=== PATIENT | male | born 1930 | race Caucasian/White ===

== ENCOUNTER 2019-08-21 10:42 | Inpatient (IN) | payer MEDICARE ==
[~2019-08-21] VITALS: Ht 162.6 cm; Wt 79.0 kg
[2019-08-21 11:50] LABS: BASO # 0.1 10^3/uL (0.0-0.2); EOS # 0.2 10^3/uL (0.0-0.5); EOS % 2.6 % (0.0-3.0); HEMATOCRIT 40.9 % (42.0-52.0); HEMOGLOBIN 13.4 g/dl (13.5-17.5); LYMPH # 1.3 10^3/uL (1.5-5.0); LYMPH % 21.7 % (24.0-44.0); MEAN CORPUSCULAR HEMOGLOBIN 30.2 pg (27.0-33.0); MEAN CORPUSCULAR HGB CONC 32.8 g/dl (32.0-36.5); MEAN CORPUSCULAR VOLUME 92.1 fl (80.0-96.0); MONO # 0.8 10^3/uL (0.0-0.8); MONO % 12.9 % (0.0-5.0); NEUTROPHILS # 3.8 10^3/uL (1.5-8.5); PLATELET COUNT, AUTOMATED 166 10^3/uL (150-450); RED BLOOD COUNT 4.44 10^6/uL (4.30-6.10); WHITE BLOOD COUNT 6.1 10^3/uL (4.0-10.0)
[2019-08-21 11:59] LABS: INR 1.16; PARTIAL THROMBOPLASTIN TIME 27.2 SECONDS (25.0-38.4); PROTHROMBIN TIME 14.5 SECONDS (11.8-14.0)
--- NOTE | 2019-08-21 12:11 | REP ---
CHEST, SINGLE VIEW: Single view of the chest is performed. I have no prior study for comparison. I see no evidence of acute infiltrate with mild bibasilar fibroatelectatic change. There is mild cardiomegaly. There is some tortuosity of the thoracic aorta. There appears to be a prominent right pulmonary artery. Multiple sternal wires are present. Electronically Signed by Chandu Chowdary MD 08/22/2019 04:37 P
[2019-08-21 12:22] LABS: BLOOD UREA NITROGEN 18 MG/DL (7-18); CALCIUM LEVEL 9.2 MG/DL (8.8-10.2); CARBON DIOXIDE LEVEL 29 MEQ/L (21-32); CHLORIDE LEVEL 109 MEQ/L (98-107); CK-MB VALUE MASS 1.2 NG/ML (<3.6); CPK CREATINE PHOSPHOKINASE 19 U/L (39-308); CREATININE FOR GFR 1.15 MG/DL (0.70-1.30); GLOMERULAR FILTRATION RATE > 60.0 (>35); GLUCOSE, FASTING 102 MG/DL (70-100); MB/CK RELATIVE INDEX 6.32 (< OR =4); POTASSIUM SERUM 3.8 MEQ/L (3.5-5.1); SODIUM LEVEL 143 MEQ/L (136-145); TROPONIN I 0.09 NG/ML (< 0.10)
--- NOTE | 2019-08-21 12:22 | REP ---
CT study of the cervical spine without contrast: History: Syncope. No comparison study. Technique: Helical scanning is acquired and overlapping 2 mm high resolution axial images were generated and reviewed at bone and soft tissue window settings. Coronal and sagittal multiplanar re-formations images are generated. CT findings: There is straightening of the normal cervical lordosis. Fairly advanced degenerative spondylosis changes are noted. Degenerative disc disease is seen at each cervical level. There is a degenerative C7-T1 weighted 3 mm anterior listhesis of seven with respect T1. There is a 2 mm retrolisthesis at C5-6 with advanced degenerative disc changes here. There is posterior osteophytic ridging producing mild central canal stenosis at C5-6. There is central canal stenosis is C4-5 mild in degree due to disc bulging and facet hypertrophy. There is uncovertebral spurring and neural foraminal narrowing on the right at C4-5 and bilaterally at C5-6. There is developmental fusion of the C3-4 disc. There is diffuse bulging of the C2-3 disc with mild central canal stenosis at C2-3. There is osteoarthritic facet disease bilaterally in the mid cervical spine. There is no evidence of cervical spine element fracture. No skull base fracture is seen. Cervical vertebral body heights are preserved. There is no evidence of intraspinal or paraspinal hematoma. No extra vertebral abnormality is seen. Impression: Advanced degenerative spondylosis changes. Otherwise negative CT study of the cervical spine without contrast. No fracture seen. Electronically Signed by Gideon Ramon MD 08/21/2019 12:12 P
--- NOTE | 2019-08-21 12:41 | REP ---
CT BRAIN WITHOUT CONTRAST: History: Syncope. No comparison study. FINDINGS: Digital preliminary talent scout radiographs are unremarkable. The patient is edentulous. The patient is rotated to the right in the scanner. Vascular calcification is noted. Bone window settings show no bony destructive lesion or fracture. The visualized paranasal sinuses are clear. No intraorbital abnormality is seen. Extensive vascular calcification is noted in the distal internal carotid arteries. On soft tissue window settings, there is moderate generalized volume loss. Periventricular low density pattern consistent with small vessel changes is observed. There is no evidence of acute infarction or intracranial hemorrhage. No extra-axial fluid collection or mass is seen. IMPRESSION: Generalized volume loss, vascular calcification, and small vessel changes. No acute intracranial abnormality. Electronically Signed by Gideon Ramon MD 08/21/2019 12:44 P
[2019-08-21] MEDS ORDERED: ESCI20TA16 PO (14:38)
[2019-08-21] MEDS ORDERED: AMIT10TA PO (14:38)
[2019-08-21] MEDS ORDERED: ZOLP5TAB (14:38)
[2019-08-21] MEDS ORDERED: POTA1TAB14 PO (14:38)
[2019-08-21] MEDS ORDERED: LOSA100T50 PO (14:38)
[2019-08-21] MEDS ORDERED: AMLO1TAB24 PO (14:38)
[2019-08-21] MEDS ORDERED: amLODIPine 5 MG TAB As Ordered ONE (15:35)
[2019-08-21] MEDS ORDERED: LOSARTAN 50MG TABLET PO ONE (15:45)
[2019-08-21] MEDS ORDERED: amLODIPine 5 MG TAB PO ONE (15:45)
[2019-08-21] MEDS ORDERED: LUNE1TAB8 PO (16:25)
[2019-08-21] MEDS ORDERED: AMLO1TAB25 PO (16:25)
[2019-08-21] MEDS ORDERED: PATIENT COMMENT (16:30)
--- NOTE | 2019-08-21 17:25 | HPEPDOC ---
General Date of Admission 08/21/2019 Date of Service: Aug 21, 2019 Chief Complaint The patient is a 89-year-old male admitted with a reason for visit of Weakness. 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 Pt reported he got up from his recliner, and felt dizzy, and he called " the person who brings in meds for me" and was told to come in to the ER. Per ER report EMS was called as friend/caregiver became concerned after speaking with pt. Pt reported that he has been feeling not well for the past week but is unable to report anything other than generalized dizziness and mild decreased appetite. He reported that he is going through alot of family stress at this time. Denies any fever, chills, chest pain, nausea, vomiting, abdominal pain. Denies any sick contact. Pt is unsure if there's any recent medication changes but reported he has been taking amlodipine and losartan for a long time. Pt denies having any heart history or having a cardiology, and does not seem to know that his precordial chest scar was for his aortic valve replacement. Later he reported the aortic valve replacement is a consequence of "flu". Home Medications Scheduled Amlodipine Besylate (Amlodipine Besylate) 10 Mg Tablet, 10 MG PO DAILY, (Reported) Losartan Potassium (Losartan Potassium) 100 Mg Tablet, 100 MG PO DAILY, (Reported) Potassium Chloride (Potassium Chloride) 20 Meq Tablet.er, 10 MEQ PO DAILY, (Reported) Miscellaneous Medications [Patient Comment] , (Reported) UNABLE TO VERIFY MEDICATIONS WITH PATIENT - MED LIST OBTAINED FROM DR. COLLINS OFFICE AND PHARMACY. Allergies Coded Allergies: Unclassified (Unverified Allergy, Unknown, swelling, 08/21/19) Pt has allergy to med but pt is poor historian and can't remember name of medication. 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 Moves from [place] to [place] June 2018. Moved from [place] to [place] June 2019 A-FIB/CHADSVASC A-FIB History Current/History of A-Fib/PAF?: No Review of Systems Constitutional: Denies: Chills, Fever Pulmonary: Denies: Dyspnea Cardiovascular: Denies: Chest Pain, Palpitations Gastrointestinal: Denies: Nausea, Vomiting, Abdominal Pain Neurological: Denies: Weakness, Numbness Psych: Reports: Other Psych (reported stressed from family issues) Physical Examination General Exam: Positive: Alert, Cooperative, No Acute Distress Eye Exam: Positive: Conjunctiva & lids normal; Negative: Sclera icteric ENT Exam: Positive: Atraumatic, Mucous membr. moist/pink Neck Exam: Positive: Supple Chest Exam: Positive: Normal air movement, Diminished; Negative: Rales, Rhonchi, Wheezing Heart Exam: Positive: Bradycardic, Normal S1, Normal S2; Negative: Murmurs Abdomen Exam: Positive: Normal bowel sounds, Soft; Negative: Tenderness Extremity Exam: Negative: Edema, Tenderness, Swelling Skin Exam: Positive: Nl turgor and temperature Neuro Exam: Positive: Strength at 5/5 X4 ext, Normal Tone, Cranial Nerves 3-12 NL, Other (garbled speech); Negative: Normal Speech Psych Exam: Positive: Mental status NL, Anxiety (midly to mod anxious); Negative: Mood NL Vital Signs Vital Signs Date Time Temp Pulse Resp B/P (MAP) Pulse Ox O2 Delivery O2 Flow Rate FiO2 08/21/19 15:37 58 20 181/86 (117) 94 Room Air 08/21/19 11:01 97.8 Laboratory Data Labs 24H Laboratory Tests 2 08/21/19 11:35: Immature Granulocyte % (Auto) 0.8, Neutrophils (%) (Auto) 61.0, Lymphocytes (%) (Auto) 21.7L, Monocytes (%) (Auto) 12.9H, Eosinophils (%) (Auto) 2.6, Basophils (%) (Auto) 1.0, Neutrophils # (Auto) 3.8, Lymphocytes # (Auto) 1.3L, Monocytes # (Auto) 0.8, Eosinophils # (Auto) 0.2, Basophils # (Auto) 0.1, Nucleated Red Blood Cells % (auto) 0.0, Prothrombin Time 14.5H, Prothromb Time International Ratio 1.16, Activated Partial Thromboplast Time 27.2, Anion Gap 5L, Glomerular Filtration Rate > 60.0, Lactic Acid Level 0.8, Calcium Level 9.2, Magnesium Level 2.0, Total Creatine Kinase 19L, Creatine Kinase MB 1.2, Creatine Kinase MB Relative Index 6.32H, Troponin I 0.09, Thyroid Stimulating Hormone (TSH) 1.560, Free Thyroxine 1.10 08/21/19 11:58: Bedside Glucose (Misc Panel) 104 08/21/19 13:08: Urine Color YELLOW, Urine Appearance CLEAR, Urine pH 6.0, Urine Specific [place] 1.017, Urine Protein NEGATIVE, Urine Glucose (UA) NEGATIVE, Urine Ketones NEGATIVE, Urine Blood NEGATIVE, Urine Nitrite NEGATIVE, Urine Bilirubin NEGATIVE, Urine Urobilinogen 0.2, Urine Leukocyte Esterase NEGATIVE, Urine WBC (Auto) 0, Urine RBC (Auto) 2, Urine Hyaline Casts (Auto) 1, Urine Bacteria (Auto) NEGATIVE, Urine Squamous Epithelial Cells 0, Urine Mucus (Auto) SMALL, Urine Sperm (Auto) CBC/BMP Laboratory Tests 08/21/19 11:35 Assessment/Plan 1. Bradycardia, questionable symptomatic, reported chronic duration Pt reported that he felt dizziness last night but otherwise is asymptomatic besides generalized weakness. Poor historian thus is unable to obtain too much info. Pt reported the bradycardia is chronic. Buddy consult called to Dr. Walsh around 1700PM regarding this patient's HR 48 and presyncope event last night and recommended tele monitor with outpatient follow up. Will obtain echo, 48 hr tele, orthostatic hypotension. PT/OT. Fall precaution 2. History of aortic valve procedure. Reported done Jan 2019 in [place]. Pt is unable to report the etiology of his aortic valve replacement, said it's a con sequence of flu. Pt's PCP is Elliot Collins and aortic valve procedure was done in [employer] in [place], obtain outpatient and inpatient records. No records on file. Echo ordered 3. HTN. Cont home med amlodipine and losartan. Vital signs as scheduled. 4. Depression. Hold home med Amitriptyline and Escitalopram as both may cause bradycardia for now. 5. Insomnia. Hold home med Lunesta for now as it may cause dizziness and interferes with bradycardia symptom/presentation. DVT prophylaxis: Lovenox, SCD, TEDS GI prophylaxis: not indicated Patient's 2 sons Noah [phone] and Kaiser [phone] Plan / VTE VTE Prophylaxis Ordered?: Yes Plan Diet: Continue Current Activity: Bedrest Therapy: PT, OT GME ATTESTATION I have personally evaluated and examined the patient. Discussed with resident/student regarding plan of care and agree with the above assessment and plan. OCTAVIO URIOSTEGUI DO Aug 21, 2019 17:25 GISELLE LOPEZ MD Aug 22, 2019 18:22
[2019-08-21 19:42] VITALS: BP 170/90
[2019-08-21 19:54] LABS: CK-MB VALUE MASS < 1.0 NG/ML (<3.6); CPK CREATINE PHOSPHOKINASE 25 U/L (39-308); TROPONIN I 0.09 NG/ML (< 0.10)
[2019-08-21] MEDS ORDERED: DOCUSATE SODIUM 100MG CAPSULE PO SCH (21:00)
[2019-08-21] MEDS ORDERED: RAMELTEON 8 MG TAB (ROZEREM) PO SCH (21:00)
[2019-08-22] VITALS (7 sets, daily range): BP systolic 122–183; BP diastolic 60–83
[2019-08-22] MEDS ORDERED: ACETAMINOPHEN TAB 650MG DOSE (2X325MG) PO PRN (00:15)
[2019-08-22 05:34] LABS: HEMATOCRIT 41.6 % (42.0-52.0); HEMOGLOBIN 13.7 g/dl (13.5-17.5); MEAN CORPUSCULAR HEMOGLOBIN 30.3 pg (27.0-33.0); MEAN CORPUSCULAR HGB CONC 32.9 g/dl (32.0-36.5); PLATELET COUNT, AUTOMATED 186 10^3/uL (150-450); RED BLOOD COUNT 4.52 10^6/uL (4.30-6.10); WHITE BLOOD COUNT 7.6 10^3/uL (4.0-10.0)
[2019-08-22 05:49] LABS: CALCIUM LEVEL 9.4 MG/DL (8.8-10.2); CREATININE FOR GFR 1.22 MG/DL (0.70-1.30); GLOMERULAR FILTRATION RATE 59.7 (>35); POTASSIUM SERUM 3.8 MEQ/L (3.5-5.1)
[2019-08-22 07:55] LABS: TROPONIN I 0.09 NG/ML (< 0.10)
[2019-08-22] MEDS ORDERED: DOCUSATE SODIUM 100MG CAPSULE PO PRN (08:30)
[2019-08-22] MEDS ORDERED: ENOXAPARIN 40MG/0.4ML SYRINGE (J1650 PER 10MG) SC SCH (09:00)
[2019-08-22] MEDS ORDERED: LOSARTAN 50MG TABLET PO SCH (09:00)
--- NOTE | 2019-08-22 09:33 | ECGEPIP ---
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
--- NOTE | 2019-08-22 11:06 | IPNPDOC ---
Subjective Date Seen The patient was seen on 08/22/19. Objective Physical Examination General Exam: Positive: Alert, Cooperative, No Acute Distress Eye Exam: Positive: Conjunctiva & lids normal; Negative: Sclera icteric ENT Exam: Positive: Atraumatic, Mucous membr. moist/pink Neck Exam: Positive: Supple Chest Exam: Positive: Normal air movement, Diminished; Negative: Rales, Rhonchi, Wheezing Heart Exam: Positive: Bradycardic, Normal S1, Normal S2; Negative: Murmurs Abdomen Exam: Positive: Normal bowel sounds, Soft; Negative: Tenderness Extremity Exam: Negative: Edema, Tenderness, Swelling Skin Exam: Positive: Nl turgor and temperature Neuro Exam: Positive: Strength at 5/5 X4 ext, Normal Tone, Cranial Nerves 3-12 NL, Other (garbled speech); Negative: Normal Speech Psych Exam: Positive: Mental status NL, Anxiety (midly to mod anxious); Negative: Mood NL Assessment /Plan Assessment Spoke with Dr. Walsh at 1055 regarding patient's condition including 3 asystole episodes lasting 2 seconds all while asleep with [place] interval 0.24 sec with echo and repeat EKG pending. Dr. Walsh recommended no further intervention inpatient and outpatient follow up with Dr. Walsh. Patient's name was given to Dr. Walsh, and we discussed that the strips with EKG will be faxed to Dr. Walsh's office. The 3 asystole strips 0936 on 08/22/2019, and 0436 on 08/22/2019, and 1952 on 08/21/2019 with EKG from 1215 on 08/21/[address] Walsh's office at 1055 today. VS, I&O, 24H, Fishbone Vital Signs/I&O Vital Signs Date Time Temp Pulse Resp B/P (MAP) Pulse Ox O2 Delivery O2 Flow Rate FiO2 08/22/19 09:16 54 183/79 (113) 56 171/72 (105) 160/75 (103) 08/22/19 08:00 98.0 18 99 Room Air I&O- Last 24 Hours up to 6 AM 08/22/19 06:00 Output Total 225 ml Balance -225 ml Laboratory Data 24H LABS Laboratory Tests 2 08/21/19 11:35: Immature Granulocyte % (Auto) 0.8, Neutrophils (%) (Auto) 61.0, Lymphocytes (%) (Auto) 21.7L, Monocytes (%) (Auto) 12.9H, Eosinophils (%) (Auto) 2.6, Basophils (%) (Auto) 1.0, Neutrophils # (Auto) 3.8, Lymphocytes # (Auto) 1.3L, Monocytes # (Auto) 0.8, Eosinophils # (Auto) 0.2, Basophils # (Auto) 0.1, Nucleated Red Blood Cells % (auto) 0.0, Prothrombin Time 14.5H, Prothromb Time International Ratio 1.16, Activated Partial Thromboplast Time 27.2, Anion Gap 5L, Glomerular Filtration Rate > 60.0, Lactic Acid Level 0.8, Calcium Level 9.2, Magnesium Level 2.0, Total Creatine Kinase 19L, Creatine Kinase MB 1.2, Creatine Kinase MB Relative Index 6.32H, Troponin I 0.09, Thyroid Stimulating Hormone (TSH) 1.560, Free Thyroxine 1.10 08/21/19 11:58: Bedside Glucose (Misc Panel) 104 08/21/19 13:08: Urine Color YELLOW, Urine Appearance CLEAR, Urine pH 6.0, Urine Specific [place] 1.017, Urine Protein NEGATIVE, Urine Glucose (UA) NEGATIVE, Urine Ketones NEGATIVE, Urine Blood NEGATIVE, Urine Nitrite NEGATIVE, Urine Bilirubin NEGATIVE, Urine Urobilinogen 0.2, Urine Leukocyte Esterase NEGATIVE, Urine WBC (Auto) 0, Urine RBC (Auto) 2, Urine Hyaline Casts (Auto) 1, Urine Bacteria (Auto) NEGATIVE, Urine Squamous Epithelial Cells 0, Urine Mucus (Auto) SMALL, Urine Sperm (Auto) 08/21/19 19:01: Total Creatine Kinase 25L, Creatine Kinase MB < 1.0, Creatine Kinase MB Relative Index 4.00, Troponin I 0.09 08/22/19 04:47: Nucleated Red Blood Cells % (auto) 0.0, Anion Gap 8, Glomerular Filtration Rate 59.7, Calcium Level 9.4, Troponin I 0.09 CBC/BMP Laboratory Tests 08/21/19 11:35 08/22/19 04:47 OCTAVIO URIOSTEGUI DO Aug 22, 2019 11:06
--- NOTE | 2019-08-22 14:33 | DS.PDOC ---
Discharge Summary General Date of Admission Aug 21, 2019 at 18:21 Date of Discharge 08/22/19 Discharge Summary PROCEDURES PERFORMED DURING STAY: [None]. ADMITTING DIAGNOSES: 1. Dizziness 2. Bradycardia 3. Recent history of AVR 4. Insomnia 5. HTN 6. Depression DISCHARGE DIAGNOSES: 1. Dizziness 2. Bradycardia 3. Recent history of AVR 4. Insomnia 5. HTN 6. Depression COMPLICATIONS/CHIEF COMPLAINT: Bradycardia. HISTORY OF PRESENT ILLNESS:- Dr. 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 Pt reported he got up from his recliner, and felt dizzy, and he called " the person who brings in meds for me" and was told to come in to the ER. Per ER report EMS was called as friend/caregiver became concerned after speaking with pt. Pt reported that he has been feeling not well for the past week but is unable to report anything other than generalized dizziness and mild decreased appetite. He reported that he is going through alot of family stress at this time. Denies any fever, chills, chest pain, nausea, vomiting, abdominal pain. Denies any s ick contact. Pt is unsure if there's any recent medication changes but reported he has been taking amlodipine and losartan for a long time. Pt denies having any heart history or having a cardiology, and does not seem to know that his precordial chest scar was for his aortic valve replacement. Later he reported the aortic valve replacement is a consequence of "flu"." HOSPITAL COURSE: Patient was admitted for monitoring and evaluation. Bloodwork does not show any significant electrolyte abnormalities and patient denies any symptoms since he first presented. He stated that he had mentioned to a nurse on the phone that he was dizzy and was instructed to go into the ER. When he was found to be bradycardic, he states that his heart rate always run low and it is not abnormal for him. Patient is a very poor historian and not much history can be obtained. He states that he was recently started on ambien and SSRI. Unsure if the episode of dizziness prior to this admission was related to medications but he has been asymptomatic since admission while SSRI and ambien was held. No clear indication that he has symptomatic bradycardia during this visit. Discussed with cardiology and will have patient follow up as outpatient after getting an ECHO. BP noted to be elevated on arrival but had since improved. Will discharge patient to f/u PCP as well as cardiology outpatient. PT had done an eval and patient was cleared for discharge to home. DISCHARGE MEDICATIONS: Please see below. ALLERGIES: Please see below. PHYSICAL EXAMINATION ON DISCHARGE: VITAL SIGNS: Please see below. General: No acute distress, Alert Eyes: Normal sclera, EOMI, HARJEET HENT: Atraumatic Cardiovascular: bradycardia Pulmonary: Clear to auscultation b/l, no wheezing GI: Soft, nontender, nondistended Skin: Warm and dry Neuro: CN grossly intact. No focal deficits. Strengths equal b/l. Psych: oriented x 3 LABORATORY DATA: Please see below. IMAGING: CT head- Generalized volume loss, vascular calcification, and small vessel changes. No acute intracranial abnormality. CT cervical spine- Advanced degenerative spondylosis changes. Otherwise negative CT study of the cervical spine without contrast. No fracture seen. ACTIVITY: [As tolerated]. DIET: 2G sodium DISCHARGE PLAN: Discontinued ambien and SSRI at this time due to dizziness f/u PCP and cardiology outpatient DISPOSITION: Home. DISCHARGE INSTRUCTIONS: Discontinued ambien and SSRI at this time due to dizziness f/u PCP and cardiology outpatient ITEMS TO FOLLOWUP ON ON OUTPATIENT: 1. ECHO DISCHARGE CONDITION: [Stable]. TIME SPENT ON DISCHARGE: 35 minutes. Vital Signs/I&Os Vital Signs Date Time Temp Pulse Resp B/P (MAP) Pulse Ox O2 Delivery O2 Flow Rate FiO2 08/22/19 12:00 96.1 46 18 150/78 (102) 96 Room Air I&O- Last 24 Hours up to 6 AM 08/22/19 06:00 Output Total 225 ml Balance -225 ml Laboratory Data Labs 24H Laboratory Tests 2 08/21/19 19:01: Total Creatine Kinase 25L, Creatine Kinase MB < 1.0, Creatine Kinase MB Relative Index 4.00, Troponin I 0.09 08/22/19 04:47: Troponin I 0.09, Nucleated Red Blood Cells % (auto) 0.0, Anion Gap 8, Glomerular Filtration Rate 59.7, Calcium Level 9.4 CBC/BMP Laboratory Tests 08/22/19 04:47 Discharge Medications Scheduled Amlodipine Besylate (Amlodipine Besylate) 10 Mg Tablet, 10 MG PO DAILY, (Reported) Losartan Potassium (Losartan Potassium) 100 Mg Tablet, 100 MG PO DAILY, (Reported) Potassium Chloride (Potassium Chloride) 20 Meq Tablet.er, 10 MEQ PO DAILY, (Reported) Miscellaneous Medications [Patient Comment] , (Reported) UNABLE TO VERIFY MEDICATIONS WITH PATIENT - MED LIST OBTAINED FROM DR. BREWER OFFICE AND PHARMACY. Allergies Coded Allergies: Unclassified (Unverified Allergy, Unknown, swelling, 08/21/19) Pt has allergy to med but pt is poor historian and can't remember name of medication. GISELLE LOPEZ MD Aug 22, 2019 14:33
--- NOTE | 2019-08-22 16:39 | TRANSCARE ---
Transition of Care: Transition of Care Spoke with Dr. Walsh at 1055 regarding patient's condition including 3 skipped heartbeat episodes lasting 2 seconds all while asleep with [place] interval 0.24 sec with echo and repeat EKG pending. Dr. Walsh recommended no further intervention inpatient and outpatient follow up with Dr. Walsh. Patient's name was given to Dr. Walsh, and we discussed that the strips with EKG will be faxed to Dr. Walsh's office. The 3 asystole strips 0936 on 08/22/2019, and 0436 on 08/22/2019, and 1952 on 08/21/2019 with EKG from 1215 on 08/21/[address] Walsh's office at 105 today. OCTAVIO URIOSTEGUI DO Aug 22, 2019 16:38
--- NOTE | 2019-08-22 17:03 | ECHO ---
DATE OF STUDY: 08/22/2019 REFERRING PHYSICIAN: Dr. Neha Bettencourt INDICATION: Abnormal ECG. HEIGHT: 163 cm WEIGHT: 73 kg 2-D MEASUREMENTS: Ventricular septum: 1.43 cm Posterior wall: 1.30 cm Left ventricle diastole: 4.3 cm Left atrium: 4.7 cm Aortic root: 3.7 cm LVOT: 2.0 cm Inferior vena cava: 1.8 cm DOPPLER MEASUREMENTS: No aortic stenosis. Mild aortic regurgitation. Aortic valve velocity: 237 cm/sec LVOT velocity: 86.5 cm/sec Very mild mitral regurgitation. Mitral E velocity: 58.7 cm/sec Mitral A velocity: 78.5 cm/sec Mitral deceleration time: 239 ms Very mild tricuspid regurgitation. Estimated right ventricular systolic pressure 34-39 mmHg assuming a right atrial pressure of 5-10 mmHg. Very mild pulmonic regurgitation. MITRAL ANNULAR TISSUE DOPPLER E prime septal: 3.9 cm/sec E prime lateral: 6.2 cm/sec DESCRIPTION: The rhythm was sinus bradycardia and appearance of first degree atrioventricular (AV) block. Image quality was fair. No pericardial effusion. This was a 2-D, M-mode, color flow Doppler and pulsed wave Doppler examination and included mitral annular tissue Doppler. A saline bubble study was performed. CONCLUSIONS: 1. Mild concentric left ventricular hypertrophy. Normal regional LV wall motion and wall thickening. Normal LV systolic function. Left ventricular ejection fraction (LVEF) 60% by visual estimate. Grade 1 LV diastolic dysfunction (impaired relaxation filling pattern). 2. 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 Mild aortic regurgitation. No aortic stenosis. 3. Mild mitral annular calcification. 4. Very mild mitral regurgitation. 5. Moderate left atrial dilatation. 6. Suggestive of mild elevation of estimated right ventricular systolic pressure. 7. Bubble study negative for detection of right heart to left heart intracardiac shunting.
--- NOTE | 2019-08-23 18:44 | ECGEPIP ---
[facility] Test Date: 2019-08-22 Pat Name: EM DUNCAN Department: Room: [place] [address] Gender: Male Hoister: : 1930 Requested By: OCTAVIO URIOSTEGUI Order Number: [id number] Reading MD: Ok Bunch Measurements Intervals [place] Rate: 44 P: 35 MN: 255 QRS: 11 QRSD: 100 T: 40 QT: 476 QTc: 410 Interpretive Statements SINUS BRADYCARDIA WITH FIRST DEGREE AV BLOCK NONSPECIFIC ST & T-WAVE ABNORMALITY POSSIBLE PRIOR INFERIOR WALL INFARCT Last tracing on 08/21/19 AT 12:15. nO SIGNIFICANT CHANGES Electronically Signed on 08-23-2019 18:44:07 EDT by Ok Bunch
== END 2019-08-22 17:15 | disposition home or self-care (01) | DRG 149 ==
LOC: EDSEX 10:42 → M ED 10:42 → EDBD 10:42 → M ED INP 18:21 → ENRESERV 18:38 → M PCU 19:43
PROVIDERS: ADMIT Student in an Organized Health Care Education/Training Program; ATTEND Student in an Organized Health Care Education/Training Program
DX: R42 Dizziness and giddiness (principal); F32.9 Major depressive disorder, single episode, unspecified; G47.00 Insomnia, unspecified; I10 Essential (primary) hypertension; R55 Syncope and collapse; R00.1 Bradycardia, unspecified; Z95.2 Presence of prosthetic heart valve; Z79.899 Other long term (current) drug therapy

== ENCOUNTER → 2020-02-08 | Outpatient (REF) | payer MEDICARE, MEDICAID ==
[~2020-02-08] MED LIST: AMIT10TA PO; AMLO1TAB24 PO; AMLO1TAB25 PO; ESCI20TA PO; LOSA100T50 PO; LUNE1TAB8 PO; PATIENT COMMENT; POTA1TAB14 PO; ZOLP5TAB
== END ==
PROVIDERS: ATTEND Internal Medicine
DX: Z20.828 Contact with and (suspected) exposure to other viral communicable diseases (principal)

== ENCOUNTER → 2020-02-13 | Outpatient (REF) | payer MEDICARE, MEDICAID | PROVIDERS: ATTEND Internal Medicine | DX: Z20.828 Contact with and (suspected) exposure to other viral communicable diseases (principal) ==

== ENCOUNTER → 2020-02-18 | Outpatient (REF) | payer MEDICARE, MEDICAID | PROVIDERS: ATTEND Internal Medicine | DX: Z53.9 Procedure and treatment not carried out, unspecified reason (principal) ==

== ENCOUNTER → 2020-02-19 | Outpatient (REF) | payer MEDICARE, MEDICAID | PROVIDERS: ATTEND Internal Medicine | DX: Z20.828 Contact with and (suspected) exposure to other viral communicable diseases (principal) ==

== ENCOUNTER → 2020-02-25 | Outpatient (REF) | payer MEDICARE, MEDICAID | PROVIDERS: ATTEND Internal Medicine | DX: Z20.828 Contact with and (suspected) exposure to other viral communicable diseases (principal) ==

== ENCOUNTER → 2020-03-03 | Outpatient (REF) | payer MEDICARE, MEDICAID | PROVIDERS: ATTEND Internal Medicine | DX: Z11.52 Encounter for screening for COVID-19 (principal) ==

== ENCOUNTER → 2020-03-10 | Outpatient (REF) | payer MEDICARE, MEDICAID ==
[~2020-03-10] MED LIST changes: -ESCI20TA PO; +ESCI20TA16 PO
== END ==
PROVIDERS: ATTEND Internal Medicine
DX: Z20.822 Contact with and (suspected) exposure to COVID-19 (principal)

== ENCOUNTER → 2020-03-17 | Outpatient (REF) | payer MEDICARE, MEDICAID | PROVIDERS: ATTEND Internal Medicine | DX: Z20.822 Contact with and (suspected) exposure to COVID-19 (principal) ==

== ENCOUNTER → 2020-03-24 | Outpatient (REF) | payer MEDICARE, MEDICAID | PROVIDERS: ATTEND Internal Medicine | DX: Z20.822 Contact with and (suspected) exposure to COVID-19 (principal) ==

== ENCOUNTER → 2020-03-31 | Outpatient (REF) | payer MEDICARE, MEDICAID | PROVIDERS: ATTEND Internal Medicine | DX: Z20.822 Contact with and (suspected) exposure to COVID-19 (principal) ==

== ENCOUNTER → 2020-04-07 | Outpatient (REF) | payer MEDICARE, MEDICAID | PROVIDERS: ATTEND Internal Medicine | DX: Z20.822 Contact with and (suspected) exposure to COVID-19 (principal) ==

== ENCOUNTER → 2020-04-14 | Outpatient (REF) | payer MEDICARE, MEDICAID | PROVIDERS: ATTEND Internal Medicine | DX: Z20.822 Contact with and (suspected) exposure to COVID-19 (principal) ==

== ENCOUNTER → 2020-12-15 | Outpatient (CLI) | payer MEDICARE, MEDICAID ==
[~2020-12-15] MED LIST changes: +ACET650T15 PO; -AMIT10TA PO; +AMIT10TA7 PO; +CETI10CH PO; +DORZ2SOL5 OS; +ESOM20CA25 PO; +INDA125TA PO; +ISOS1TAB35 PO; +LEXA1TAB PO; +MELO7.5T35 PO; +MEMA1TAB3 PO; +POLY2.5S OS; +PREDOPD OS; +QC A650T3 PO; +TRAZ-252 PO
== END ==
LOC: M LABSMTC 11:01
PROVIDERS: ATTEND Anesthesiology
DX: Z01.812 Encounter for preprocedural laboratory examination (principal); Z20.822 Contact with and (suspected) exposure to COVID-19

== ENCOUNTER 2020-12-19 08:28 | Emergency (ER) | payer MEDICARE, MEDICAID ==
[~2020-12-19] VITALS: Ht 162.6 cm; Wt 80.0 kg
[~2020-12-19 08:28] MED LIST changes: -BSS IRR 500ML/OMIDRIA 4ML IRR BAG (OR ONLY) As Ordered ONE; -CEFUROXIME 1MG/0.1ML INTRACAMERAL INJ As Ordered ONE; -DUOVISC (0.50ML VISCOAT/0.85ML PROVISC) OPHTH KIT As Ordered ONE; -MIDAZOLAM INJ 2MG/2ML VIAL (J2250 PER 1MG) As Ordered ONE; -OFLOXACIN 0.3 % (OCUFLOX) OPTH SOL 5ML OS SCH; -PHENYLEPHRINE 1.5%/LIDOCAINE 1% INTRAOCULAR 0.8ML SYRINGE As Ordered ONE; -PHENYLEPHRINE 2.5% OPHTH SOL 2ML OS SCH; -PROPARACAINE 0.5% OPHTH SOL 15ML OS ONE; -TORS10TA3 PO; -TROPICAMIDE 1% OPHTH SOLN 2ML OS SCH; -fentaNYL 100 MCG/2 ML INJECTION (J3010) As Ordered ONE
--- OUTSIDE RECORDS SUMMARY | 2020-12-19 08:40 | CCD ---
Author Author [facility] Organization [facility] Address Unknown Phone Unavailable Care Team Providers Care Market Director Name Role Phone Amador Hernadez MD Unavailable [...] Unavailable Unavailable Amador Hernadez MD Unavailable Unavailable Aamdor Hernadez MD Unavailable Unavailable Amador Hernadez MD Unavailable Unavailable Amador Hernadez MD Unavailable Unavailable Amaodr Hernadez MD Unavailable Unavailable Amador Hernadez MD Unavailable Unavailable Amador Hernadez MD Unavailable Unavailable mAador Hernadez MD Unavailable Unavailable Amador Hernadez MD [...] Hernadez, Amador Zarate MD Unavailable Unavailable Hernadez, Amdaor Zarate MD Unavailable Unavailable Hernadez, Amador Zarate [...] HARDIK RPA-C Unavailable Unavailable SERRA, CARLOS ENRIQUE HADRIK RPA-C Unavailable Unavailable SERRA, CARLOS ENRIQUE HARDIK [...] Tatyana Cavazos PA Unavailable Unavailable Symenow, Tatyana Cavzaos PA Unavailable Unavailable Symenow, Tatyana Cavazos PA [...] is protected by Article 27-F of the [facility] Public Health law. If you continue you may have access to information: Regarding HIV / AIDS; Provided by facilities licensed or operated by the [facility] Office of Mental Health; or Provided by the [facility] Office for People With Developmental Disabilities. If such information is present, then the following [facility] mandated warning applies: This information [...] law may result in a fine or senior living sentence or both. A general authorization for the release of medical or other information is NOT sufficient authorization for further disc losure. Allergies and Adverse Reactions Type Description Substance Reaction Status Data Source(s ) Allergy to substance Allergy to substance Allergy to substance [facility]) Encounters Encounter Providers Location Date Indications Data Source(s ) Leta Fernando LCSW-R: [address], [place] [address], Ph. Attender: Leta Forrest [facility] Medical 12/11/2020 12:00:00 AM EDT [place] ([facility]) Outpatient Attender: Macy GIVENS Main Office 12/05/2020 08:45:00 AM EDT [place] ([facility]) JESIKA MorelC: [address], [place] [address], Ph. Attender: HARDIK POWERS [facility] Medical 12/03/2020 12:00:00 AM EDT [place] ([facility]) JESIKA MorelC: [address], [place] [address], Ph. Attender: HARDIK CANCHOLAC [facility] Medical 12/03/2020 12:00:00 AM EDT [place] ([facility]) LetaJOHN BrownW-R: [address], [place] [address], Ph. Attender: Leta Forrest [facility] Medical 11/20/2020 12:00:00 AM EDT [place] ([facility]) LetaJOHN BrownW-R: [address], [place] [address], Ph. Attender: Leta Forrest [facility] Medical 11/20/2020 12:00:00 AM EDT [place] ([facility]) JOHN ChristopherW-R: [address], [place] [address], Ph. Attender: Leta Forrest [facility] Medical 11/20/2020 12:00:00 AM EDT [place] ([facility]) Hardik Serra RPA-C: [address], [place] [address], Ph. Attender: HARDIK SERRA RPA-C [facility] Medical 10/23/2020 12:00:00 AM EDT [place] ([facility]) Hardik Serra RPA-C: [address], [place] [address], Ph. Attender: HARDIK SERRA RPA-C [facility] Medical 10/23/2020 12:00:00 AM EDT [place] ([facility]) Hardik Serra RPA-C: [address], [place] [address], Ph. Attender: HARDIK SERRA RPA-C [facility] Medical 10/23/2020 12:00:00 AM EDT [place] ([facility]) Hardik Serra RPA-C: [address], [place] [address], Ph. Attender: HARDIK SERRA RPA-C [facility] Medical 10/23/2020 12:00:00 AM EDT [place] ([facility]) JOHN ChristopherW-R: [address], [place] [address], Ph. Attender: Leta Forrest [facility] Medical 10/08/2020 12:00:00 AM EDT [place] ([facility]) JOHN ChristopherW-R: [address], [place] [address], Ph. Attender: Leta Forrest [facility] Medical 10/08/2020 12:00:00 AM EDT [place] ([facility]) JOHN ChristopherW-R: [address], [place] [address], Ph. Attender: Leta Forrest [facility] Medical 10/08/2020 12:00:00 AM EDT [place] ([facility]) JOHN ChristopherW-R: [address], [place] [address], Ph. Attender: Leta Forrest [facility] Medical 10/08/2020 12:00:00 AM EDT [place] ([facility]) Hardki Serra RPA-C: [address], [place] [address], Ph. Attender: HARDIK SERRA RPA-C [facility] Medical 09/30/2020 12:00:00 AM EDT [place] ([facility]) Hardik Serra RPA-C: [address], [place] [address], Ph. Attender: HARDIK SERRA RPA-C [facility] Medical 09/30/2020 12:00:00 AM EDT [place] ([facility]) Hardik Serra RPA-C: [address], [place] [address], Ph. Attender: HARDIK SERRA RPA-C [facility] Medical 09/30/2020 12:00:00 AM EDT [place] ([facility]) Hardik Serra RPA-C: [address], [place] [address], Ph. Attender: HARDIK SERRA RPA-C [facility] Medical 09/30/2020 12:00:00 AM EDT [place] ([facility]) Hardik Serra RPA-C: [address], [place] [address], Ph. Attender: HARDIK SERRA RPA-C [facility] Medical 09/30/2020 12:00:00 AM EDT [place] ([facility]) Leta Fernando LCSW-R: [address], [place] [address], Ph. Attender: Leta Forrest [facility] Medical 09/10/2020 12:00:00 AM EDT [place] ([facility]) Leta Fernando, INDUSTRIAL CLEANER-R: [address], [place] [address], Ph. Attender: Leta Forrest [facility] Medical 09/10/2020 12:00:00 AM EDT [place] ([facility]) Leta PalJOHN goodmanW-R: [address], [place] [address], Ph. Attender: Leta Forrest [facility] Medical 09/10/2020 12:00:00 AM EDT [place] ([facility]) Leta PalJOHN goodmanW-R: [address], [place] [address], Ph. Attender: Leta Forrest [facility] Medical 09/10/2020 12:00:00 AM EDT [place] ([facility]) Leta PalJOHN goodmanW-R: [address], [place] [address], Ph. Attender: Leta Forrest [facility] Medical 09/10/2020 12:00:00 AM EDT [place] ([facility]) Hardik Serra RPA-C: [address], [place] [address], Ph. Attender: HARDIK SERRA RPA-C [facility] Medical 09/02/2020 12:00:00 AM EDT [place] ([facility]) Hardik Serra RPA-C: [address], [place] [address], Ph. Attender: HARDIK SERRA RPA-C [facility] Medical 09/02/2020 12:00:00 AM EDT [place] ([facility]) Hardik Serra RPA-C: [address], [place] [address], Ph. Attender: HARDIK SERRA RPA-C [facility] Medical 09/02/2020 12:00:00 AM EDT [place] ([facility]) Hardik Serra, RPA-C: [address], [place] [address], Ph. Attender: HARDIK SERRA RPA-C [facility] Medical 09/02/2020 12:00:00 AM EDT [place] ([facility]) Hardik Serra RPA-C: [address], [place] [address], Ph. Attender: HARDIK SERRA RPA-C [facility] Medical 09/02/2020 12:00:00 AM EDT [place] ([facility]) Hardik Serra RPA-C: [address], [place] [address], Ph. Attender: HARDIK SERRA RPA-C [facility] Medical 09/02/2020 12:00:00 AM EDT [place] ([facility]) Hardik Serra, RPA-C: [address], [place] [address], Ph. Attender: HARDIK SERRA RPA-C [facility] Medical 08/19/2020 12:00:00 AM EDT [place] ([facility]) Hardik Serra RPA-C: [address], [place] [address], Ph. Attender: HARDIK SERRA RPA-C [facility] Medical 08/19/2020 12:00:00 AM EDT [place] ([facility]) Hardik Serra, RPA-C: [address], [place] [address], Ph. Attender: HARDIK SERRA RPA-C [facility] Medical 08/19/2020 12:00:00 AM EDT [place] ([facility]) Hardik Serra, RPA-C: [address], [place] [address], Ph. Attender: HARDIK SERRA RPA-C [facility] Medical 08/19/2020 12:00:00 AM EDT [place] ([facility]) Hardik Serra, RPA-C: [address], [place] [address], Ph. Attender: HARDIK SERRA RPA-C [facility] Medical 08/19/2020 12:00:00 AM EDT [place] ([facility]) Hardik Serra RPA-C: [address], [place] [address], Ph. Attender: HARDIK SERRA RPA-C [facility] Medical 08/19/2020 12:00:00 AM EDT [place] ([facility]) Hardik Serra, RPA-C: [address], [place] [address], Ph. Attender: HARDIK SERRA RPA-C [facility] Medical 08/19/2020 12:00:00 AM EDT [place] ([facility]) Hardik Serra, RPA-C: [address], [place] [address], Ph. Attender: HARDIK SERRA RPA-C [facility] Medical 07/23/2020 12:00:00 AM EDT [place] ([facility]) Hardik Serra, RPA-C: [address], [place] [address], Ph. Attender: HARDIK SERRA RPA-C [facility] Medical 07/23/2020 12:00:00 AM EDT [place] ([facility]) Hardik Serra, RPA-C: [address], [place] [address], Ph. Attender: HARDIK SERRA RPA-C [facility] Medical 07/23/2020 12:00:00 AM EDT [place] ([facility]) Hardik Serra, RPA-C: [address], [place] [address], Ph. Attender: HARDIK SERRA RPA-C [facility] Medical 07/23/2020 12:00:00 AM EDT [place] ([facility]) Hardik Serra, RPA-C: [address], [place] [address], Ph. Attender: HARDIK SERRA RPA-C [facility] Medical 07/23/2020 12:00:00 AM EDT [place] ([facility]) Hardik Serra, RPA-C: [address], [place] [address], Ph. Attender: HARDIK SERRA RPA-C [facility] Medical 07/23/2020 12:00:00 AM EDT [place] ([facility]) Hardik Serra RPA-C: [address], [place] [address], Ph. Attender: HARDIK SERRA RPA-C [facility] Medical 07/23/2020 12:00:00 AM EDT [place] ([facility]) Hardik Serra RPA-C: [address], [place] [address], Ph. Attender: HARDIK SERRA RPA-C [facility] Medical 07/23/2020 12:00:00 AM EDT [place] ([facility]) JOHN ChristopherW-R: [address], [place] [address], Ph. Attender: Leta Forrest [facility] Medical 07/17/2020 12:00:00 AM EDT [place] ([facility]) JOHN ChristopherW-R: [address], [place] [address], Ph. Attender: Leta Forrest [facility] Medical 07/17/2020 12:00:00 AM EDT [place] ([facility]) JOHN ChristopherW-R: [address], [place] [address], Ph. Attender: Leta Forrest [facility] Medical 07/17/2020 12:00:00 AM EDT [place] ([facility]) JOHN ChristopherW-R: [address], [place] [address], Ph. Attender: Leta Forrest [facility] Medical 07/17/2020 12:00:00 AM EDT [place] ([facility]) LetaJOHN BrownW-R: [address], [place] [address], Ph. Attender: Leta Forrest [facility] Medical 07/17/2020 12:00:00 AM EDT [place] ([facility]) JOHN ChristopherW-R: [address], [place] [address], Ph. Attender: Leta Forrest [facility] Medical 07/17/2020 12:00:00 AM EDT [place] ([facility]) JOHN ChristopherW-R: [address], [place] [address], Ph. Attender: Leta Forrest [facility] Medical 07/17/2020 12:00:00 AM EDT [place] ([facility]) JOHN ChristopherW-R: [address], [place] [address], Ph. Attender: Leta Forrest [facility] Medical 07/17/2020 12:00:00 AM EDT [place] ([facility]) JOHN ChristopherW-R: [address], [place] [address], Ph. Attender: Leta Forrest [facility] Medical 07/17/2020 12:00[facility]00 [facility] Leta[facility]OHN BrownW-R: [address], [place] [address], Ph. Attender: Leta Forrest [facility] Medical 05/21/2020 12:00:00 AM EDT [place] ([facility]) JOHN ChristopherW-R: [address], [place] [address], Ph. Attender: Leta Forrest [facility] Medical 05/21/2020 12:00:00 AM EDT [place] ([facility]) JOHN ChristopherW-R: [address], [place] [address], Ph. Attender: Leta Jessicajaycemercedesagustin [facility] Medical 05/21/2020 12:00:00 AM EDT [place] ([facility]) JOHN ChristopherW-R: [address], [place] [address], Ph. Attender: Leta Forrest [facility] Medical 05/21/2020 12:00:00 AM EDT [place] ([facility]) JOHN ChristopherW-R: [address], [place] [address], Ph. Attender: Leta Jessicajaycemercedesagustin [facility] Medical 05/21/2020 12:00:00 AM EDT [place] ([facility]) JOHN ChristopherW-R: [address], [place] [address], Ph. Attender: Letaradha Rodríguezmercedesagustin [facility] Medical 05/21/2020 12:00:00 AM EDT [place] ([facility]) Leta FernandoJOHNW-R: [address], [place] [address], Ph. Attender: Leta Forrest [facility] Medical 05/21/2020 12:00:00 AM EDT [place] ([facility]) Leta PalJOHN goodmanW-R: [address], [place] [address], Ph. Attender: Leta Forrest [facility] Medical 05/21/2020 12:00:00 AM EDT [place] ([facility]) Leta FernandoJOHN goodmanW-R: [address], [place] [address], Ph. Attender: Leta Reneeagustin [facility] Medical 05/21/2020 12:00:00 AM EDT [place] ([facility]) Leta PalJOHN goodmanW-R: [address], [place] [address], Ph. Attender: Leta Lopezjaycemercedesagustin [facility] Medical 05/21/2020 12:00:00 AM EDT [place] ([facility]) Leta FernandoJOHN goodmanW-R: [address], [place] [address], Ph. Attender: Leta Jessicasterling [facility] Medical 05/21/2020 12:00:00 AM EDT [place] ([facility]) Elliot Hernadez MD: [address], [place] [address], Ph. Attender: Elliot Hernadez MD [facility] Medical 05/07/2020 12:00:00 AM EST [place] ([facility]) Elliot Hernadez MD: [address], [place] [address], Ph. Attender: Elliot Hernadez MD [facility] Medical 05/07/2020 12:00:00 AM EST [place] ([facility]) Elliot Hernadez MD: [address], [place] [address], Ph. Attender: Elliot Hernadez MD [facility] Medical 05/07/2020 12:00:00 AM EST [place] ([facility]) Elliot Hernadez MD: [address], [place] [address], Ph. Attender: Elliot Hernadez MD [facility] Medical 05/07/2020 12:00:00 AM EST [place] ([facility]) Elliot Hernadez MD: [address], [place] [address], Ph. Attender: Elliot Hernadez MD [facility] Medical 05/07/2020 12:00:00 AM EST [place] ([facility]) Elliot Hernadez MD: [address], [place] [address], Ph. Attender: Elliot Hernadez MD [facility] Medical 05/07/2020 12:00:00 AM EST [place] ([facility]) Elliot Hernadez MD: [address], [place] [address], Ph. Attender: Elliot Hernadez MD [facility] Medical 05/07/2020 12:00:00 AM EST [place] ([facility]) Elliot Hernadez MD: [address], [place] [address], Ph. Attender: Elliot Hernadez MD [facility] Medical 05/07/2020 12:00:00 AM EST [place] ([facility]) Elliot Hernadez MD: [address], [place] [address], Ph. Attender: Elliot Hernadez MD [facility] Medical 05/07/2020 12:00:00 AM EST [place] ([facility]) Elliot Hernadez MD: [address], [place] [address], Ph. Attender: Elliot Hernadez MD [facility] Medical 05/07/2020 12:00:00 AM EST [place] ([facility]) Elliot Hernadez MD: [address], [place] [address], Ph. Attender: Elliot Hernadez MD [facility] Medical 05/07/2020 12:00:00 AM EST [place] ([facility]) Elliot Hernadez MD: [address], [place] [address], Ph. Attender: Elliot Hernadez MD [facility] Medical 05/07/2020 12:00:00 AM EST [place] ([facility]) Leta Fernando LCSW-R: [address], [place] [address], Ph. Attender: Leta Forrest [facility] Medical 04/29/2020 12:00:00 AM EST [place] ([facility]) Leta Fernando LCSW-R: [address], [place] [address], Ph. Attender: Leta Forrest [facility] Medical 04/29/2020 12:00:00 AM EST [place] ([facility]) LetaJOHN BrownW-R: [address], [place] [address], Ph. Attender: Leta Forrest [facility] Medical 04/29/2020 12:00:00 AM EST [place] ([facility]) JOHN ChristopherW-R: [address], [place] [address], Ph. Attender: Leta Reneeagustin [facility] Medical 04/29/2020 12:00:00 AM EST [place] ([facility]) JOHN ChristopherW-R: [address], [place] [address], Ph. Attender: Leta Marcosmercedesagustin [facility] Medical 04/29/2020 12:00:00 AM EST [place] ([facility]) JOHN ChristopherW-R: [address], [place] [address], Ph. Attender: Letaradha Forrest [facility] Medical 04/29/2020 12:00:00 AM EST [place] ([facility]) JOHN ChristopherW-R: [address], [place] [address], Ph. Attender: Leta Lon [facility] Medical 04/29/2020 12:00:00 AM EST [place] ([facility]) JOHN ChristopherW-R: [address], [place] [address], Ph. Attender: Letaradha Forrest [facility] Medical 04/29/2020 12:00:00 AM EST [place] ([facility]) Leta FernandoJOHNW-R: [address], [place] [address], Ph. Attender: Leta Forrest [facility] Medical 04/29/2020 12:00:00 AM EST [place] ([facility]) Leta FernandoJOHNW-R: [address], [place] [address], Ph. Attender: Leta Forrest [facility] Medical 04/29/2020 12:00:00 AM EST [place] ([facility]) Leta FernandoJOHNW-R: [address], [place] [address], Ph. Attender: Leta Reneeagustin [facility] Medical 04/29/2020 12:00:00 AM EST [place] ([facility]) Leta FernandoJOHNW-R: [address], [place] [address], Ph. Attender: Leta Reneeagustin [facility] Medical 04/29/2020 12:00:00 AM [place] ([facility]) Leta PalJOHN goodmanW-R: [address], [place] [address], Ph. Attender: Leta Reneeagustin [facility] Medical 04/29/2020 12:00:00 AM EST [place] ([facility]) Elliot Hernadez MD: [address], [place] [address], Ph. Attender: Elliot Hernadez MD [facility] Medical 04/09/2020 12:00:00 AM EST [place] ([facility]) Elliot Hernadez MD: [address], [place] [address], Ph. Attender: Elliot Hernadez MD [facility] Medical 04/09/2020 12:00:00 AM EST [place] ([facility]) Elliot Hernadez MD: [address], [place] [address], Ph. Attender: Elliot Hernadez MD [facility] Medical 04/09/2020 12:00:00 AM EST [place] ([facility]) Elliot Hernadez MD: [address], [place] [address], Ph. Attender: Elliot Hernadez MD [facility] Medical 04/09/2020 12:00:00 AM EST BENNIE ([facility]) Elliot Hernadez MD: [address], [place] [address], Ph. Attender: Elliot Hernadez MD [facility] Medical 04/09/2020 12:00:00 AM EST BENNIE ([facility]) Elliot Hernadez MD: [address], [place] [address], Ph. Attender: Elliot Hernadez MD [facility] Medical 04/09/2020 12:00:00 AM EST BENNIE ([facility]) Elliot Hernadez MD: [address], [place] [address], Ph. Attender: Elliot Hernadez MD [facility] Medical 04/09/2020 12:00:00 AM EST BENNIE ([facility]) Elliot Hernadez MD: [address], [place] [address], Ph. Attender: Elliot Hernadez MD [facility] Medical 04/09/2020 12:00:00 AM EST BENNIE ([facility]) Elliot Hernadez MD: [address], [place] [address], Ph. Attender: Elliot Hernadez MD [facility] Medical 04/09/2020 12:00:00 AM EST BENNIE ([facility]) Elliot Hernadez MD: [address], [place] [address], Ph. Attender: Elliot Hernadez MD [facility] Medical 04/09/2020 12:00:00 AM EST BENNIE ([facility]) Elliot Hernadez MD: [address] [address], [place] [address], Ph. Attender: Elliot Hernadez MD [facility] Medical 04/09/2020 12:00:00 AM EST [place] ([facility]) Elliot Hernadez MD: [address], [place] [address], Ph. Attender: Elliot Hernadez MD [facility] Medical 04/09/2020 12:00:00 AM EST [place] ([facility]) Elliot Hernadez MD: [address], [place] [address], Ph. Attender: Elliot Hernadez MD [facility] Medical 04/09/2020 12:00:00 AM EST [place] ([facility]) Elliot Hernadez MD: [address], [place] [address], Ph. Attender: Elliot Hernadez MD [facility] Medical 04/09/2020 12:00:00 AM EST [place] ([facility]) Leta Fernando, INDUSTRIAL CLEANER-R: [address], [place] [address], Ph. Attender: Leta Forrest [facility] Medical 03/13/2020 12:00:00 AM EST [place] ([facility]) Leta Fernando, INDUSTRIAL CLEANER-R: [address], [place] [address], Ph. Attender: Leta Forrest [facility] Medical 03/13/2020 12:00:00 AM EST [place] ([facility]) Leta Fernando [employer]AL CLE[employer]ER-R: [address], [place] [address], Ph. Attender: Leta Forrest [facility] Medical 03/13/2020 12:00:00 AM EST [place] ([facility]) Leta Fernando, INDUSTRIAL CLEANER-R: [address], [place] [address], Ph. Attender: Leta Forrest [facility] Medical 03/13/2020 12:00:00 AM EST [place] ([facility]) Leta FernandoJOHN ogodmanW-R: [address], [place] [address], Ph. Attender: Leta Forrest [facility] Medical 03/13/2020 12:00:00 AM EST [place] ([facility]) Leta PalJOHN goodmanW-R: [address], [place] [address], Ph. Attender: Leta Reneeagustin [facility] Medical 03/13/2020 12:00:00 AM EST [place] ([facility]) LetaJOHN BrownW-R: [address], [place] [address], Ph. Attender: Leta Reneeagustin [facility] Medical 03/13/2020 12:00:00 AM EST [place] ([facility]) LetaJOHN BrownW-R: [address], [place] [address], Ph. Attender: Leta Reneeagustin [facility] Medical 03/13/2020 12:00:00 AM EST [place] ([facility]) LetaJOHN BrownW-R: [address], [place] [address], Ph. Attender: Letaradha Forrest [facility] Medical 03/13/2020 12:00:00 AM EST [place] ([facility]) JOHN ChristopherW-R: [address], [place] [address], Ph. Attender: Leta Lpoezsterling [facility] Medical 03/13/2020 12:00:00 AM EST [place] ([facility]) JOHN ChristopherW-R: [address], [place] [address], Ph. Attender: Letaradha Forrest [facility] Medical 03/13/2020 12:00:00 AM EST [place] ([facility]) JOHN ChristopherW-R: [address], [place] [address], Ph. Attender: Leta Forrest [facility] Medical 03/13/2020 12:00:00 AM EST [place] ([facility]) Leta Fernando, INDUSTRIAL CLEANER-R: [address], [place] [address], Ph. Attender: Leta Forrest [facility] Medical 03/13/2020 12:00:00 AM EST [place] ([facility]) Leta FernandoJOHNW-R: [address], [place] [address], Ph. Attender: Leta Forrest [facility] Medical 03/13/2020 12:00:00 AM EST [place] ([facility]) Leta FernandoJOHNW-R: [address], [place] [address], Ph. Attender: Leta Forrest [facility] Medical 03/13/2020 12:00:00 AM EST [facility] ([facility]) Elliot Hernadez MD: [address] [place] [address], Ph. Attender: Elliot Hernadez MD [facility] Medical 01/16/2020 12:00:00 AM EST [facility] ([facility]) Elliot Hernadez MD: [address] [place] [address], Ph. Attender: Elliot Hernadez MD [facility] Medical 01/16/2020 12:00:00 AM EST [place] ([facility]) Elliot Hernadez MD: [address] [place] [address], Ph. Attender: Elliot Hernadez MD [facility] Medical 01/16/2020 12:00:00 AM EST [facility] ([facility]) Elliot Hernadez MD: [address] [place] [address], Ph. Attender: Elliot Hernadez MD [facility] Medical 01/16/2020 12:00:00 AM EST [place] ([facility]) Elliot Hernadez MD: [address] [place] [address], Ph. Attender: Elliot Hernadez MD [facility] Medical 01/16/2020 12:00:00 AM EST [facility] ([facility]) Elliot Hernadez MD: [address] [place] [address], Ph. Attender: Elliot Hernadez MD [facility] Medical 01/16/2020 12:00:00 AM EST [place] ([facility]) Elliot Hernadez MD: [address] [place] [address], Ph. Attender: Elliot Hernadez MD [facility] Medical 01/16/2020 12:00:00 AM EST [place] ([facility]) Elliot Hernadez MD: [address] [place] [address], Ph. Attender: Elliot Hernadez MD [facility] Medical 01/16/2020 12:00:00 AM EST [place] ([facility]) Elliot Hernadez MD: [address] [place] [address], Ph. Attender: Elliot Hernadez MD [facility] Medical 01/16/2020 12:00:00 AM EST [place] ([facility]) Elliot Hernadez MD: [address] [place] [address], Ph. Attender: Elliot Hernadez MD [facility] Medical 01/16/2020 12:00:00 AM EST [facility] ([facility]) Elliot Hernadez MD: [address] [place] [address], Ph. Attender: Elliot Hernadez MD [facility] Medical 01/16/2020 12:00:00 AM EST [place] ([facility]) Elliot Hernadez MD: [address] [place] [address], Ph. Attender: Elliot Hernadez MD [facility] Medical 01/16/2020 12:00:00 AM EST [facility] ([facility]) Elliot Hernadez MD: [address] [place] [address], Ph. Attender: Elliot Hernadez MD [facility] Medical 01/16/2020 12:00:00 AM EST [facility] ([facility]) Elliot Hernadez MD: [address] [place] [address], Ph. Attender: Elliot Hernadez MD [facility] Medical 01/16/2020 12:00:00 AM EST [place] ([facility]) Elliot Hernadez MD: [address] [place] [address], Ph. Attender: Elliot Hernadez MD [facility] Medical 01/16/2020 12:00:00 AM EST [place] ([facility]) JESIKA MorelC: [address], [place] [address], Ph. Attender: HARDIK CANCHOLAC [facility] Medical 01/14/2020 12:00:00 AM EST [place] ([facility]) JESIKA MorelC: [address], [place] [address], Ph. Attender: HARDIK SERRA RPA-C [facility] Medical 01/14/2020 12:00:00 AM EST [place] ([facility]) Hardik Serra RPA-C: [address], [place] [address], Ph. Attender: HARDIK SERRA RPA-C [facility] Medical 01/14/2020 12:00:00 AM EST [place] ([facility]) Hardik Serra, RPA-C: [address], [place] [address], Ph. Attender: HARDIK SERRA RPA-C [facility] Medical 01/14/2020 12:00:00 AM EST [place] ([facility]) Hardik Serra, RPA-C: [address], [place] [address], Ph. Attender: HARDIK SERRA RPA-C [facility] Medical 01/14/2020 12:00:00 AM EST [place] ([facility]) Hardik Serra, RPA-C: [address], [place] [address], Ph. Attender: HARDIK SERRA RPA-C [facility] Medical 01/14/2020 12:00:00 AM EST [place] ([facility]) Hardik Serra RPA-C: [address], [place] [address], Ph. Attender: HARDIK SERRA RPA-C [facility] Medical 01/14/2020 12:00:00 AM EST [place] ([facility]) Hardik Serra, RPA-C: [address], [place] [address], Ph. Attender: HARDIK SERRA RPA-C [facility] Medical 01/14/2020 12:00:00 AM EST [place] ([facility]) Hardik Serra RPA-C: [address], [place] [address], Ph. Attender: HARDIK SERRA RPA-C [facility] Medical 01/14/2020 12:00:00 AM EST [place] ([facility]) Hardik Serra RPA-C: [address], [place] [address], Ph. Attender: HARDIK SERRA RPA-C [facility] Medical 01/14/2020 12:00:00 AM EST [place] ([facility]) Hardik Serra RPA-C: [address], [place] [address], Ph. Attender: HARDIK SERRA RPA-C [facility] Medical 01/14/2020 12:00:00 AM EST [place] ([facility]) Hardik Serra RPA-C: [address], [place] [address], Ph. Attender: HARDIK SERRA RPA-C [facility] Medical 01/14/2020 12:00:00 AM EST [place] ([facility]) Hardik Serra RPA-C: [address], [place] [address], Ph. Attender: HARDIK SERRA RPA-C [facility] Medical 01/14/2020 12:00:00 AM EST [place] ([facility]) Hardik Serra RPA-C: [address], [place] [address], Ph. Attender: HARDIK SERRA RPA-C [facility] Medical 01/14/2020 12:00:00 AM EST [place] ([facility]) Hardik Serra RPA-C: [address], [place] [address], Ph. Attender: HARDIK SERRA RPA-C [facility] Medical 01/14/2020 12:00:00 AM EST [place] ([facility]) Hardik Serra RPA-C: [address], [place] [address], Ph. Attender: HARDIK SERRA RPA-C [facility] Medical 01/14/2020 12:00:00 AM EST [place] ([facility]) JOHN ChristopherW-R: [address], [place] [address], Ph. Attender: Leta Forrest [facility] Medical 12/26/2019 12:00:00 AM EDT [facility] ([facility]) JOHN ChristopherW-R: [address], [place] [address], Ph. Attender: Leta Forrest [facility] Medical 12/26/2019 12:00:00 AM EDT [facility] ([facility]) JOHN ChristopherW-R: [address], [place] [address], Ph. Attender: Leta Forrest [facility] Medical 12/26/2019 12:00:00 AM EDT [place] ([facility]) JOHN ChristopherW-R: [address], [place] [address], Ph. Attender: Leta Forrest [facility] Medical 12/26/2019 12:00:00 AM EDT [place] ([facility]) JOHN ChristopherW-R: [address], [place] [address], Ph. Attender: Leta Forrest [facility] Medical 12/26/2019 12:00:00 AM EDT [place] ([facility]) JOHN ChristopherW-R: [address], [place] [address], Ph. Attender: Leta Lopezjaycemercedesagustin [facility] Medical 12/26/2019 12:00:00 AM EDT [place] ([facility]) JOHN ChristopherW-R: [address], [place] [address], Ph. Attender: Leta Forrest [facility] Medical 12/26/2019 12:00:00 AM EDT [place] ([facility]) JOHN ChristopherW-R: [address], [place] [address], Ph. Attender: Leta Jessicajaycemercedesagustin [facility] Medical 12/26/2019 12:00:00 AM EDT [place] ([facility]) JOHN ChristopherW-R: [address], [place] [address], Ph. Attender: Leta Forrest [facility] Medical 12/26/2019 12:00:00 AM EDT [place] ([facility]) JOHN ChristopherW-R: [address], [place] [address], Ph. Attender: Leta Forrest [facility] Medical 12/26/2019 12:00:00 AM EDT [place] ([facility]) JOHN ChristopherW-R: [address], [place] [address], Ph. Attender: Leta Reneeagustin [facility] Medical 12/26/2019 12:00:00 AM EDT [place] ([facility]) JOHN ChristopherW-R: [address], [place] [address], Ph. Attender: Leta Rodríguezmercedesagustin [facility] Medical 12/26/2019 12:00:00 AM EDT [place] ([facility]) JOHN ChristopherW-R: [address], [place] [address], Ph. Attender: Leta Jessicajaycemercedesagustin [facility] Medical 12/26/2019 12:00:00 AM EDT [place] ([facility]) JOHN ChristopherW-R: [address], [place] [address], Ph. Attender: Leta Forrest [facility] Medical 12/26/2019 12:00:00 AM EDT [place] ([facility]) JOHN ChristopherW-R: [address], [place] [address], Ph. Attender: Leta Forrest [facility] Medical 12/26/2019 12:00:00 AM EDT [place] ([facility]) Leta Fernando, INDUSTRIAL CLEANER-R: [address], [place] [address], Ph. Attender: Leta Forrest [facility] Medical 12/26/2019 12:00:00 AM EDT [place] ([facility]) Leta FernandoJOHNW-R: [address], [place] [address], Ph. Attender: Leta Forrest [facility] Medical 12/26/2019 12:00:00 AM EDT [place] ([facility]) Outpatient Attender: HARDIK SERRA RPA-C [facility] 12/16/2019 12:46:01 PM EDT [facility] Outpatient Attender: HARDIK SERRA RPA-C [facility] 12/11/2019 11:57:02 AM EDT [facility] Outpatient Attender: HARDIK SERRA RPA-C [facility] 12/11/2019 11:02:03 AM EDT [facility] Outpatient Attender: HARDIK SERRA RPA-C [facility] 12/05/2019 10:34:01 AM EDT [facility] Outpatient Attender: HARDIK SERRA RPA-C [facility] 11/29/2019 01:40:02 PM EDT [facility] Outpatient Attender: HARDIK SERRA RPA-C [facility] 11/28/2019 02:42:03 PM EDT [facility] Outpatient Attender: HARDIK SERRA RPA-C [facility] 11/28/2019 08:54:00 AM EDT [facility] Outpatient Attender: HARDIK SERRA RPA-C [facility] 11/21/2019 02:50:01 PM EDT [facility] Outpatient Attender: HARDIK SERRA RPA-C [facility] 11/21/2019 02:46:02 PM EDT [facility] Outpatient Attender: HARDIK SERRA RPA-C [facility] 11/21/2019 02:42:01 PM EDT [facility] Outpatient Attender: HARDIK SERRA RPA-C [facility] 11/19/2019 01:51:02 PM EDT [facility] Outpatient Attender: HARDIK SERRA RPA-C [facility] 11/14/2019 09:53:59 AM EDT [facility] Outpatient Attender: HARDIK SERRA RPA-C [facility] 11/14/2019 09:49:01 AM EDT [facility] Outpatient Attender: HARDIK SERRA RPA-C [facility] 11/13/2019 07:56:00 AM EDT [facility] Outpatient Attender: HARDIK GRULLONST RPA-C [facility] 11/08/2019 02:50:56 PM EDT [facility] Outpatient Attender: HARDIK SERRA RPA-C [facility] 11/07/2019 08:57:01 AM EDT [facility] Outpatient Attender: HARDIK SERRA RPA-C [facility] 10/31/2019 11:40:02 AM EDT [facility] Outpatient Attender: HARDIK GRULLONST RPA-C [facility] 10/29/2019 04:20:03 PM EDT [facility] Outpatient Attender: HARDIK SERRA RPA-C [facility] 10/29/2019 04:19:01 PM EDT [facility] Outpatient Attender: HARDIK SERRA RPA-C [facility] 10/29/2019 02:16:04 PM EDT [facility] Outpatient Attender: HARDIK SERRA RPA-C [facility] 10/26/2019 03:49:59 PM EDT [facility] Outpatient Attender: HARDIK SERRA RPA-C [facility] 10/25/2019 10:55:01 AM EDT [facility] Outpatient Attender: HARDIK SERRA RPA-C [facility] 10/23/2019 03:57:01 PM EDT [facility] Immunizations Vaccine Date Status Description Data Source(s) COVID-19 VACCINE [facility] 04/14/2020 12:00:00 AM EST completed [facility] Vaccine Series Complete: YESThis Data wa s Submitted to [facility] Via goviral. COVID-19 VACCINE [facility] 03/24/2020 12:00:00 AM EST completed [facility] Vaccine Series Complete: NOThis Data was Submitted to [facility] Via goviral. New in 2011. IIV4 11/29/2019 12:00:00 AM EDT completed 0.5 mL [place] ([facility]) New in 2011. IIV4 11/29/2019 12:00:00 AM EDT completed 0.5 mL [place] ([facility]) New in 2011. IIV4 11/29/2019 12:00:00 AM EDT completed 0.5 mL [place] ([facility] er) New in 2011. IIV4 11/29/2019 12:00:00 AM EDT completed .5 mL [place] ([facility] er) New in 2011. IIV4 11/29/2019 12:00:00 AM EDT completed .5 mL [place] ([facility]) New in 2011. IIV4 11/29/2019 12:00:00 AM EDT completed .5 mL [place] ([facility]) New in 2011. IIV4 11/29/2019 12:00:00 AM EDT completed .5 mL [place] ([facility]) New in 2011. IIV4 11/29/2019 12:00:00 AM EDT completed .5 mL [place] ([facility]) New in 2011. IIV4 11/29/2019 12:00:00 AM EDT completed .5 mL [place] ([facility]) New in 2011. IIV4 11/29/2019 12:00:00 AM EDT completed .5 mL [place] ([facility]) New in 2011. IIV4 11/29/2019 12:00:00 AM EDT completed .5 mL [place] ([facility]) New in 2011. IIV4 11/29/2019 12:00:00 AM EDT completed .5 mL [place] ([facility]) New in 2011. IIV4 11/29/2019 12:00:00 AM EDT completed .5 mL [place] ([facility]) New in 2011. IIV4 11/29/2019 12:00:00 AM EDT completed .5 mL [place] ([facility]) Medications Medication Brand Name Start Date Product Form Dose Route Admi nistrative Instructions Pharmacy Instructions Status Indications Reaction Description Data Source(s) 8 HR Acetaminophen 650 MG Extended Release Oral Tablet Aceta minophen 8 Hour 12/04/2020 12:00:00 AM EDT ORAL active [facility] ([facility]) Esomeprazole 20 MG Delayed Release Oral Capsule Esomeprazole Magnesium 12/04/2020 12:00:00 AM EDT ORAL active [facility] ([facility]) Escitalopram 10 MG Oral Tablet Escitalopram Oxalate 12/04/2020 1 2:00:00 AM EDT ORAL active [facility] ( [facility]) Petrolatum 610 MG/ML Topical Cream Eucerin 12/04/2020 12:00:00 AM EDT active [facility] ([facility]) cetirizine hydrochloride 10 MG Oral Tablet Cetirizine HCL 12/04/2020 12:00:00 AM EDT ORAL active [facility] ([facility] Calcium Carbonate 500 MG Chewable Tablet Calcium Antacid 12/04/2020 12:00:00 AM EDT ORAL active [facility] ([facility]) Dorzolamide HCL/Timolol Maleate Dorzolamide HCL/Timolol Male ate 12/04/2020 12:00:00 AM EDT OPHTHALMIC active [facility] ([facility]) Ketorolac Tromethamine 5 MG/ML Ophthalmic Solution Ketorolac Tromethamine 12/04/2020 12:00:00 AM EDT OPHTHALMIC active [facility] ([facility]) meloxicam 7.5 MG Oral Tablet Meloxicam 12/04/2020 12:00:00 AM EDT ORAL active [facility] ([facility]) Isosorbide Dinitrate 30 MG Oral Tablet Isosorbide Dinitrate 12/04/2020 12:00:00 AM EDT ORAL active [facility] ([facility] prednisolone acetate 10 MG/ML Ophthalmic Suspension Predniso lone Acetate P-F 12/04/2020 12:00:00 AM EDT OPHTHALMIC active [facility] ([facility]) Memantine hydrochloride 5 MG Oral Tablet Memantine HCL 12/04/2020 12:00:00 AM EDT ORAL active [facility] ([facility] Trazodone Hydrochloride 100 MG Oral Tablet Trazodone HCL 12/04/2020 12:00:00 AM EDT [facility] Acetaminophen 500 MG Oral Tablet acetami nophen 500 mg tablet Take 2 tablets every 8 hours by oral route as needed. acetaminophen 500 mg tablet Take 2 tablets every 8 hours by oral route as needed. 07/23/2020 12:00:00 AM EDT 2 completed acetaminophen 500 MG Oral Tablet [place] ([facility]) Acetaminophen 500 MG Oral Tablet acetami nophen 500 mg tablet Take 2 tablets every 8 hours by oral route as needed. acetaminophen 500 mg tablet Take 2 tablets every 8 hours by oral route as needed. 07/23/2020 12:00:00 AM EDT 2 completed acetaminophen 500 MG Oral Tablet [place] ([facility]) Acetaminophen 500 MG Oral Tablet acetami nophen 500 mg tablet Take 2 tablets every 8 hours by oral route as needed. acetaminophen 500 mg tablet Take 2 tablets every 8 hours by oral route as needed. 07/23/2020 12:00:00 AM EDT 2 completed acetaminophen 500 MG Oral Tablet [place] ([facility]) Acetaminophen 500 MG Oral Tablet acetami nophen 500 mg tablet Take 2 tablets every 8 hours by oral route as needed. acetaminophen 500 mg tablet Take 2 tablets every 8 hours by oral route as needed. 07/23/2020 12:00:00 AM EDT 2 completed acetaminophen 500 MG Oral Tablet [place] ([facility]) Acetaminophen 500 MG Oral Tablet acetami nophen 500 mg tablet Take 2 tablets every 8 hours by oral route as needed. acetaminophen 500 mg tablet Take 2 tablets every 8 hours by oral route as needed. 07/23/2020 12:00:00 AM EDT 2 completed acetaminophen 500 MG Oral Tablet [place] ([facility]) Acetaminophen 500 MG Oral Tablet acetami nophen 500 mg tablet Take 2 tablets every 8 hours by oral route as needed. acetaminophen 500 mg tablet Take 2 tablets every 8 hours by oral route as needed. 07/23/2020 12:00:00 AM EDT 2 completed acetaminophen 500 MG Oral Tablet [place] ([facility]) Acetaminophen 500 MG Oral Tablet acetami nophen 500 mg tablet Take 2 tablets every 8 hours by oral route as needed. acetaminophen 500 mg tablet Take 2 tablets every 8 hours by oral route as needed. 07/23/2020 12:00:00 AM EDT 2 completed acetaminophen 500 MG Oral Tablet [place] ([facility]) Acetaminophen 500 MG Oral Tablet acetami nophen 500 mg tablet Take 2 tablets every 8 hours by oral route as needed. acetaminophen 500 mg tablet Take 2 tablets every 8 hours by oral route as needed. 07/23/2020 12:00:00 AM EDT 2 completed acetaminophen 500 MG Oral Tablet [place] ([facility]) Escitalopram 5 MG Oral Tablet escitalopram 5 mg tablet escit alopram 5 mg tablet completed escitalopram 5 MG Oral Tablet [facility] ([facility]) Diclofenac Sodium 0.01 MG/MG Topical Gel diclofenac 1 % topical gel diclofenac 1 % topical gel completed diclofenac sodium 0.01 MG/MG Topical Gel [facility] ([facility]) Diclofenac Sodium 0.01 MG/MG Topical Gel diclofenac 1 % topical gel diclofenac 1 % topical gel completed diclofenac sodium 0.01 MG/MG Topical Gel [place] ([facility]) Hydroxyzine Hydrochloride 25 MG Oral Tablet hydroxyzin e HCl 25 mg tablet hydroxyzine HCl 25 mg tablet completed hydroxyzine hydrochloride 25 MG Oral Tablet [place] ([facility]) Hydroxyzine Hydrochloride 50 MG Oral Tablet hydroxyzin e HCl 50 mg tablet hydroxyzine HCl 50 mg tablet completed hydroxyzine hydrochloride 50 MG Oral Tablet [place] ([facility]) Hydroxyzine Hydrochloride 50 MG Oral Tablet hydroxyzin e HCl 50 mg tablet hydroxyzine HCl 50 mg tablet completed hydroxyzine hydrochloride 50 MG Oral Tablet [place] ([facility]) lidocaine 5 % topical patch APPLY 1 PATC H BY TOPICAL ROUTE ONCE DAILY (MAY WEAR UP TO 12HOURS.) [id number] completed lidocaine 0.05 MG/MG Medicated Patch [place] ([facility]) Hydroxyzine Hydrochloride 25 MG Oral Tablet hydroxyzin e HCl 25 mg tablet hydroxyzine HCl 25 mg tablet completed hydroxyzine hydrochloride 25 MG Oral Tablet [place] ([facility]) Hydroxyzine Hydrochloride 25 MG Oral Tablet hydroxyzin e HCl 25 mg tablet hydroxyzine HCl 25 mg tablet completed hydroxyzine hydrochloride 25 MG Oral Tablet [place] ([facility]) lidocaine 5 % topical patch APPLY 1 PATC H BY TOPICAL ROUTE ONCE DAILY (MAY WEAR UP TO 12HOURS.) [id number] completed lidocaine 0.05 MG/MG Medicated Patch [place] ([facility]) ramelteon 8 MG Oral Tablet ramelteon 8 mg tablet ramelteon 8 mg tablet completed ramelteon 8 MG Oral Table t [place] ([facility]) Hydroxyzine Hydrochloride 25 MG Oral Tablet hydroxyzin e HCl 25 mg tablet hydroxyzine HCl 25 mg tablet completed hydroxyzine hydrochloride 25 MG Oral Tablet [place] ([facility]) ramelteon 8 MG Oral Tablet ramelteon 8 mg tablet ramelteon 8 mg tablet completed ramelteon 8 MG Oral Table t [place] ([facility]) 8 HR Acetaminophen 650 MG Extended Relea se Oral Tablet [Tylenol] Tylenol 8 Hour 650 mg tablet,extended release Take 1 tablet every day by oral route as needed. Tylenol 8 Hour 650 mg tablet,extended release Take 1 tablet every day by oral route as needed. 1 completed 8 HR acetaminophen 650 MG Extended Release Oral Tablet [Tylenol] [place] ([facility]) Diclofenac Sodium 0.01 MG/MG Topical Gel diclofenac 1 % topical gel diclofenac 1 % topical gel completed diclofenac sodium 0.01 MG/MG Topical Gel [place] ([facility]) lidocaine 5 % topical patch APPLY 1 PATC H BY TOPICAL ROUTE ONCE DAILY (MAY WEAR UP TO 12HOURS.) [id number] completed lidocaine 0.05 MG/MG Medicated Patch [place] ([facility]) lidocaine 5 % topical patch APPLY 1 PATC H BY TOPICAL ROUTE ONCE DAILY (MAY WEAR UP TO 12HOURS.) [id number] completed lidocaine 0.05 MG/MG Medicated Patch [place] ([facility]) Hydroxyzine Hydrochloride 50 MG Oral Tablet hydroxyzin e HCl 50 mg tablet hydroxyzine HCl 50 mg tablet completed hydroxyzine hydrochloride 50 MG Oral Tablet [place] ([facility]) ramelteon 8 MG Oral Tablet ramelteon 8 mg tablet ramelteon 8 mg tablet completed ramelteon 8 MG Oral Table t [place] ([facility]) 8 HR Acetaminophen 650 MG Extended Relea se Oral Tablet [Tylenol] Tylenol 8 Hour 650 mg tablet,extended release Take 1 tablet every day by oral route as needed. Tylenol 8 Hour 650 mg tablet,extended release Take 1 tablet every day by oral route as needed. 1 completed 8 HR acetaminophen 650 MG Extended Release Oral Tablet [Tylenol] [place] ([facility]) Escitalopram 5 MG Oral Tablet escitalopram 5 mg tablet escit alopram 5 mg tablet completed escitalopram 5 MG Oral Tablet [place] ([facility]) Hydroxyzine Hydrochloride 25 MG Oral Tablet hydroxyzin e HCl 25 mg tablet hydroxyzine HCl 25 mg tablet completed hydroxyzine hydrochloride 25 MG Oral Tablet [place] ([facility]) Escitalopram 5 MG Oral Tablet escitalopram 5 mg tablet escit alopram 5 mg tablet completed escitalopram 5 MG Oral Tablet [place] ([facility]) Hydroxyzine Hydrochloride 50 MG Oral Tablet hydroxyzin e HCl 50 mg tablet hydroxyzine HCl 50 mg tablet completed hydroxyzine hydrochloride 50 MG Oral Tablet [place] ([facility]) Hydroxyzine Hydrochloride 25 MG Oral Tablet hydroxyzin e HCl 25 mg tablet hydroxyzine HCl 25 mg tablet completed hydroxyzine hydrochloride 25 MG Oral Tablet [place] ([facility]) Hydroxyzine Hydrochloride 50 MG Oral Tablet hydroxyzin e HCl 50 mg tablet hydroxyzine HCl 50 mg tablet completed hydroxyzine hydrochloride 50 MG Oral Tablet [place] ([facility]) 8 HR Acetaminophen 650 MG Extended Relea se Oral Tablet [Tylenol] Tylenol 8 Hour 650 mg tablet,extended release Take 1 tablet every day by oral route as needed. Tylenol 8 Hour 650 mg tablet,extended release Take 1 tablet every day by oral route as needed. 1 completed 8 HR acetaminophen 650 MG Extended Release Oral Tablet [Tylenol] [place] ([facility]) Hydroxyzine Hydrochloride 50 MG Oral Tablet hydroxyzin e HCl 50 mg tablet hydroxyzine HCl 50 mg tablet completed hydroxyzine hydrochloride 50 MG Oral Tablet [place] ([facility]) ramelteon 8 MG Oral Tablet ramelteon 8 mg tablet ramelteon 8 mg tablet completed ramelteon 8 MG Oral Table t [place] ([facility]) Hydroxyzine Hydrochloride 50 MG Oral Tablet hydroxyzin e HCl 50 mg tablet hydroxyzine HCl 50 mg tablet completed hydroxyzine hydrochloride 50 MG Oral Tablet [place] ([facility]) Hydroxyzine Hydrochloride 25 MG Oral Tablet hydroxyzin e HCl 25 mg tablet hydroxyzine HCl 25 mg tablet completed hydroxyzine hydrochloride 25 MG Oral Tablet [place] ([facility]) lidocaine 5 % topical patch APPLY 1 PATC H BY TOPICAL ROUTE ONCE DAILY (MAY WEAR UP TO 12HOURS.) [id number] completed lidocaine 0.05 MG/MG Medicated Patch [place] ([facility]) Escitalopram 5 MG Oral Tablet escitalopram 5 mg tablet escit alopram 5 mg tablet completed escitalopram 5 MG Oral Tablet [place] ([facility]) ramelteon 8 MG Oral Tablet ramelteon 8 mg tablet ramelteon 8 mg tablet completed ramelteon 8 MG Oral Table t [facility]) 8 HR Acetaminophen 650 MG Extended Relea se Oral Tablet [Tylenol] Tylenol 8 Hour 650 mg tablet,extended release Take 1 tablet every day by oral route as needed. Tylenol 8 Hour 650 mg tablet,extended release Take 1 tablet every day by oral route as needed. 1 completed 8 HR acetaminophen 650 MG Extended Release Oral Tablet [Tylenol] [place] ([facility]) [employer] COVID-19 Vaccine (PF) 30 mcg/0.3 mL IM suspension(EUA) ADMINISTER 0.3ML IN THE MUSCLE DIRECTED [id number] completed SARS-CoV-2 (COVID-19) vaccine, [id number] 0.1 MG/ML Injectable Suspension [facility]) Hydroxyzine Hydrochloride 50 MG Oral Tablet hydroxyzin e HCl 50 mg tablet hydroxyzine HCl 50 mg tablet completed hydroxyzine hydrochloride 50 MG Oral Tablet [place] ([facility]) Escitalopram 5 MG Oral Tablet escitalopram 5 mg tablet escit alopram 5 mg tablet completed escitalopram 5 MG Oral Tablet [place] ([facility]) Hydroxyzine Hydrochloride 50 MG Oral Tablet hydroxyzin e HCl 50 mg tablet hydroxyzine HCl 50 mg tablet completed hydroxyzine hydrochloride 50 MG Oral Tablet [facility]) Escitalopram 5 MG Oral Tablet escitalopram 5 mg tablet escit alopram 5 mg tablet completed escitalopram 5 MG Oral Tablet [facility]) 8 HR Acetaminophen 650 MG Extended Relea se Oral Tablet [Tylenol] Tylenol 8 Hour 650 mg tablet,extended release Take 1 tablet every day by oral route as needed. Tylenol 8 Hour 650 mg tablet,extended release Take 1 tablet every day by oral route as needed. 1 completed 8 HR acetaminophen 650 MG Extended Release Oral Tablet [Tylenol] [place] ([facility]) Escitalopram 5 MG Oral Tablet escitalopram 5 mg tablet escit alopram 5 mg tablet completed escitalopram 5 MG Oral Tablet [place] ([facility]) lidocaine 5 % topical patch APPLY 1 PATC H BY TOPICAL ROUTE ONCE DAILY (MAY WEAR UP TO 12HOURS.) [id number] completed lidocaine 0.05 MG/MG Medicated Patch [place] ([facility]) ramelteon 8 MG Oral Tablet ramelteon 8 mg tablet ramelteon 8 mg tablet completed ramelteon 8 MG Oral Table t [place] ([facility]) ramelteon 8 MG Oral Tablet ramelteon 8 mg tablet ramelteon 8 mg tablet completed ramelteon 8 MG Oral Table t [place] ([facility]) 8 HR Acetaminophen 650 MG Extended Relea se Oral Tablet [Tylenol] Tylenol 8 Hour 650 mg tablet,extended release Take 1 tablet every day by oral route as needed. Tylenol 8 Hour 650 mg tablet,extended release Take 1 tablet every day by oral route as needed. 1 completed 8 HR acetaminophen 650 MG Extended Release Oral Tablet [Tylenol] [place] ([facility]) Hydroxyzine Hydrochloride 50 MG Oral Tablet hydroxyzin e HCl 50 mg tablet hydroxyzine HCl 50 mg tablet completed hydroxyzine hydrochloride 50 MG Oral Tablet [place] ([facility]) [employer] COVID-19 Vaccine (PF) 30 mcg/0.3 mL IM suspension(EUA) ADMINISTER 0.3ML IN THE MUSCLE DIRECTED [id number] completed SARS-CoV-2 (COVID-19) vaccine, [id number] 0.1 MG/ML Injectable Suspension [place] ([facility]) Hydroxyzine Hydrochloride 50 MG Oral Tablet hydroxyzin e HCl 50 mg tablet hydroxyzine HCl 50 mg tablet completed hydroxyzine hydrochloride 50 MG Oral Tablet [place] ([facility]) ramelteon 8 MG Oral Tablet ramelteon 8 mg tablet ramelteon 8 mg tablet completed ramelteon 8 MG Oral Table t [place] ([facility]) [employer] COVID-19 Vaccine (PF) 30 mcg/0.3 mL IM suspension(EUA) ADMINISTER 0.3ML IN THE MUSCLE DIRECTED [id number] completed SARS-CoV-2 (COVID-19) vaccine, [id number] 0.1 MG/ML Injectable Suspension [place] ([facility]) Hydroxyzine Hydrochloride 25 MG Oral Tablet hydroxyzin e HCl 25 mg tablet hydroxyzine HCl 25 mg tablet completed hydroxyzine hydrochloride 25 MG Oral Tablet [place] ([facility]) Hydroxyzine Hydrochloride 25 MG Oral Tablet hydroxyzin e HCl 25 mg tablet hydroxyzine HCl 25 mg tablet completed hydroxyzine hydrochloride 25 MG Oral Tablet [place] ([facility]) ramelteon 8 MG Oral Tablet ramelteon 8 mg tablet ramelteon 8 mg tablet completed ramelteon 8 MG Oral Table t [place] ([facility]) Hydroxyzine Hydrochloride 50 MG Oral Tablet hydroxyzin e HCl 50 mg tablet hydroxyzine HCl 50 mg tablet completed hydroxyzine hydrochloride 50 MG Oral Tablet [place] ([facility]) Escitalopram 5 MG Oral Tablet escitalopram 5 mg tablet escit alopram 5 mg tablet completed escitalopram 5 MG Oral Tablet [place] ([facility]) ramelteon 8 MG Oral Tablet ramelteon 8 mg tablet ramelteon 8 mg tablet completed ramelteon 8 MG Oral Table t [place] ([facility]) Hydroxyzine Hydrochloride 50 MG Oral Tablet hydroxyzin e HCl 50 mg tablet hydroxyzine HCl 50 mg tablet completed hydroxyzine hydrochloride 50 MG Oral Tablet [place] ([facility]) Diclofenac Sodium 0.01 MG/MG Topical Gel diclofenac 1 % topical gel diclofenac 1 % topical gel completed diclofenac sodium 0.01 MG/MG Topical Gel [place] ([facility]) Hydroxyzine Hydrochloride 25 MG Oral Tablet hydroxyzin e HCl 25 mg tablet hydroxyzine HCl 25 mg tablet completed hydroxyzine hydrochloride 25 MG Oral Tablet [place] ([facility]) 8 HR Acetaminophen 650 MG Extended Relea se Oral Tablet [Tylenol] Tylenol 8 Hour 650 mg tablet,extended release Take 1 tablet every day by oral route as needed. Tylenol 8 Hour 650 mg tablet,extended release Take 1 tablet every day by oral route as needed. 1 completed 8 HR acetaminophen 650 MG Extended Release Oral Tablet [Tylenol] [place] ([facility]) Escitalopram 5 MG Oral Tablet escitalopram 5 mg tablet escit alopram 5 mg tablet completed escitalopram 5 MG Oral Tablet [place] ([facility]) Escitalopram 5 MG Oral Tablet escitalopram 5 mg tablet escit alopram 5 mg tablet completed escitalopram 5 MG Oral Tablet [place] ([facility]) 8 HR Acetaminophen 650 MG Extended Relea se Oral Tablet [Tylenol] Tylenol 8 Hour 650 mg tablet,extended release Take 1 tablet every day by oral route as needed. Tylenol 8 Hour 650 mg tablet,extended release Take 1 tablet every day by oral route as needed. 1 completed 8 HR acetaminophen 650 MG Extended Release Oral Tablet [Tylenol] [place] ([facility]) Hydroxyzine Hydrochloride 25 MG Oral Tablet hydroxyzin e HCl 25 mg tablet hydroxyzine HCl 25 mg tablet completed hydroxyzine hydrochloride 25 MG Oral Tablet [place] ([facility]) ramelteon 8 MG Oral Tablet ramelteon 8 mg tablet ramelteon 8 mg tablet completed ramelteon 8 MG Oral Table t [place] ([facility]) Escitalopram 5 MG Oral Tablet escitalopram 5 mg tablet escit alopram 5 mg tablet completed escitalopram 5 MG Oral Tablet [place] ([facility]) Hydroxyzine Hydrochloride 25 MG Oral Tablet hydroxyzin e HCl 25 mg tablet hydroxyzine HCl 25 mg tablet completed hydroxyzine hydrochloride 25 MG Oral Tablet [place] ([facility]) Escitalopram 5 MG Oral Tablet escitalopram 5 mg tablet escit alopram 5 mg tablet completed escitalopram 5 MG Oral Tablet [place] ([facility]) Hydroxyzine Hydrochloride 25 MG Oral Tablet hydroxyzin e HCl 25 mg tablet hydroxyzine HCl 25 mg tablet completed hydroxyzine hydrochloride 25 MG Oral Tablet [place] ([facility]) Diclofenac Sodium 0.01 MG/MG Topical Gel diclofenac 1 % topical gel diclofenac 1 % topical gel completed diclofenac sodium 0.01 MG/MG Topical Gel [place] ([facility]) ramelteon 8 MG Oral Tablet ramelteon 8 mg tablet ramelteon 8 mg tablet completed ramelteon 8 MG Oral Table t [place] ([facility]) Diclofenac Sodium 0.01 MG/MG Topical Gel diclofenac 1 % topical gel diclofenac 1 % topical gel completed diclofenac sodium 0.01 MG/MG Topical Gel [place] ([facility]) Hydroxyzine Hydrochloride 25 MG Oral Tablet hydroxyzin e HCl 25 mg tablet hydroxyzine HCl 25 mg tablet completed hydroxyzine hydrochloride 25 MG Oral Tablet [place] ([facility]) Escitalopram 5 MG Oral Tablet escitalopram 5 mg tablet escit alopram 5 mg tablet completed escitalopram 5 MG Oral Tablet [place] ([facility]) Diclofenac Sodium 0.01 MG/MG Topical Gel diclofenac 1 % topical gel diclofenac 1 % topical gel completed diclofenac sodium 0.01 MG/MG Topical Gel [place] ([facility]) ramelteon 8 MG Oral Tablet ramelteon 8 mg tablet ramelteon 8 mg tablet completed ramelteon 8 MG Oral Table t [place] ([facility]) Diclofenac Sodium 0.01 MG/MG Topical Gel diclofenac 1 % topical gel diclofenac 1 % topical gel completed diclofenac sodium 0.01 MG/MG Topical Gel [place] ([facility]) ramelteon 8 MG Oral Tablet ramelteon 8 mg tablet ramelteon 8 mg tablet completed ramelteon 8 MG Oral Table t [place] ([facility]) [employer] COVID-19 Vaccine (PF) 30 mcg/0.3 mL IM suspension(EUA) ADMINISTER 0.3ML IN THE MUSCLE DIRECTED [id number] completed SARS-CoV-2 (COVID-19) vaccine, [id number] 0.1 MG/ML Injectable Suspension [place] ([facility]) 8 HR Acetaminophen 650 MG Extended Relea se Oral Tablet [Tylenol] Tylenol 8 Hour 650 mg tablet,extended release Take 1 tablet every day by oral route as needed. Tylenol 8 Hour 650 mg tablet,extended release Take 1 tablet every day by oral route as needed. 1 completed 8 HR acetaminophen 650 MG Extended Release Oral Tablet [Tylenol] [place] ([facility]) Hydroxyzine Hydrochloride 25 MG Oral Tablet hydroxyzin e HCl 25 mg tablet hydroxyzine HCl 25 mg tablet completed hydroxyzine hydrochloride 25 MG Oral Tablet [place] ([facility]) Escitalopram 5 MG Oral Tablet escitalopram 5 mg tablet escit alopram 5 mg tablet completed escitalopram 5 MG Oral Tablet [place] ([facility]) 8 HR Acetaminophen 650 MG Extended Relea se Oral Tablet [Tylenol] Tylenol 8 Hour 650 mg tablet,extended release Take 1 tablet every day by oral route as needed. Tylenol 8 Hour 650 mg tablet,extended release Take 1 tablet every day by oral route as needed. 1 completed 8 HR acetaminophen 650 MG Extended Release Oral Tablet [Tylenol] [place] ([facility]) Hydroxyzine Hydrochloride 50 MG Oral Tablet hydroxyzin e HCl 50 mg tablet hydroxyzine HCl 50 mg tablet completed hydroxyzine hydrochloride 50 MG Oral Tablet [place] ([facility]) Hydroxyzine Hydrochloride 50 MG Oral Tablet hydroxyzin e HCl 50 mg tablet hydroxyzine HCl 50 mg tablet completed hydroxyzine hydrochloride 50 MG Oral Tablet [place] ([facility]) ramelteon 8 MG Oral Tablet ramelteon 8 mg tablet ramelteon 8 mg tablet completed ramelteon 8 MG Oral Table t [place] ([facility]) 8 HR Acetaminophen 650 MG Extended Relea se Oral Tablet [Tylenol] Tylenol 8 Hour 650 mg tablet,extended release Take 1 tablet every day by oral route as needed. Tylenol 8 Hour 650 mg tablet,extended release Take 1 tablet every day by oral route as needed. 1 completed 8 HR acetaminophen 650 MG Extended Release Oral Tablet [Tylenol] [place] ([facility]) lidocaine 5 % topical patch APPLY 1 PATC H BY TOPICAL ROUTE ONCE DAILY (MAY WEAR UP TO 12HOURS.) [id number] completed lidocaine 0.05 MG/MG Medicated Patch [place] ([facility]) Escitalopram 5 MG Oral Tablet escitalopram 5 mg tablet escit alopram 5 mg tablet completed escitalopram 5 MG Oral Tablet [place] ([facility]) lidocaine 5 % topical patch APPLY 1 PATC H BY TOPICAL ROUTE ONCE DAILY (MAY WEAR UP TO 12HOURS.) [id number] completed lidocaine 0.05 MG/MG Medicated Patch [place] ([facility]) 8 HR Acetaminophen 650 MG Extended Relea se Oral Tablet [Tylenol] Tylenol 8 Hour 650 mg tablet,extended release Take 1 tablet every day by oral route as needed. Tylenol 8 Hour 650 mg tablet,extended release Take 1 tablet every day by oral route as needed. 1 completed 8 HR acetaminophen 650 MG Extended Release Oral Tablet [Tylenol] [place] ([facility]) Insurance Providers Payer name Policy type / Coverage type Policy ID Covered republican ID Covered republican's relationship to isbell Policy [place] Plan Information WELLCARE [id number] SP [id number] [place] [id number] SP [id number] E WELLCARE [id number] SP [id number] MEDICARE [id number] SP [id number] WELLCARE [id number] SP [id number] EMEDNY [id number] SP [id number] EMEDNY UN SP UN WELLCARE [id number] SP [id number] AETNA MEDICARE [id number] SP [id number] LSF MEDICARE [id number] SP [id number] WELLCARE O [id number] S [id number] MEDICARE C [id number] S [id number] Medicare P [id number] S [id number] MEDICARE [id number] SP [id number] Problems, Conditions, and Diagnoses Code Display Name Description Problem Type Effective Dates Data Source(s) 98204019 Muscle fatigue Muscle Fatigue Problem 09/02/2020 12:00: 00 AM EDT [place] ([facility]) [id number] Chronic low back pain Chronic Low Back Pain Problem 09/02/2020 12:00:00 AM EDT [place] ([facility]) [id number] Muscle fatigue Muscle Fatigue Problem 09/02/2020 12:00: 00 AM EDT [place] ([facility]) [id number] Chronic low back pain Chronic Low Back Pain Problem 09/02/2020 12:00:00 AM EDT [place] ([facility]) [id number] Muscle fatigue Muscle Fatigue Problem 09/02/2020 12:00: 00 AM EDT [place] ([facility]) [id number] Chronic low back pain Chronic Low Back Pain Problem 09/02/2020 12:00:00 AM EDT [place] ([facility]) [id number] Muscle fatigue Muscle Fatigue Problem 09/02/2020 12:00: 00 AM EDT [place] ([facility]) [id number] Chronic low back pain Chronic Low Back Pain Problem 09/02/2020 12:00:00 AM EDT [place] ([facility]) [id number] Muscle fatigue Muscle Fatigue Problem 09/02/2020 12:00: 00 AM EDT [place] ([facility]) [id number] Chronic low back pain Chronic Low Back Pain Problem 09/02/2020 12:00:00 AM EDT [place] ([facility]) [id number] Muscle fatigue Muscle Fatigue Problem 09/02/2020 12:00: 00 AM EDT [place] ([facility]) [id number] Chronic low back pain Chronic Low Back Pain Problem 09/02/2020 12:00:00 AM EDT [place] ([facility]) [id number] Sleep related hypoxemia Sleep Related Hypoxemia Pro blem 05/20/2020 12:00:00 AM EDT [place] ([facility]) [id number] Sleep related hypoxemia Sleep Related Hypoxemia Pro blem 05/20/2020 12:00:00 AM EDT [place] ([facility]) [id number] Sleep related hypoxemia Sleep Related Hypoxemia Pro blem 05/20/2020 12:00:00 AM EDT [place] ([facility]) [id number] Sleep related hypoxemia Sleep Related Hypoxemia Pro blem 05/20/2020 12:00:00 AM EDT [place] ([facility]) [id number] Sleep related hypoxemia Sleep Related Hypoxemia Pro blem 05/20/2020 12:00:00 AM EDT [place] ([facility]) [id number] Sleep related hypoxemia Sleep Related Hypoxemia Pro blem 05/20/2020 12:00:00 AM EDT [place] ([facility]) [id number] Sleep related hypoxemia Sleep Related Hypoxemia Pro blem 05/20/2020 12:00:00 AM EDT [place] ([facility]) [id number] Sleep related hypoxemia Sleep Related Hypoxemia Pro blem 05/20/2020 12:00:00 AM EDT [place] ([facility]) [id number] Sleep related hypoxemia Sleep Related Hypoxemia Pro blem 05/20/2020 12:00:00 AM EDT [place] ([facility]) [id number] Sleep related hypoxemia Sleep Related Hypoxemia Pro blem 05/20/2020 12:00:00 AM EDT [place] ([facility]) [id number] Sleep related hypoxemia Sleep Related Hypoxemia Pro blem 05/20/2020 12:00:00 AM EDT [place] ([facility]) [id number] Dementia Dementia Problem 05/07/2020 12:00:00 AM ES T [place] ([facility]) [id number] Dementia Dementia Problem 05/07/2020 12:00:00 AM ES T [place] ([facility]) [id number] Dementia Dementia Problem 05/07/2020 12:00:00 AM ES T [place] ([facility]) [id number] Dementia Dementia Problem 05/07/2020 12:00:00 AM ES T [place] ([facility]) [id number] Dementia Dementia Problem 05/07/2020 12:00:00 AM ES T [place] ([facility]) [id number] Dementia Dementia Problem 05/07/2020 12:00:00 AM ES T [place] ([facility]) [id number] Dementia Dementia Problem 05/07/2020 12:00:00 AM ES T [place] ([facility]) [id number] Dementia Dementia Problem 05/07/2020 12:00:00 AM ES T [place] ([facility]) [id number] Dementia Dementia Problem 05/07/2020 12:00:00 AM ES T [place] ([facility]) [id number] Dementia Dementia Problem 05/07/2020 12:00:00 AM ES T [place] ([facility]) [id number] Dementia Dementia Problem 05/07/2020 12:00:00 AM ES T BENNIE ([facility]) [id number] Dementia Dementia Problem 05/07/2020 12:00:00 AM ES T BENNIE ([facility]) [id number] Low back pain Low Back Pain Problem 04/25/2020 12 :00:00 AM EST - 04/25/2020 12:00:00 AM EST BENNIE ([facility]) [id number] Low back pain Low Back Pain Problem 04/25/2020 12 :00:00 AM EST - 04/25/2020 12:00:00 AM EST BENNIE ([facility]) [id number] Low back pain Low Back Pain Problem 04/25/2020 12 :00:00 AM EST - 04/25/2020 12:00:00 AM EST BENNIE ([facility]) [id number] Low back pain Low Back Pain Problem 04/25/2020 12 :00:00 AM EST - 04/25/2020 12:00:00 AM EST BENNIE ([facility]) [id number] Low back pain Low Back Pain Problem 04/25/2020 12 :00:00 AM EST - 04/25/2020 12:00:00 AM EST BENNIE ([facility]) [id number] Low back pain Low Back Pain Problem 04/25/2020 12 :00:00 AM EST - 04/25/2020 12:00:00 AM EST BENNIE ([facility]) [id number] Low back pain Low Back Pain Problem 04/25/2020 12 :00:00 AM EST - 04/25/2020 12:00:00 AM EST BENNIE ([facility]) [id number] Low back pain Low Back Pain Problem 04/25/2020 12 :00:00 AM EST - 04/25/2020 12:00:00 AM EST BENNIE ([facility]) [id number] Low back pain Low Back Pain Problem 04/25/2020 12 :00:00 AM EST - 04/25/2020 12:00:00 AM EST BENNIE ([facility]) [id number] Low back pain Low Back Pain Problem 04/25/2020 12 :00:00 AM EST - 04/25/2020 12:00:00 AM EST BENNIE ([facility]) [id number] Low back pain Low Back Pain Problem 04/25/2020 12 :00:00 AM EST - 04/25/2020 12:00:00 AM EST BENNIE ([facility]) [id number] Low back pain Low Back Pain Problem 04/25/2020 12 :00:00 AM EST - 04/25/2020 12:00:00 AM EST BENNIE ([facility]) [id number] Low back pain Low Back Pain Problem 04/25/2020 12 :00:00 AM EST - 04/25/2020 12:00:00 AM EST BENNIE ([facility]) [id number] Domiciliary or rest home patient evaluat ion and management Domiciliary or Rest Home Patient Evaluation and Management Problem 2019 12:00:00 AM EST BENNIE ([facility]) [id number] Domiciliary or rest home patient evaluat ion and management Domiciliary or Rest Home Patient Evaluation and Management Problem 2019 12:00:00 AM EST BENNIE ([facility]) [id number] Domiciliary or rest home patient evaluat ion and management Domiciliary or Rest Home Patient Evaluation and Management Problem 2019 12:00:00 AM EST BENNIE ([facility]) [id number] Domiciliary or rest home patient evaluat ion and management Domiciliary or Rest Home Patient Evaluation and Management Problem 2019 12:00:00 AM EST BENNIE ([facility]) [id number] Domiciliary or rest home patient evaluat ion and management Domiciliary or Rest Home Patient Evaluation and Management Problem 2019 12:00:00 AM EST BENNIE ([facility]) [id number] Mild memory disturbance Mild Memory Disturbance Proble m 01/02/2020 12:00:00 AM EST BENNIE ([facility]) [id number] 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 01/02/2020 12:00:00 AM EST - 01/02/2020 12:00:00 AM EST BENNIE ([facility]) [id number] Mild memory disturbance Mild Memory Disturbance Proble m 01/02/2020 12:00:00 AM EST BENNIE ([facility]) [id number] 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 01/02/2020 12:00:00 AM EST - 01/02/2020 12:00:00 AM EST BENNIE ([facility]) [id number] Mild memory disturbance Mild Memory Disturbance Proble m 01/02/2020 12:00:00 AM EST BENNIE ([facility]) [id number] 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 01/02/2020 12:00:00 AM EST - 01/02/2020 12:00:00 AM EST BENNIE ([facility]) [id number] Mild memory disturbance Mild Memory Disturbance Proble m 01/02/2020 12:00:00 AM EST BENNIE ([facility]) [id number] 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 01/02/2020 12:00:00 AM EST - 01/02/2020 12:00:00 AM EST BENNIE ([facility]) [id number] Mild memory disturbance Mild Memory Disturbance Proble m 01/02/2020 12:00:00 AM EST BENNIE ([facility]) [id number] 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 01/02/2020 12:00:00 AM EST - 01/02/2020 12:00:00 AM EST BENNIE ([facility]) [id number] Mild memory disturbance Mild Memory Disturbance Proble m 01/02/2020 12:00:00 AM EST BENNIE ([facility]) [id number] 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 01/02/2020 12:00:00 AM EST - 01/02/2020 12:00:00 AM EST BENNIE ([facility]) [id number] Mild memory disturbance Mild Memory Disturbance Proble m 01/02/2020 12:00:00 AM EST BENNIE ([facility]) [id number] 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 01/02/2020 12:00:00 AM EST - 01/02/2020 12:00:00 AM EST BENNIE ([facility]) [id number] Mild memory disturbance Mild Memory Disturbance Proble m 01/02/2020 12:00:00 AM EST BENNIE ([facility]) [id number] 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 01/02/2020 12:00:00 AM EST - 01/02/2020 12:00:00 AM EST BENNIE ([facility]) [id number] Mild memory disturbance Mild Memory Disturbance Proble m 01/02/2020 12:00:00 AM EST BENNIE ([facility]) [id number] 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 01/02/2020 12:00:00 AM EST - 01/02/2020 12:00:00 AM EST BENNIE ([facility]) [id number] Mild memory disturbance Mild Memory Disturbance Proble m 01/02/2020 12:00:00 AM EST BENNIE ([facility]) [id number] 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 01/02/2020 12:00:00 AM EST - 01/02/2020 12:00:00 AM EST BENNIE ([facility]) [id number] Mild memory disturbance Mild Memory Disturbance Proble m 01/02/2020 12:00:00 AM EST BENNIE ([facility]) [id number] 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 01/02/2020 12:00:00 AM EST - 01/02/2020 12:00:00 AM EST BENNIE ([facility]) [id number] Mild memory disturbance Mild Memory Disturbance Proble m 01/02/2020 12:00:00 AM EST BENNIE ([facility]) [id number] 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 01/02/2020 12:00:00 AM EST - 01/02/2020 12:00:00 AM EST BENNIE ([facility]) [id number] Mild memory disturbance Mild Memory Disturbance Proble m 01/02/2020 12:00:00 AM EST BENNIE ([facility]) [id number] 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 01/02/2020 12:00:00 AM EST - 01/02/2020 12:00:00 AM EST BENNIE ([facility]) [id number] Mild memory disturbance Mild Memory Disturbance Proble m 01/02/2020 12:00:00 AM EST BENNIE ([facility]) [id number] 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 01/02/2020 12:00:00 AM EST - 01/02/2020 12:00:00 AM EST BENNIE ([facility]) [id number] Mild memory disturbance Mild Memory Disturbance Proble m 01/02/2020 12:00:00 AM EST BENNIE ([facility]) [id number] 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 01/02/2020 12:00:00 AM EST - 01/02/2020 12:00:00 AM EST BENNIE ([facility]) [id number] Mild memory disturbance Mild Memory Disturbance Proble m 01/02/2020 12:00:00 AM EST BENNIE ([facility]) [id number] 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 01/02/2020 12:00:00 AM EST - 01/02/2020 12:00:00 AM EST BENNIE ([facility]) [id number] Dental caries, unspecified Dental caries, unspecified 11/29/2019 01:39:15 PM EDT [facility] Z12.11 Screening for malignant neoplasm of colo n Screening for malignant neoplasm of colon 11/29/2019 01:39:15 PM EDT [facility] V05.9 Encounter for immunization Encounter for immunization 11/29/2019 01:39:15 PM EDT [facility] [id number] 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 11/29/2019 12:00:00 AM EDT A THENShannon ([facility]) [id number] Screening for malignant neoplasm of colo n Screening for Malignant Neoplasm of Colon Problem 11/29/2019 12:00:00 AM EDT BENNIE ([facility]) [id number] Influenza vaccine needed Influenza Vaccine Needed Pro blem 11/29/2019 12:00:00 AM EDT BENNIE ([facility]) [id number] 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 11/29/2019 12:00:00 AM EDT A THENA ([facility]) [id number] Screening for malignant neoplasm of colo n Screening for Malignant Neoplasm of Colon Problem 11/29/2019 12:00:00 AM EDT BENNIE ([facility]) [id number] Influenza vaccine needed Influenza Vaccine Needed Pro blem 11/29/2019 12:00:00 AM EDT BENNIE ([facility]) [id number] 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 11/29/2019 12:00:00 AM EDT A THENA ([facility]) [id number] Screening for malignant neoplasm of colo n Screening for Malignant Neoplasm of Colon Problem 11/29/2019 12:00:00 AM EDT BENNIE ([facility]) [id number] Influenza vaccine needed Influenza Vaccine Needed Pro blem 11/29/2019 12:00:00 AM EDT BENNIE ([facility]) [id number] 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 11/29/2019 12:00:00 AM EDT A THENA ([facility]) [id number] Screening for malignant neoplasm of colo n Screening for Malignant Neoplasm of Colon Problem 11/29/2019 12:00:00 AM EDT BENNIE ([facility]) [id number] Influenza vaccine needed Influenza Vaccine Needed Pro blem 11/29/2019 12:00:00 AM EDT BENNIE ([facility]) [id number] 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 11/29/2019 12:00:00 AM EDT A THENA ([facility]) [id number] Screening for malignant neoplasm of colo n Screening for Malignant Neoplasm of Colon Problem 11/29/2019 12:00:00 AM EDT BENNIE ([facility]) [id number] Influenza vaccine needed Influenza Vaccine Needed Pro blem 11/29/2019 12:00:00 AM EDT BENNIE ([facility]) [id number] 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 11/29/2019 12:00:00 AM EDT A THENA ([facility]) [id number] Screening for malignant neoplasm of colo n Screening for Malignant Neoplasm of Colon Problem 11/29/2019 12:00:00 AM EDT BENNIE ([facility]) [id number] Influenza vaccine needed Influenza Vaccine Needed Pro blem 11/29/2019 12:00:00 AM EDT BENNIE ([facility]) [id number] 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 11/29/2019 12:00:00 AM EDT A THENA ([facility]) [id number] Screening for malignant neoplasm of colo n Screening for Malignant Neoplasm of Colon Problem 11/29/2019 12:00:00 AM EDT BENNIE ([facility]) [id number] Influenza vaccine needed Influenza Vaccine Needed Pro blem 11/29/2019 12:00:00 AM EDT BENNIE ([facility]) [id number] 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 11/29/2019 12:00:00 AM EDT Shannon WHITE ([facility]) [id number] Screening for malignant neoplasm of colo n Screening for Malignant Neoplasm of Colon Problem 11/29/2019 12:00:00 AM EDT BENNIE ([facility]) [id number] Influenza vaccine needed Influenza Vaccine Needed Pro blem 11/29/2019 12:00:00 AM EDT BENNIE ([facility]) [id number] 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 11/29/2019 12:00:00 AM EDT Shannon WHITE ([facility]) [id number] Screening for malignant neoplasm of colo n Screening for Malignant Neoplasm of Colon Problem 11/29/2019 12:00:00 AM EDT BENNIE ([facility]) [id number] Influenza vaccine needed Influenza Vaccine Needed Pro blem 11/29/2019 12:00:00 AM EDT BENNIE ([facility]) [id number] 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 11/29/2019 12:00:00 AM EDT Shannon WHITE ([facility]) [id number] Screening for malignant neoplasm of colo n Screening for Malignant Neoplasm of Colon Problem 11/29/2019 12:00:00 AM EDT BENNIE ([facility]) [id number] Influenza vaccine needed Influenza Vaccine Needed Pro blem 11/29/2019 12:00:00 AM EDT BENNIE ([facility]) [id number] 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 11/29/2019 12:00:00 AM EDT Shannon THENShannon ([facility]) [id number] Screening for malignant neoplasm of colo n Screening for Malignant Neoplasm of Colon Problem 11/29/2019 12:00:00 AM EDT BENNIE ([facility]) [id number] Influenza vaccine needed Influenza Vaccine Needed Pro blem 11/29/2019 12:00:00 AM EDT BENNIE ([facility]) [id number] 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 11/29/2019 12:00:00 AM EDT Shannon WHITE ([facility]) [id number] Screening for malignant neoplasm of colo n Screening for Malignant Neoplasm of Colon Problem 11/29/2019 12:00:00 AM EDT BENNIE ([facility]) [id number] Influenza vaccine needed Influenza Vaccine Needed Pro blem 11/29/2019 12:00:00 AM EDT BENNIE ([facility]) [id number] 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 11/29/2019 12:00:00 AM EDT Shannon WHITE ([facility]) [id number] Screening for malignant neoplasm of colo n Screening for Malignant Neoplasm of Colon Problem 11/29/2019 12:00:00 AM EDT BENNIE ([facility]) [id number] Influenza vaccine needed Influenza Vaccine Needed Pro blem 11/29/2019 12:00:00 AM EDT BENNIE ([facility]) [id number] Screening procedure Screening Procedure Problem 1 12:00:00 AM EDT BENNIE ([facility]) [id number] 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 11/29/2019 12:00:00 AM EDT Shannon WHITE ([facility]) [id number] Influenza vaccine needed Influenza Vaccine Needed Pro blem 11/29/2019 12:00:00 AM EDT BENNIE ([facility]) 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, 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, W/ MIXED ANXIETY AND DEPRESSED MOOD 10/29/2019 04: 18:43 PM EDT [facility] V70.0 Encounter for general adult medical exam ination with abnormal findings Encounter for general adult medical examination with abnormal findings 10/29/2019 02:15:39 PM EDT [facility] [id number] Procedure by method Procedure by Method Problem 0 10/29/2019 12:00:00 AM EDT - 01/02/2020 12:00:00 AM EST BENNIE ([facility]) [id number] 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 10/29/2019 12:00:00 AM EDT BENNIE ([facility]) [id number] Procedure by method Procedure by Method Problem 0 10/29/2019 12:00:00 AM EDT - 01/02/2020 12:00:00 AM EST BENNIE ([facility]) [id number] 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 10/29/2019 12:00:00 AM EDT BENNIE ([facility]) [id number] Procedure by method Procedure by Method Problem 0 10/29/2019 12:00:00 AM EDT - 01/02/2020 12:00:00 AM EST BENNIE ([facility]) [id number] 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 10/29/2019 12:00:00 AM EDT BENNIE ([facility]) [id number] Procedure by method Procedure by Method Problem 0 10/29/2019 12:00:00 AM EDT - 01/02/2020 12:00:00 AM EST BENNIE ([facility]) [id number] 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 10/29/2019 12:00:00 AM EDT BENNIE ([facility]) [id number] Procedure by method Procedure by Method Problem 0 10/29/2019 12:00:00 AM EDT - 01/02/2020 12:00:00 AM EST BENNIE ([facility]) [id number] 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 10/29/2019 12:00:00 AM EDT BENNIE ([facility]) [id number] Procedure by method Procedure by Method Problem 0 10/29/2019 12:00:00 AM EDT - 01/02/2020 12:00:00 AM EST BENNIE ([facility]) [id number] 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 10/29/2019 12:00:00 AM EDT BENNIE ([facility]) [id number] Procedure by method Procedure by Method Problem 0 10/29/2019 12:00:00 AM EDT - 01/02/2020 12:00:00 AM EST BENNIE ([facility]) [id number] 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 10/29/2019 12:00:00 AM EDT BENNIE ([facility]) [id number] Procedure by method Procedure by Method Problem 0 10/29/2019 12:00:00 AM EDT - 01/02/2020 12:00:00 AM EST BENNIE ([facility]) [id number] 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 10/29/2019 12:00:00 AM EDT BENNIE ([facility]) [id number] Procedure by method Procedure by Method Problem 0 10/29/2019 12:00:00 AM EDT - 01/02/2020 12:00:00 AM EST BENNIE ([facility]) [id number] 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 10/29/2019 12:00:00 AM EDT BENNIE ([facility]) [id number] Procedure by method Procedure by Method Problem 0 10/29/2019 12:00:00 AM EDT - 01/02/2020 12:00:00 AM EST BENNIE ([facility]) [id number] 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 10/29/2019 12:00:00 AM EDT BENNIE ([facility]) [id number] Procedure by method Procedure by Method Problem 0 10/29/2019 12:00:00 AM EDT - 01/02/2020 12:00:00 AM EST BENNIE ([facility]) [id number] 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 10/29/2019 12:00:00 AM EDT BENNIE ([facility]) [id number] Procedure by method Procedure by Method Problem 0 10/29/2019 12:00:00 AM EDT - 01/02/2020 12:00:00 AM EST BENNIE ([facility]) [id number] 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 10/29/2019 12:00:00 AM EDT BENNIE ([facility]) [id number] Procedure by method Procedure by Method Problem 0 10/29/2019 12:00:00 AM EDT - 01/02/2020 12:00:00 AM EST BENNIE ([facility]) [id number] 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 10/29/2019 12:00:00 AM EDT BENNIE ([facility]) [id number] Procedure by method Procedure by Method Problem 0 10/29/2019 12:00:00 AM EDT - 01/02/2020 12:00:00 AM EST BENNIE ([facility]) [id number] 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 10/29/2019 12:00:00 AM EDT BENNIE ([facility]) [id number] Procedure by method Procedure by Method Problem 0 10/29/2019 12:00:00 AM EDT - 01/02/2020 12:00:00 AM EST BENNIE ([facility]) [id number] 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 10/29/2019 12:00:00 AM EDT BENNIE ([facility]) [id number] Procedure by method Procedure by Method Problem 0 10/29/2019 12:00:00 AM EDT - 01/02/2020 12:00:00 AM EST BENNIE ([facility]) [id number] 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 10/29/2019 12:00:00 AM EDT BENNIE ([facility]) [id number] Procedure by method Procedure by Method Problem 0 10/29/2019 12:00:00 AM EDT BENNIE ([facility]) [id number] 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 10/29/2019 12:00:00 AM EDT BENNIE ([facility]) [id number] Cardiovascular measurement - finding Car diovascular Measurement - Finding Problem 09/04/2019 12:00:00 AM EDT - 04/18/2020 12:00:00 AM EST BENNIE ([facility]) [id number] Cardiovascular measurement - finding Car diovascular Measurement - Finding Problem 09/04/2019 12:00:00 AM EDT - 04/18/2020 12:00:00 AM EST BENNIE ([facility]) [id number] Cardiovascular measurement - finding Car diovascular Measurement - Finding Problem 09/04/2019 12:00:00 AM EDT - 04/18/2020 12:00:00 AM EST BENNIE ([facility]) [id number] Cardiovascular measurement - finding Car diovascular Measurement - Finding Problem 09/04/2019 12:00:00 AM EDT - 04/18/2020 12:00:00 AM EST BENNIE ([facility]) [id number] Cardiovascular measurement - finding Car diovascular Measurement - Finding Problem 09/04/2019 12:00:00 AM EDT - 04/18/2020 12:00:00 AM EST BENNIE ([facility]) [id number] Cardiovascular measurement - finding Car diovascular Measurement - Finding Problem 09/04/2019 12:00:00 AM EDT - 04/18/2020 12:00:00 AM EST BENNIE ([facility]) [id number] Cardiovascular measurement - finding Car diovascular Measurement - Finding Problem 09/04/2019 12:00:00 AM EDT - 04/18/2020 12:00:00 AM EST BENNIE ([facility]) [id number] Cardiovascular measurement - finding Car diovascular Measurement - Finding Problem 09/04/2019 12:00:00 AM EDT - 04/18/2020 12:00:00 AM EST BENNIE ([facility]) [id number] Cardiovascular measurement - finding Car diovascular Measurement - Finding Problem 09/04/2019 12:00:00 AM EDT - 04/18/2020 12:00:00 AM EST BENNIE ([facility]) [id number] Cardiovascular measurement - finding Car diovascular Measurement - Finding Problem 09/04/2019 12:00:00 AM EDT - 04/18/2020 12:00:00 AM EST BENNIE ([facility]) [id number] Cardiovascular measurement - finding Car diovascular Measurement - Finding Problem 09/04/2019 12:00:00 AM EDT - 04/18/2020 12:00:00 AM EST BENNIE ([facility]) [id number] Cardiovascular measurement - finding Car diovascular Measurement - Finding Problem 09/04/2019 12:00:00 AM EDT - 04/18/2020 12:00:00 AM EST BENNIE ([facility]) [id number] Cardiovascular measurement - finding Car diovascular Measurement - Finding Problem 09/04/2019 12:00:00 AM EDT - 04/18/2020 12:00:00 AM EST BENNIE ([facility]) Surgeries/Procedures Procedure Description Date Indications Data Source(s) ECG ROUTINE ECG W/LEAST 12 LDS W/I&R 12/05/2020 12:00: 00 AM EDT MEDENT ([facility]) OFFICE OUTPATIENT VISIT 25 MINUTES 12/05/2020 12:00:00 AM EDT MED[facility] ([facility]) Results ID Date Data Source [id number] 04/14/2020 02:00:00 PM EST [facility] Name Value Range Interpretation Code Description Data Ruma rce(s) Supporting Document(s) SARS coronavirus 2 RNA Not Detected [facility] This lab was ordered by [facility] and reported by [facility]. ID Date Data Source [id number] 04/07/2020 06:20:00 AM EST [facility] Name Value Range Interpretation Code Description Data Ruam rce(s) Supporting Document(s) SARS coronavirus 2 RNA Not Detected [facility] [place] This lab was ordered by [facility] and reported by [facility]. ID Date Data Source [id number] 03/31/2020 09:00:00 AM EST [facility] Name Value Range Interpretation Code Description Data Ruma rce(s) Supporting Document(s) SARS coronavirus 2 RNA Not Detected [facility] [place] This lab was ordered by [facility] and reported by [facility]. ID Date Data Source [id number] 03/24/2020 08:00:00 AM EST [facility] Name Value Range Interpretation Code Description Data Ruma rce(s) Supporting Document(s) SARS coronavirus 2 RNA Not Detected [facility] This lab was ordered by [facility] and reported by [facility]. ID Date Data Source [id number] 03/17/2020 06:25:00 AM EST [facility] Name Value Range Interpretation Code Description Data Ruma rce(s) Supporting Document(s) SARS coronavirus 2 RNA Not Detected [facility] [place] This lab was ordered by [facility] and reported by [facility]. ID Date Data Source [id number] 03/10/2020 06:00:00 AM EST [facility] Name Value Range Interpretation Code Description Data Ruma rce(s) Supporting Document(s) SARS coronavirus 2 RNA Not Detected [facility] This lab was ordered by [facility] and reported by [facility]. ID Date Data Source [id number] 03/03/2020 07:30:00 AM EST [facility] Name Value Range Interpretation Code Description Data Ruma rce(s) Supporting Document(s) SARS coronavirus 2 RNA [facility] This lab was ordered by [facility] and reported by [facility]. ID Date Data Source [id number] 02/25/2020 07:35:00 AM EST [facility] Name Value Range Interpretation Code Description Data Ruma rce(s) Supporting Document(s) SARS coronavirus 2 RNA [facility] This lab was ordered by [facility] and reported by [facility]. ID Date Data Source [id number] 02/19/2020 07:20:00 AM EST [facility] Name Value Range Interpretation Code Description Data Ruma rce(s) Supporting Document(s) SARS coronavirus 2 RNA [facility] This lab was ordered by [facility] and reported by [facility]. ID Date Data Source [id number] 02/13/2020 11:35:00 AM EST [facility] Name Value Range Interpretation Code Description Data Ruma rce(s) Supporting Document(s) SARS coronavirus 2 RNA [facility] This lab was ordered by [facility] and reported by [facility]. ID Date Data Source [id number] 02/13/2020 12:00:00 AM EST [facility] Name Value Range Interpretation Code Description Data Ruma rce(s) Supporting Document(s) SARS-CoV2 Rapid Antigen [facility] This lab was ordered by [facility] and reported by [facility]. ID Date Data Source [id number] 02/08/2020 02:42:00 PM EST [facility] Name Value Range Interpretation Code Description Data Ruma rce(s) Supporting Document(s) SARS coronavirus 2 RNA [facility] This lab was ordered by [facility] and reported by [facility]. ID Date Data Source [id number] 11/29/2019 12:48:43 PM EDT [facility] Measurements & CalculationsHeight: 60 inches [...] Syringe 0.5 MLMfr / Lot# / Exp.Date: TagArray / [id number] / 1Amt. Given / Route / Site: 0.5 mL / IM / Right DeltoidNDC / CVX: [id number] / 150Administered Date: 11/29/2019 13:51VFC Eligibility: Not [...] been [facility]: [facility]2019Have you been [...] or Preferred Language: EnglishFamily and Home Address: [address] [place] [address] What is your housing situation today? I have housing Are you worried about losing your housing? NoMoney and Resources Employed? No Are you seeking work? NoIn the past year, have you or any family members you live with been unable to get any of the following when it was really needed? Denies Insecurity: food, utilities, clothing, children's tutor, phone, legal services, otherWithin the past year [...] follow-up today. Accompanied by Maria T from [facility]Pt states "lately I feel things are getting a little bit better". He continues to be on a wait list for assisted living at [facility]. Maria T is working on getting him into [facility], but they require a valid photo ID; his passport is reportedly and they require his certificate. He is having trouble obtaining a new photo ID. He is an [place] citizen with an active social security card. [...] during this visit, including review of any oqru-vrj-lmfycqr medications, herbal therapies, and/or supplements.Allergy ReviewAllergy List [...] & Plan Problems:Added: Encounter for immunization (ICD-V05.9) (TAP01-P55) Assessment: Instructions: Flu vaccine today. Shingles vaccine sent to your pharmacy.Screening for malignant neoplasm of colon (OJA83-L59.11) Assessment: Instructions: Instructions reviewed for FIT testing as an alternative for colon cancer screening. 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 Continue with [facility] for therapy.Primary generalized (osteo)arthritis (FSM61-D96.0) Assessment: Instructions: Continue with Meloxicam 7.5mg one tablet daily.Benign hypertension (ICD-401.1) (HGM56-V11) Assessment: Instructions: Continue your current blood pressure medication as currently taking and continue with your wireless consultant.Removed:Adjustment insomnia (ICD-307.41) (SHD57-M78.02)Patient Instructions/Care Plan: Encounter for immunization: Flu vaccine [...] as currently taking and continue with your wireless consultant.Dental caries- unspecified: Please consider scheduling with our [...] Allergies (updated 11/29/2019) Orders:FluLaval Quadrivalent, preservative free [CPT-47351] Adult - Ofc Vst, EST, Level IV [CPT-13507] Follow-Up Return to clinic: in 30 days for follow upAdditional Follow-Up: med checkClinical Visit Summary CompletedMedications:SHINGRIX 50 MCG/0.5ML INTRAMUSCULAR SUSPENSION RECONSTITUTED (ZOSTER VAC RECOMB ADJUVANTED) Give once and repeat in 2 months #0.5[Milliliter] x 1 Route:INTRAMUSCULAR Entered and Authorized by: Hardik GIVENS Method used: Electronically to [id number]* (retail) [id number] [facility] [place] [address] Note to Pharmacy: Route: INTRAMUSCULAR; Indications: ENCOUNTER FOR IMMUNIZATION RxID: [id number] signed by Hardik GIVENS on 12/16/2019 at 12:45 PM Name Value Range Interpretation Code Description Data Ruma rce(s) Supporting Document(s) ID Date Data Source [id number] 11/21/2019 02:03:07 PM EDT [facility] Measurements & CalculationsHeight: 60 inches [...] been admitted to the hospital? [facility]: [facility]/2019Have you been [...] is tolerating well. 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 Please INCREASE your Lexapro to 10mg daily (new prescription sent today). 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) (PYL61-S09.04) Assessment: Instructions: As above.Patient Instructions/Care Plan: ADJUSTMENT [...] ORAL LEXAPRO 5 MG ORAL TABLET Qty: [id number] Refills: 30[Tablet] To: LEXAPRO 10 MG ORAL TABLET-Take 1 tablet po daily in the morning Qty: 30[Tablet] Refills: 1Allergies:No Known Allergies (updated 11/21/2019) Orders:Adult - Ofc Vst, EST, Level III [CPT- 87699] Follow-Up Return to clinic: in 1 week for follow upAdditional Follow-Up: med reviewClinical Visit Summary Completed Name Value Range Interpretation Code Description Data Ruma rce(s) Supporting Document(s) ID Date Data Source [id number] 11/14/2019 03:01:49 PM EDT [facility] Measurements & CalculationsHeight: 60 inches [...] been admitted to the hospital? [facility] - [facility] reported today: 08/21/2019Have you been [...] [facility].Pt chiropractic care states he has already used all [...] during this visit, including review of any uwlh-hdj-kirqgjm medications, herbal therapies, and/or supplements.Allergy ReviewAllergy List [...] is? 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 [facility]: [facility]2019Have you been to an emergency room (ER) or urgent care clinic? NoHave you seen another healthcare provider? Yes - dr. Stone you seen a dentist? NoIntake performed by: Maggie Oshea LPN, October 29, 2019 1:13 PMRate [...] or Preferred Language: EnglishFamily and Home Address: [address] [place] [address] What is your housing situation today? I have housing Are you worried about losing your housing? NoMoney and Resources In the past year, have you or any family members you live with been unable to get any of the following when it was really needed? Denies Insecurity: food, utilities, clothing, children's tutor, phone, legal services, otherWithin the past year [...] T from [facility]Pt is still awaiting getting into assisted living facility. Pt had [facility] to do an evaluation, they determined that [...] during this visit, including review of any agcw-zky-awrpsgz medications, herbal therapies, and/or supplements.Allergy ReviewAllergy List [...] medical examination with abnormal findings (ICD- V70.0) (DUD13-M28.01) Assessment: Instructions: Recommend annual medical appointments. Recommend routine dental and vision care. 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 NO other sleep aides.Adjustment insomnia (ICD-307.41) (AUB91-X53.02) Assessment: Ineffective with Hydroxyzine 25mg, insurance denied Rozerem. Instructions: As above.Anxiety state (ICD-300.00) (WVK93-D94.1): evening anxiety Assessment: Low dose Lexapro given age. Instructions: Start Lexapro once daily, also starting counseling services with [facility].Benign hypertension (ICD-401.1) (HHH05-B18) Assessment: Instructions: Continue your current blood pressure medications as currently taking.Primary generalized (osteo)arthritis (LKX30-W68.0) Assessment: Mobic to replace ibuprofen as it [...] HYDROXYZINE HCL 25 MG ORAL TABLET Qty: [id number] Refills: 30[Tablet] To: HYDROXYZINE HCL 50 MG ORAL TABLET-Take 1 tablet po daily at bedtime Qty: 30[Tablet] Refills: 1From: ORAL K-TAB 20 MEQ ORAL TABLET EXTENDED RELEASE Qty: [id number] To: K-TAB 20 MEQ ORAL TABLET EXTENDED RELEASE-take 1 tablet po daily at bedtimeFrom: ORAL INDAPAMIDE 1.25 MG ORAL TABLET Qty: [id number] To: INDAPAMIDE 1.25 MG ORAL TABLET-Take 1 tablet po daily in the morningFrom: ORAL AMLODIPINE BESYLATE 10 MG ORAL TABLET Qty: [id number] To: AMLODIPINE BESYLATE 10 MG ORAL TABLET- Take 1 tablet po daily in the morningFrom: ORAL ISOSORBIDE MONONITRATE ER 30 MG ORAL TABLET EXTENDED RELEASE 24 HOUR Qty: [id number] To: ISOSORBIDE MONONITRATE ER 30 MG ORAL TABLET EXTENDED RELEASE 24 HOUR-Take half tablet po daily in the morningAllergies:No Known Allergies (updated 10/29/2019) Orders: Preventive, Est, (65+) [CPT-13271] Follow-Up Return to clinic: in 4 weeks for follow upAdditional Follow-Up: med checkClinical Visit Summary Completed Name Value Range Interpretation Code Description Data Ruma rce(s) Supporting Document(s) Procedure Social History Code Duration Value Status Description Data Source(s ) Smoking 12/05/2020 12:00:00 AM EDT Patient is a former smoker completed Patient is a former smoker MEDFAN ([facility]) Vital Signs ID Date Data Source UNK Name Value Range Interpretation Code Description Data Source(s) Body weight 175.00 [lb_av] 175.00 [lb_av] RACHELL Porras ([facility]) Body height 65 [in_i] 65 [in_i] [facility] 5'5" Body mass index (BMI) [Ratio] 29.1 kg/m2 29.1 k g/m2 MEDFAN ([facility]) Heart rate 56 /min 56 /min [facility] Regular with intermittent skips Respiratory rate 16 /min 16 /min [facility]FAN ( [facility]) Systolic blood pressure 122 mm[Hg] 122 mm[Hg] M EDENT ([facility]) sitting, regular cuff Diastolic blood pressure 68 mm[Hg] 68 mm[Hg] MEDENT ([facility]) sitting, regular cuff Systolic blood pressure 118 mm[Hg] 118 mm[Hg] M ERIK ([facility]) sitting Diastolic blood pressure 64 mm[Hg] 64 mm[Hg] MEDENT ([facility]) sitting Diastolic blood pressure 67 mm[Hg] 67 mm[Hg] BENNIE ([facility]) Body height 60 [in_i] 60 [in_i] BENNIE ([facility]) Body mass index (BMI) [Ratio] 35.9 kg/m2 35.9 k g/m2 BENNIE ([facility]) Systolic blood pressure 116 mm[Hg] 116 mm[Hg] A THENA ([facility]) Body weight 2937.6 [oz_av] 2937.6 [oz_av] ATHEN A ([facility]) Diastolic blood pressure 67 mm[Hg] 67 mm[Hg] BENNIE ([facility]) Body height 60 [in_i] 60 [in_i] BENNIE ([facility]) Body mass index (BMI) [Ratio] 35.9 kg/m2 35.9 k g/m2 BENNIE ([facility]) Systolic blood pressure 116 mm[Hg] 116 mm[Hg] A THENA ([facility]) Body weight 2937.6 [oz_av] 2937.6 [oz_av] ATHEN A ([facility]) Diastolic blood pressure 61 mm[Hg] 61 mm[Hg] BENNIE ([facility]) Body height 60 [in_i] 60 [in_i] BENNIE ([facility]) Body mass index (BMI) [Ratio] 36.7 kg/m2 36.7 k g/m2 BENNIE ([facility]) Systolic blood pressure 113 mm[Hg] 113 mm[Hg] A THENA ([facility]) Body weight 3008 [oz_av] 3008 [oz_av] BENNIE ([facility]) Diastolic blood pressure 61 mm[Hg] 61 mm[Hg] BENNIE ([facility]) Body height 60 [in_i] 60 [in_i] BENNIE ([facility]) Body mass index (BMI) [Ratio] 36.7 kg/m2 36.7 k g/m2 BENNIE ([facility]) Systolic blood pressure 113 mm[Hg] 113 mm[Hg] A THENA ([facility]) Body weight 3008 [oz_av] 3008 [oz_av] BENNIE ([facility]) Body weight 3008 [oz_av] 3008 [oz_av] BENNIE ([facility]) Diastolic blood pressure 61 mm[Hg] 61 mm[Hg] BENNIE ([facility]) Body height 60 [in_i] 60 [in_i] BENNIE ([facility]) Body mass index (BMI) [Ratio] 36.7 kg/m2 36.7 k g/m2 BENNIE ([facility]) Systolic blood pressure 113 mm[Hg] 113 mm[Hg] [facility] Diastolic blood pressure 61 mm[Hg] 61 mm[Hg] BENNIE ([facility]) Body height 60 [in_i] 60 [in_i] BENNIE ([facility]) Body mass index (BMI) [Ratio] 36.7 kg/m2 36.7 k g/m2 BENNIE ([facility]) Systolic blood pressure 113 mm[Hg] 113 mm[Hg] A THENA ([facility]) Body weight 3008 [oz_av] 3008 [oz_av] BENNIE ([facility]) Diastolic blood pressure 80 mm[Hg] 80 mm[Hg] BENNIE ([facility]) Body height 60 [in_i] 60 [in_i] BENNIE ([facility]) Body mass index (BMI) [Ratio] 35.3 kg/m2 35.3 k g/m2 BENNIE ([facility]) Systolic blood pressure 144 mm[Hg] 144 mm[Hg] A THENA ([facility]) Body weight 2896 [oz_av] 2896 [oz_av] BENNIE ([facility]) Diastolic blood pressure 80 mm[Hg] 80 mm[Hg] BENNIE ([facility]) Body height 60 [in_i] 60 [in_i] BENNIE ([facility]) Body mass index (BMI) [Ratio] 35.3 kg/m2 35.3 k g/m2 BENNIE ([facility]) Systolic blood pressure 144 mm[Hg] 144 mm[Hg] A THENA ([facility]) Body weight 2896 [oz_av] 2896 [oz_av] BENNIE ([facility]) Diastolic blood pressure 80 mm[Hg] 80 mm[Hg] BENNIE ([facility]) Body height 60 [in_i] 60 [in_i] BENNIE ([facility]) Body mass index (BMI) [Ratio] 35.3 kg/m2 35.3 k g/m2 BENNIE ([facility]) Systolic blood pressure 144 mm[Hg] 144 mm[Hg] A THENA ([facility]) Body weight 2896 [oz_av] 2896 [oz_av] BENNIE ([facility]) Diastolic blood pressure 80 mm[Hg] 80 mm[Hg] BENNIE ([facility]) Body height 60 [in_i] 60 [in_i] BENNIE ([facility]) Body mass index (BMI) [Ratio] 35.3 kg/m2 35.3 k g/m2 BENNIE ([facility]) Systolic blood pressure 144 mm[Hg] 144 mm[Hg] A THENA ([facility]) Body weight 2896 [oz_av] 2896 [oz_av] BENNIE ([facility]) Diastolic blood pressure 80 mm[Hg] 80 mm[Hg] BENNIE ([facility]) Body height 60 [in_i] 60 [in_i] BENNIE ([facility]) Body mass index (BMI) [Ratio] 35.3 kg/m2 35.3 k g/m2 BENNIE ([facility]) Systolic blood pressure 144 mm[Hg] 144 mm[Hg] A THENA ([facility]) Body weight 2896 [oz_av] 2896 [oz_av] BENNIE ([facility]) Diastolic blood pressure 65 mm[Hg] 65 mm[Hg] BENNIE ([facility]) Body height 60 [in_i] 60 [in_i] BENNIE ([facility]) Body mass index (BMI) [Ratio] 35.2 kg/m2 35.2 k g/m2 BENNIE ([facility]) Systolic blood pressure 129 mm[Hg] 129 mm[Hg] A THENA ([facility]) Body weight 2880 [oz_av] 2880 [oz_av] BENNIE ([facility]) Diastolic blood pressure 65 mm[Hg] 65 mm[Hg] BENNIE ([facility]) Body height 60 [in_i] 60 [in_i] BENNIE ([facility]) Body mass index (BMI) [Ratio] 35.2 kg/m2 35.2 k g/m2 BENNIE ([facility]) Systolic blood pressure 129 mm[Hg] 129 mm[Hg] A THENA ([facility]) Body weight 2880 [oz_av] 2880 [oz_av] BENNIE ([facility]) Diastolic blood pressure 65 mm[Hg] 65 mm[Hg] BENNIE ([facility]) Body height 60 [in_i] 60 [in_i] BENNIE ([facility]) Body mass index (BMI) [Ratio] 35.2 kg/m2 35.2 k g/m2 BENNIE ([facility]) Systolic blood pressure 129 mm[Hg] 129 mm[Hg] A THENA ([facility]) Body weight 2880 [oz_av] 2880 [oz_av] BENNIE ([facility]) Diastolic blood pressure 65 mm[Hg] 65 mm[Hg] BENNIE ([facility]) Body height 60 [in_i] 60 [in_i] BENNIE ([facility]) Body mass index (BMI) [Ratio] 35.2 kg/m2 35.2 k g/m2 BENNIE ([facility]) Systolic blood pressure 129 mm[Hg] 129 mm[Hg] A THENA ([facility]) Body weight 2880 [oz_av] 2880 [oz_av] BENNIE ([facility]) Diastolic blood pressure 65 mm[Hg] 65 mm[Hg] BENNIE ([facility]) Body height 60 [in_i] 60 [in_i] BENNEI ([facility]) Body mass index (BMI) [Ratio] 35.2 kg/m2 35.2 k g/m2 BENNIE ([facility]) Systolic blood pressure 129 mm[Hg] 129 mm[Hg] A THENA ([facility]) Body weight 2880 [oz_av] 2880 [oz_av] BENNIE ([facility]) Diastolic blood pressure 65 mm[Hg] 65 mm[Hg] BENNIE ([facility]) Body height 60 [in_i] 60 [in_i] BENNIE ([facility]) Body mass index (BMI) [Ratio] 35.2 kg/m2 35.2 k g/m2 BENNIE ([facility]) Systolic blood pressure 129 mm[Hg] 129 mm[Hg] A THENA ([facility]) Body weight 2880 [oz_av] 2880 [oz_av] BENNIE ([facility]) Body height 60 [in_i] 60 [in_i] BENNIE ([facility]) Body height 60 [in_i] 60 [in_i] BENNIE ([facility]) Body height 60 [in_i] 60 [in_i] BENNIE ([facility]) Body height 60 [in_i] 60 [in_i] BENNIE ([facility]) Body height 60 [in_i] 60 [in_i] BENNIE ([facility]) Body height 60 [in_i] 60 [in_i] BENNIE ([facility]) Body height 60 [in_i] 60 [in_i] BENNIE ([facility]) Diastolic blood pressure 58 mm[Hg] 58 mm[Hg] BENNIE ([facility]) Body height 60 [in_i] 60 [in_i] BENNIE ([facility]) Body mass index (BMI) [Ratio] 36.2 kg/m2 36.2 k g/m2 BENNIE ([facility]) Systolic blood pressure 126 mm[Hg] 126 mm[Hg] A THENA ([facility]) Body weight 2962 [oz_av] 2962 [oz_av] BENNIE ([facility]) Diastolic blood pressure 58 mm[Hg] 58 mm[Hg] BENNIE ([facility]) Body height 60 [in_i] 60 [in_i] BENNIE ([facility]) Body mass index (BMI) [Ratio] 36.2 kg/m2 36.2 k g/m2 BENNIE ([facility]) Systolic blood pressure 126 mm[Hg] 126 mm[Hg] A THENA ([facility]) Body weight 2962 [oz_av] 2962 [oz_av] BENNIE ([facility]) Diastolic blood pressure 58 mm[Hg] 58 mm[Hg] BENNIE ([facility]) Body height 60 [in_i] 60 [in_i] BENNIE ([facility]) Body mass index (BMI) [Ratio] 36.2 kg/m2 36.2 k g/m2 BENNIE ([facility]) Systolic blood pressure 126 mm[Hg] 126 mm[Hg] [facility] Body weight 2962 [oz_av] 2962 [oz_av] BENNIE ([facility]) Diastolic blood pressure 58 mm[Hg] 58 mm[Hg] BENNIE ([facility]) Body height 60 [in_i] 60 [in_i] BENNIE ([facility]) Body mass index (BMI) [Ratio] 36.2 kg/m2 36.2 k g/m2 BENNIE ([facility]) Systolic blood pressure 126 mm[Hg] 126 mm[Hg] A JOVANIA ([facility]) Body weight 2962 [oz_av] 2962 [oz_av] BENNIE ([facility]) Diastolic blood pressure 58 mm[Hg] 58 mm[Hg] BENNIE ([facility]) Body height 60 [in_i] 60 [in_i] BENNIE ([facility]) Body mass index (BMI) [Ratio] 36.2 kg/m2 36.2 k g/m2 BENNIE ([facility]) Systolic blood pressure 126 mm[Hg] 126 mm[Hg] A THENA ([facility]) Body weight 2962 [oz_av] 2962 [oz_av] BENNIE ([facility]) Diastolic blood pressure 58 mm[Hg] 58 mm[Hg] BENNIE ([facility]) Body height 60 [in_i] 60 [in_i] BENNIE ([facility]) Body mass index (BMI) [Ratio] 36.2 kg/m2 36.2 k g/m2 BENNIE ([facility]) Systolic blood pressure 126 mm[Hg] 126 mm[Hg] A JOVANIA ([facility]) Body weight 2962 [oz_av] 2962 [oz_av] BENNIE ([facility]) Diastolic blood pressure 58 mm[Hg] 58 mm[Hg] BENNIE ([facility]) Body height 60 [in_i] 60 [in_i] BENNIE ([facility]) Body mass index (BMI) [Ratio] 36.2 kg/m2 36.2 k g/m2 BENNIE ([facility]) Systolic blood pressure 126 mm[Hg] 126 mm[Hg] A JOVANIA ([facility]) Body weight 2962 [oz_av] 2962 [oz_av] BENNIE ([facility]) Diastolic blood pressure 58 mm[Hg] 58 mm[Hg] EBNNIE ([facility]) Body height 60 [in_i] 60 [in_i] BENNIE ([facility]) Body mass index (BMI) [Ratio] 36.2 kg/m2 36.2 k g/m2 BENNIE ([facility]) Systolic blood pressure 126 mm[Hg] 126 mm[Hg] A JOVANIA ([facility]) Body weight 2962 [oz_av] 2962 [oz_av] BENNIE ([facility]) Diastolic blood pressure 79 mm[Hg] 79 mm[Hg] BENNIE ([facility]) Body height 60 [in_i] 60 [in_i] BENNIE ([facility]) Body mass index (BMI) [Ratio] 35.7 kg/m2 35.7 k g/m2 BENNIE ([facility]) Systolic blood pressure 164 mm[Hg] 164 mm[Hg] A JOVANIA ([facility]) Body weight 2921.6 [oz_av] 2921.6 [oz_av] ATHEN A ([facility]) Diastolic blood pressure 79 mm[Hg] 79 mm[Hg] BENNIE ([facility]) Body height 60 [in_i] 60 [in_i] BENNIE ([facility]) Body mass index (BMI) [Ratio] 35.7 kg/m2 35.7 k g/m2 BENNIE ([facility]) Systolic blood pressure 164 mm[Hg] 164 mm[Hg] A CHRISTOPHER ([facility]) Body weight 2921.6 [oz_av] 2921.6 [oz_av] ATHEN A ([facility]) Diastolic blood pressure 79 mm[Hg] 79 mm[Hg] BENNIE ([facility]) Body height 60 [in_i] 60 [in_i] BENNIE ([facility]) Body mass index (BMI) [Ratio] 35.7 kg/m2 35.7 k g/m2 BENNIE ([facility]) Systolic blood pressure 164 mm[Hg] 164 mm[Hg] A CHRISTOPHER ([facility]) Body weight 2921.6 [oz_av] 2921.6 [oz_av] ATHEN A ([facility]) Diastolic blood pressure 79 mm[Hg] 79 mm[Hg] BENNIE ([facility]) Body height 60 [in_i] 60 [in_i] BENNIE ([facility]) Body mass index (BMI) [Ratio] 35.7 kg/m2 35.7 k g/m2 BENNIE ([facility]) Systolic blood pressure 164 mm[Hg] 164 mm[Hg] A CHRISTOPHER ([facility]) Body weight 2921.6 [oz_av] 2921.6 [oz_av] ATHEN A ([facility]) Diastolic blood pressure 79 mm[Hg] 79 mm[Hg] BENNIE ([facility]) Body height 60 [in_i] 60 [in_i] BENNIE ([facility]) Body mass index (BMI) [Ratio] 35.7 kg/m2 35.7 k g/m2 BENNIE ([facility]) Systolic blood pressure 164 mm[Hg] 164 mm[Hg] [facility] Body weight 2921.6 [oz_av] 2921.6 [oz_av] ATHEN A ([facility]) Diastolic blood pressure 79 mm[Hg] 79 mm[Hg] BENNIE ([facility]) Body height 60 [in_i] 60 [in_i] BENNIE ([facility]) Body mass index (BMI) [Ratio] 35.7 kg/m2 35.7 k g/m2 BENNIE ([facility]) Systolic blood pressure 164 mm[Hg] 164 mm[Hg] [facility] Body weight 2921.6 [oz_av] 2921.6 [oz_av] ATHEN A ([facility]) Diastolic blood pressure 79 mm[Hg] 79 mm[Hg] BENNIE ([facility]) Body height 60 [in_i] 60 [in_i] BENNIE ([facility]) Body mass index (BMI) [Ratio] 35.7 kg/m2 35.7 k g/m2 BENNIE ([facility]) Systolic blood pressure 164 mm[Hg] 164 mm[Hg] A [facility] ([facility]) Body weight 2921.6 [oz_av] 2921.6 [oz_av] ATHEN A ([facility]) Diastolic blood pressure 79 mm[Hg] 79 mm[Hg] BENNIE ([facility]) Body height 60 [in_i] 60 [in_i] BENNIE ([facility]) Body mass index (BMI) [Ratio] 35.7 kg/m2 35.7 k g/m2 BENNIE ([facility]) Systolic blood pressure 164 mm[Hg] 164 mm[Hg] [facility]) Body weight 2921.6 [oz_av] 2921.6 [oz_av] ATHEN A ([facility]) Diastolic blood pressure 79 mm[Hg] 79 mm[Hg] BENNIE ([facility]) Body height 60 [in_i] 60 [in_i] BENNIE ([facility]) Body mass index (BMI) [Ratio] 35.7 kg/m2 35.7 k g/m2 BENNIE ([facility]) Systolic blood pressure 164 mm[Hg] 164 mm[Hg] A [facility] ([facility]) Body weight 2921.6 [oz_av] 2921.6 [oz_av] ATHEN A ([facility]) Diastolic blood pressure 79 mm[Hg] 79 mm[Hg] BENNIE ([facility]) Body height 60 [in_i] 60 [in_i] BENNIE ([facility]) Body mass index (BMI) [Ratio] 35.7 kg/m2 35.7 k g/m2 BENNIE ([facility]) Systolic blood pressure 164 mm[Hg] 164 mm[Hg] A CHRISTOPHER ([facility]) Body weight 2921.6 [oz_av] 2921.6 [oz_av] ATHEN A ([facility]) Diastolic blood pressure 79 mm[Hg] 79 mm[Hg] BENNIE ([facility]) Body height 60 [in_i] 60 [in_i] BENNIE ([facility]) Body mass index (BMI) [Ratio] 35.7 kg/m2 35.7 k g/m2 BENNIE ([facility]) Systolic blood pressure 164 mm[Hg] 164 mm[Hg] A JOVANIA ([facility]) Body weight 2921.6 [oz_av] 2921.6 [oz_av] ATHEN A ([facility]) Diastolic blood pressure 79 mm[Hg] 79 mm[Hg] BENNIE ([facility]) Body height 60 [in_i] 60 [in_i] BENNIE ([facility]) Body mass index (BMI) [Ratio] 35.7 kg/m2 35.7 k g/m2 BENNIE ([facility]) Systolic blood pressure 164 mm[Hg] 164 mm[Hg] A CHRISTOPHER ([facility]) Body weight 2921.6 [oz_av] 2921.6 [oz_av] ATHEN A ([facility]) Body height 60 [in_i] 60 [in_i] BENNIE ([facility]) Body height 60 [in_i] 60 [in_i] BENNIE ([facility]) Body height 60 [in_i] 60 [in_i] BENNIE ([facility]) Body height 60 [in_i] 60 [in_i] BENNIE ([facility]) Body height 60 [in_i] 60 [in_i] BENNIE ([facility]) Body height 60 [in_i] 60 [in_i] BENNIE ([facility]) Body height 60 [in_i] 60 [in_i] BENNIE ([facility]) Body height 60 [in_i] 60 [in_i] BENNIE ([facility]) Body height 60 [in_i] 60 [in_i] BENNIE ([facility]) Body height 60 [in_i] 60 [in_i] BENNIE ([facility]) Body height 60 [in_i] 60 [in_i] BENNIE ([facility]) Body height 60 [in_i] 60 [in_i] BENNIE ([facility]) Body height 60 [in_i] 60 [in_i] BENNIE ([facility]) Body height 60 [in_i] 60 [in_i] BENNIE ([facility]) Diastolic blood pressure 73 mm[Hg] 73 mm[Hg] BENNIE ([facility]) Body height 60 [in_i] 60 [in_i] BENNIE ([facility]) Body mass index (BMI) [Ratio] 34.73 kg/m2 34.73 kg/m2 BENNIE ([facility]) Systolic blood pressure 159 mm[Hg] 159 mm[Hg] A JOVANIA ([facility]) Body weight 2835.2 [oz_av] 2835.2 [oz_av] ATHEN A ([facility]) Diastolic blood pressure 73 mm[Hg] 73 mm[Hg] BENNIE ([facility]) Body height 60 [in_i] 60 [in_i] BENNIE ([facility]) Body mass index (BMI) [Ratio] 34.73 kg/m2 34.73 kg/m2 BENNIE ([facility]) Systolic blood pressure 159 mm[Hg] 159 mm[Hg] A THENA ([facility]) Body weight 2835.2 [oz_av] 2835.2 [oz_av] ATHEN A ([facility]) Diastolic blood pressure 73 mm[Hg] 73 mm[Hg] BENNIE ([facility]) Body height 60 [in_i] 60 [in_i] BENNIE ([facility]) Body mass index (BMI) [Ratio] 34.73 kg/m2 34.73 kg/m2 BENNIE ([facility]) Systolic blood pressure 159 mm[Hg] 159 mm[Hg] [facility] Body weight 2835.2 [oz_av] 2835.2 [oz_av] ATHEN A ([facility]) Diastolic blood pressure 73 mm[Hg] 73 mm[Hg] BENNIE ([facility]) Body height 60 [in_i] 60 [in_i] BENNIE ([facility]) Body mass index (BMI) [Ratio] 34.73 kg/m2 34.73 kg/m2 BENNIE ([facility]) Systolic blood pressure 159 mm[Hg] 159 mm[Hg] A [facility] ([facility]) Body weight 2835.2 [oz_av] 2835.2 [oz_av] ATHEN A ([facility]) Diastolic blood pressure 73 mm[Hg] 73 mm[Hg] BENNIE ([facility]) Body height 60 [in_i] 60 [in_i] BENNIE ([facility]) Body mass index (BMI) [Ratio] 34.73 kg/m2 34.73 kg/m2 BENNIE ([facility]) Systolic blood pressure 159 mm[Hg] 159 mm[Hg] A [facility]) Body weight 2835.2 [oz_av] 2835.2 [oz_av] ATHEN A ([facility]) Diastolic blood pressure 73 mm[Hg] 73 mm[Hg] BENNIE ([facility]) Body height 60 [in_i] 60 [in_i] BENNIE ([facility]) Body mass index (BMI) [Ratio] 34.73 kg/m2 34.73 kg/m2 BENNIE ([facility]) Systolic blood pressure 159 mm[Hg] 159 mm[Hg] A [facility] ([facility]) Body weight 2835.2 [oz_av] 2835.2 [oz_av] ATHEN A ([facility]) Diastolic blood pressure 73 mm[Hg] 73 mm[Hg] BENNIE ([facility]) Body height 60 [in_i] 60 [in_i] BENNIE ([facility]) Body mass index (BMI) [Ratio] 34.73 kg/m2 34.73 kg/m2 BENNIE ([facility]) Systolic blood pressure 159 mm[Hg] 159 mm[Hg] [facility]) Body weight 2835.2 [oz_av] 2835.2 [oz_av] ATHEN A ([facility]) Diastolic blood pressure 73 mm[Hg] 73 mm[Hg] BENNIE ([facility]) Body height 60 [in_i] 60 [in_i] BENNIE ([facility]) Body mass index (BMI) [Ratio] 34.73 kg/m2 34.73 kg/m2 BENNIE ([facility]) Systolic blood pressure 159 mm[Hg] 159 mm[Hg] A [facility] ([facility]) Body weight 2835.2 [oz_av] 2835.2 [oz_av] ATHEN A ([facility]) Diastolic blood pressure 73 mm[Hg] 73 mm[Hg] BENNIE ([facility]) Body height 60 [in_i] 60 [in_i] BENNIE ([facility]) Body mass index (BMI) [Ratio] 34.73 kg/m2 34.73 kg/m2 BENNIE ([facility]) Systolic blood pressure 159 mm[Hg] 159 mm[Hg] A THENA ([facility]) Body weight 2835.2 [oz_av] 2835.2 [oz_av] ATHEN A ([facility]) Diastolic blood pressure 73 mm[Hg] 73 mm[Hg] BENNIE ([facility]) Body height 60 [in_i] 60 [in_i] BENNIE ([facility]) Body mass index (BMI) [Ratio] 34.73 kg/m2 34.73 kg/m2 BENNIE ([facility]) Systolic blood pressure 159 mm[Hg] 159 mm[Hg] [facility] ([facility]) Body weight 2835.2 [oz_av] 2835.2 [oz_av] ATHEN A ([facility]) Diastolic blood pressure 73 mm[Hg] 73 mm[Hg] BENNIE ([facility]) Body height 60 [in_i] 60 [in_i] BENNIE ([facility]) Body mass index (BMI) [Ratio] 34.73 kg/m2 34.73 kg/m2 BENNIE ([facility]) Systolic blood pressure 159 mm[Hg] 159 mm[Hg] [facility]) Body weight 2835.2 [oz_av] 2835.2 [oz_av] ATHEN A ([facility]) Diastolic blood pressure 73 mm[Hg] 73 mm[Hg] BENNIE ([facility]) Body height 60 [in_i] 60 [in_i] BENNIE ([facility]) Body mass index (BMI) [Ratio] 34.73 kg/m2 34.73 kg/m2 BENNIE ([facility]) Systolic blood pressure 159 mm[Hg] 159 mm[Hg] A [facility] ([facility]) Body weight 2835.2 [oz_av] 2835.2 [oz_av] ATHEN A ([facility]) Diastolic blood pressure 73 mm[Hg] 73 mm[Hg] BENNIE ([facility]) Body height 60 [in_i] 60 [in_i] BENNIE ([facility]) Body mass index (BMI) [Ratio] 34.73 kg/m2 34.73 kg/m2 BENNIE ([facility]) Systolic blood pressure 159 mm[Hg] 159 mm[Hg] A THENA ([facility]) Body weight 2835.2 [oz_av] 2835.2 [oz_av] ATHEN A ([facility]) Diastolic blood pressure 73 mm[Hg] 73 mm[Hg] BENNIE ([facility]) Body height 60 [in_i] 60 [in_i] BENNIE ([facility]) Body mass index (BMI) [Ratio] 34.73 kg/m2 34.73 kg/m2 BENNIE ([facility]) Systolic blood pressure 159 mm[Hg] 159 mm[Hg] A [facility] ([facility]) Body weight 2835.2 [oz_av] 2835.2 [oz_av] ATHEN A ([facility]) Diastolic blood pressure 68 mm[Hg] 68 mm[Hg] BENNIE ([facility]) Body height 60 [in_i] 60 [in_i] BENNIE ([facility]) Body mass index (BMI) [Ratio] 35.79 kg/m2 35.79 kg/m2 BENNIE ([facility]) Systolic blood pressure 127 mm[Hg] 127 mm[Hg] A JOVANIA ([facility]) Body weight 2921.6 [oz_av] 2921.6 [oz_av] ATHEN A ([facility]) Diastolic blood pressure 68 mm[Hg] 68 mm[Hg] BENNIE ([facility]) Body height 60 [in_i] 60 [in_i] BENNIE ([facility]) Body mass index (BMI) [Ratio] 35.79 kg/m2 35.79 kg/m2 BENNIE ([facility]) Systolic blood pressure 127 mm[Hg] 127 mm[Hg] A JOVANIA ([facility]) Body weight 2921.6 [oz_av] 2921.6 [oz_av] ATHEN A ([facility]) Diastolic blood pressure 68 mm[Hg] 68 mm[Hg] BENNIE ([facility]) Body height 60 [in_i] 60 [in_i] BENNIE ([facility]) Body mass index (BMI) [Ratio] 35.79 kg/m2 35.79 kg/m2 BENNIE ([facility]) Systolic blood pressure 127 mm[Hg] 127 mm[Hg] A THENA ([facility]) Body weight 2921.6 [oz_av] 2921.6 [oz_av] ATHEN A ([facility]) Diastolic blood pressure 68 mm[Hg] 68 mm[Hg] BENNIE ([facility]) Body height 60 [in_i] 60 [in_i] BENNIE ([facility]) Body mass index (BMI) [Ratio] 35.79 kg/m2 35.79 kg/m2 BENNIE ([facility]) Systolic blood pressure 127 mm[Hg] 127 mm[Hg] A [facility] ([facility]) Body weight 2921.6 [oz_av] 2921.6 [oz_av] ATHEN A ([facility]) Diastolic blood pressure 68 mm[Hg] 68 mm[Hg] BENNIE ([facility]) Body height 60 [in_i] 60 [in_i] BENNIE ([facility]) Body mass index (BMI) [Ratio] 35.79 kg/m2 35.79 kg/m2 BENNIE ([facility]) Systolic blood pressure 127 mm[Hg] 127 mm[Hg] [facility] Body weight 2921.6 [oz_av] 2921.6 [oz_av] ATHEN A ([facility]) Diastolic blood pressure 68 mm[Hg] 68 mm[Hg] BENNIE ([facility]) Body height 60 [in_i] 60 [in_i] BENNIE ([facility]) Body mass index (BMI) [Ratio] 35.79 kg/m2 35.79 kg/m2 BENNIE ([facility]) Systolic blood pressure 127 mm[Hg] 127 mm[Hg] [facility] Body weight 2921.6 [oz_av] 2921.6 [oz_av] ATHEN A ([facility]) Diastolic blood pressure 68 mm[Hg] 68 mm[Hg] BENNIE ([facility]) Body height 60 [in_i] 60 [in_i] BENNIE ([facility]) Body mass index (BMI) [Ratio] 35.79 kg/m2 35.79 kg/m2 BENNIE ([facility]) Systolic blood pressure 127 mm[Hg] 127 mm[Hg] A THENA ([facility]) Body weight 2921.6 [oz_av] 2921.6 [oz_av] ATHEN A ([facility]) Diastolic blood pressure 68 mm[Hg] 68 mm[Hg] BENNIE ([facility]) Body height 60 [in_i] 60 [in_i] BENNIE ([facility]) Body mass index (BMI) [Ratio] 35.79 kg/m2 35.79 kg/m2 BENNIE ([facility]) Systolic blood pressure 127 mm[Hg] 127 mm[Hg] A [facility] ([facility]) Body weight 2921.6 [oz_av] 2921.6 [oz_av] ATHEN A ([facility]) Diastolic blood pressure 68 mm[Hg] 68 mm[Hg] BENNIE ([facility]) Body height 60 [in_i] 60 [in_i] BENNIE ([facility]) Body mass index (BMI) [Ratio] 35.79 kg/m2 35.79 kg/m2 BENNIE ([facility]) Systolic blood pressure 127 mm[Hg] 127 mm[Hg] [facility] Body weight 2921.6 [oz_av] 2921.6 [oz_av] ATHEN A ([facility]) Diastolic blood pressure 68 mm[Hg] 68 mm[Hg] BENNIE ([facility]) Body height 60 [in_i] 60 [in_i] BENNIE ([facility]) Body mass index (BMI) [Ratio] 35.79 kg/m2 35.79 kg/m2 BENNIE ([facility]) Systolic blood pressure 127 mm[Hg] 127 mm[Hg] A [facility] ([facility]) Body weight 2921.6 [oz_av] 2921.6 [oz_av] ATHEN A ([facility]) Diastolic blood pressure 68 mm[Hg] 68 mm[Hg] BENNIE ([facility]) Body height 60 [in_i] 60 [in_i] BENNIE ([facility]) Body mass index (BMI) [Ratio] 35.79 kg/m2 35.79 kg/m2 BENNIE ([facility]) Systolic blood pressure 127 mm[Hg] 127 mm[Hg] [facility] Body weight 2921.6 [oz_av] 2921.6 [oz_av] ATHEN A ([facility]) Diastolic blood pressure 68 mm[Hg] 68 mm[Hg] BENNIE ([facility]) Body height 60 [in_i] 60 [in_i] BENNIE ([facility]) Body mass index (BMI) [Ratio] 35.79 kg/m2 35.79 kg/m2 BENNIE ([facility]) Systolic blood pressure 127 mm[Hg] 127 mm[Hg] A THENA ([facility]) Body weight 2921.6 [oz_av] 2921.6 [oz_av] ATHEN A ([facility]) Diastolic blood pressure 68 mm[Hg] 68 mm[Hg] BENNIE ([facility]) Body height 60 [in_i] 60 [in_i] BENNIE ([facility]) Body mass index (BMI) [Ratio] 35.79 kg/m2 35.79 kg/m2 BENNIE ([facility]) Systolic blood pressure 127 mm[Hg] 127 mm[Hg] A JOVANIA ([facility]) Body weight 2921.6 [oz_av] 2921.6 [oz_av] ATHEN A ([facility]) Diastolic blood pressure 68 mm[Hg] 68 mm[Hg] BENNIE ([facility]) Body height 60 [in_i] 60 [in_i] BENNIE ([facility]) Body mass index (BMI) [Ratio] 35.79 kg/m2 35.79 kg/m2 BENNIE ([facility]) Systolic blood pressure 127 mm[Hg] 127 mm[Hg] A THENA ([facility]) Body weight 2921.6 [oz_av] 2921.6 [oz_av] ATHEN A ([facility]) Diastolic blood pressure 85 mm[Hg] 85 mm[Hg] BENNIE ([facility]) Body height 60 [in_i] 60 [in_i] BENNIE ([facility]) Body mass index (BMI) [Ratio] 35.12 kg/m2 35.12 kg/m2 BENNIE ([facility]) Systolic blood pressure 163 mm[Hg] 163 mm[Hg] A THENA ([facility]) Body weight 2867.2 [oz_av] 2867.2 [oz_av] ATHEN A ([facility]) Diastolic blood pressure 85 mm[Hg] 85 mm[Hg] BENNIE ([facility]) Body height 60 [in_i] 60 [in_i] BENNIE ([facility]) Body mass index (BMI) [Ratio] 35.12 kg/m2 35.12 kg/m2 BENNIE ([facility]) Systolic blood pressure 163 mm[Hg] 163 mm[Hg] A THENA ([facility]) Body weight 2867.2 [oz_av] 2867.2 [oz_av] ATHEN A ([facility]) Diastolic blood pressure 85 mm[Hg] 85 mm[Hg] BENNIE ([facility]) Body height 60 [in_i] 60 [in_i] BENNIE ([facility]) Body mass index (BMI) [Ratio] 35.12 kg/m2 35.12 kg/m2 BENNIE ([facility]) Systolic blood pressure 163 mm[Hg] 163 mm[Hg] [facility] Body weight 2867.2 [oz_av] 2867.2 [oz_av] ATHEN A ([facility]) Diastolic blood pressure 85 mm[Hg] 85 mm[Hg] BENNIE ([facility]) Body height 60 [in_i] 60 [in_i] BENNIE ([facility]) Body mass index (BMI) [Ratio] 35.12 kg/m2 35.12 kg/m2 BENNIE ([facility]) Systolic blood pressure 163 mm[Hg] 163 mm[Hg] A THENA ([facility]) Body weight 2867.2 [oz_av] 2867.2 [oz_av] ATHEN A ([facility]) Diastolic blood pressure 85 mm[Hg] 85 mm[Hg] BENNIE ([facility]) Body height 60 [in_i] 60 [in_i] BENNIE ([facility]) Body mass index (BMI) [Ratio] 35.12 kg/m2 35.12 kg/m2 BENNIE ([facility]) Systolic blood pressure 163 mm[Hg] 163 mm[Hg] A THENA ([facility]) Body weight 2867.2 [oz_av] 2867.2 [oz_av] ATHEN A ([facility]) Diastolic blood pressure 85 mm[Hg] 85 mm[Hg] BENNIE ([facility]) Body height 60 [in_i] 60 [in_i] BENNIE ([facility]) Body mass index (BMI) [Ratio] 35.12 kg/m2 35.12 kg/m2 BENNIE ([facility]) Systolic blood pressure 163 mm[Hg] 163 mm[Hg] A THENA ([facility]) Body weight 2867.2 [oz_av] 2867.2 [oz_av] ATHEN A ([facility]) Diastolic blood pressure 85 mm[Hg] 85 mm[Hg] BENNIE ([facility]) Body height 60 [in_i] 60 [in_i] BENNIE ([facility]) Body mass index (BMI) [Ratio] 35.12 kg/m2 35.12 kg/m2 BENNIE ([facility]) Systolic blood pressure 163 mm[Hg] 163 mm[Hg] A JOVANIA ([facility]) Body weight 2867.2 [oz_av] 2867.2 [oz_av] ATHEN A ([facility]) Diastolic blood pressure 85 mm[Hg] 85 mm[Hg] BENNIE ([facility]) Body height 60 [in_i] 60 [in_i] BENNIE ([facility]) Body mass index (BMI) [Ratio] 35.12 kg/m2 35.12 kg/m2 BENNIE ([facility]) Systolic blood pressure 163 mm[Hg] 163 mm[Hg] A JOVANIA ([facility]) Body weight 2867.2 [oz_av] 2867.2 [oz_av] ATHEN A ([facility]) Diastolic blood pressure 85 mm[Hg] 85 mm[Hg] BENNIE ([facility]) Body height 60 [in_i] 60 [in_i] BENNIE ([facility]) Body mass index (BMI) [Ratio] 35.12 kg/m2 35.12 kg/m2 BENNIE ([facility]) Systolic blood pressure 163 mm[Hg] 163 mm[Hg] A THENA ([facility]) Body weight 2867.2 [oz_av] 2867.2 [oz_av] ATHEN A ([facility]) Diastolic blood pressure 85 mm[Hg] 85 mm[Hg] BENNIE ([facility]) Body height 60 [in_i] 60 [in_i] BENNIE ([facility]) Body mass index (BMI) [Ratio] 35.12 kg/m2 35.12 kg/m2 BENNIE ([facility]) Systolic blood pressure 163 mm[Hg] 163 mm[Hg] A CHRISTOPHER ([facility]) Body weight 2867.2 [oz_av] 2867.2 [oz_av] ATHEN A ([facility]) Diastolic blood pressure 85 mm[Hg] 85 mm[Hg] BENNIE ([facility]) Body height 60 [in_i] 60 [in_i] BENNIE ([facility]) Body mass index (BMI) [Ratio] 35.12 kg/m2 35.12 kg/m2 BENNIE ([facility]) Systolic blood pressure 163 mm[Hg] 163 mm[Hg] A CHRISTOPHER ([facility]) Body weight 2867.2 [oz_av] 2867.2 [oz_av] ATHEN A ([facility]) Diastolic blood pressure 85 mm[Hg] 85 mm[Hg] BENNIE ([facility]) Body height 60 [in_i] 60 [in_i] BENNIE ([facility]) Body mass index (BMI) [Ratio] 35.12 kg/m2 35.12 kg/m2 BENNIE ([facility]) Systolic blood pressure 163 mm[Hg] 163 mm[Hg] A CHRISTOPHER ([facility]) Body weight 2867.2 [oz_av] 2867.2 [oz_av] ATHEN A ([facility]) Diastolic blood pressure 85 mm[Hg] 85 mm[Hg] BENNIE ([facility]) Body height 60 [in_i] 60 [in_i] BENNIE ([facility]) Body mass index (BMI) [Ratio] 35.12 kg/m2 35.12 kg/m2 BENNIE ([facility]) Systolic blood pressure 163 mm[Hg] 163 mm[Hg] A CHRISTOPHER ([facility]) Body weight 2867.2 [oz_av] 2867.2 [oz_av] ATHEN A ([facility]) Diastolic blood pressure 85 mm[Hg] 85 mm[Hg] BENNIE ([facility]) Body height 60 [in_i] 60 [in_i] BENNIE ([facility]) Body mass index (BMI) [Ratio] 35.12 kg/m2 35.12 kg/m2 BENNIE ([facility]) Systolic blood pressure 163 mm[Hg] 163 mm[Hg] [facility] Body weight 2867.2 [oz_av] 2867.2 [oz_av] ATHEN A ([facility]) Diastolic blood pressure 77 mm[Hg] 77 mm[Hg] BENNIE ([facility]) Body height 60 [in_i] 60 [in_i] BENNIE ([facility]) Body mass index (BMI) [Ratio] 34.97 kg/m2 34.97 kg/m2 BENNIE ([facility]) Systolic blood pressure 166 mm[Hg] 166 mm[Hg] A [facility] ([facility]) Body weight 2854.4 [oz_av] 2854.4 [oz_av] ATHEN A ([facility]) Diastolic blood pressure 77 mm[Hg] 77 mm[Hg] BENNIE ([facility]) Body height 60 [in_i] 60 [in_i] BENNIE ([facility]) Systolic blood pressure 166 mm[Hg] 166 mm[Hg] [facility] Body weight 2854.4 [oz_av] 2854.4 [oz_av] ATHEN A ([facility]) Diastolic blood pressure 77 mm[Hg] 77 mm[Hg] BENNIE ([facility]) Body height 60 [in_i] 60 [in_i] BENNIE ([facility]) Body mass index (BMI) [Ratio] 34.97 kg/m2 34.97 kg/m2 BENNIE ([facility]) Systolic blood pressure 166 mm[Hg] 166 mm[Hg] [facility] Body weight 2854.4 [oz_av] 2854.4 [oz_av] ATHEN A ([facility]) Diastolic blood pressure 77 mm[Hg] 77 mm[Hg] BENNIE ([facility]) Body height 60 [in_i] 60 [in_i] BENNIE ([facility]) Systolic blood pressure 166 mm[Hg] 166 mm[Hg] [facility] Body weight 2854.4 [oz_av] 2854.4 [oz_av] ATHEN A ([facility]) Diastolic blood pressure 77 mm[Hg] 77 mm[Hg] BENNIE ([facility]) Body height 60 [in_i] 60 [in_i] BENNIE ([facility]) Body mass index (BMI) [Ratio] 34.97 kg/m2 34.97 kg/m2 BENNIE ([facility]) Systolic blood pressure 166 mm[Hg] 166 mm[Hg] [facility] Body weight 2854.4 [oz_av] 2854.4 [oz_av] ATHEN A ([facility]) Diastolic blood pressure 77 mm[Hg] 77 mm[Hg] BENNIE ([facility]) Body height 60 [in_i] 60 [in_i] BENNIE ([facility]) Systolic blood pressure 166 mm[Hg] 166 mm[Hg] A [facility] ([facility]) Body weight 2854.4 [oz_av] 2854.4 [oz_av] ATHEN A ([facility]) Diastolic blood pressure 77 mm[Hg] 77 mm[Hg] BENNIE ([facility]) Body height 60 [in_i] 60 [in_i] BENNIE ([facility]) Body mass index (BMI) [Ratio] 34.97 kg/m2 34.97 kg/m2 BENNIE ([facility]) Systolic blood pressure 166 mm[Hg] 166 mm[Hg] [facility]) Body weight 2854.4 [oz_av] 2854.4 [oz_av] ATHEN A ([facility]) Diastolic blood pressure 77 mm[Hg] 77 mm[Hg] BENNIE ([facility]) Body height 60 [in_i] 60 [in_i] BENNIE ([facility]) Body mass index (BMI) [Ratio] 34.97 kg/m2 34.97 kg/m2 BENNIE ([facility]) Systolic blood pressure 166 mm[Hg] 166 mm[Hg] A [facility] ([facility]) Body weight 2854.4 [oz_av] 2854.4 [oz_av] ATHEN A ([facility]) Diastolic blood pressure 77 mm[Hg] 77 mm[Hg] BENNIE ([facility]) Body height 60 [in_i] 60 [in_i] BENNIE ([facility]) Body mass index (BMI) [Ratio] 34.97 kg/m2 34.97 kg/m2 BENNIE ([facility]) Systolic blood pressure 166 mm[Hg] 166 mm[Hg] [facility] Body weight 2854.4 [oz_av] 2854.4 [oz_av] ATHEN A ([facility]) Diastolic blood pressure 77 mm[Hg] 77 mm[Hg] BENNIE ([facility]) Body height 60 [in_i] 60 [in_i] BENNIE ([facility]) Body mass index (BMI) [Ratio] 34.97 kg/m2 34.97 kg/m2 BENNIE ([facility]) Systolic blood pressure 166 mm[Hg] 166 mm[Hg] [facility] Body weight 2854.4 [oz_av] 2854.4 [oz_av] ATHEN A ([facility]) Diastolic blood pressure 77 mm[Hg] 77 mm[Hg] BENNIE ([facility]) Body height 60 [in_i] 60 [in_i] BENNIE ([facility]) Body mass index (BMI) [Ratio] 34.97 kg/m2 34.97 kg/m2 BENNIE ([facility]) Systolic blood pressure 166 mm[Hg] 166 mm[Hg] A THENA ([facility]) Body weight 2854.4 [oz_av] 2854.4 [oz_av] ATHEN A ([facility]) Diastolic blood pressure 77 mm[Hg] 77 mm[Hg] BENNIE ([facility]) Body height 60 [in_i] 60 [in_i] BENNIE ([facility]) Body mass index (BMI) [Ratio] 34.97 kg/m2 34.97 kg/m2 BENNIE ([facility]) Systolic blood pressure 166 mm[Hg] 166 mm[Hg] [facility] Body weight 2854.4 [oz_av] 2854.4 [oz_av] ATHEN A ([facility]) Diastolic blood pressure 77 mm[Hg] 77 mm[Hg] BENNIE ([facility]) Body height 60 [in_i] 60 [in_i] BENNIE ([facility]) Body mass index (BMI) [Ratio] 34.97 kg/m2 34.97 kg/m2 BENNIE ([facility]) Systolic blood pressure 166 mm[Hg] 166 mm[Hg] [facility]) Body weight 2854.4 [oz_av] 2854.4 [oz_av] ATHEN A ([facility]) Diastolic blood pressure 77 mm[Hg] 77 mm[Hg] BENNIE ([facility]) Body height 60 [in_i] 60 [in_i] BENNIE ([facility]) Body mass index (BMI) [Ratio] 34.97 kg/m2 34.97 kg/m2 BENNIE ([facility]) Systolic blood pressure 166 mm[Hg] 166 mm[Hg] A [facility] ([facility]) Body weight 2854.4 [oz_av] 2854.4 [oz_av] ATHEN A ([facility]) Diastolic blood pressure 77 mm[Hg] 77 mm[Hg] BENNIE ([facility]) Body height 60 [in_i] 60 [in_i] BENNIE ([facility]) Body mass index (BMI) [Ratio] 34.97 kg/m2 34.97 kg/m2 BENNIE ([facility]) Systolic blood pressure 166 mm[Hg] 166 mm[Hg] [facility] ([facility]) Body weight 2854.4 [oz_av] 2854.4 [oz_av] ATHEN A ([facility]) Diastolic blood pressure 77 mm[Hg] 77 mm[Hg] BENNIE ([facility]) Body height 60 [in_i] 60 [in_i] BENNIE ([facility]) Body mass index (BMI) [Ratio] 34.97 kg/m2 34.97 kg/m2 BENNIE ([facility]) Systolic blood pressure 166 mm[Hg] 166 mm[Hg] A CHRISTOPHER ([facility]) Body weight 2854.4 [oz_av] 2854.4 [oz_av] ION Ortega ([facility]) Diastolic blood pressure 77 mm[Hg] 77 mm[Hg] BENNIE ([facility]) Body height 60 [in_i] 60 [in_i] BENNIE ([facility]) Body mass index (BMI) [Ratio] 34.97 kg/m2 34.97 kg/m2 BENNIE ([facility]) Systolic blood pressure 166 mm[Hg] 166 mm[Hg] A CHRISTOPHER ([facility]) Body weight 2854.4 [oz_av] 2854.4 [oz_av] ION Ortega ([facility]) Patient Treatment Plan of Care Planned Activity Planned Date Details Description Data Source (s) Acetaminophen 500 MG Oral Tablet 07/23/2020 12:00:00 AM EDT [place] ([facility]) Acetaminophen 500 MG Oral Tablet 07/23/2020 12:00:00 AM EDT [place] ([facility]) Acetaminophen 500 MG Oral Tablet 07/23/2020 12:00:00 AM EDT [place] ([facility]) Acetaminophen 500 MG Oral Tablet 07/23/2020 12:00:00 AM EDT [place] ([facility]) Acetaminophen 500 MG Oral Tablet 07/23/2020 12:00:00 AM EDT [place] ([facility]) Acetaminophen 500 MG Oral Tablet 07/23/2020 12:00:00 AM EDT [place] ([facility]) Acetaminophen 500 MG Oral Tablet 07/23/2020 12:00:00 AM EDT [place] ([facility]) Acetaminophen 500 MG Oral Tablet 07/23/2020 12:00:00 AM EDT [place]ENNIE ([facility]) 8 HR Acetaminophen 650 MG Extended Release Oral Tablet [Tylenol] BENNIE ([facility]) ramelteon 8 MG Oral Tablet A [facility] ([facility]) Plus[employer] COVID-19 Vaccine (PF) 30 mcg/0.3 mL IM suspension(EUA) ADMINISTER 0.3ML IN THE MUSCLE DIRECTED BENNIE ([facility]) lidocaine 5 % topical patch APPLY 1 PATC H BY TOPICAL ROUTE ONCE DAILY (MAY WEAR UP TO 12HOURS.) BENNIE ([facility]) Hydroxyzine Hydrochloride 50 MG Oral Tablet BENNIE ([facility]) Hydroxyzine Hydrochloride 25 MG Oral Tablet BENNIE ([facility]) Escitalopram 5 MG Oral Tablet BENNIE ([facility]) Diclofenac Sodium 0.01 MG/MG Topical Gel BENNIE ([facility]) 8 HR Acetaminophen 650 MG Extended Release Oral Tablet [Tylenol] BENNIE ([facility]) ramelteon 8 MG Oral Tablet A THENA ([facility]) Pfizer-BioNTech COVID-19 Vaccine (PF) 30 mcg/0.3 mL IM suspension(EUA) ADMINISTER 0.3ML IN THE MUSCLE DIRECTED BENNIE ([facility]) lidocaine 5 % topical patch APPLY 1 PATC H BY TOPICAL ROUTE ONCE DAILY (MAY WEAR UP TO 12HOURS.) BENNIE ([facility]) Hydroxyzine Hydrochloride 50 MG Oral Tablet BENNIE ([facility]) Hydroxyzine Hydrochloride 25 MG Oral Tablet BENNIE ([facility]) Escitalopram 5 MG Oral Tablet BENNIE ([facility]) Diclofenac Sodium 0.01 MG/MG Topical Gel BENNIE ([facility]) 8 HR Acetaminophen 650 MG Extended Release Oral Tablet [Tylenol] BENNIE ([facility]) ramelteon 8 MG Oral Tablet A THENA ([facility]) Pfizer-BioNTech COVID-19 Vaccine (PF) 30 mcg/0.3 mL IM suspension(EUA) ADMINISTER 0.3ML IN THE MUSCLE DIRECTED BENNIE ([facility]) lidocaine 5 % topical patch APPLY 1 PATC H BY TOPICAL ROUTE ONCE DAILY (MAY WEAR UP TO 12HOURS.) BENNIE ([facility]) Hydroxyzine Hydrochloride 50 MG Oral Tablet BENNIE ([facility]) Hydroxyzine Hydrochloride 25 MG Oral Tablet BENNIE ([facility]) Escitalopram 5 MG Oral Tablet BENNIE ([facility]) Diclofenac Sodium 0.01 MG/MG Topical Gel BENNIE ([facility]) 8 HR Acetaminophen 650 MG Extended Release Oral Tablet [Tylenol] BENNIE [facility]) ramelteon 8 MG Oral Tablet A THENA ([facility]) [employer] COVID-19 Vaccine (PF) 30 mcg/0.3 mL IM suspension(EUA) ADMINISTER 0.3ML IN THE MUSCLE DIRECTED BENNIE ([facility]) lidocaine 5 % topical patch APPLY 1 PATC H BY TOPICAL ROUTE ONCE DAILY (MAY WEAR UP TO 12HOURS.) BENNIE ([facility]) Hydroxyzine Hydrochloride 50 MG Oral Tablet BENNIE ([facility]) Hydroxyzine Hydrochloride 25 MG Oral Tablet BENNIE ([facility]) Escitalopram 5 MG Oral Tablet BENNIE ([facility]) Diclofenac Sodium 0.01 MG/MG Topical Gel BENNIE ([facility]) 8 HR Acetaminophen 650 MG Extended Release Oral Tablet [Tylenol] BENNIE ([facility]) ramelteon 8 MG Oral Tablet A THENA ([facility]) lidocaine 5 % topical patch APPLY 1 PATC H BY TOPICAL ROUTE ONCE DAILY (MAY WEAR UP TO 12HOURS.) BENNIE ([facility]) Hydroxyzine Hydrochloride 50 MG Oral Tablet BENNIE ([facility]) Hydroxyzine Hydrochloride 25 MG Oral Tablet BENNIE ([facility]) Escitalopram 5 MG Oral Tablet BENNIE ([facility]) Diclofenac Sodium 0.01 MG/MG Topical Gel BENNIE ([facility]) 8 HR Acetaminophen 650 MG Extended Release Oral Tablet [Tylenol] BENNIE ([facility]) ramelteon 8 MG Oral Tablet A THENA ([facility]) lidocaine 5 % topical patch APPLY 1 PATC H BY TOPICAL ROUTE ONCE DAILY (MAY WEAR UP TO 12HOURS.) BENNIE ([facility]) Hydroxyzine Hydrochloride 50 MG Oral Tablet BENNIE ([facility]) Hydroxyzine Hydrochloride 25 MG Oral Tablet BENNIE ([facility]) Escitalopram 5 MG Oral Tablet BENNIE ([facility]) Diclofenac Sodium 0.01 MG/MG Topical Gel BENNIE ([facility]) 8 HR Acetaminophen 650 MG Extended Release Oral Tablet [Tylenol] BENNIE ([facility]) ramelteon 8 MG Oral Tablet A THENA ([facility]) lidocaine 5 % topical patch APPLY 1 PATC H BY TOPICAL ROUTE ONCE DAILY (MAY WEAR UP TO 12HOURS.) BENNIE ([facility]) Hydroxyzine Hydrochloride 50 MG Oral Tablet BENNIE ([facility]) Hydroxyzine Hydrochloride 25 MG Oral Tablet BENNIE ([facility]) Escitalopram 5 MG Oral Tablet BENNIE ([facility]) Diclofenac Sodium 0.01 MG/MG Topical Gel BENNIE ([facility]) 8 HR Acetaminophen 650 MG Extended Release Oral Tablet [Tylenol] BENNIE ([facility]) ramelteon 8 MG Oral Tablet A THENA ([facility]) Hydroxyzine Hydrochloride 50 MG Oral Tablet BENNIE ([facility]) Hydroxyzine Hydrochloride 25 MG Oral Tablet BENNIE ([facility]) Escitalopram 5 MG Oral Tablet BENNIE ([facility]) 8 HR Acetaminophen 650 MG Extended Release Oral Tablet [Tylenol] BENNIE ([facility]) ramelteon 8 MG Oral Tablet A THENA ([facility]) Hydroxyzine Hydrochloride 50 MG Oral Tablet BENNIE ([facility]) Hydroxyzine Hydrochloride 25 MG Oral Tablet BENNIE ([facility]) Escitalopram 5 MG Oral Tablet BENNIE ([facility]) 8 HR Acetaminophen 650 MG Extended Release Oral Tablet [Tylenol] BENNIE ([facility]) ramelteon 8 MG Oral Tablet A THENA ([facility]) Hydroxyzine Hydrochloride 50 MG Oral Tablet BENNIE ([facility]) Hydroxyzine Hydrochloride 25 MG Oral Tablet BENNIE ([facility]) Escitalopram 5 MG Oral Tablet BENNIE ([facility]) 8 HR Acetaminophen 650 MG Extended Release Oral Tablet [Tylenol] BENNIE ([facility]) ramelteon 8 MG Oral Tablet A THENA ([facility]) Hydroxyzine Hydrochloride 50 MG Oral Tablet BENNIE ([facility]) Hydroxyzine Hydrochloride 25 MG Oral Tablet BENNIE ([facility]) Escitalopram 5 MG Oral Tablet BENNIE ([facility]) ramelteon 8 MG Oral Tablet A THENA ([facility]) Hydroxyzine Hydrochloride 50 MG Oral Tablet BENNIE ([facility]) Hydroxyzine Hydrochloride 25 MG Oral Tablet BENNIE ([facility]) Escitalopram 5 MG Oral Tablet BENNIE ([facility]) ramelteon 8 MG Oral Tablet A THENA ([facility]) Hydroxyzine Hydrochloride 50 MG Oral Tablet BENNIE ([facility]) Hydroxyzine Hydrochloride 25 MG Oral Tablet BENNIE ([facility]) 8 HR Acetaminophen 650 MG Extended Release Oral Tablet [Tylenol] BENNIE ([facility]) ramelteon 8 MG Oral Tablet A THENA ([facility]) lidocaine 5 % topical patch APPLY 1 PATC H BY TOPICAL ROUTE ONCE DAILY (MAY WEAR UP TO 12HOURS.) BENNIE ([facility]) Hydroxyzine Hydrochloride 50 MG Oral Tablet BENNIE ([facility]) Hydroxyzine Hydrochloride 25 MG Oral Tablet BENNIE ([facility]) Escitalopram 5 MG Oral Tablet [place] ([facility]) Diclofenac Sodium 0.01 MG/MG Topical Gel BENNIE ([facility]) Escitalopram 5 MG Oral Tablet BENNIE ([facility]) ramelteon 8 MG Oral Tablet A THENA ([facility]) Hydroxyzine Hydrochloride 50 MG Oral Tablet BENNIE ([facility]) Hydroxyzine Hydrochloride 25 MG Oral Tablet BENNIE ([facility]) Escitalopram 5 MG Oral Tablet BENNIE ([facility])
[2020-12-19 08:51] VITALS: BP 173/79
[2020-12-19] MEDS ORDERED: LOSARTAN 50MG TABLET PO ONE (09:00)
[2020-12-19] MEDS ORDERED: FUROSEMIDE 40MG/4ML VIAL (J1940) IV ONE (09:20)
--- OUTSIDE RECORDS SUMMARY | 2020-12-19 09:59 | CCD ---
Author Author [facility] Organization [facility] Address Unknown Phone Unavailable Care Team Providers Care Framing Manager Name Role Phone Amador Hernadez MD Unavailable [...] Amador Zarate MD Unavailable Unavailable Hernadez, Amador aZrate MD Unavailable Unavailable Hernadez, Amador Zarate MD [...] HARDIK RPA-C Unavailable Unavailable SERRA, CARLOS ENRIQUE AHRDIK RPA-C Unavailable Unavailable SERRA, CARLOS ENRIQUE HARDIK [...] ENRIQUE HARDIK RPA-C Unavailable Unavailable SERRA, CARLOS NERIQUE HARDIK RPA-C Unavailable Unavailable SERRA, CARLOS ENRIQUE [...] is protected by Article 27-F of the [facility] Public Health law. If you continue you may have access to information: Regarding HIV / AIDS; Provided by facilities licensed or operated by the [facility] Office of Mental Health; or Provided by the [facility] Office for People With Developmental Disabilities. If such information is present, then the following [facility] mandated warning applies: This information has [...] substance Allergy to substance Allergy to substance [facility]) Encounters Encounter Providers Location Date Indications Data Source(s ) Leta Fernando LCSW-R: [address], [place] [address], Ph. Attender: Leta Forrest [facility] Medical 12/11/2020 12:00:00 AM EDT OUTLOOK ([facility]) Outpatient Attender: Macy GIVENS Main Office 12/05/2020 08:45:00 AM EDT GABRIELE ([facility]) JESIKA MorelC: [address], [place] [address], Ph. Attender: HARDIK POWERS [facility] Medical 12/03/2020 12:00:00 AM EDT BENNIE ([facility]) JESIKA MorelC: [address], [place] [address], Ph. Attender: HARDIK CANCHOLAC [facility] Medical 12/03/2020 12:00:00 AM EDT BENNIE ([facility]) LetaJOHN BrownW-R: [address], [address], [place] [address], Ph. Attender: Leta Forrest [facility] Medical 11/20/2020 12:00:00 AM EDT OUTLOOK ([facility]) LetaJOHN BrownW-R: [address], [address], [place] [address], Ph. Attender: Leta Forrest [facility] Medical 11/20/2020 12:00:00 AM EDT OUTLOOK ([facility]) JOHN ChristopherW-R: [address], [place] [address], Ph. Attender: Leta Forrest [facility] Medical 11/20/2020 12:00:00 AM EDT OUTLOOK ([facility]) Hardik Serra RPA-C: [address], [place] [address], Ph. Attender: HARDIK SERRA RPA-C [facility] Medical 10/23/2020 12:00:00 AM EDT BENNIE ([facility]) Hardik Serra RPA-C: [address], [place] [address], Ph. Attender: HARDIK SERRA RPA-C [facility] Medical 10/23/2020 12:00:00 AM EDT OUTLOOK ([facility]) Hardik Serra RPA-C: [address], [place] [address], Ph. Attender: HARDIK SERRA RPA-C [facility] Medical 10/23/2020 12:00:00 AM EDT BENNIE ([facility]) Hardik Serra RPA-C: [address], [place] [address], Ph. Attender: HARDIK SERRA RPA-C [facility] Medical 10/23/2020 12:00:00 AM EDT BENNIE ([facility]) JOHN ChristopherW-R: [address], [place] [address], Ph. Attender: Leta Forrest [facility] Medical 10/08/2020 12:00:00 AM EDT OUTLOOK ([facility]) JOHN ChristopherW-R: [address], [place] [address], Ph. Attender: Leta Forrest [facility] Medical 10/08/2020 12:00:00 AM EDT OUTLOOK ([facility]) JOHN ChristopherW-R: [address], [address], [place] [address], Ph. Attender: Leta Forrest [facility] Medical 10/08/2020 12:00:00 AM EDT OUTLOOK ([facility]) JOHN ChristopherW-R: [address], [place] [address], Ph. Attender: Leta Forrest [facility] Medical 10/08/2020 12:00:00 AM EDT OUTLOOK ([facility]) Hardik Serra RPA-C: [address], [place] [address], Ph. Attender: HARDIK SERRA RPA-C [facility] Medical 09/30/2020 12:00:00 AM EDT BENNIE ([facility]) Hardik Serra RPA-C: [address], [place] [address], Ph. Attender: HARDIK SERRA RPA-C [facility] Medical 09/30/2020 12:00:00 AM EDT BENNIE ([facility]) Hardik Serra RPA-C: [address], [place] [address], Ph. Attender: HARDIK SERRA RPA-C [facility] Medical 09/30/2020 12:00:00 AM EDT BENNIE ([facility]) Hardik Serra RPA-C: [address], [place] [address], Ph. Attender: HARDIK SERRA RPA-C [facility] Medical 09/30/2020 12:00:00 AM EDT BENNIE ([facility]) Hardik Serra RPA-C: [address], [place] [address], Ph. Attender: HARDIK SERRA RPA-C [facility] Medical 09/30/2020 12:00:00 AM EDT OUTLOOK ([facility]) Leta Fernando LCSW-R: [address], [address], [place] [address], Ph. Attender: Leta Forrest [facility] Medical 09/10/2020 12:00:00 AM EDT OUTLOOK ([facility]) Leta Fernando, GAS PIPE LAYER-R: [address], [address], [place] [address], Ph. Attender: Leta Forrest [facility] Medical 09/10/2020 12:00:00 AM EDT OUTLOOK ([facility]) Leta PalJOHN goodmanW-R: [address], [address], [place] [address], Ph. Attender: Leta Forrest [facility] Medical 09/10/2020 12:00:00 AM EDT OUTLOOK ([facility]) Leta PalJOHN goodmanW-R: [address], [address], [place] [address], Ph. Attender: Leta Forrest [facility] Medical 09/10/2020 12:00:00 AM EDT OUTLOOK ([facility]) Leta PalJOHN goodmanW-R: [address], [address], [place] [address], Ph. Attender: Leta Forrest [facility] Medical 09/10/2020 12:00:00 AM EDT OUTLOOK ([facility]) Hardik Serra RPA-C: [address], [place] [address], Ph. Attender: HARDIK SERRA RPA-C [facility] Medical 09/02/2020 12:00:00 AM EDT BENNIE ([facility]) Hardik Serra RPA-C: [address], [place] [address], Ph. Attender: HARDIK SERRA RPA-C [facility] Medical 09/02/2020 12:00:00 AM EDT BENNIE ([facility]) Hardik Serra RPA-C: [address], [place] [address], Ph. Attender: HARDIK SERRA RPA-C [facility] Medical 09/02/2020 12:00:00 AM EDT BENNIE ([facility]) Hardik Serra, RPA-C: [address], [place] [address], Ph. Attender: HARDIK SERRA RPA-C [facility] Medical 09/02/2020 12:00:00 AM EDT BENNIE ([facility]) Hardik Serra RPA-C: [address], [place] [address], Ph. Attender: HARDIK SERRA RPA-C [facility] Medical 09/02/2020 12:00:00 AM EDT BENNIE ([facility]) Hardik Serra RPA-C: [address], [place] [address], Ph. Attender: HARDIK SERRA RPA-C [facility] Medical 09/02/2020 12:00:00 AM EDT BENNIE ([facility]) Hardik Serra, RPA-C: [address], [place] [address], Ph. Attender: HARDIK SERRA RPA-C [facility] Medical 08/19/2020 12:00:00 AM EDT BENNIE ([facility]) Hardik Serra RPA-C: [address], [place] [address], Ph. Attender: HARDIK SERRA RPA-C [facility] Medical 08/19/2020 12:00:00 AM EDT BENNIE ([facility]) Hardik Serra, RPA-C: [address], [place] [address], Ph. Attender: HARDIK SERRA RPA-C [facility] Medical 08/19/2020 12:00:00 AM EDT BENNIE ([facility]) Hardik Serra, RPA-C: [address], [place] [address], Ph. Attender: HARDIK SERRA RPA-C [facility] Medical 08/19/2020 12:00:00 AM EDT BENNIE ([facility]) Hardik Serra, RPA-C: [address], [place] [address], Ph. Attender: HARDIK SERRA RPA-C [facility] Medical 08/19/2020 12:00:00 AM EDT BENNIE ([facility]) Hardik Serra RPA-C: [address], [place] [address], Ph. Attender: HARDIK SERRA RPA-C [facility] Medical 08/19/2020 12:00:00 AM EDT BENNIE ([facility]) Hardik Serra, RPA-C: [address], [place] [address], Ph. Attender: HARDIK SERRA RPA-C [facility] Medical 08/19/2020 12:00:00 AM EDT BENNIE ([facility]) Hardik Serra, RPA-C: [address], [place] [address], Ph. Attender: HARDIK SERRA RPA-C [facility] Medical 07/23/2020 12:00:00 AM EDT BENNIE ([facility]) Hardik Serra, RPA-C: [address], [place] [address], Ph. Attender: HARDIK SERRA RPA-C [facility] Medical 07/23/2020 12:00:00 AM EDT BENNIE ([facility]) Hardik Serra, RPA-C: [address], [place] [address], Ph. Attender: HARDIK SERRA RPA-C [facility] Medical 07/23/2020 12:00:00 AM EDT BENNIE ([facility]) Hardik Serra, RPA-C: [address], [place] [address], Ph. Attender: HARDIK SERRA RPA-C [facility] Medical 07/23/2020 12:00:00 AM EDT BENNIE ([facility]) Hardik Serra, RPA-C: [address], [place] [address], Ph. Attender: HARDIK SERRA RPA-C [facility] Medical 07/23/2020 12:00:00 AM EDT BENNIE ([facility]) Hardik Serra, RPA-C: [address], [place] [address], Ph. Attender: HARDIK SERRA RPA-C [facility] Medical 07/23/2020 12:00:00 AM EDT OUTLOOK ([facility]) Hardik Serra RPA-C: [address], [place] [address], Ph. Attender: HARDIK SERRA RPA-C [facility] Medical 07/23/2020 12:00:00 AM EDT OUTLOOK ([facility]) Hardik Serra RPA-C: [address], [place] [address], Ph. Attender: HARDIK SERRA RPA-C [facility] Medical 07/23/2020 12:00:00 AM EDT OUTLOOK ([facility]) JOHN ChristopherW-R: [address], [address], [place] [address], Ph. Attender: Leta Forrest [facility] Medical 07/17/2020 12:00:00 AM EDT OUTLOOK ([facility]) JOHN ChristopherW-R: [address], [address], [place] [address], Ph. Attender: Leta Forrest [facility] Medical 07/17/2020 12:00:00 AM EDT OUTLOOK ([facility]) JOHN ChristopherW-R: [address], [address], [place] [address], Ph. Attender: Leta Forrest [facility] Medical 07/17/2020 12:00:00 AM EDT OUTLOOK ([facility]) JOHN ChristopherW-R: [address], [address], [place] [address], Ph. Attender: Leta Forrest [facility] Medical 07/17/2020 12:00:00 AM EDT BENNIE ([facility]) LetaJOHN BrownW-R: [address], [place] [address], Ph. Attender: Leta Forrest [facility] Medical 07/17/2020 12:00:00 AM EDT BENNIE ([facility]) JOHN ChristopherW-R: [address], [address], [place] [address], Ph. Attender: Leta Forrest [facility] Medical 07/17/2020 12:00:00 AM EDT BENNIE ([facility]) JOHN ChristopherW-R: [address], [place] [address], Ph. Attender: Leta Forrest [facility] Medical 07/17/2020 12:00:00 AM EDT BENNIE ([facility]) JOHN ChristopherW-R: [address], [place] [address], Ph. Attender: Leta Forrest [facility] Medical 07/17/2020 12:00:00 AM EDT BENNIE ([facility]) JOHN ChristopherW-R: [address], [place] [address], Ph. Attender: Leta Forrest [facility] Medical 07/17/2020 12:00:00 [facility] LetaJOHN BrownW-R: [address], [place] [address], Ph. Attender: Leta Forrest [facility] Medical 05/21/2020 12:00:00 AM EDT BENNIE ([facility]) JOHN ChristopherW-R: [address], [place] [address], Ph. Attender: Leta Forrest [facility] Medical 05/21/2020 12:00:00 AM EDT OUTLOOK ([facility]) JOHN ChristopherW-R: [address], [place] [address], Ph. Attender: Leta Jessicajaycemercedesagustin [facility] Medical 05/21/2020 12:00:00 AM EDT OUTLOOK ([facility]) JOHN ChristopherW-R: [address], [place] [address], Ph. Attender: Leta Forrest [facility] Medical 05/21/2020 12:00:00 AM EDT BENNIE ([facility]) JOHN ChristopherW-R: [address], [place] [address], Ph. Attender: Leta Jessicajaycemercedesagustin [facility] Medical 05/21/2020 12:00:00 AM EDT BENNIE ([facility]) JOHN ChristopherW-R: [address], [place] [address], Ph. Attender: Letaradha Rodríguezmercedesagustin [facility] Medical 05/21/2020 12:00:00 AM EDT OUTLOOK ([facility]) Leta FernandoJOHNW-R: [address], [place] [address], Ph. Attender: Leta Forrest [facility] Medical 05/21/2020 12:00:00 AM EDT OUTLOOK ([facility]) Leta PalJOHN goodmanW-R: [address], [place] [address], Ph. Attender: Leat Forrest [facility] Medical 05/21/2020 12:00:00 AM EDT OUTLOOK ([facility]) Leta FernandoJOHN goodmanW-R: [address], [place] [address], Ph. Attender: Leta Reneeagustin [facility] Medical 05/21/2020 12:00:00 AM EDT OUTLOOK ([facility]) Leta PalJOHN goodmanW-R: [address], [address], [place] [address], Ph. Attender: Leta Lopezjaycemercedesagustin [facility] Medical 05/21/2020 12:00:00 AM EDT OUTLOOK ([facility]) Leta FernandoJOHN goodmanW-R: [address], [place] [address], Ph. Attender: Elta Jessicasterling [facility] Medical 05/21/2020 12:00:00 AM EDT OUTLOOK ([facility]) Elliot Hernadez MD: [address], [place] [address], Ph. Attender: Elliot Hernadez MD [facility] Medical 05/07/2020 12:00:00 AM EST BENNIE ([facility]) Elliot Hernadez MD: [address], [place] [address], Ph. Attender: Elliot Hernadez MD [facility] Medical 05/07/2020 12:00:00 AM EST BENNIE ([facility]) Elliot Hernadez MD: [address], [place] [address], Ph. Attender: Elliot Hernadez MD [facility] Medical 05/07/2020 12:00:00 AM EST BENNIE ([facility]) Elliot Hernadez MD: [address], [place] [address], Ph. Attender: Elliot Hernadez MD [facility] Medical 05/07/2020 12:00:00 AM EST BENNIE ([facility]) Elliot Hernadez MD: [address], [place] [address], Ph. Attender: Elliot Hernadez MD [facility] Medical 05/07/2020 12:00:00 AM EST BENNIE ([facility]) Elliot Hernadez MD: [address], [place] [address], Ph. Attender: Elliot Hernadez MD [facility] Medical 05/07/2020 12:00:00 AM EST BENNIE ([facility]) Elliot Hernadez MD: [address], [place] [address], Ph. Attender: Elliot Hernadez MD [facility] Medical 05/07/2020 12:00:00 AM EST BENNIE ([facility]) Elliot Hernadez MD: [address], [place] [address], Ph. Attender: Elliot Hernadez MD [facility] Medical 05/07/2020 12:00:00 AM EST BENNIE ([facility]) Elliot Hernadez MD: [address], [place] [address], Ph. Attender: Elliot Hernadez MD [facility] Medical 05/07/2020 12:00:00 AM EST BENNIE ([facility]) Elliot Hernadez MD: [address], [place] [address], Ph. Attender: Elliot Hernadez MD [facility] Medical 05/07/2020 12:00:00 AM EST BENNIE ([facility]) Elliot Hernadez MD: [address], [place] [address], Ph. Attender: Elliot Hernadez MD [facility] Medical 05/07/2020 12:00:00 AM EST BENNIE ([facility]) Elliot Hernadez MD: [address], [address], [place] [address], Ph. Attender: Elliot Hernadez MD [facility] Medical 05/07/2020 12:00:00 AM EST BENNIE ([facility]) Leta Fernando LCSW-R: [address], [place] [address], Ph. Attender: Leta Forrest [facility] Medical 04/29/2020 12:00:00 AM EST BENNIE ([facility]) Leta Fernando LCSW-R: [address], [place] [address], Ph. Attender: Leta Forrest [facility] Medical 04/29/2020 12:00:00 AM EST BENNIE ([facility]) LetaJOHN BrownW-R: [address], [place] [address], Ph. Attender: Leta Forrest [facility] Medical 04/29/2020 12:00:00 AM EST BENNIE ([facility]) JOHN ChristopherW-R: [address], [place] [address], Ph. Attender: Leta Reneeagustin [facility] Medical 04/29/2020 12:00:00 AM EST BENNIE ([facility]) JOHN ChristopherW-R: [address], [place] [address], Ph. Attender: Leta Marcosmercedesagustin [facility] Medical 04/29/2020 12:00:00 AM EST BENNIE ([facility]) JOHN ChristopherW-R: [address], [place] [address], Ph. Attender: Letaradha Forrest [facility] Medical 04/29/2020 12:00:00 AM EST BENNIE ([facility]) JOHN ChrsitopherW-R: [address], [place] [address], Ph. Attender: Leta Lon [facility] Medical 04/29/2020 12:00:00 AM EST BENNIE ([facility]) JOHN ChristopherW-R: [address], [place] [address], Ph. Attender: Letaradha Forrest [facility] Medical 04/29/2020 12:00:00 AM EST BENNIE ([facility]) Leta FernandoJOHNW-R: [address], [place] [address], Ph. Attender: Leta Forrest [facility] Medical 04/29/2020 12:00:00 AM EST BENNIE ([facility]) Leta FernandoJOHNW-R: [address], [place] [address], Ph. Attender: Leta Forrest [facility] Medical 04/29/2020 12:00:00 AM EST BENNIE ([facility]) Leta FernandoJOHNW-R: [address], [place] [address], Ph. Attender: Leta Reneeagustin [facility] Medical 04/29/2020 12:00:00 AM EST BENNIE ([facility]) Leta FernandoJOHNW-R: [address], [place] [address], Ph. Attender: Leta Reneeagustin [facility] Medical 04/29/2020 12:00:00 AM LEAH AVERY ([facility]) Leta PalJOHN goodmanW-R: [address], [place] [address], Ph. Attender: Leta Reneeagustin [facility] Medical 04/29/2020 12:00:00 AM EST BENNIE ([facility]) Elliot Hernadez MD: [address], [place] [address], Ph. Attender: Elliot Hernadez MD [facility] Medical 04/09/2020 12:00:00 AM EST BENNIE ([facility]) Elliot Hernadez MD: [address], [address], [place] [address], Ph. Attender: Elliot Hernadez MD [facility] Medical 04/09/2020 12:00:00 AM EST BENNIE ([facility]) Elliot Hernadez MD: [address], [place] [address], Ph. Attender: Elliot Hernadez MD [facility] Medical 04/09/2020 12:00:00 AM EST BENNIE ([facility]) Elliot Hernadez MD: [address], [address], [place] [address], Ph. Attender: Elliot Hernadez MD [facility] Medical 04/09/2020 12:00:00 AM EST BENNIE ([facility]) Elliot Hernadez MD: [address], [place] [address], Ph. Attender: Elliot Hernadez MD [facility] Medical 04/09/2020 12:00:00 AM EST BENNIE ([facility]) Elliot Hernadez MD: [address], [place] [address], Ph. Attender: Elliot Hernadez MD [facility] Medical 04/09/2020 12:00:00 AM EST BENNIE ([facility]) Elliot Hernadez MD: [address], [place] [address], Ph. Attender: Elliot Hernadez MD [facility] Medical 04/09/2020 12:00:00 AM EST BENNIE ([facility]) Elliot Hernadez MD: [address], [address], [place] [address], Ph. Attender: Elliot Hernadez MD [facility] Medical 04/09/2020 12:00:00 AM EST [facility]ENNIE ([facility]) Elliot Hernadez MD: [address], [address], [place] [address], Ph. Attender: Elliot Hernadez MD [facility] Medical 04/09/2020 12:00:00 AM EST [facility]ENNIE ([facility]) Elliot Hernadez MD: [address], [address], [place] [address], Ph. Attender: Elliot Hernadez MD [facility] Medical 04/09/2020 12:00:00 AM EST [facility]ENNIE ([facility]) Elliot Hernadez MD: [address], [address], [place] [address], Ph. Attender: Elliot Hernadez MD [facility] Medical 04/09/2020 12:00:00 AM EST [facility]ENNIE ([facility]) Elliot Hernadez MD: [address], [place] [address], Ph. Attender: Elliot Hernadez MD [facility] Medical 04/09/2020 12:00:00 AM EST [facility]ENNIE ([facility]) Elliot Hernadez MD: [address], [place] [address], Ph. Attender: Elliot Hernadez MD [facility] Medical 04/09/2020 12:00:00 AM EST [facility]ENNIE ([facility]) Elliot Hernadez MD: [address], [place] [address], Ph. Attender: Elliot Hernadez MD [facility] Medical 04/09/2020 12:00:00 AM EST [facility]ENNIE ([facility]) Leta Fernando, [employer]: [address], [place] [address], Ph. Attender: Leta Forrest [facility] Medical 03/13/2020 12:00:00 AM EST BENNIE ([facility]) Leta Fernando, [employer]: [address], [place] [address], Ph. Attender: Leta Forrest [facility] Medical 03/13/2020 12:00:00 AM EST [facility]ENNIE ([facility]) Leta Fernando [employer]: [address], [place] [address], Ph. Attender: Leta Forrest [facility] Medical 03/13/2020 12:00:00 AM EST BENNIE ([facility]) Leta Fernando, [employer]: [address], [place] [address], Ph. Attender: Leta Forrest [facility] Medical 03/13/2020 12:00:00 AM EST BENNIE ([facility]) Leta FernandoOJHN goodmanW-R: [address], [place] [address], Ph. Attender: Leta Forrest [facility] Medical 03/13/2020 12:00:00 AM EST BENNIE ([facility]) Leta PalJOHN goodmanW-R: [address], [place] [address], Ph. Attender: Leta Reneeagustin [facility] Medical 03/13/2020 12:00:00 AM EST BENNIE ([facility]) LetaJOHN BrownW-R: [address], [address], [place] [address], Ph. Attender: Leta Reneeagustin [facility] Medical 03/13/2020 12:00:00 AM EST BENNIE ([facility]) LetaJOHN BrownW-R: [address], [address], [place] [address], Ph. Attender: Leta Reneeagustin [facility] Medical 03/13/2020 12:00:00 AM EST BENNIE ([facility]) LetaJOHN BrownW-R: [address], [address], [place] [address], Ph. Attender: Letaradha Forrest [facility] Medical 03/13/2020 12:00:00 AM EST BENNIE ([facility]) JOHN ChristopherW-R: [address], [address], [place] [address], Ph. Attender: Leta Lopezsterling [facility] Medical 03/13/2020 12:00:00 AM EST BENNIE ([facility]) JOHN ChristopherW-R: [address], [address], [place] [address], Ph. Attender: Letaradha Forrest [facility] Medical 03/13/2020 12:00:00 AM EST BENNIE ([facility]) JOHN ChristopherW-R: [address], [address], [place] [address], Ph. Attender: Leta Forrest [facility] Medical 03/13/2020 12:00:00 AM EST BENNIE ([facility]) Leta Fernando, [employer]-R: [address], [place] [address], Ph. Attender: Leta Forrest [facility] Medical 03/13/2020 12:00:00 AM EST BENNIE ([facility]) Leta FernandoJOHNW-R: [address], [place] [address], Ph. Attender: Leta Forrest [facility] Medical 03/13/2020 12:00:00 AM EST BENNIE ([facility]) Leta FernandoJOHNW-R: [address], [place] [address], Ph. Attender: Leta Forrest [facility] Medical 03/13/2020 12:00:00 AM EST BENNIE ([facility]) Elliot Hernadez MD: [address] [place] [address], Ph. Attender: Elliot Hernadez MD [facility] Medical 01/16/2020 12:00:00 AM EST BENNIE ([facility]) Elliot Hernadez MD: [address] [place] [address], Ph. Attender: Elliot Hernadez MD [facility] Medical 01/16/2020 12:00:00 AM EST BENNIE ([facility]) Elliot Hernadez MD: [address] [place] [address], Ph. Attender: Elliot Hernadez MD [facility] Medical 01/16/2020 12:00:00 AM EST BENNIE ([facility]) Elliot Hernadez MD: [address] [place] [address], Ph. Attender: Elliot Hernadez MD [facility] Medical 01/16/2020 12:00:00 AM EST BENNIE ([facility]) Elliot Hernadez MD: [address] [place] [address], Ph. Attender: Elliot Hernadez MD [facility] Medical 01/16/2020 12:00:00 AM EST BENNIE ([facility]) Elliot Hernadez MD: [address] [place] [address], Ph. Attender: Elliot Hernadez MD [facility] Medical 01/16/2020 12:00:00 AM EST BENNIE ([facility]) Elliot Hernadez MD: [address] [place] [address], Ph. Attender: Elliot Hernadez MD [facility] Medical 01/16/2020 12:00:00 AM EST BENNIE ([facility]) Elliot Hernadez MD: [address] [place] [address], Ph. Attender: Elliot Hernadez MD [facility] Medical 01/16/2020 12:00:00 AM EST BENNIE ([facility]) Elliot Hernadez MD: [address] [place] [address], Ph. Attender: Elliot Hernadez MD [facility] Medical 01/16/2020 12:00:00 AM EST BENNIE ([facility]) Elliot Hernadez MD: [address] [place] [address], Ph. Attender: Elliot Hernadez MD [facility] Medical 01/16/2020 12:00:00 AM EST BENNIE ([facility]) Elliot Hernadez MD: [address] [place] [address], Ph. Attender: Elliot Hernadez MD [facility] Medical 01/16/2020 12:00:00 AM EST BENNIE ([facility]) Elliot Hernadez MD: [address] [place] [address], Ph. Attender: Elliot Hernadez MD [facility] Medical 01/16/2020 12:00:00 AM EST BENNIE ([facility]) Elliot Hernadez MD: [address] [place] [address], Ph. Attender: Elliot Hernadez MD [facility] Medical 01/16/2020 12:00:00 AM EST BENNIE ([facility]) Elliot Hernadez MD: [address] [place] [address], Ph. Attender: Elliot Hernadez MD [facility] Medical 01/16/2020 12:00:00 AM EST BENNIE ([facility]) Elliot Hernadez MD: [address] [place] [address], Ph. Attender: Elliot Hernadez MD [facility] Medical 01/16/2020 12:00:00 AM EST BENNIE ([facility]) JESIKA MorelC: [address], [place] [address], Ph. Attender: HARDIK CANCHOLAC [facility] Medical 01/14/2020 12:00:00 AM EST BENNIE ([facility]) JESIKA MorelC: [address], [place] [address], Ph. Attender: HARDIK SERRA RPA-C [facility] Medical 01/14/2020 12:00:00 AM EST BENNIE ([facility]) Hardik Serra RPA-C: [address], [place] [address], Ph. Attender: HARDIK SERRA RPA-C [facility] Medical 01/14/2020 12:00:00 AM EST BENNIE ([facility]) Hardik Serra, RPA-C: [address], [place] [address], Ph. Attender: HARDIK SERRA RPA-C [facility] Medical 01/14/2020 12:00:00 AM EST BENNIE ([facility]) Hardik Serra, RPA-C: [address], [place] [address], Ph. Attender: HARDIK SERRA RPA-C [facility] Medical 01/14/2020 12:00:00 AM EST BENNIE ([facility]) Hardik Serra, RPA-C: [address], [place] [address], Ph. Attender: HARDIK SERRA RPA-C [facility] Medical 01/14/2020 12:00:00 AM EST BENNIE ([facility]) Hardik Serra RPA-C: [address], [place] [address], Ph. Attender: HARDIK SERRA RPA-C [facility] Medical 01/14/2020 12:00:00 AM EST BENNIE ([facility]) Hardik Serra, RPA-C: [address], [place] [address], Ph. Attender: HARDIK SERRA RPA-C [facility] Medical 01/14/2020 12:00:00 AM EST BENNIE ([facility]) Hardik Serra RPA-C: [address], [place] [address], Ph. Attender: HARDIK SERRA RPA-C [facility] Medical 01/14/2020 12:00:00 AM EST BENNIE ([facility]) Hardik Serra RPA-C: [address], [place] [address], Ph. Attender: HARDIK SERRA RPA-C [facility] Medical 01/14/2020 12:00:00 AM EST BENNIE ([facility]) Hardik Serra RPA-C: [address], [place] [address], Ph. Attender: HARDIK SERRA RPA-C [facility] Medical 01/14/2020 12:00:00 AM EST BENNIE ([facility]) Hardik Serra RPA-C: [address], [place] [address], Ph. Attender: HARDIK SERRA RPA-C [facility] Medical 01/14/2020 12:00:00 AM EST BENNEI ([facility]) Hardik Serra RPA-C: [address], [place] [address], Ph. Attender: HARDIK SERRA RPA-C [facility] Medical 01/14/2020 12:00:00 AM EST BENNIE ([facility]) Hardik Serra RPA-C: [address], [place] [address], Ph. Attender: HARDIK SERRA RPA-C [facility] Medical 01/14/2020 12:00:00 AM EST BENNIE ([facility]) Hardik Serra RPA-C: [address], [place] [address], Ph. Attender: HARDIK SERRA RPA-C [facility] Medical 01/14/2020 12:00:00 AM EST BENNIE ([facility]) Hardik Serra RPA-C: [address], [place] [address], Ph. Attender: HARDIK SERRA RPA-C [facility] Medical 01/14/2020 12:00:00 AM EST BENNIE ([facility]) JOHN ChristopherW-R: [address], [place] [address], Ph. Attender: Leta Forrest [facility] Medical 12/26/2019 12:00:00 AM EDT BENNIE ([facility]) JOHN ChristopherW-R: [address], [place] [address], Ph. Attender: Leta Forrest [facility] Medical 12/26/2019 12:00:00 AM EDT BENNIE ([facility]) JOHN ChristopherW-R: [address], [place] [address], Ph. Attender: Leta Forrest [facility] Medical 12/26/2019 12:00:00 AM EDT BENNIE ([facility]) JOHN ChristopherW-R: [address], [place] [address], Ph. Attender: Leta Forrest [facility] Medical 12/26/2019 12:00:00 AM EDT [facility] ([facility]) JOHN ChristopherW-R: [address], [place] [address], Ph. Attender: Leta Forrest [facility] Medical 12/26/2019 12:00:00 AM EDT [facility] ([facility]) JOHN ChristopherW-R: [address], [place] [address], Ph. Attender: Leta Lopezjaycemercedesagustin [facility] Medical 12/26/2019 12:00:00 AM EDT BENNIE ([facility]) JOHN ChristopherW-R: [address], [place] [address], Ph. Attender: Leta Forrest [facility] Medical 12/26/2019 12:00:00 AM EDT [facility] ([facility]) JOHN ChristopherW-R: [address], [place] [address], Ph. Attender: Leta Jessicajaycemercedesagustin [facility] Medical 12/26/2019 12:00:00 AM EDT [facility] ([facility]) JOHN ChristopherW-R: [address], [address], [place] [address], Ph. Attender: Leta Forrest [facility] Medical 12/26/2019 12:00:00 AM EDT BENNIE ([facility]) JOHN ChristopherW-R: [address], [place] [address], Ph. Attender: Leta Forrest [facility] Medical 12/26/2019 12:00:00 AM EDT [facility] ([facility]) JOHN ChristopherW-R: [address], [place] [address], Ph. Attender: Leta Reneeagustin [facility] Medical 12/26/2019 12:00:00 AM EDT BENNIE ([facility]) JOHN ChristopherW-R: [address], [address], [place] [address], Ph. Attender: Leta Rodríguezmercedesagustin [facility] Medical 12/26/2019 12:00:00 AM EDT BENNIE ([facility]) JOHN ChristopherW-R: [address], [place] [address], Ph. Attender: Leta Jessicajaycemecredesagustin [facility] Medical 12/26/2019 12:00:00 AM EDT BENNIE ([facility]) JOHN ChristopherW-R: [address], [place] [address], Ph. Attender: Leta Forrest [facility] Medical 12/26/2019 12:00:00 AM EDT BENNIE ([facility]) JOHN ChristopherW-R: [address], [place] [address], Ph. Attender: Leta Forrest [facility] Medical 12/26/2019 12:00:00 AM EDT BENNIE ([facility]) Leta Fernando, [employer] L[employer]ER-R: [address], [place] [address], Ph. Attender: Leta Forrest [facility] Medical 12/26/2019 12:00:00 AM EDT BENNIE ([facility]) Leta FernandoJOHNW-R: [address], [place] [address], Ph. Attender: Leta Forrest [facility] Medical 12/26/2019 12:00:00 AM EDT [facility] ([facility]) Outpatient Attender: HARDIK SERRA RPA-C [facility] 12/16/2019 12:46:01 PM EDT [facility] Outpatient Attender: HARDIK SERRA RPA-C [facility] 12/11/2019 11:57:02 AM EDT [facility] Outpatient Attender: HARDIK SERRA RPA-C [facility] 12/11/2019 11:02:03 AM EDT [facility] Outpatient Attender: HARDIK SERRA RPA-C [facility] 12/05/2019 10:34:01 AM EDT [facility] Outpatient Attender: HARDIK SERRA RPA-C [facility] 11/29/2019 01:40:02 PM EDT [facility] Outpatient Attender: HARDIK SERRA RPA-C [facility] 11/28/2019 02:42:03 PM EDT [facility] Outpatient Attender: HARDIK SERRA RPA-C [facility] 11/28/2019 08:54:00 AM EDT [facility] Outpatient Attender: HARDIK SERRA RPA-C [facility] 11/21/2019 02:50:01 PM EDT [facility] Outpatient Attender: HARDIK SERRA RPA-C [facility] 11/21/2019 02:46:02 PM EDT [facility] Outpatient Attender: HARDIK SERRA RPA-C [facility] 11/21/2019 02:42:01 PM EDT [facility] Outpatient Attender: HARDIK SERRA RPA-C [facility] 11/19/2019 01:51:02 PM EDT [facility] Outpatient Attender: HARDIK SERRA RPA-C [facility] 11/14/2019 09:53:59 AM EDT [facility] Outpatient Attender: HARDIK SERRA RPA-C [facility] 11/14/2019 09:49:01 AM EDT [facility] Outpatient Attender: HARDIK SERRA RPA-C [facility] 11/13/2019 07:56:00 AM EDT [facility] Outpatient Attender: HARDIK GRULLONST RPA-C [facility] 11/08/2019 02:50:56 PM EDT [facility] Outpatient Attender: HARDIK SERRA RPA-C [facility] 11/07/2019 08:57:01 AM EDT [facility] Outpatient Attender: HARDIK SERAR RPA-C [facility] 10/31/2019 11:40:02 AM EDT [facility] Outpatient Attender: HARDIK GRULLONST RPA-C [facility] 10/29/2019 04:20:03 PM EDT [facility] Outpatient Attender: HARDIK SERRA RPA-C [facility] 10/29/2019 04:19:01 PM EDT [facility] Outpatient Attender: HARDIK SERRA RPA-C [facility] 10/29/2019 02:16:04 PM EDT [facility] Outpatient Attender: HARDIK SERRA RPA-C [facility] 10/26/2019 03:49:59 PM EDT [facility] Outpatient Attender: HARDIK SERRA RPA-C [facility] 10/25/2019 10:55:01 AM EDT [facility] Outpatient Attender: HARDIK SERRA RPA-C [facility] 10/23/2019 03:57:01 PM EDT [facility] Immunizations Vaccine Date Status Description Data Source(s) COVID-19 VACCINE [facility] 04/14/2020 12:00:00 AM EST completed [facility] Vaccine Series Complete: YESThis Data wa s Submitted to [facility] Via [employer]. COVID-19 VACCINE [facility] 03/24/2020 12:00:00 AM EST completed [place] Vaccine Series Complete: NOThis Data was Submitted to [facility] Via [employer]. New in 2011. IIV4 11/29/2019 12:00:00 AM EDT completed 0.5 mL [facility]ENNIE ([facility]) New in 2011. IIV4 11/29/2019 12:00:00 AM EDT completed 0.5 mL [facility]ENNIE ([facility]) New in 2011. IIV4 11/29/2019 12:00:00 AM EDT completed 0.5 mL BENNIE ([facility]) New in 2011. IIV4 11/29/2019 12:00:00 AM EDT completed .5 mL BENNIE ([facility]) New in 2011. IIV4 11/29/2019 12:00:00 AM EDT completed .5 mL BENNIE ([facility]) New in 2011. IIV4 11/29/2019 12:00:00 AM EDT completed .5 mL BENNIE ([facility]) New in 2011. IIV4 11/29/2019 12:00:00 AM EDT completed .5 mL BENNIE ([facility]) New in 2011. IIV4 11/29/2019 12:00:00 AM EDT completed .5 mL [facility]ENNIE ([facility]) New in 2011. IIV4 11/29/2019 12:00:00 AM EDT completed .5 mL [facility]ENNIE ([facility]) New in 2011. IIV4 11/29/2019 12:00:00 AM EDT completed .5 mL [facility]ENNIE ([facility]) New in 2011. IIV4 11/29/2019 12:00:00 AM EDT completed .5 mL [facility]ENNIE ([facility]) New in 2011. IIV4 11/29/2019 12:00:00 AM EDT completed .5 mL [facility]ENNIE ([facility]) New in 2011. IIV4 11/29/2019 12:00:00 AM EDT completed .5 mL BENNIE ([facility]) New in 2011. IIV4 11/29/2019 12:00:00 AM EDT completed .5 mL BENNIE ([facility]) Medications Medication Brand Name Start Date Product Form Dose Route Admi nistrative Instructions Pharmacy Instructions Status Indications Reaction Description Data Source(s) 8 HR Acetaminophen 650 MG Extended Release Oral Tablet Aceta minophen 8 Hour 12/04/2020 12:00:00 AM EDT ORAL active [facility] ([facility]) Esomeprazole 20 MG Delayed Release Oral Capsule Esomeprazole Magnesium 12/04/2020 12:00:00 AM EDT ORAL active [facility] ([facility]) Escitalopram 10 MG Oral Tablet Escitalopram Oxalate 12/04/2020 1 2:00:00 AM EDT ORAL active [facility] ( [facility]) Petrolatum 610 MG/ML Topical Cream Eucerin 12/04/2020 12:00:00 AM EDT active [facility] ([facility]) cetirizine hydrochloride 10 MG Oral Tablet Cetirizine HCL 12/04/2020 12:00:00 AM EDT ORAL active [facility] ([facility] Calcium Carbonate 500 MG Chewable Tablet Calcium Antacid 12/04/2020 12:00:00 AM EDT ORAL active [facility] ([facility]) Dorzolamide HCL/Timolol Maleate Dorzolamide HCL/Timolol Male ate 12/04/2020 12:00:00 AM EDT OPHTHALMIC active [facility] ([facility]) Ketorolac Tromethamine 5 MG/ML Ophthalmic Solution Ketorolac Tromethamine 12/04/2020 12:00:00 AM EDT OPHTHALMIC active [facility] ([facility]) meloxicam 7.5 MG Oral Tablet Meloxicam 12/04/2020 12:00:00 AM EDT ORAL active [facility] ([facility]) Isosorbide Dinitrate 30 MG Oral Tablet Isosorbide Dinitrate 12/04/2020 12:00:00 AM EDT ORAL active [facility] ([facility]) prednisolone acetate 10 MG/ML Ophthalmic Suspension Predniso lone Acetate P-F 12/04/2020 12:00:00 AM EDT OPHTHALMIC active [facility] ([facility]) Memantine hydrochloride 5 MG Oral Tablet Memantine HCL 12/04/2020 12:00:00 AM EDT ORAL active [facility] ([facility] Trazodone Hydrochloride 100 MG Oral Tablet Trazodone HCL 12/04/2020 12:00:00 AM EDT [facility]AL [facility] Acetaminophen 500 MG Oral Tablet acetami nophen 500 mg tablet Take 2 tablets every 8 hours by oral route as needed. acetaminophen 500 mg tablet Take 2 tablets every 8 hours by oral route as needed. 07/23/2020 12:00:00 AM EDT 2 completed acetaminophen 500 MG Oral Tablet BENNIE ([facility]) Acetaminophen 500 MG Oral Tablet acetami nophen 500 mg tablet Take 2 tablets every 8 hours by oral route as needed. acetaminophen 500 mg tablet Take 2 tablets every 8 hours by oral route as needed. 07/23/2020 12:00:00 AM EDT 2 completed acetaminophen 500 MG Oral Tablet BENNIE ([facility]) Acetaminophen 500 MG Oral Tablet acetami nophen 500 mg tablet Take 2 tablets every 8 hours by oral route as needed. acetaminophen 500 mg tablet Take 2 tablets every 8 hours by oral route as needed. 07/23/2020 12:00:00 AM EDT 2 completed acetaminophen 500 MG Oral Tablet [facility]ENNIE ([facility]) Acetaminophen 500 MG Oral Tablet acetami nophen 500 mg tablet Take 2 tablets every 8 hours by oral route as needed. acetaminophen 500 mg tablet Take 2 tablets every 8 hours by oral route as needed. 07/23/2020 12:00:00 AM EDT 2 completed acetaminophen 500 MG Oral Tablet [facility]ENNIE ([facility]) Acetaminophen 500 MG Oral Tablet acetami nophen 500 mg tablet Take 2 tablets every 8 hours by oral route as needed. acetaminophen 500 mg tablet Take 2 tablets every 8 hours by oral route as needed. 07/23/2020 12:00:00 AM EDT 2 completed acetaminophen 500 MG Oral Tablet [facility]ENNIE ([facility]) Acetaminophen 500 MG Oral Tablet acetami nophen 500 mg tablet Take 2 tablets every 8 hours by oral route as needed. acetaminophen 500 mg tablet Take 2 tablets every 8 hours by oral route as needed. 07/23/2020 12:00:00 AM EDT 2 completed acetaminophen 500 MG Oral Tablet [facility]IE ([facility]) Acetaminophen 500 MG Oral Tablet acetami nophen 500 mg tablet Take 2 tablets every 8 hours by oral route as needed. acetaminophen 500 mg tablet Take 2 tablets every 8 hours by oral route as needed. 07/23/2020 12:00:00 AM EDT 2 completed acetaminophen 500 MG Oral Tablet [facility]IE ([facility]) Acetaminophen 500 MG Oral Tablet acetami nophen 500 mg tablet Take 2 tablets every 8 hours by oral route as needed. acetaminophen 500 mg tablet Take 2 tablets every 8 hours by oral route as needed. 07/23/2020 12:00:00 AM EDT 2 completed acetaminophen 500 MG Oral Tablet [facility]IE ([facility]) Escitalopram 5 MG Oral Tablet escitalopram 5 mg tablet escit alopram 5 mg tablet completed escitalopram 5 MG Oral Tablet [facility] ([facility]) Diclofenac Sodium 0.01 MG/MG Topical Gel diclofenac 1 % topical gel diclofenac 1 % topical gel completed diclofenac sodium 0.01 MG/MG Topical Gel [facility]ENNIE ([facility]) Diclofenac Sodium 0.01 MG/MG Topical Gel diclofenac 1 % topical gel diclofenac 1 % topical gel completed diclofenac sodium 0.01 MG/MG Topical Gel BENNIE ([facility]) Hydroxyzine Hydrochloride 25 MG Oral Tablet hydroxyzin e HCl 25 mg tablet hydroxyzine HCl 25 mg tablet completed hydroxyzine hydrochloride 25 MG Oral Tablet [facility] ([facility]) Hydroxyzine Hydrochloride 50 MG Oral Tablet hydroxyzin e HCl 50 mg tablet hydroxyzine HCl 50 mg tablet completed hydroxyzine hydrochloride 50 MG Oral Tablet [facility] ([facility]) Hydroxyzine Hydrochloride 50 MG Oral Tablet hydroxyzin e HCl 50 mg tablet hydroxyzine HCl 50 mg tablet completed hydroxyzine hydrochloride 50 MG Oral Tablet [facility] ([facility]) lidocaine 5 % topical patch APPLY 1 PATC H BY TOPICAL ROUTE ONCE DAILY (MAY WEAR UP TO 12HOURS.) [id number] completed lidocaine 0.05 MG/MG Medicated Patch [facility]ENNIE ([facility]) Hydroxyzine Hydrochloride 25 MG Oral Tablet hydroxyzin e HCl 25 mg tablet hydroxyzine HCl 25 mg tablet completed hydroxyzine hydrochloride 25 MG Oral Tablet [facility] ([facility]) Hydroxyzine Hydrochloride 25 MG Oral Tablet hydroxyzin e HCl 25 mg tablet hydroxyzine HCl 25 mg tablet completed hydroxyzine hydrochloride 25 MG Oral Tablet [facility] ([facility]) lidocaine 5 % topical patch APPLY 1 PATC H BY TOPICAL ROUTE ONCE DAILY (MAY WEAR UP TO 12HOURS.) [id number] completed lidocaine 0.05 MG/MG Medicated Patch [facility]IE ([facility]) ramelteon 8 MG Oral Tablet ramelteon 8 mg tablet ramelteon 8 mg tablet completed ramelteon 8 MG Oral Table t [facility] ([facility]) Hydroxyzine Hydrochloride 25 MG Oral Tablet hydroxyzin e HCl 25 mg tablet hydroxyzine HCl 25 mg tablet completed hydroxyzine hydrochloride 25 MG Oral Tablet [facility] ([facility]) ramelteon 8 MG Oral Tablet ramelteon 8 mg tablet ramelteon 8 mg tablet completed ramelteon 8 MG Oral Table t [facility] ([facility]) 8 HR Acetaminophen 650 MG Extended Relea se Oral Tablet [Tylenol] Tylenol 8 Hour 650 mg tablet,extended release Take 1 tablet every day by oral route as needed. Tylenol 8 Hour 650 mg tablet,extended release Take 1 tablet every day by oral route as needed. 1 completed 8 HR acetaminophen 650 MG Extended Release Oral Tablet [Tylenol] [facility] ([facility]) Diclofenac Sodium 0.01 MG/MG Topical Gel diclofenac 1 % topical gel diclofenac 1 % topical gel completed diclofenac sodium 0.01 MG/MG Topical Gel [facility] ([facility]) lidocaine 5 % topical patch APPLY 1 PATC H BY TOPICAL ROUTE ONCE DAILY (MAY WEAR UP TO 12HOURS.) [id number] completed lidocaine 0.05 MG/MG Medicated Patch [facility]ENN[facility] ([facility]) lidocaine 5 % topical patch APPLY 1 PATC H BY TOPICAL ROUTE ONCE DAILY (MAY WEAR UP TO 12HOURS.) [id number] completed lidocaine 0.05 MG/MG Medicated Patch BENNIE ([facility]) Hydroxyzine Hydrochloride 50 MG Oral Tablet hydroxyzin e HCl 50 mg tablet hydroxyzine HCl 50 mg tablet completed hydroxyzine hydrochloride 50 MG Oral Tablet [facility]ENN[facility] ([facility]) ramelteon 8 MG Oral Tablet ramelteon 8 mg tablet ramelteon 8 mg tablet completed ramelteon 8 MG Oral Table t BENNIE ([facility]) 8 HR Acetaminophen 650 MG Extended Relea se Oral Tablet [Tylenol] Tylenol 8 Hour 650 mg tablet,extended release Take 1 tablet every day by oral route as needed. Tylenol 8 Hour 650 mg tablet,extended release Take 1 tablet every day by oral route as needed. 1 completed 8 HR acetaminophen 650 MG Extended Release Oral Tablet [Tylenol] BENNIE ([facility]) Escitalopram 5 MG Oral Tablet escitalopram 5 mg tablet escit alopram 5 mg tablet completed escitalopram 5 MG Oral Tablet [facility]ENNIE ([facility]) Hydroxyzine Hydrochloride 25 MG Oral Tablet hydroxyzin e HCl 25 mg tablet hydroxyzine HCl 25 mg tablet completed hydroxyzine hydrochloride 25 MG Oral Tablet [facility] ([facility]) Escitalopram 5 MG Oral Tablet escitalopram 5 mg tablet escit alopram 5 mg tablet completed escitalopram 5 MG Oral Tablet [facility] ([facility]) Hydroxyzine Hydrochloride 50 MG Oral Tablet hydroxyzin e HCl 50 mg tablet hydroxyzine HCl 50 mg tablet completed hydroxyzine hydrochloride 50 MG Oral Tablet [facility]ENNIE ([facility]) Hydroxyzine Hydrochloride 25 MG Oral Tablet hydroxyzin e HCl 25 mg tablet hydroxyzine HCl 25 mg tablet completed hydroxyzine hydrochloride 25 MG Oral Tablet [facility] ([facility]) Hydroxyzine Hydrochloride 50 MG Oral Tablet hydroxyzin e HCl 50 mg tablet hydroxyzine HCl 50 mg tablet completed hydroxyzine hydrochloride 50 MG Oral Tablet [facility]ENN[facility] ([facility]) 8 HR Acetaminophen 650 MG Extended Relea se Oral Tablet [Tylenol] Tylenol 8 Hour 650 mg tablet,extended release Take 1 tablet every day by oral route as needed. Tylenol 8 Hour 650 mg tablet,extended release Take 1 tablet every day by oral route as needed. 1 completed 8 HR acetaminophen 650 MG Extended Release Oral Tablet [Tylenol] [facility]ENNIE ([facility]) Hydroxyzine Hydrochloride 50 MG Oral Tablet hydroxyzin e HCl 50 mg tablet hydroxyzine HCl 50 mg tablet completed hydroxyzine hydrochloride 50 MG Oral Tablet [facility] ([facility]) ramelteon 8 MG Oral Tablet ramelteon 8 mg tablet ramelteon 8 mg tablet completed ramelteon 8 MG Oral Table t [facility] ([facility]) Hydroxyzine Hydrochloride 50 MG Oral Tablet hydroxyzin e HCl 50 mg tablet hydroxyzine HCl 50 mg tablet completed hydroxyzine hydrochloride 50 MG Oral Tablet [facility] ([facility]) Hydroxyzine Hydrochloride 25 MG Oral Tablet hydroxyzin e HCl 25 mg tablet hydroxyzine HCl 25 mg tablet completed hydroxyzine hydrochloride 25 MG Oral Tablet [facility] ([facility]) lidocaine 5 % topical patch APPLY 1 PATC H BY TOPICAL ROUTE ONCE DAILY (MAY WEAR UP TO 12HOURS.) [id number] completed lidocaine 0.05 MG/MG Medicated Patch [facility] ([facility]) Escitalopram 5 MG Oral Tablet escitalopram 5 mg tablet escit alopram 5 mg tablet completed escitalopram 5 MG Oral Tablet [facility] ([facility]) ramelteon 8 MG Oral Tablet ramelteon 8 mg tablet ramelteon 8 mg tablet completed ramelteon 8 MG Oral Table t [facility]) 8 HR Acetaminophen 650 MG Extended Relea se Oral Tablet [Tylenol] Tylenol 8 Hour 650 mg tablet,extended release Take 1 tablet every day by oral route as needed. Tylenol 8 Hour 650 mg tablet,extended release Take 1 tablet every day by oral route as needed. 1 completed 8 HR acetaminophen 650 MG Extended Release Oral Tablet [Tylenol] [facility] ([facility]) [employer] COVID-19 Vaccine (PF) 30 mcg/0.3 mL IM suspension(EUA) ADMINISTER 0.3ML IN THE MUSCLE DIRECTED [id number] completed SARS-CoV-2 (COVID-19) vaccine, [id number] 0.1 MG/ML Injectable Suspension [facility]) Hydroxyzine Hydrochloride 50 MG Oral Tablet hydroxyzin e HCl 50 mg tablet hydroxyzine HCl 50 mg tablet completed hydroxyzine hydrochloride 50 MG Oral Tablet [facility] ([facility]) Escitalopram 5 MG Oral Tablet escitalopram 5 mg tablet escit alopram 5 mg tablet completed escitalopram 5 MG Oral Tablet [facility] ([facility]) Hydroxyzine Hydrochloride 50 MG Oral Tablet hydroxyzin e HCl 50 mg tablet hydroxyzine HCl 50 mg tablet completed hydroxyzine hydrochloride 50 MG Oral Tablet [facility]) Escitalopram 5 MG Oral Tablet escitalopram 5 mg tablet escit alopram 5 mg tablet completed escitalopram 5 MG Oral Tablet [facility]) 8 HR Acetaminophen 650 MG Extended Relea se Oral Tablet [Tylenol] Tylenol 8 Hour 650 mg tablet,extended release Take 1 tablet every day by oral route as needed. Tylenol 8 Hour 650 mg tablet,extended release Take 1 tablet every day by oral route as needed. 1 completed 8 HR acetaminophen 650 MG Extended Release Oral Tablet [Tylenol] [facility] ([facility]) Escitalopram 5 MG Oral Tablet escitalopram 5 mg tablet escit alopram 5 mg tablet completed escitalopram 5 MG Oral Tablet [facility] ([facility]) lidocaine 5 % topical patch APPLY 1 PATC H BY TOPICAL ROUTE ONCE DAILY (MAY WEAR UP TO 12HOURS.) [id number] completed lidocaine 0.05 MG/MG Medicated Patch [facility] ([facility]) ramelteon 8 MG Oral Tablet ramelteon 8 mg tablet ramelteon 8 mg tablet completed ramelteon 8 MG Oral Table t [facility] ([facility]) ramelteon 8 MG Oral Tablet ramelteon 8 mg tablet ramelteon 8 mg tablet completed ramelteon 8 MG Oral Table t [facility] ([facility]) 8 HR Acetaminophen 650 MG Extended Relea se Oral Tablet [Tylenol] Tylenol 8 Hour 650 mg tablet,extended release Take 1 tablet every day by oral route as needed. Tylenol 8 Hour 650 mg tablet,extended release Take 1 tablet every day by oral route as needed. 1 completed 8 HR acetaminophen 650 MG Extended Release Oral Tablet [Tylenol] [facility] ([facility]) Hydroxyzine Hydrochloride 50 MG Oral Tablet hydroxyzin e HCl 50 mg tablet hydroxyzine HCl 50 mg tablet completed hydroxyzine hydrochloride 50 MG Oral Tablet [facility] ([facility]) [employer] COVID-19 Vaccine (PF) 30 mcg/0.3 mL IM suspension(EUA) ADMINISTER 0.3ML IN THE MUSCLE DIRECTED [id number] completed SARS-CoV-2 (COVID-19) vaccine, [id number] 0.1 MG/ML Injectable Suspension [facility] ([facility]) Hydroxyzine Hydrochloride 50 MG Oral Tablet hydroxyzin e HCl 50 mg tablet hydroxyzine HCl 50 mg tablet completed hydroxyzine hydrochloride 50 MG Oral Tablet [facility] ([facility]) ramelteon 8 MG Oral Tablet ramelteon 8 mg tablet ramelteon 8 mg tablet completed ramelteon 8 MG Oral Table t [facility] ([facility]) [employer] COVID-19 Vaccine (PF) 30 mcg/0.3 mL IM suspension(EUA) ADMINISTER 0.3ML IN THE MUSCLE DIRECTED [id number] completed SARS-CoV-2 (COVID-19) vaccine, [id number] 0.1 MG/ML Injectable Suspension [facility] ([facility]) Hydroxyzine Hydrochloride 25 MG Oral Tablet hydroxyzin e HCl 25 mg tablet hydroxyzine HCl 25 mg tablet completed hydroxyzine hydrochloride 25 MG Oral Tablet [facility] ([facility]) Hydroxyzine Hydrochloride 25 MG Oral Tablet hydroxyzin e HCl 25 mg tablet hydroxyzine HCl 25 mg tablet completed hydroxyzine hydrochloride 25 MG Oral Tablet [facility] ([facility]) ramelteon 8 MG Oral Tablet ramelteon 8 mg tablet ramelteon 8 mg tablet completed ramelteon 8 MG Oral Table t [facility] ([facility]) Hydroxyzine Hydrochloride 50 MG Oral Tablet hydroxyzin e HCl 50 mg tablet hydroxyzine HCl 50 mg tablet completed hydroxyzine hydrochloride 50 MG Oral Tablet [facility] ([facility]) Escitalopram 5 MG Oral Tablet escitalopram 5 mg tablet escit alopram 5 mg tablet completed escitalopram 5 MG Oral Tablet [facility] ([facility]) ramelteon 8 MG Oral Tablet ramelteon 8 mg tablet ramelteon 8 mg tablet completed ramelteon 8 MG Oral Table t [facility] ([facility]) Hydroxyzine Hydrochloride 50 MG Oral Tablet hydroxyzin e HCl 50 mg tablet hydroxyzine HCl 50 mg tablet completed hydroxyzine hydrochloride 50 MG Oral Tablet [facility] ([facility]) Diclofenac Sodium 0.01 MG/MG Topical Gel diclofenac 1 % topical gel diclofenac 1 % topical gel completed diclofenac sodium 0.01 MG/MG Topical Gel [facility] ([facility]) Hydroxyzine Hydrochloride 25 MG Oral Tablet hydroxyzin e HCl 25 mg tablet hydroxyzine HCl 25 mg tablet completed hydroxyzine hydrochloride 25 MG Oral Tablet [facility] ([facility]) 8 HR Acetaminophen 650 MG Extended Relea se Oral Tablet [Tylenol] Tylenol 8 Hour 650 mg tablet,extended release Take 1 tablet every day by oral route as needed. Tylenol 8 Hour 650 mg tablet,extended release Take 1 tablet every day by oral route as needed. 1 completed 8 HR acetaminophen 650 MG Extended Release Oral Tablet [Tylenol] [facility] ([facility]) Escitalopram 5 MG Oral Tablet escitalopram 5 mg tablet escit alopram 5 mg tablet completed escitalopram 5 MG Oral Tablet [facility] ([facility]) Escitalopram 5 MG Oral Tablet escitalopram 5 mg tablet escit alopram 5 mg tablet completed escitalopram 5 MG Oral Tablet [facility] ([facility]) 8 HR Acetaminophen 650 MG Extended Relea se Oral Tablet [Tylenol] Tylenol 8 Hour 650 mg tablet,extended release Take 1 tablet every day by oral route as needed. Tylenol 8 Hour 650 mg tablet,extended release Take 1 tablet every day by oral route as needed. 1 completed 8 HR acetaminophen 650 MG Extended Release Oral Tablet [Tylenol] [facility] ([facility]) Hydroxyzine Hydrochloride 25 MG Oral Tablet hydroxyzin e HCl 25 mg tablet hydroxyzine HCl 25 mg tablet completed hydroxyzine hydrochloride 25 MG Oral Tablet [facility] ([facility]) ramelteon 8 MG Oral Tablet ramelteon 8 mg tablet ramelteon 8 mg tablet completed ramelteon 8 MG Oral Table t [facility] ([facility]) Escitalopram 5 MG Oral Tablet escitalopram 5 mg tablet escit alopram 5 mg tablet completed escitalopram 5 MG Oral Tablet [facility] ([facility]) Hydroxyzine Hydrochloride 25 MG Oral Tablet hydroxyzin e HCl 25 mg tablet hydroxyzine HCl 25 mg tablet completed hydroxyzine hydrochloride 25 MG Oral Tablet [facility] ([facility]) Escitalopram 5 MG Oral Tablet escitalopram 5 mg tablet escit alopram 5 mg tablet completed escitalopram 5 MG Oral Tablet [facility] ([facility]) Hydroxyzine Hydrochloride 25 MG Oral Tablet hydroxyzin e HCl 25 mg tablet hydroxyzine HCl 25 mg tablet completed hydroxyzine hydrochloride 25 MG Oral Tablet [facility] ([facility]) Diclofenac Sodium 0.01 MG/MG Topical Gel diclofenac 1 % topical gel diclofenac 1 % topical gel completed diclofenac sodium 0.01 MG/MG Topical Gel [facility]IE ([facility]) ramelteon 8 MG Oral Tablet ramelteon 8 mg tablet ramelteon 8 mg tablet completed ramelteon 8 MG Oral Table t [facility]ENNIE ([facility]) Diclofenac Sodium 0.01 MG/MG Topical Gel diclofenac 1 % topical gel diclofenac 1 % topical gel completed diclofenac sodium 0.01 MG/MG Topical Gel [facility] ([facility]) Hydroxyzine Hydrochloride 25 MG Oral Tablet hydroxyzin e HCl 25 mg tablet hydroxyzine HCl 25 mg tablet completed hydroxyzine hydrochloride 25 MG Oral Tablet [facility] ([facility]) Escitalopram 5 MG Oral Tablet escitalopram 5 mg tablet escit alopram 5 mg tablet completed escitalopram 5 MG Oral Tablet [facility] ([facility]) Diclofenac Sodium 0.01 MG/MG Topical Gel diclofenac 1 % topical gel diclofenac 1 % topical gel completed diclofenac sodium 0.01 MG/MG Topical Gel [facility] ([facility]) ramelteon 8 MG Oral Tablet ramelteon 8 mg tablet ramelteon 8 mg tablet completed ramelteon 8 MG Oral Table t [facility] ([facility]) Diclofenac Sodium 0.01 MG/MG Topical Gel diclofenac 1 % topical gel diclofenac 1 % topical gel completed diclofenac sodium 0.01 MG/MG Topical Gel [facility]ENNIE ([facility]) ramelteon 8 MG Oral Tablet ramelteon 8 mg tablet ramelteon 8 mg tablet completed ramelteon 8 MG Oral Table t [facility]ENNIE ([facility]) [employer] COVID-19 Vaccine (PF) 30 mcg/0.3 mL IM suspension(EUA) ADMINISTER 0.3ML IN THE MUSCLE DIRECTED [id number] completed SARS-CoV-2 (COVID-19) vaccine, [id number] 0.1 MG/ML Injectable Suspension [facility] ([facility]) 8 HR Acetaminophen 650 MG Extended Relea se Oral Tablet [Tylenol] Tylenol 8 Hour 650 mg tablet,extended release Take 1 tablet every day by oral route as needed. Tylenol 8 Hour 650 mg tablet,extended release Take 1 tablet every day by oral route as needed. 1 completed 8 HR acetaminophen 650 MG Extended Release Oral Tablet [Tylenol] [facility]ENNIE ([facility]) Hydroxyzine Hydrochloride 25 MG Oral Tablet hydroxyzin e HCl 25 mg tablet hydroxyzine HCl 25 mg tablet completed hydroxyzine hydrochloride 25 MG Oral Tablet [facility] ([facility]) Escitalopram 5 MG Oral Tablet escitalopram 5 mg tablet escit alopram 5 mg tablet completed escitalopram 5 MG Oral Tablet [facility]ENNIE ([facility]) 8 HR Acetaminophen 650 MG Extended Relea se Oral Tablet [Tylenol] Tylenol 8 Hour 650 mg tablet,extended release Take 1 tablet every day by oral route as needed. Tylenol 8 Hour 650 mg tablet,extended release Take 1 tablet every day by oral route as needed. 1 completed 8 HR acetaminophen 650 MG Extended Release Oral Tablet [Tylenol] [facility]ENNIE ([facility]) Hydroxyzine Hydrochloride 50 MG Oral Tablet hydroxyzin e HCl 50 mg tablet hydroxyzine HCl 50 mg tablet completed hydroxyzine hydrochloride 50 MG Oral Tablet [facility] ([facility]) Hydroxyzine Hydrochloride 50 MG Oral Tablet hydroxyzin e HCl 50 mg tablet hydroxyzine HCl 50 mg tablet completed hydroxyzine hydrochloride 50 MG Oral Tablet [facility] ([facility]) ramelteon 8 MG Oral Tablet ramelteon 8 mg tablet ramelteon 8 mg tablet completed ramelteon 8 MG Oral Table t [facility]ENNIE ([facility]) 8 HR Acetaminophen 650 MG Extended Relea se Oral Tablet [Tylenol] Tylenol 8 Hour 650 mg tablet,extended release Take 1 tablet every day by oral route as needed. Tylenol 8 Hour 650 mg tablet,extended release Take 1 tablet every day by oral route as needed. 1 completed 8 HR acetaminophen 650 MG Extended Release Oral Tablet [Tylenol] [facility] ([facility]) lidocaine 5 % topical patch APPLY 1 PATC H BY TOPICAL ROUTE ONCE DAILY (MAY WEAR UP TO 12HOURS.) [id number] completed lidocaine 0.05 MG/MG Medicated Patch [facility] ([facility]) Escitalopram 5 MG Oral Tablet escitalopram 5 mg tablet escit alopram 5 mg tablet completed escitalopram 5 MG Oral Tablet [facility] ([facility]) lidocaine 5 % topical patch APPLY 1 PATC H BY TOPICAL ROUTE ONCE DAILY (MAY WEAR UP TO 12HOURS.) [id number] completed lidocaine 0.05 MG/MG Medicated Patch BENNIE ([facility]) 8 HR Acetaminophen 650 MG Extended Relea se Oral Tablet [Tylenol] Tylenol 8 Hour 650 mg tablet,extended release Take 1 tablet every day by oral route as needed. Tylenol 8 Hour 650 mg tablet,extended release Take 1 tablet every day by oral route as needed. 1 completed 8 HR acetaminophen 650 MG Extended Release Oral Tablet [Tylenol] [facility] ([facility]) Insurance Providers Payer name Policy type / Coverage type Policy ID Covered republican ID Covered republican's relationship to isbell Policy Is[place] Plan Information WELLCARE [id number] SP [id number] [place] [id number] SP [id number] E WELLCARE [id number] SP [id number] MEDICARE [id number] SP [id number] WELLCARE [id number] SP [id number] EMEDNY [id number] SP [id number] EMEDNY UN SP UN WELLCARE [id number] SP [id number] AETNA MEDICARE [id number] SP [id number] LSF MEDICARE [id number] SP [id number] WELLCARE O [id number] S [id number] MEDICARE C [id number] S [id number] Medicare P [id number] S [id number] MEDICARE [id number] SP [id number] Problems, Conditions, and Diagnoses Code Display Name Description Problem Type Effective Dates Data Source(s) 79143554 Muscle fatigue Muscle Fatigue Problem 09/02/2020 12:00: 00 AM EDT [facility] ([facility]) [id number] Chronic low back pain Chronic Low Back Pain Problem 09/02/2020 12:00:00 AM EDT [facility] ([facility]) [id number] Muscle fatigue Muscle Fatigue Problem 09/02/2020 12:00: 00 AM EDT [facility]ENN[facility] ([facility]) [id number] Chronic low back pain Chronic Low Back Pain Problem 09/02/2020 12:00:00 AM EDT [facility] ([facility]) [id number] Muscle fatigue Muscle Fatigue Problem 09/02/2020 12:00: 00 AM EDT [facility] ([facility]) [id number] Chronic low back pain Chronic Low Back Pain Problem 09/02/2020 12:00:00 AM EDT [facility] ([facility]) [id number] Muscle fatigue Muscle Fatigue Problem 09/02/2020 12:00: 00 AM EDT [facility] ([facility]) [id number] Chronic low back pain Chronic Low Back Pain Problem 09/02/2020 12:00:00 AM EDT [facility] ([facility]) [id number] Muscle fatigue Muscle Fatigue Problem 09/02/2020 12:00: 00 AM EDT [facility]ENNIE ([facility]) [id number] Chronic low back pain Chronic Low Back Pain Problem 09/02/2020 12:00:00 AM EDT [facility] ([facility]) [id number] Muscle fatigue Muscle Fatigue Problem 09/02/2020 12:00: 00 AM EDT [facility]ENNIE ([facility]) [id number] Chronic low back pain Chronic Low Back Pain Problem 09/02/2020 12:00:00 AM EDT [facility] ([facility]) [id number] Sleep related hypoxemia Sleep Related Hypoxemia Pro blem 05/20/2020 12:00:00 AM EDT [facility] ([facility]) [id number] Sleep related hypoxemia Sleep Related Hypoxemia Pro blem 05/20/2020 12:00:00 AM EDT [facility] ([facility]) [id number] Sleep related hypoxemia Sleep Related Hypoxemia Pro blem 05/20/2020 12:00:00 AM EDT [facility] ([facility]) [id number] Sleep related hypoxemia Sleep Related Hypoxemia Pro blem 05/20/2020 12:00:00 AM EDT [facility] ([facility]) [id number] Sleep related hypoxemia Sleep Related Hypoxemia Pro blem 05/20/2020 12:00:00 AM EDT [facility] ([facility]) [id number] Sleep related hypoxemia Sleep Related Hypoxemia Pro blem 05/20/2020 12:00:00 AM EDT [facility] ([facility]) [id number] Sleep related hypoxemia Sleep Related Hypoxemia Pro blem 05/20/2020 12:00:00 AM EDT [facility] ([facility]) [id number] Sleep related hypoxemia Sleep Related Hypoxemia Pro blem 05/20/2020 12:00:00 AM EDT [facility] ([facility]) [id number] Sleep related hypoxemia Sleep Related Hypoxemia Pro blem 05/20/2020 12:00:00 AM EDT [facility] ([facility]) [id number] Sleep related hypoxemia Sleep Related Hypoxemia Pro blem 05/20/2020 12:00:00 AM EDT [facility] ([facility]) [id number] Sleep related hypoxemia Sleep Related Hypoxemia Pro blem 05/20/2020 12:00:00 AM EDT [facility] ([facility]) [id number] Dementia Dementia Problem 05/07/2020 12:00:00 AM ES T [facility] ([facility]) [id number] Dementia Dementia Problem 05/07/2020 12:00:00 AM ES T [facility] ([facility]) [id number] Dementia Dementia Problem 05/07/2020 12:00:00 AM ES T [facility] ([facility]) [id number] Dementia Dementia Problem 05/07/2020 12:00:00 AM ES T [facility] ([facility]) [id number] Dementia Dementia Problem 05/07/2020 12:00:00 AM ES T [facility] ([facility]) [id number] Dementia Dementia Problem 05/07/2020 12:00:00 AM ES T [facility] ([facility]) [id number] Dementia Dementia Problem 05/07/2020 12:00:00 AM ES T [facility] ([facility]) [id number] Dementia Dementia Problem 05/07/2020 12:00:00 AM ES T [facility] ([facility]) [id number] Dementia Dementia Problem 05/07/2020 12:00:00 AM ES T [facility] ([facility]) [id number] Dementia Dementia Problem 05/07/2020 12:00:00 AM ES T [facility] ([facility]) [id number] Dementia Dementia Problem 05/07/2020 12:00:00 AM ES T [facility] ([facility]) [id number] Dementia Dementia Problem 05/07/2020 12:00:00 AM ES T [facility] ([facility]) [id number] Low back pain Low Back Pain Problem 04/25/2020 12 :00:00 AM EST - 04/25/2020 12:00:00 AM EST [facility] ([facility]) [id number] Low back pain Low Back Pain Problem 04/25/2020 12 :00:00 AM EST - 04/25/2020 12:00:00 AM EST [facility]IE ([facility]) [id number] Low back pain Low Back Pain Problem 04/25/2020 12 :00:00 AM EST - 04/25/2020 12:00:00 AM EST [facility]ENNIE ([facility]) [id number] Low back pain Low Back Pain Problem 04/25/2020 12 :00:00 AM EST - 04/25/2020 12:00:00 AM EST [facility]ENNIE ([facility]) [id number] Low back pain Low Back Pain Problem 04/25/2020 12 :00:00 AM EST - 04/25/2020 12:00:00 AM EST [facility]IE ([facility]) [id number] Low back pain Low Back Pain Problem 04/25/2020 12 :00:00 AM EST - 04/25/2020 12:00:00 AM EST [facility]IE ([facility]) [id number] Low back pain Low Back Pain Problem 04/25/2020 12 :00:00 AM EST - 04/25/2020 12:00:00 AM EST [facility]ENNIE ([facility]) [id number] Low back pain Low Back Pain Problem 04/25/2020 12 :00:00 AM EST - 04/25/2020 12:00:00 AM EST [facility]ENNIE ([facility]) [id number] Low back pain Low Back Pain Problem 04/25/2020 12 :00:00 AM EST - 04/25/2020 12:00:00 AM EST [facility]ENNIE ([facility]) [id number] Low back pain Low Back Pain Problem 04/25/2020 12 :00:00 AM EST - 04/25/2020 12:00:00 AM EST [facility]ENNIE ([facility]) [id number] Low back pain Low Back Pain Problem 04/25/2020 12 :00:00 AM EST - 04/25/2020 12:00:00 AM EST [facility]ENNIE ([facility]) [id number] Low back pain Low Back Pain Problem 04/25/2020 12 :00:00 AM EST - 04/25/2020 12:00:00 AM EST [facility]IE ([facility]) [id number] Low back pain Low Back Pain Problem 04/25/2020 12 :00:00 AM EST - 04/25/2020 12:00:00 AM EST [facility]IE ([facility]) [id number] Domiciliary or rest home patient evaluat ion and management Domiciliary or Rest Home Patient Evaluation and Management Problem 2019 12:00:00 AM EST [facility] ([facility]) [id number] Domiciliary or rest home patient evaluat ion and management Domiciliary or Rest Home Patient Evaluation and Management Problem 2019 12:00:00 AM EST [facility] ([facility]) [id number] Domiciliary or rest home patient evaluat ion and management Domiciliary or Rest Home Patient Evaluation and Management Problem 2019 12:00:00 AM EST [facility] ([facility]) [id number] Domiciliary or rest home patient evaluat ion and management Domiciliary or Rest Home Patient Evaluation and Management Problem 2019 12:00:00 AM EST [facility] ([facility]) [id number] Domiciliary or rest home patient evaluat ion and management Domiciliary or Rest Home Patient Evaluation and Management Problem 2019 12:00:00 AM EST [facility] ([facility]) [id number] Mild memory disturbance Mild Memory Disturbance Proble m 01/02/2020 12:00:00 AM EST BENNIE ([facility]) [id number] 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 01/02/2020 12:00:00 AM EST - 01/02/2020 12:00:00 AM EST BENNIE ([facility]) [id number] Mild memory disturbance Mild Memory Disturbance Proble m 01/02/2020 12:00:00 AM EST BENNIE ([facility]) [id number] 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 01/02/2020 12:00:00 AM EST - 01/02/2020 12:00:00 AM EST BENNIE ([facility]) [id number] Mild memory disturbance Mild Memory Disturbance Proble m 01/02/2020 12:00:00 AM EST BENNIE ([facility]) [id number] 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 01/02/2020 12:00:00 AM EST - 01/02/2020 12:00:00 AM EST BENNIE ([facility]) [id number] Mild memory disturbance Mild Memory Disturbance Proble m 01/02/2020 12:00:00 AM EST BENNIE ([facility]) [id number] 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 01/02/2020 12:00:00 AM EST - 01/02/2020 12:00:00 AM EST BENNIE ([facility]) [id number] Mild memory disturbance Mild Memory Disturbance Proble m 01/02/2020 12:00:00 AM EST BENNIE ([facility]) [id number] 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 01/02/2020 12:00:00 AM EST - 01/02/2020 12:00:00 AM EST BENNIE ([facility]) [id number] Mild memory disturbance Mild Memory Disturbance Proble m 01/02/2020 12:00:00 AM EST BENNIE ([facility]) [id number] 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 01/02/2020 12:00:00 AM EST - 01/02/2020 12:00:00 AM EST BENNIE ([facility]) [id number] Mild memory disturbance Mild Memory Disturbance Proble m 01/02/2020 12:00:00 AM EST BENNIE ([facility]) [id number] 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 01/02/2020 12:00:00 AM EST - 01/02/2020 12:00:00 AM EST BENNIE ([facility]) [id number] Mild memory disturbance Mild Memory Disturbance Proble m 01/02/2020 12:00:00 AM EST BENNIE ([facility]) [id number] 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 01/02/2020 12:00:00 AM EST - 01/02/2020 12:00:00 AM EST BENNIE ([facility]) [id number] Mild memory disturbance Mild Memory Disturbance Proble m 01/02/2020 12:00:00 AM EST BENNIE ([facility]) [id number] 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 01/02/2020 12:00:00 AM EST - 01/02/2020 12:00:00 AM EST BENNIE ([facility]) [id number] Mild memory disturbance Mild Memory Disturbance Proble m 01/02/2020 12:00:00 AM EST BENNIE ([facility]) [id number] 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 01/02/2020 12:00:00 AM EST - 01/02/2020 12:00:00 AM EST BENNIE ([facility]) [id number] Mild memory disturbance Mild Memory Disturbance Proble m 01/02/2020 12:00:00 AM EST BENNIE ([facility]) [id number] 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 01/02/2020 12:00:00 AM EST - 01/02/2020 12:00:00 AM EST BENNIE ([facility]) [id number] Mild memory disturbance Mild Memory Disturbance Proble m 01/02/2020 12:00:00 AM EST BENNIE ([facility]) [id number] 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 01/02/2020 12:00:00 AM EST - 01/02/2020 12:00:00 AM EST BENNIE ([facility]) [id number] Mild memory disturbance Mild Memory Disturbance Proble m 01/02/2020 12:00:00 AM EST BENNIE ([facility]) [id number] 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 01/02/2020 12:00:00 AM EST - 01/02/2020 12:00:00 AM EST BENNIE ([facility]) [id number] Mild memory disturbance Mild Memory Disturbance Proble m 01/02/2020 12:00:00 AM EST BENNIE ([facility]) [id number] 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 01/02/2020 12:00:00 AM EST - 01/02/2020 12:00:00 AM EST BENNIE ([facility]) [id number] Mild memory disturbance Mild Memory Disturbance Proble m 01/02/2020 12:00:00 AM EST BENNIE ([facility]) [id number] 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 01/02/2020 12:00:00 AM EST - 01/02/2020 12:00:00 AM EST BENNIE ([facility]) [id number] Mild memory disturbance Mild Memory Disturbance Proble m 01/02/2020 12:00:00 AM EST BENNIE ([facility]) [id number] 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 01/02/2020 12:00:00 AM EST - 01/02/2020 12:00:00 AM EST BENNIE ([facility]) [id number] Dental caries, unspecified Dental caries, unspecified 11/29/2019 01:39:15 PM EDT [facility] Z12.11 Screening for malignant neoplasm of colo n Screening for malignant neoplasm of colon 11/29/2019 01:39:15 PM EDT [facility] V05.9 Encounter for immunization Encounter for immunization 11/29/2019 01:39:15 PM EDT [facility] [id number] 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 11/29/2019 12:00:00 AM EDT A THENShannon ([facility]) [id number] Screening for malignant neoplasm of colo n Screening for Malignant Neoplasm of Colon Problem 11/29/2019 12:00:00 AM EDT BENNIE ([facility]) [id number] Influenza vaccine needed Influenza Vaccine Needed Pro blem 11/29/2019 12:00:00 AM EDT BENNIE ([facility]) [id number] 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 11/29/2019 12:00:00 AM EDT A THENA ([facility]) [id number] Screening for malignant neoplasm of colo n Screening for Malignant Neoplasm of Colon Problem 11/29/2019 12:00:00 AM EDT BENNIE ([facility]) [id number] Influenza vaccine needed Influenza Vaccine Needed Pro blem 11/29/2019 12:00:00 AM EDT BENNIE ([facility]) [id number] 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 11/29/2019 12:00:00 AM EDT A THENA ([facility]) [id number] Screening for malignant neoplasm of colo n Screening for Malignant Neoplasm of Colon Problem 11/29/2019 12:00:00 AM EDT BENNIE ([facility]) [id number] Influenza vaccine needed Influenza Vaccine Needed Pro blem 11/29/2019 12:00:00 AM EDT BENNIE ([facility]) [id number] 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 11/29/2019 12:00:00 AM EDT A THENA ([facility]) [id number] Screening for malignant neoplasm of colo n Screening for Malignant Neoplasm of Colon Problem 11/29/2019 12:00:00 AM EDT BENNIE ([facility]) [id number] Influenza vaccine needed Influenza Vaccine Needed Pro blem 11/29/2019 12:00:00 AM EDT BENNIE ([facility]) [id number] 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 11/29/2019 12:00:00 AM EDT A THENA ([facility]) [id number] Screening for malignant neoplasm of colo n Screening for Malignant Neoplasm of Colon Problem 11/29/2019 12:00:00 AM EDT BENNIE ([facility]) [id number] Influenza vaccine needed Influenza Vaccine Needed Pro blem 11/29/2019 12:00:00 AM EDT BENNIE ([facility]) [id number] 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 11/29/2019 12:00:00 AM EDT A THENA ([facility]) [id number] Screening for malignant neoplasm of colo n Screening for Malignant Neoplasm of Colon Problem 11/29/2019 12:00:00 AM EDT BENNIE ([facility]) [id number] Influenza vaccine needed Influenza Vaccine Needed Pro blem 11/29/2019 12:00:00 AM EDT BENNIE ([facility]) [id number] 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 11/29/2019 12:00:00 AM EDT A THENA ([facility]) [id number] Screening for malignant neoplasm of colo n Screening for Malignant Neoplasm of Colon Problem 11/29/2019 12:00:00 AM EDT BENNIE ([facility]) [id number] Influenza vaccine needed Influenza Vaccine Needed Pro blem 11/29/2019 12:00:00 AM EDT BENNIE ([facility]) [id number] 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 11/29/2019 12:00:00 AM EDT Shannon WHITE ([facility]) [id number] Screening for malignant neoplasm of colo n Screening for Malignant Neoplasm of Colon Problem 11/29/2019 12:00:00 AM EDT BENNIE ([facility]) [id number] Influenza vaccine needed Influenza Vaccine Needed Pro blem 11/29/2019 12:00:00 AM EDT BENNIE ([facility]) [id number] 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 11/29/2019 12:00:00 AM EDT Shannon WHITE ([facility]) [id number] Screening for malignant neoplasm of colo n Screening for Malignant Neoplasm of Colon Problem 11/29/2019 12:00:00 AM EDT BENNIE ([facility]) [id number] Influenza vaccine needed Influenza Vaccine Needed Pro blem 11/29/2019 12:00:00 AM EDT BENNIE ([facility]) [id number] 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 11/29/2019 12:00:00 AM EDT Shannon WHITE ([facility]) [id number] Screening for malignant neoplasm of colo n Screening for Malignant Neoplasm of Colon Problem 11/29/2019 12:00:00 AM EDT BENNIE ([facility]) [id number] Influenza vaccine needed Influenza Vaccine Needed Pro blem 11/29/2019 12:00:00 AM EDT BENNIE ([facility]) [id number] 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 11/29/2019 12:00:00 AM EDT Shannon THENShannon ([facility]) [id number] Screening for malignant neoplasm of colo n Screening for Malignant Neoplasm of Colon Problem 11/29/2019 12:00:00 AM EDT BENNIE ([facility]) [id number] Influenza vaccine needed Influenza Vaccine Needed Pro blem 11/29/2019 12:00:00 AM EDT BENNIE ([facility]) [id number] 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 11/29/2019 12:00:00 AM EDT Shannon WHITE ([facility]) [id number] Screening for malignant neoplasm of colo n Screening for Malignant Neoplasm of Colon Problem 11/29/2019 12:00:00 AM EDT BENNIE ([facility]) [id number] Influenza vaccine needed Influenza Vaccine Needed Pro blem 11/29/2019 12:00:00 AM EDT BENNIE ([facility]) [id number] 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 11/29/2019 12:00:00 AM EDT Shannon WHITE ([facility]) [id number] Screening for malignant neoplasm of colo n Screening for Malignant Neoplasm of Colon Problem 11/29/2019 12:00:00 AM EDT BENNIE ([facility]) [id number] Influenza vaccine needed Influenza Vaccine Needed Pro blem 11/29/2019 12:00:00 AM EDT BENNIE ([facility]) [id number] Screening procedure Screening Procedure Problem 1 12:00:00 AM EDT BENNIE ([facility]) 816984263 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 11/29/2019 12:00:00 AM EDT Shannon WHITE ([facility]) [id number] Influenza vaccine needed Influenza Vaccine Needed Pro blem 11/29/2019 12:00:00 AM EDT BENNIE ([facility]) 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, 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, W/ MIXED ANXIETY AND DEPRESSED MOOD 10/29/2019 04: 18:43 PM EDT [facility] V70.0 Encounter for general adult medical exam ination with abnormal findings Encounter for general adult medical examination with abnormal findings 10/29/2019 02:15:39 PM EDT [facility] [id number] Procedure by method Procedure by Method Problem 0 10/29/2019 12:00:00 AM EDT - 01/02/2020 12:00:00 AM EST BENNIE ([facility]) [id number] 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 10/29/2019 12:00:00 AM EDT BENNIE ([facility]) [id number] Procedure by method Procedure by Method Problem 0 10/29/2019 12:00:00 AM EDT - 01/02/2020 12:00:00 AM EST BENNIE ([facility]) [id number] 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 10/29/2019 12:00:00 AM EDT BENNIE ([facility]) [id number] Procedure by method Procedure by Method Problem 0 10/29/2019 12:00:00 AM EDT - 01/02/2020 12:00:00 AM EST BENNIE ([facility]) [id number] 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 10/29/2019 12:00:00 AM EDT BENNIE ([facility]) [id number] Procedure by method Procedure by Method Problem 0 10/29/2019 12:00:00 AM EDT - 01/02/2020 12:00:00 AM EST BENNIE ([facility]) [id number] 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 10/29/2019 12:00:00 AM EDT BENNIE ([facility]) [id number] Procedure by method Procedure by Method Problem 0 10/29/2019 12:00:00 AM EDT - 01/02/2020 12:00:00 AM EST BENNIE ([facility]) [id number] 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 10/29/2019 12:00:00 AM EDT BENNIE ([facility]) [id number] Procedure by method Procedure by Method Problem 0 10/29/2019 12:00:00 AM EDT - 01/02/2020 12:00:00 AM EST BENNIE ([facility]) [id number] 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 10/29/2019 12:00:00 AM EDT BENNIE ([facility]) [id number] Procedure by method Procedure by Method Problem 0 10/29/2019 12:00:00 AM EDT - 01/02/2020 12:00:00 AM EST BENNIE ([facility]) [id number] 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 10/29/2019 12:00:00 AM EDT BENNIE ([facility]) [id number] Procedure by method Procedure by Method Problem 0 10/29/2019 12:00:00 AM EDT - 01/02/2020 12:00:00 AM EST BENNIE ([facility]) [id number] 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 10/29/2019 12:00:00 AM EDT BENNIE ([facility]) [id number] Procedure by method Procedure by Method Problem 0 10/29/2019 12:00:00 AM EDT - 01/02/2020 12:00:00 AM EST BENNIE ([facility]) [id number] 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 10/29/2019 12:00:00 AM EDT BENNIE ([facility]) [id number] Procedure by method Procedure by Method Problem 0 10/29/2019 12:00:00 AM EDT - 01/02/2020 12:00:00 AM EST BENNIE ([facility]) [id number] 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 10/29/2019 12:00:00 AM EDT BENNIE ([facility]) [id number] Procedure by method Procedure by Method Problem 0 10/29/2019 12:00:00 AM EDT - 01/02/2020 12:00:00 AM EST BENNIE ([facility]) [id number] 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 10/29/2019 12:00:00 AM EDT BENNIE ([facility]) [id number] Procedure by method Procedure by Method Problem 0 10/29/2019 12:00:00 AM EDT - 01/02/2020 12:00:00 AM EST BENNIE ([facility]) [id number] 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 10/29/2019 12:00:00 AM EDT BENNIE ([facility]) [id number] Procedure by method Procedure by Method Problem 0 10/29/2019 12:00:00 AM EDT - 01/02/2020 12:00:00 AM EST BENNIE ([facility]) [id number] 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 10/29/2019 12:00:00 AM EDT BENNIE ([facility]) [id number] Procedure by method Procedure by Method Problem 0 10/29/2019 12:00:00 AM EDT - 01/02/2020 12:00:00 AM EST BENNIE ([facility]) [id number] 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 10/29/2019 12:00:00 AM EDT BENNIE ([facility]) [id number] Procedure by method Procedure by Method Problem 0 10/29/2019 12:00:00 AM EDT - 01/02/2020 12:00:00 AM EST BENNIE ([facility]) [id number] 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 10/29/2019 12:00:00 AM EDT BENNIE ([facility]) [id number] Procedure by method Procedure by Method Problem 0 10/29/2019 12:00:00 AM EDT - 01/02/2020 12:00:00 AM EST BENNIE ([facility]) [id number] 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 10/29/2019 12:00:00 AM EDT BENNIE ([facility]) [id number] Procedure by method Procedure by Method Problem 0 10/29/2019 12:00:00 AM EDT BENNIE ([facility]) [id number] 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 10/29/2019 12:00:00 AM EDT BENNIE ([facility]) [id number] Cardiovascular measurement - finding Car diovascular Measurement - Finding Problem 09/04/2019 12:00:00 AM EDT - 04/18/2020 12:00:00 AM EST BENNIE ([facility]) [id number] Cardiovascular measurement - finding Car diovascular Measurement - Finding Problem 09/04/2019 12:00:00 AM EDT - 04/18/2020 12:00:00 AM EST BENNIE ([facility]) [id number] Cardiovascular measurement - finding Car diovascular Measurement - Finding Problem 09/04/2019 12:00:00 AM EDT - 04/18/2020 12:00:00 AM EST BENNIE ([facility]) [id number] Cardiovascular measurement - finding Car diovascular Measurement - Finding Problem 09/04/2019 12:00:00 AM EDT - 04/18/2020 12:00:00 AM EST BENNIE ([facility]) [id number] Cardiovascular measurement - finding Car diovascular Measurement - Finding Problem 09/04/2019 12:00:00 AM EDT - 04/18/2020 12:00:00 AM EST BENNIE ([facility]) [id number] Cardiovascular measurement - finding Car diovascular Measurement - Finding Problem 09/04/2019 12:00:00 AM EDT - 04/18/2020 12:00:00 AM EST BENNIE ([facility]) [id number] Cardiovascular measurement - finding Car diovascular Measurement - Finding Problem 09/04/2019 12:00:00 AM EDT - 04/18/2020 12:00:00 AM EST BENNIE ([facility]) [id number] Cardiovascular measurement - finding Car diovascular Measurement - Finding Problem 09/04/2019 12:00:00 AM EDT - 04/18/2020 12:00:00 AM EST BENNIE ([facility]) [id number] Cardiovascular measurement - finding Car diovascular Measurement - Finding Problem 09/04/2019 12:00:00 AM EDT - 04/18/2020 12:00:00 AM EST BENNIE ([facility]) 510388614 Cardiovascular measurement - finding Car diovascular Measurement - Finding Problem 09/04/2019 12:00:00 AM EDT - 04/18/2020 12:00:00 AM EST BENNIE ([facility]) [id number] Cardiovascular measurement - finding Car diovascular Measurement - Finding Problem 09/04/2019 12:00:00 AM EDT - 04/18/2020 12:00:00 AM EST BENNIE ([facility]) [id number] Cardiovascular measurement - finding Car diovascular Measurement - Finding Problem 09/04/2019 12:00:00 AM EDT - 04/18/2020 12:00:00 AM EST BENNIE ([facility]) [id number] Cardiovascular measurement - finding Car diovascular Measurement - Finding Problem 09/04/2019 12:00:00 AM EDT - 04/18/2020 12:00:00 AM EST BENNIE ([facility]) Surgeries/Procedures Procedure Description Date Indications Data Source(s) ECG ROUTINE ECG W/LEAST 12 LDS W/I&R 12/05/2020 12:00: 00 AM EDT [facility] ([facility]) OFFICE OUTPATIENT VISIT 25 MINUTES 12/05/2020 12:00:00 AM EDT [facility] ([facility]) Results ID Date Data Source [id number] 04/14/2020 02:00:00 PM EST [facility] Name Value Range Interpretation Code Description Data Ruma rce(s) Supporting Document(s) SARS coronavirus 2 RNA Not Detected [facility] This lab was ordered by [facility] and reported by [facility]. ID Date Data Source [id number] 04/07/2020 06:20:00 AM EST [facility] Name Value Range Interpretation Code Description Data Ruma rce(s) Supporting Document(s) SARS coronavirus 2 RNA Not Detected [facility] [place] This lab was ordered by [facility] and reported by [facility]. ID Date Data Source [id number] 03/31/2020 09:00:00 AM EST [facility] Name Value Range Interpretation Code Description Data Ruma rce(s) Supporting Document(s) SARS coronavirus 2 RNA Not Detected [facility] This lab was ordered by [facility] and reported by [facility]. ID Date Data Source [id number] 03/24/2020 08:00:00 AM EST [facility] Name Value Range Interpretation Code Description Data Ruma rce(s) Supporting Document(s) SARS coronavirus 2 RNA Not Detected [facility] This lab was ordered by [facility] and reported by [facility]. ID Date Data Source [id number] 03/17/2020 06:25:00 AM EST [facility] Name Value Range Interpretation Code Description Data Ruma rce(s) Supporting Document(s) SARS coronavirus 2 RNA Not Detected [facility] This lab was ordered by [facility] and reported by [facility]. ID Date Data Source [id number] 03/10/2020 06:00:00 AM EST [facility] Name Value Range Interpretation Code Description Data Ruma rce(s) Supporting Document(s) SARS coronavirus 2 RNA Not Detected [facility] This lab was ordered by [facility] and reported by [facility]. ID Date Data Source [id number] 03/03/2020 07:30:00 AM EST [facility] Name Value Range Interpretation Code Description Data Ruma rce(s) Supporting Document(s) SARS coronavirus 2 RNA [facility] This lab was ordered by [facility] and reported by [facility]. ID Date Data Source [id number] 02/25/2020 07:35:00 AM EST [facility] Name Value Range Interpretation Code Description Data Ruma rce(s) Supporting Document(s) SARS coronavirus 2 RNA [facility] This lab was ordered by [facility] and reported by [facility]. ID Date Data Source [id number] 02/19/2020 07:20:00 AM EST [facility] Name Value Range Interpretation Code Description Data Ruma rce(s) Supporting Document(s) SARS coronavirus 2 RNA [facility] This lab was ordered by [facility] and reported by [facility]. ID Date Data Source [id number] 02/13/2020 11:35:00 AM EST [facility] Name Value Range Interpretation Code Description Data Ruma rce(s) Supporting Document(s) SARS coronavirus 2 RNA [facility] This lab was ordered by [facility] and reported by [facility]. ID Date Data Source [id number] 02/13/2020 12:00:00 AM EST [facility] Name Value Range Interpretation Code Description Data Ruma rce(s) Supporting Document(s) SARS-CoV2 Rapid Antigen [facility] This lab was ordered by [facility] and reported by [facility]. ID Date Data Source [id number] 02/08/2020 02:42:00 PM EST [facility] Name Value Range Interpretation Code Description Data Rmua rce(s) Supporting Document(s) SARS coronavirus 2 RNA [place]OH This lab was ordered by [facility] and reported by [facility]. ID Date Data Source [id number] 11/29/2019 12:48:43 PM EDT [facility] Measurements & CalculationsHeight: 60 inches [...] Syringe 0.5 MLMfr / Lot# / Exp.Date: AllPeers / [id number] / 1Amt. Given / Route / Site: 0.5 mL / IM / Right DeltoidNDC / CVX: [id number] / 150Administered Date: 11/29/2019 13:51VFC Eligibility: Not [...] been admitted to the hospital? [facility] date reported today: 08/21/2019Have you been [...] or Preferred Language: EnglishFamily and Home Address: [address] [place] [address] What is your housing situation today? I have housing Are you worried about losing your housing? NoMoney and Resources Employed? No Are you seeking work? NoIn the past year, have you or any family members you live with been unable to get any of the following when it was really needed? Denies Insecurity: food, utilities, clothing, child psychology teacher, phone, legal services, otherWithin the past [...] today. Accompanied by Maria T from [facility].Pt states "lately I feel things are getting a little bit better". He continues to be on a wait list for assisted living at [facility]. Maria T is working on getting him into [facility], but they require a valid photo ID; his passport is reportedly and they require his certificate. He is having trouble obtaining a new photo ID. He is an [place] citizen with an active social security card. [...] during this visit, including review of any nqdo-ksc-sfjrkdd medications, herbal therapies, and/or supplements.Allergy ReviewAllergy List [...] & Plan Problems:Added: Encounter for immunization (ICD-V05.9) (NRG57-F57) Assessment: Instructions: Flu vaccine today. Shingles vaccine sent to your pharmacy.Screening for malignant neoplasm of colon (UGS55-Q81.11) Assessment: Instructions: Instructions reviewed for FIT testing as an alternative for colon cancer screening. 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 Continue with [facility] for therapy.Primary generalized (osteo)arthritis (CXN64-U47.0) Assessment: Instructions: Continue with Meloxicam 7.5mg one tablet daily.Benign hypertension (ICD-401.1) (YZO49-H77) Assessment: Instructions: Continue your current blood pressure medication as currently taking and continue with your clinical account specialist.Removed:Adjustment insomnia (ICD-307.41) (LOA09-N49.02)Patient Instructions/Care Plan: Encounter for immunization: Flu vaccine [...] as currently taking and continue with your clinical account specialist.Dental caries- unspecified: Please consider scheduling with our [...] Allergies (updated 11/29/2019) Orders:FluLaval Quadrivalent, preservative free [CPT-97975] Adult - Ofc Vst, EST, Level IV [CPT-04458] Follow-Up Return to clinic: in 30 days for follow upAdditional Follow-Up: med checkClinical Visit Summary CompletedMedications:SHINGRIX 50 MCG/0.5ML INTRAMUSCULAR SUSPENSION RECONSTITUTED (ZOSTER VAC RECOMB ADJUVANTED) Give once and repeat in 2 months #0.5[Milliliter] x 1 Route:INTRAMUSCULAR Entered and Authorized by: Hardik GIVENS Method used: Electronically to [id number]* (retail) [address] [facility] [place] [id number] Note to Pharmacy: Route: INTRAMUSCULAR; Indications: ENCOUNTER FOR IMMUNIZATION RxID: [id number] signed by Hardik GIVENS on 12/16/2019 at 12:45 PM Name Value Range Interpretation Code Description Data Ruma rce(s) Supporting Document(s) ID Date Data Source [id number] 11/21/2019 02:03:07 PM EDT [facility] Measurements & CalculationsHeight: 60 inches [...] been admitted to the hospital? No - [facility] date reported today: 08/21/2019Have you been [...] is tolerating well. 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 Please INCREASE your Lexapro to 10mg daily (new prescription sent today). 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) (EQQ64-N62.04) Assessment: Instructions: As above.Patient Instructions/Care Plan: ADJUSTMENT [...] ORAL LEXAPRO 5 MG ORAL TABLET Qty: [id number] Refills: 30[Tablet] To: LEXAPRO 10 MG ORAL TABLET-Take 1 tablet po daily in the morning Qty: 30[Tablet] Refills: 1Allergies:No Known Allergies (updated 11/21/2019) Orders:Adult - Ofc Vst, EST, Level III [CPT- 35449] Follow-Up Return to clinic: in 1 week for follow upAdditional Follow-Up: med reviewClinical Visit Summary Completed Name Value Range Interpretation Code Description Data Ruma rce(s) Supporting Document(s) ID Date Data Source [id number] 11/14/2019 03:01:49 PM EDT [facility] Measurements & CalculationsHeight: 60 inches [...] [facility].Pt day care home provider states he has already used all of [...] during this visit, including review of any xlzj-xyr-ewespij medications, herbal therapies, and/or supplements.Allergy ReviewAllergy List [...] is? 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 No - [facility] date reported today: 08/21/2019Have you been [...] or Preferred Language: EnglishFamily and Home Address: [address] [place] [address] What is your housing situation today? I have housing Are you worried about losing your housing? NoMoney and Resources In the past year, have you or any family members you live with been unable to get any of the following when it was really needed? Denies Insecurity: food, utilities, clothing, child psychology teacher, phone, legal services, otherWithin the past [...] from [facility] with [facility].Pt is still awaiting getting into assisted living facility. Pt had [facility] to do an evaluation, they determined that [...] during this visit, including review of any bedi-yvf-nmbetbq medications, herbal therapies, and/or supplements.Allergy ReviewAllergy List [...] medical examination with abnormal findings (ICD- V70.0) (VXA45-J26.01) Assessment: Instructions: Recommend annual medical appointments. Recommend routine dental and vision care. 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 NO other sleep aides.Adjustment insomnia (ICD-307.41) (AWH84-X10.02) Assessment: Ineffective with Hydroxyzine 25mg, insurance denied Rozerem. Instructions: As above.Anxiety state (ICD-300.00) (WWO80-P21.1): evening anxiety Assessment: Low dose Lexapro given age. Instructions: Start Lexapro once daily, also starting counseling services with [facility].Benign hypertension (ICD-401.1) (WHY71-T21) Assessment: Instructions: Continue your current blood pressure medications as currently taking.Primary generalized (osteo)arthritis (PKX54-B45.0) Assessment: Mobic to replace ibuprofen as it [...] HYDROXYZINE HCL 25 MG ORAL TABLET Qty: [id number] Refills: 30[Tablet] To: HYDROXYZINE HCL 50 MG ORAL TABLET-Take 1 tablet po daily at bedtime Qty: 30[Tablet] Refills: 1From: ORAL K-TAB 20 MEQ ORAL TABLET EXTENDED RELEASE Qty: [id number] To: K-TAB 20 MEQ ORAL TABLET EXTENDED RELEASE-take 1 tablet po daily at bedtimeFrom: ORAL INDAPAMIDE 1.25 MG ORAL TABLET Qty: [id number] To: INDAPAMIDE 1.25 MG ORAL TABLET-Take 1 tablet po daily in the morningFrom: ORAL AMLODIPINE BESYLATE 10 MG ORAL TABLET Qty: [id number] To: AMLODIPINE BESYLATE 10 MG ORAL TABLET- Take 1 tablet po daily in the morningFrom: ORAL ISOSORBIDE MONONITRATE ER 30 MG ORAL TABLET EXTENDED RELEASE 24 HOUR Qty: [id number] To: ISOSORBIDE MONONITRATE ER 30 MG ORAL TABLET EXTENDED RELEASE 24 HOUR-Take half tablet po daily in the morningAllergies:No Known Allergies (updated 10/29/2019) Orders: Preventive, Est, (65+) [CPT-13255] Follow-Up Return to clinic: in 4 weeks for follow upAdditional Follow-Up: med checkClinical Visit Summary Completed Name Value Range Interpretation Code Description Data Ruma rce(s) Supporting Document(s) Procedure Social History Code Duration Value Status Description Data Source(s ) Smoking 12/05/2020 12:00:00 AM EDT Patient is a former smoker completed Patient is a former smoker GABRIELE ([facility]) Vital Signs ID Date Data Source UNK Name Value Range Interpretation Code Description Data Source(s) Body weight 175.00 [lb_av] 175.00 [lb_av] RACHELL Porras ([facility]) Body height 65 [in_i] 65 [in_i] GABRIELE ([facility]) 5'5" Body mass index (BMI) [Ratio] 29.1 kg/m2 29.1 k g/m2 MEDFAN ([facility]) Systolic blood pressure 118 mm[Hg] 118 mm[Hg] M ERIK ([facility]) sitting Diastolic blood pressure 64 mm[Hg] 64 mm[Hg] GABRIELE ([facility]) sitting Heart rate 56 /min 56 /min GABRIELE ([facility]) Regular with intermittent skips Respiratory rate 16 /min 16 /min GABRIELE ( [facility]) Systolic blood pressure 122 mm[Hg] 122 mm[Hg] M ERIK ([facility]) sitting, regular cuff Diastolic blood pressure 68 mm[Hg] 68 mm[Hg] MEDFAN ([facility]) sitting, regular cuff Diastolic blood pressure 67 mm[Hg] 67 mm[Hg] BENNIE ([facility]) Body height 60 [in_i] 60 [in_i] BENNIE ([facility]) Body mass index (BMI) [Ratio] 35.9 kg/m2 35.9 k g/m2 BENNIE ([facility]) Systolic blood pressure 116 mm[Hg] 116 mm[Hg] [facility] Body weight 2937.6 [oz_av] 2937.6 [oz_av] ATHEN A ([facility]) Diastolic blood pressure 67 mm[Hg] 67 mm[Hg] BENNIE ([facility]) Body height 60 [in_i] 60 [in_i] BENNIE ([facility]) Body mass index (BMI) [Ratio] 35.9 kg/m2 35.9 k g/m2 BENNIE ([facility]) Systolic blood pressure 116 mm[Hg] 116 mm[Hg] A THENA ([facility]) Body weight 2937.6 [oz_av] 2937.6 [oz_av] ATHEN A ([facility]) Body mass index (BMI) [Ratio] 36.7 kg/m2 36.7 k g/m2 BENNIE ([facility]) Systolic blood pressure 113 mm[Hg] 113 mm[Hg] A THENA ([facility]) Body weight 3008 [oz_av] 3008 [oz_av] BENNIE ([facility]) Diastolic blood pressure 61 mm[Hg] 61 mm[Hg] BENNIE ([facility]) Body height 60 [in_i] 60 [in_i] BENNIE ([facility]) Body weight 3008 [oz_av] 3008 [oz_av] BENNIE ([facility]) Diastolic blood pressure 61 mm[Hg] 61 mm[Hg] BENNIE ([facility]) Body height 60 [in_i] 60 [in_i] BENNIE ([facility]) Body mass index (BMI) [Ratio] 36.7 kg/m2 36.7 k g/m2 BENNIE ([facility]) Systolic blood pressure 113 mm[Hg] 113 mm[Hg] [facility] Diastolic blood pressure 61 mm[Hg] 61 mm[Hg] BENNIE ([facility]) Body height 60 [in_i] 60 [in_i] BENNIE ([facility]) Body mass index (BMI) [Ratio] 36.7 kg/m2 36.7 k g/m2 BENNIE ([facility]) Systolic blood pressure 113 mm[Hg] 113 mm[Hg] A THENA ([facility]) Body weight 3008 [oz_av] 3008 [oz_av] BENNIE ([facility]) Diastolic blood pressure 61 mm[Hg] 61 mm[Hg] BENNIE ([facility]) Body height 60 [in_i] 60 [in_i] BENNIE ([facility]) Body mass index (BMI) [Ratio] 36.7 kg/m2 36.7 k g/m2 BENNIE ([facility]) Systolic blood pressure 113 mm[Hg] 113 mm[Hg] A THENA ([facility]) Body weight 3008 [oz_av] 3008 [oz_av] BENNIE ([facility]) Diastolic blood pressure 80 mm[Hg] 80 mm[Hg] BENNIE ([facility]) Body height 60 [in_i] 60 [in_i] BENNIE ([facility]) Body mass index (BMI) [Ratio] 35.3 kg/m2 35.3 k g/m2 BENNIE ([facility]) Diastolic blood pressure 80 mm[Hg] 80 mm[Hg] BENNIE ([facility]) Body height 60 [in_i] 60 [in_i] BENNIE ([facility]) Body mass index (BMI) [Ratio] 35.3 kg/m2 35.3 k g/m2 BENNIE ([facility]) Systolic blood pressure 144 mm[Hg] 144 mm[Hg] A THENA ([facility]) Body weight 2896 [oz_av] 2896 [oz_av] BENNIE ([facility]) Systolic blood pressure 144 mm[Hg] 144 mm[Hg] [facility] Body weight 2896 [oz_av] 2896 [oz_av] BENNIE ([facility]) Diastolic blood pressure 80 mm[Hg] 80 mm[Hg] BENNIE ([facility]) Body height 60 [in_i] 60 [in_i] BENNEI ([facility]) Body mass index (BMI) [Ratio] 35.3 kg/m2 35.3 k g/m2 BENNIE ([facility]) Systolic blood pressure 144 mm[Hg] 144 mm[Hg] [facility] Body weight 2896 [oz_av] 2896 [oz_av] BENNIE ([facility]) Diastolic blood pressure 80 mm[Hg] 80 mm[Hg] BENNIE ([facility]) Body height 60 [in_i] 60 [in_i] BENNIE ([facility]) Body mass index (BMI) [Ratio] 35.3 kg/m2 35.3 k g/m2 BENNIE ([facility]) Systolic blood pressure 144 mm[Hg] 144 mm[Hg] [facility] Body weight 2896 [oz_av] 2896 [oz_av] BENNIE ([facility]) Diastolic blood pressure 80 mm[Hg] 80 mm[Hg] BENNIE ([facility]) Body height 60 [in_i] 60 [in_i] BENNIE ([facility]) Body mass index (BMI) [Ratio] 35.3 kg/m2 35.3 k g/m2 BENNIE ([facility]) Systolic blood pressure 144 mm[Hg] 144 mm[Hg] A THENA ([facility]) Body weight 2896 [oz_av] 2896 [oz_av] BENNIE ([facility]) Body mass index (BMI) [Ratio] 35.2 kg/m2 35.2 k g/m2 BENNIE ([facility]) Systolic blood pressure 129 mm[Hg] 129 mm[Hg] A THENA ([facility]) Body weight 2880 [oz_av] 2880 [oz_av] BENNIE ([facility]) Diastolic blood pressure 65 mm[Hg] 65 mm[Hg] BENNIE ([facility]) Body height 60 [in_i] 60 [in_i] BENNIE ([facility]) Body mass index (BMI) [Ratio] 35.2 kg/m2 35.2 k g/m2 BENNIE ([facility]) Systolic blood pressure 129 mm[Hg] 129 mm[Hg] [facility] Body weight 2880 [oz_av] 2880 [oz_av] BENNIE ([facility]) Diastolic blood pressure 65 mm[Hg] 65 mm[Hg] BENNIE ([facility]) Body height 60 [in_i] 60 [in_i] BENNIE ([facility]) Diastolic blood pressure 65 mm[Hg] 65 mm[Hg] BENNIE ([facility]) Body height 60 [in_i] 60 [in_i] BENNIE ([facility]) Body mass index (BMI) [Ratio] 35.2 kg/m2 35.2 k g/m2 BENNIE ([facility]) Systolic blood pressure 129 mm[Hg] 129 mm[Hg] A THENA ([facility]) Body weight 2880 [oz_av] 2880 [oz_av] BENNIE ([facility]) Diastolic blood pressure 65 mm[Hg] 65 mm[Hg] BENNIE ([facility]) Body height 60 [in_i] 60 [in_i] BENNIE ([facility]) Body mass index (BMI) [Ratio] 35.2 kg/m2 35.2 k g/m2 BENNIE ([facility]) Systolic blood pressure 129 mm[Hg] 129 mm[Hg] A THENA ([facility]) Body weight 2880 [oz_av] 2880 [oz_av] BENNIE ([facility]) Diastolic blood pressure 65 mm[Hg] 65 mm[Hg] BENNIE ([facility]) Body height 60 [in_i] 60 [in_i] BENNIE ([facility]) Body mass index (BMI) [Ratio] 35.2 kg/m2 35.2 k g/m2 BENNIE ([facility]) Systolic blood pressure 129 mm[Hg] 129 mm[Hg] A THENA ([facility]) Body weight 2880 [oz_av] 2880 [oz_av] BENNIE ([facility]) Diastolic blood pressure 65 mm[Hg] 65 mm[Hg] BENNIE ([facility]) Body height 60 [in_i] 60 [in_i] BENNIE ([facility]) Body mass index (BMI) [Ratio] 35.2 kg/m2 35.2 k g/m2 BENNIE ([facility]) Systolic blood pressure 129 mm[Hg] 129 mm[Hg] A THENA ([facility]) Body weight 2880 [oz_av] 2880 [oz_av] BENNIE ([facility]) Body height 60 [in_i] 60 [in_i] BENNIE ([facility]) Body height 60 [in_i] 60 [in_i] BENNIE ([facility]) Body height 60 [in_i] 60 [in_i] BENNIE ([facility]) Body height 60 [in_i] 60 [in_i] BENNIE ([facility]) Body height 60 [in_i] 60 [in_i] BENNIE ([facility]) Body height 60 [in_i] 60 [in_i] BENNIE ([facility]) Body height 60 [in_i] 60 [in_i] BENNIE ([facility]) Diastolic blood pressure 58 mm[Hg] 58 mm[Hg] BENNIE ([facility]) Body height 60 [in_i] 60 [in_i] BENNIE ([facility]) Body mass index (BMI) [Ratio] 36.2 kg/m2 36.2 k g/m2 BENNIE ([facility]) Systolic blood pressure 126 mm[Hg] 126 mm[Hg] A THENA ([facility]) Body weight 2962 [oz_av] 2962 [oz_av] BENNIE ([facility]) Diastolic blood pressure 58 mm[Hg] 58 mm[Hg] BENNIE ([facility]) Diastolic blood pressure 58 mm[Hg] 58 mm[Hg] BENNIE ([facility]) Body height 60 [in_i] 60 [in_i] BENNIE ([facility]) Body mass index (BMI) [Ratio] 36.2 kg/m2 36.2 k g/m2 BENNIE ([facility]) Systolic blood pressure 126 mm[Hg] 126 mm[Hg] [facility] Body weight 2962 [oz_av] 2962 [oz_av] BENNIE ([facility]) Diastolic blood pressure 58 mm[Hg] 58 mm[Hg] BENNIE ([facility]) Body height 60 [in_i] 60 [in_i] BENNIE ([facility]) Body mass index (BMI) [Ratio] 36.2 kg/m2 36.2 k g/m2 BENNIE ([facility]) Systolic blood pressure 126 mm[Hg] 126 mm[Hg] [facility] Body weight 2962 [oz_av] 2962 [oz_av] BENNIE ([facility]) Body height 60 [in_i] 60 [in_i] BENNIE ([facility]) Body mass index (BMI) [Ratio] 36.2 kg/m2 36.2 k g/m2 BENNIE ([facility]) Systolic blood pressure 126 mm[Hg] 126 mm[Hg] [facility] Body weight 2962 [oz_av] 2962 [oz_av] BENNIE ([facility]) Diastolic blood pressure 58 mm[Hg] 58 mm[Hg] BENNIE ([facility]) Body height 60 [in_i] 60 [in_i] BENNIE ([facility]) Body mass index (BMI) [Ratio] 36.2 kg/m2 36.2 k g/m2 BENNIE ([facility]) Systolic blood pressure 126 mm[Hg] 126 mm[Hg] A THENA ([facility]) Body weight 2962 [oz_av] 2962 [oz_av] BENNIE ([facility]) Diastolic blood pressure 58 mm[Hg] 58 mm[Hg] BENNIE ([facility]) Body height 60 [in_i] 60 [in_i] BENNIE ([facility]) Body mass index (BMI) [Ratio] 36.2 kg/m2 36.2 k g/m2 BENNIE ([facility]) Systolic blood pressure 126 mm[Hg] 126 mm[Hg] A JOVANIA ([facility]) Body weight 2962 [oz_av] 2962 [oz_av] BENNIE ([facility]) Diastolic blood pressure 58 mm[Hg] 58 mm[Hg] BENNIE ([facility]) Body height 60 [in_i] 60 [in_i] BENNIE ([facility]) Body mass index (BMI) [Ratio] 36.2 kg/m2 36.2 k g/m2 BENNIE ([facility]) Systolic blood pressure 126 mm[Hg] 126 mm[Hg] A JOVANIA ([facility]) Body weight 2962 [oz_av] 2962 [oz_av] BENNIE ([facility]) Diastolic blood pressure 58 mm[Hg] 58 mm[Hg] BENNIE ([facility]) Body height 60 [in_i] 60 [in_i] BENNIE ([facility]) Body mass index (BMI) [Ratio] 36.2 kg/m2 36.2 k g/m2 BENNIE ([facility]) Systolic blood pressure 126 mm[Hg] 126 mm[Hg] A JOVANIA ([facility]) Body weight 2962 [oz_av] 2962 [oz_av] BENINE ([facility]) Diastolic blood pressure 79 mm[Hg] 79 mm[Hg] BENNIE ([facility]) Body height 60 [in_i] 60 [in_i] BENNIE ([facility]) Body mass index (BMI) [Ratio] 35.7 kg/m2 35.7 k g/m2 BENNIE ([facility]) Systolic blood pressure 164 mm[Hg] 164 mm[Hg] A JOVANIA ([facility]) Body weight 2921.6 [oz_av] 2921.6 [oz_av] ATHEN A ([facility]) Diastolic blood pressure 79 mm[Hg] 79 mm[Hg] BENNIE ([facility]) Body height 60 [in_i] 60 [in_i] BENNIE ([facility]) Body mass index (BMI) [Ratio] 35.7 kg/m2 35.7 k g/m2 BENNIE ([facility]) Systolic blood pressure 164 mm[Hg] 164 mm[Hg] A [facility] ([facility]) Body weight 2921.6 [oz_av] 2921.6 [oz_av] ATHEN A ([facility]) Diastolic blood pressure 79 mm[Hg] 79 mm[Hg] BENNIE ([facility]) Body height 60 [in_i] 60 [in_i] BENNIE ([facility]) Body mass index (BMI) [Ratio] 35.7 kg/m2 35.7 k g/m2 BENNIE ([facility]) Systolic blood pressure 164 mm[Hg] 164 mm[Hg] A [facility] ([facility]) Body weight 2921.6 [oz_av] 2921.6 [oz_av] ATHEN A ([facility]) Diastolic blood pressure 79 mm[Hg] 79 mm[Hg] BENNIE ([facility]) Diastolic blood pressure 79 mm[Hg] 79 mm[Hg] EBNNIE ([facility]) Body height 60 [in_i] 60 [in_i] BENNIE ([facility]) Body mass index (BMI) [Ratio] 35.7 kg/m2 35.7 k g/m2 BENNIE ([facility]) Body height 60 [in_i] 60 [in_i] BENNIE ([facility]) Systolic blood pressure 164 mm[Hg] 164 mm[Hg] [facility] Body weight 2921.6 [oz_av] 2921.6 [oz_av] ATHEN A ([facility]) Body mass index (BMI) [Ratio] 35.7 kg/m2 35.7 k g/m2 BENNIE ([facility]) Systolic blood pressure 164 mm[Hg] 164 mm[Hg] A [facility] ([facility]) Body weight 2921.6 [oz_av] 2921.6 [oz_av] ATHEN A ([facility]) Diastolic blood pressure 79 mm[Hg] 79 mm[Hg] BENNIE ([facility]) Body height 60 [in_i] 60 [in_i] BENNIE ([facility]) Body mass index (BMI) [Ratio] 35.7 kg/m2 35.7 k g/m2 BENNIE ([facility]) Systolic blood pressure 164 mm[Hg] 164 mm[Hg] [facility] Body weight 2921.6 [oz_av] 2921.6 [oz_av] ATHEN A ([facility]) Diastolic blood pressure 79 mm[Hg] 79 mm[Hg] BENNIE ([facility]) Body height 60 [in_i] 60 [in_i] BENNIE ([facility]) Body mass index (BMI) [Ratio] 35.7 kg/m2 35.7 k g/m2 BENNIE ([facility]) Systolic blood pressure 164 mm[Hg] 164 mm[Hg] A [facility] ([facility]) Body weight 2921.6 [oz_av] 2921.6 [oz_av] ATHEN A ([facility]) Diastolic blood pressure 79 mm[Hg] 79 mm[Hg] BENNIE ([facility]) Body height 60 [in_i] 60 [in_i] BENNIE ([facility]) Body mass index (BMI) [Ratio] 35.7 kg/m2 35.7 k g/m2 BENNIE ([facility]) Systolic blood pressure 164 mm[Hg] 164 mm[Hg] [facility] Body weight 2921.6 [oz_av] 2921.6 [oz_av] ATHEN A ([facility]) Diastolic blood pressure 79 mm[Hg] 79 mm[Hg] BENNIE ([facility]) Body height 60 [in_i] 60 [in_i] BENNIE ([facility]) Body mass index (BMI) [Ratio] 35.7 kg/m2 35.7 k g/m2 BENNIE ([facility]) Systolic blood pressure 164 mm[Hg] 164 mm[Hg] A [facility] ([facility]) Body weight 2921.6 [oz_av] 2921.6 [oz_av] ATHEN A ([facility]) Diastolic blood pressure 79 mm[Hg] 79 mm[Hg] BENNIE ([facility]) Body height 60 [in_i] 60 [in_i] BENNIE ([facility]) Body mass index (BMI) [Ratio] 35.7 kg/m2 35.7 k g/m2 BENNIE ([facility]) Systolic blood pressure 164 mm[Hg] 164 mm[Hg] A CHRISTOPHER ([facility]) Body weight 2921.6 [oz_av] 2921.6 [oz_av] ATHEN A ([facility]) Diastolic blood pressure 79 mm[Hg] 79 mm[Hg] BENNIE ([facility]) Body height 60 [in_i] 60 [in_i] BENNIE ([facility]) Body mass index (BMI) [Ratio] 35.7 kg/m2 35.7 k g/m2 BENNIE ([facility]) Systolic blood pressure 164 mm[Hg] 164 mm[Hg] A JOVANIA ([facility]) Body weight 2921.6 [oz_av] 2921.6 [oz_av] ATHEN A ([facility]) Diastolic blood pressure 79 mm[Hg] 79 mm[Hg] BENNIE ([facility]) Body height 60 [in_i] 60 [in_i] BENNIE ([facility]) Body mass index (BMI) [Ratio] 35.7 kg/m2 35.7 k g/m2 BENNIE ([facility]) Systolic blood pressure 164 mm[Hg] 164 mm[Hg] A CHRISTOPHER ([facility]) Body weight 2921.6 [oz_av] 2921.6 [oz_av] ATHEN A ([facility]) Body height 60 [in_i] 60 [in_i] BENNIE ([facility]) Body height 60 [in_i] 60 [in_i] BENNIE ([facility]) Body height 60 [in_i] 60 [in_i] BENNIE ([facility]) Body height 60 [in_i] 60 [in_i] BENNIE ([facility]) Body height 60 [in_i] 60 [in_i] BENNIE ([facility]) Body height 60 [in_i] 60 [in_i] BENNIE ([facility]) Body height 60 [in_i] 60 [in_i] BENNIE ([facility]) Body height 60 [in_i] 60 [in_i] BENNIE ([facility]) Body height 60 [in_i] 60 [in_i] BENNIE ([facility]) Body height 60 [in_i] 60 [in_i] BENNIE ([facility]) Body height 60 [in_i] 60 [in_i] BENNIE ([facility]) Body height 60 [in_i] 60 [in_i] BENNIE ([facility]) Body height 60 [in_i] 60 [in_i] BENNIE ([facility]) Body height 60 [in_i] 60 [in_i] BENNIE ([facility]) Diastolic blood pressure 73 mm[Hg] 73 mm[Hg] BENNIE ([facility]) Body height 60 [in_i] 60 [in_i] BENNIE ([facility]) Body mass index (BMI) [Ratio] 34.73 kg/m2 34.73 kg/m2 BENNIE ([facility]) Systolic blood pressure 159 mm[Hg] 159 mm[Hg] A JOVANIA ([facility]) Body weight 2835.2 [oz_av] 2835.2 [oz_av] ATHEN A ([facility]) Diastolic blood pressure 73 mm[Hg] 73 mm[Hg] BENNIE ([facility]) Body height 60 [in_i] 60 [in_i] BENNIE ([facility]) Body mass index (BMI) [Ratio] 34.73 kg/m2 34.73 kg/m2 BENNIE ([facility]) Systolic blood pressure 159 mm[Hg] 159 mm[Hg] A THENA ([facility]) Body weight 2835.2 [oz_av] 2835.2 [oz_av] ATHEN A ([facility]) Diastolic blood pressure 73 mm[Hg] 73 mm[Hg] BENNIE ([facility]) Body height 60 [in_i] 60 [in_i] BENNIE ([facility]) Body mass index (BMI) [Ratio] 34.73 kg/m2 34.73 kg/m2 BENNIE ([facility]) Systolic blood pressure 159 mm[Hg] 159 [facility]] [facility] Body weight 2835.2 [oz_av] 2835.2 [oz_av] ATHEN A ([facility]) Diastolic blood pressure 73 mm[Hg] 73 mm[Hg] BENNIE ([facility]) Body height 60 [in_i] 60 [in_i] BENNIE ([facility]) Body mass index (BMI) [Ratio] 34.73 kg/m2 34.73 kg/m2 BENNIE ([facility]) Systolic blood pressure 159 mm[Hg] 159 mm[Hg] A [facility] ([facility]) Body weight 2835.2 [oz_av] 2835.2 [oz_av] ATHEN A ([facility]) Diastolic blood pressure 73 mm[Hg] 73 mm[Hg] BENNIE ([facility]) Body height 60 [in_i] 60 [in_i] BENNIE ([facility]) Body mass index (BMI) [Ratio] 34.73 kg/m2 34.73 kg/m2 BENNIE ([facility]) Systolic blood pressure 159 mm[Hg] 159 mm[Hg] [facility] Body weight 2835.2 [oz_av] 2835.2 [oz_av] ATHEN A ([facility]) Diastolic blood pressure 73 mm[Hg] 73 mm[Hg] BENNIE ([facility]) Body height 60 [in_i] 60 [in_i] BENNIE ([facility]) Body mass index (BMI) [Ratio] 34.73 kg/m2 34.73 kg/m2 BENNIE ([facility]) Systolic blood pressure 159 mm[Hg] 159 mm[Hg] [facility] Body weight 2835.2 [oz_av] 2835.2 [oz_av] ATHEN A ([facility]) Diastolic blood pressure 73 mm[Hg] 73 mm[Hg] BENNIE ([facility]) Body height 60 [in_i] 60 [in_i] BENNIE ([facility]) Body mass index (BMI) [Ratio] 34.73 kg/m2 34.73 kg/m2 BENNIE ([facility]) Systolic blood pressure 159 mm[Hg] 159 mm[facility]Hg] [facility] Body weight 2835.2 [oz_av] 2835.2 [oz_av] ATHEN A ([facility]) Diastolic blood pressure 73 mm[Hg] 73 mm[Hg] BENNIE ([facility]) Body height 60 [in_i] 60 [in_i] BENNIE ([facility]) Body mass index (BMI) [Ratio] 34.73 kg/m2 34.73 kg/m2 BENNIE ([facility]) Systolic blood pressure 159 mm[Hg] 159 mm[Hg] A [facility] ([facility]) Body weight 2835.2 [oz_av] 2835.2 [oz_av] ATHEN A ([facility]) Diastolic blood pressure 73 mm[Hg] 73 mm[Hg] BENNIE ([facility]) Body height 60 [in_i] 60 [in_i] BENNIE ([facility]) Body mass index (BMI) [Ratio] 34.73 kg/m2 34.73 kg/m2 BENNIE ([facility]) Systolic blood pressure 159 mm[Hg] 159 mm[Hg] A THENA ([facility]) Body weight 2835.2 [oz_av] 2835.2 [oz_av] ATHEN A ([facility]) Diastolic blood pressure 73 mm[Hg] 73 mm[Hg] BENNIE ([facility]) Body height 60 [in_i] 60 [in_i] BENNIE ([facility]) Body mass index (BMI) [Ratio] 34.73 kg/m2 34.73 kg/m2 BENNIE ([facility]) Systolic blood pressure 159 mm[Hg] 159 mm[Hg] [facility] Body weight 2835.2 [oz_av] 2835.2 [oz_av] ATHEN A ([facility]) Diastolic blood pressure 73 mm[Hg] 73 mm[Hg] BENNIE ([facility]) Body height 60 [in_i] 60 [in_i] BENNIE ([facility]) Body mass index (BMI) [Ratio] 34.73 kg/m2 34.73 kg/m2 BENNIE ([facility]) Systolic blood pressure 159 mm[Hg] 159 mm[Hg] [facility] Body weight 2835.2 [oz_av] 2835.2 [oz_av] ATHEN A ([facility]) Diastolic blood pressure 73 mm[Hg] 73 mm[Hg] BENNIE ([facility]) Body height 60 [in_i] 60 [in_i] BENNIE ([facility]) Body mass index (BMI) [Ratio] 34.73 kg/m2 34.73 kg/m2 BENNIE ([facility]) Systolic blood pressure 159 mm[Hg] 159 mm[Hg] A [facility] ([facility]) Body weight 2835.2 [oz_av] 2835.2 [oz_av] ATHEN A ([facility]) Diastolic blood pressure 73 mm[Hg] 73 mm[Hg] BENNIE ([facility]) Body height 60 [in_i] 60 [in_i] BENNIE ([facility]) Body mass index (BMI) [Ratio] 34.73 kg/m2 34.73 kg/m2 BENNIE ([facility]) Systolic blood pressure 159 mm[Hg] 159 mm[Hg] A THENA ([facility]) Body weight 2835.2 [oz_av] 2835.2 [oz_av] ATHEN A ([facility]) Diastolic blood pressure 73 mm[Hg] 73 mm[Hg] BENNIE ([facility]) Body height 60 [in_i] 60 [in_i] BENNIE ([facility]) Body mass index (BMI) [Ratio] 34.73 kg/m2 34.73 kg/m2 BENNIE ([facility]) Systolic blood pressure 159 mm[Hg] 159 mm[Hg] [facility] ([facility]) Body weight 2835.2 [oz_av] 2835.2 [oz_av] ATHEN A ([facility]) Diastolic blood pressure 68 mm[Hg] 68 mm[Hg] BENNIE ([facility]) Body height 60 [in_i] 60 [in_i] BENNIE ([facility]) Body mass index (BMI) [Ratio] 35.79 kg/m2 35.79 kg/m2 BENNIE ([facility]) Systolic blood pressure 127 mm[Hg] 127 mm[Hg] [facility] Body weight 2921.6 [oz_av] 2921.6 [oz_av] ATHEN A ([facility]) Diastolic blood pressure 68 mm[Hg] 68 mm[Hg] BENNIE ([facility]) Body height 60 [in_i] 60 [in_i] BENNIE ([facility]) Body mass index (BMI) [Ratio] 35.79 kg/m2 35.79 kg/m2 BENNIE ([facility]) Systolic blood pressure 127 mm[Hg] 127 mm[Hg] [facility] ([facility]) Body weight 2921.6 [oz_av] 2921.6 [oz_av] ATHEN A ([facility]) Body height 60 [in_i] 60 [in_i] BENNIE ([facility]) Body mass index (BMI) [Ratio] 35.79 kg/m2 35.79 kg/m2 BENNIE ([facility]) Systolic blood pressure 127 mm[Hg] 127 mm[Hg] [facility] Body weight 2921.6 [oz_av] 2921.6 [oz_av] ATHEN A ([facility]) Diastolic blood pressure 68 mm[Hg] 68 mm[Hg] BENNIE ([facility]) Diastolic blood pressure 68 mm[Hg] 68 mm[Hg] BENNIE ([facility]) Body height 60 [in_i] 60 [in_i] BENNIE ([facility]) Body mass index (BMI) [Ratio] 35.79 kg/m2 35.79 kg/m2 BENNIE ([facility]) Systolic blood pressure 127 mm[Hg] 127 mm[Hg] [facility] Body weight 2921.6 [oz_av] 2921.6 [oz_av] ATHEN A ([facility]) Diastolic blood pressure 68 mm[Hg] 68 mm[Hg] BENNIE ([facility]) Body height 60 [in_i] 60 [in_i] BENNIE ([facility]) Body mass index (BMI) [Ratio] 35.79 kg/m2 35.79 kg/m2 BENNIE ([facility]) Systolic blood pressure 127 mm[Hg] 127 mm[Hg] [facility] Body weight 2921.6 [oz_av] 2921.6 [oz_av] ATHEN A ([facility]) Diastolic blood pressure 68 mm[Hg] 68 mm[Hg] BENNIE ([facility]) Body height 60 [in_i] 60 [in_i] BENNIE ([facility]) Body mass index (BMI) [Ratio] 35.79 kg/m2 35.79 kg/m2 BENNIE ([facility]) Systolic blood pressure 127 mm[Hg] 127 mm[Hg] [facility] Body weight 2921.6 [oz_av] 2921.6 [oz_av] ATHEN A ([facility]) Diastolic blood pressure 68 mm[Hg] 68 mm[Hg] BENNIE ([facility]) Body height 60 [in_i] 60 [in_i] BENNIE ([facility]) Body mass index (BMI) [Ratio] 35.79 kg/m2 35.79 kg/m2 BENNIE ([facility]) Systolic blood pressure 127 mm[Hg] 127 mm[Hg] A THENA ([facility]) Body weight 2921.6 [oz_av] 2921.6 [oz_av] ATHEN A ([facility]) Diastolic blood pressure 68 mm[Hg] 68 mm[Hg] BENNIE ([facility]) Body height 60 [in_i] 60 [in_i] BENNIE ([facility]) Body mass index (BMI) [Ratio] 35.79 kg/m2 35.79 kg/m2 BENNIE ([facility]) Systolic blood pressure 127 mm[Hg] 127 mm[Hg] [facility] ([facility]) Body weight 2921.6 [oz_av] 2921.6 [oz_av] ATHEN A ([facility]) Diastolic blood pressure 68 mm[Hg] 68 mm[Hg] BENNIE ([facility]) Body height 60 [in_i] 60 [in_i] BENNIE ([facility]) Body mass index (BMI) [Ratio] 35.79 kg/m2 35.79 kg/m2 BENNIE ([facility]) Systolic blood pressure 127 mm[Hg] 127 mm[Hg] [facility] Body weight 2921.6 [oz_av] 2921.6 [oz_av] ATHEN A ([facility]) Diastolic blood pressure 68 mm[Hg] 68 mm[Hg] BENNIE ([facility]) Body height 60 [in_i] 60 [in_i] BENNIE ([facility]) Body mass index (BMI) [Ratio] 35.79 kg/m2 35.79 kg/m2 BENNIE ([facility]) Systolic blood pressure 127 mm[Hg] 127 mm[Hg] [facility] ([facility]) Body weight 2921.6 [oz_av] 2921.6 [oz_av] ATHEN A ([facility]) Diastolic blood pressure 68 mm[Hg] 68 mm[Hg] BENNIE ([facility]) Body height 60 [in_i] 60 [in_i] BENNIE ([facility]) Body mass index (BMI) [Ratio] 35.79 kg/m2 35.79 kg/m2 BENNIE ([facility]) Systolic blood pressure 127 mm[Hg] 127 mm[Hg] [facility] Body weight 2921.6 [oz_av] 2921.6 [oz_av] ATHEN A ([facility]) Diastolic blood pressure 68 mm[Hg] 68 mm[Hg] BENNIE ([facility]) Body height 60 [in_i] 60 [in_i] BENNIE ([facility]) Body mass index (BMI) [Ratio] 35.79 kg/m2 35.79 kg/m2 BENNIE ([facility]) Systolic blood pressure 127 mm[Hg] 127 mm[Hg] A THENA ([facility]) Body weight 2921.6 [oz_av] 2921.6 [oz_av] ATHEN A ([facility]) Diastolic blood pressure 68 mm[Hg] 68 mm[Hg] BENNIE ([facility]) Body height 60 [in_i] 60 [in_i] BENNIE ([facility]) Body mass index (BMI) [Ratio] 35.79 kg/m2 35.79 kg/m2 BENNIE ([facility]) Systolic blood pressure 127 mm[Hg] 127 mm[Hg] A JOVANIA ([facility]) Body weight 2921.6 [oz_av] 2921.6 [oz_av] ATHEN A ([facility]) Diastolic blood pressure 68 mm[Hg] 68 mm[Hg] BENNIE ([facility]) Body height 60 [in_i] 60 [in_i] BENNIE ([facility]) Body mass index (BMI) [Ratio] 35.79 kg/m2 35.79 kg/m2 BENNIE ([facility]) Systolic blood pressure 127 mm[Hg] 127 mm[Hg] A THENA ([facility]) Body weight 2921.6 [oz_av] 2921.6 [oz_av] ATHEN A ([facility]) Diastolic blood pressure 85 mm[Hg] 85 mm[Hg] BENNIE ([facility]) Body height 60 [in_i] 60 [in_i] BENNIE ([facility]) Body mass index (BMI) [Ratio] 35.12 kg/m2 35.12 kg/m2 BENNIE ([facility]) Systolic blood pressure 163 mm[Hg] 163 mm[Hg] A THENA ([facility]) Body weight 2867.2 [oz_av] 2867.2 [oz_av] ATHEN A ([facility]) Diastolic blood pressure 85 mm[Hg] 85 mm[Hg] BENNIE ([facility]) Body height 60 [in_i] 60 [in_i] BENNIE ([facility]) Body mass index (BMI) [Ratio] 35.12 kg/m2 35.12 kg/m2 BENNIE ([facility]) Systolic blood pressure 163 mm[Hg] 163 mm[Hg] A THENA ([facility]) Body weight 2867.2 [oz_av] 2867.2 [oz_av] ATHEN A ([facility]) Diastolic blood pressure 85 mm[Hg] 85 mm[Hg] BENNIE ([facility]) Body height 60 [in_i] 60 [in_i] BENNIE ([facility]) Body mass index (BMI) [Ratio] 35.12 kg/m2 35.12 kg/m2 BENNIE ([facility]) Systolic blood pressure 163 mm[Hg] 163 mm[Hg] A THENA ([facility]) Body weight 2867.2 [oz_av] 2867.2 [oz_av] ATHEN A ([facility]) Diastolic blood pressure 85 mm[Hg] 85 mm[Hg] BENNIE ([facility]) Body height 60 [in_i] 60 [in_i] BENNIE ([facility]) Body mass index (BMI) [Ratio] 35.12 kg/m2 35.12 kg/m2 BENNIE ([facility]) Systolic blood pressure 163 mm[Hg] 163 mm[Hg] A THENA ([facility]) Body weight 2867.2 [oz_av] 2867.2 [oz_av] ATHEN A ([facility]) Body weight 2867.2 [oz_av] 2867.2 [oz_av] ATHEN A ([facility]) Diastolic blood pressure 85 mm[Hg] 85 mm[Hg] BENNIE ([facility]) Body height 60 [in_i] 60 [in_i] BENNIE ([facility]) Body mass index (BMI) [Ratio] 35.12 kg/m2 35.12 kg/m2 BENNIE ([facility]) Systolic blood pressure 163 mm[Hg] 163 mm[Hg] A THENA ([facility]) Diastolic blood pressure 85 mm[Hg] 85 mm[Hg] BENNIE ([facility]) Body height 60 [in_i] 60 [in_i] BENNIE ([facility]) Body mass index (BMI) [Ratio] 35.12 kg/m2 35.12 kg/m2 BENNIE ([facility]) Systolic blood pressure 163 mm[Hg] 163 mm[Hg] A THENA ([facility]) Body weight 2867.2 [oz_av] 2867.2 [oz_av] ATHEN A ([facility]) Diastolic blood pressure 85 mm[Hg] 85 mm[Hg] BENNIE ([facility]) Body height 60 [in_i] 60 [in_i] BENNIE ([facility]) Body mass index (BMI) [Ratio] 35.12 kg/m2 35.12 kg/m2 BENNIE ([facility]) Systolic blood pressure 163 mm[Hg] 163 mm[Hg] A JOVANIA ([facility]) Body weight 2867.2 [oz_av] 2867.2 [oz_av] ATHEN A ([facility]) Diastolic blood pressure 85 mm[Hg] 85 mm[Hg] BENNIE ([facility]) Body height 60 [in_i] 60 [in_i] BENNIE ([facility]) Body mass index (BMI) [Ratio] 35.12 kg/m2 35.12 kg/m2 BENNIE ([facility]) Systolic blood pressure 163 mm[Hg] 163 mm[Hg] A JOVANIA ([facility]) Body weight 2867.2 [oz_av] 2867.2 [oz_av] ATHEN A ([facility]) Diastolic blood pressure 85 mm[Hg] 85 mm[Hg] BENNIE ([facility]) Body height 60 [in_i] 60 [in_i] BENNIE ([facility]) Body mass index (BMI) [Ratio] 35.12 kg/m2 35.12 kg/m2 BENNIE ([facility]) Systolic blood pressure 163 mm[Hg] 163 mm[Hg] A THENA ([facility]) Body weight 2867.2 [oz_av] 2867.2 [oz_av] ATHEN A ([facility]) Diastolic blood pressure 85 mm[Hg] 85 mm[Hg] BENNIE ([facility]) Body height 60 [in_i] 60 [in_i] BENNIE ([facility]) Body mass index (BMI) [Ratio] 35.12 kg/m2 35.12 kg/m2 BENNIE ([facility]) Systolic blood pressure 163 mm[Hg] 163 mm[Hg] [facility] Body weight 2867.2 [oz_av] 2867.2 [oz_av] ATHEN A ([facility]) Body height 60 [in_i] 60 [in_i] BENNIE ([facility]) Diastolic blood pressure 85 mm[Hg] 85 mm[Hg] BENNIE ([facility]) Body height 60 [in_i] 60 [in_i] BENNIE ([facility]) Body mass index (BMI) [Ratio] 35.12 kg/m2 35.12 kg/m2 BENNIE ([facility]) Systolic blood pressure 163 mm[Hg] 163 mm[Hg] A [facility] ([facility]) Body weight 2867.2 [oz_av] 2867.2 [oz_av] ATHEN A ([facility]) Diastolic blood pressure 85 mm[Hg] 85 mm[Hg] BENNIE ([facility]) Body height 60 [in_i] 60 [in_i] BENNIE ([facility]) Body mass index (BMI) [Ratio] 35.12 kg/m2 35.12 kg/m2 BENNIE ([facility]) Systolic blood pressure 163 mm[Hg] 163 mm[Hg] [facility] ([facility]) Body weight 2867.2 [oz_av] 2867.2 [oz_av] ATHEN A ([facility]) Diastolic blood pressure 85 mm[Hg] 85 mm[Hg] BENNIE ([facility]) Body height 60 [in_i] 60 [in_i] BENNIE ([facility]) Body mass index (BMI) [Ratio] 35.12 kg/m2 35.12 kg/m2 BENNIE ([facility]) Systolic blood pressure 163 mm[Hg] 163 mm[Hg] [facility] ([facility]) Body weight 2867.2 [oz_av] 2867.2 [oz_av] ATHEN A ([facility]) Body mass index (BMI) [Ratio] 35.12 kg/m2 35.12 kg/m2 BENNIE ([facility]) Systolic blood pressure 163 mm[Hg] 163 mm[Hg] A THENA ([facility]) Body weight 2867.2 [oz_av] 2867.2 [oz_av] ATHEN A ([facility]) Diastolic blood pressure 85 mm[Hg] 85 mm[Hg] BENNIE ([facility]) Diastolic blood pressure 77 mm[Hg] 77 mm[Hg] BENNIE ([facility]) Body height 60 [in_i] 60 [in_i] BENNIE ([facility]) Body mass index (BMI) [Ratio] 34.97 kg/m2 34.97 kg/m2 BENNIE ([facility]) Systolic blood pressure 166 mm[Hg] 166 mm[Hg] A THENA ([facility]) Body weight 2854.4 [oz_av] 2854.4 [oz_av] ATHEN A ([facility]) Diastolic blood pressure 77 mm[Hg] 77 mm[Hg] BENNIE ([facility]) Body height 60 [in_i] 60 [in_i] BENNIE ([facility]) Systolic blood pressure 166 mm[Hg] 166 mm[Hg] A THENA ([facility]) Body weight 2854.4 [oz_av] 2854.4 [oz_av] ATHEN A ([facility]) Body weight 2854.4 [oz_av] 2854.4 [oz_av] ATHEN A ([facility]) Diastolic blood pressure 77 mm[Hg] 77 mm[Hg] BENNIE ([facility]) Body height 60 [in_i] 60 [in_i] BENNIE ([facility]) Body mass index (BMI) [Ratio] 34.97 kg/m2 34.97 kg/m2 BENNIE ([facility]) Systolic blood pressure 166 mm[Hg] 166 mm[Hg] A THENA ([facility]) Diastolic blood pressure 77 mm[Hg] 77 mm[Hg] BENNIE ([facility]) Body height 60 [in_i] 60 [in_i] BENNIE ([facility]) Body mass index (BMI) [Ratio] 34.97 kg/m2 34.97 kg/m2 BENNIE ([facility]) Systolic blood pressure 166 mm[Hg] 166 mm[Hg] [facility] Body weight 2854.4 [oz_av] 2854.4 [oz_av] ATHEN A ([facility]) Diastolic blood pressure 77 mm[Hg] 77 mm[Hg] BENNIE ([facility]) Body height 60 [in_i] 60 [in_i] BENNIE ([facility]) Systolic blood pressure 166 mm[Hg] 166 mm[Hg] [facility] Body weight 2854.4 [oz_av] 2854.4 [oz_av] ATHEN A ([facility]) Diastolic blood pressure 77 mm[Hg] 77 mm[Hg] BENNIE ([facility]) Body height 60 [in_i] 60 [in_i] BENNIE ([facility]) Systolic blood pressure 166 mm[Hg] 166 mm[Hg] [facility] Body weight 2854.4 [oz_av] 2854.4 [oz_av] ATHEN A ([facility]) Diastolic blood pressure 77 mm[Hg] 77 mm[Hg] BENINE ([facility]) Body height 60 [in_i] 60 [in_i] BENNIE ([facility]) Body mass index (BMI) [Ratio] 34.97 kg/m2 34.97 kg/m2 BENNIE ([facility]) Systolic blood pressure 166 mm[Hg] 166 mm[Hg] [facility] Body weight 2854.4 [oz_av] 2854.4 [oz_av] ATHEN A ([facility]) Body height 60 [in_i] 60 [in_i] BENNIE ([facility]) Body mass index (BMI) [Ratio] 34.97 kg/m2 34.97 kg/m2 BENNIE ([facility]) Systolic blood pressure 166 mm[Hg] 166 mm[Hg] [facility] Body weight 2854.4 [oz_av] 2854.4 [oz_av] ATHEN A ([facility]) Diastolic blood pressure 77 mm[Hg] 77 mm[Hg] BENNIE ([facility]) Systolic blood pressure 166 mm[Hg] 166 mm[Hg] [facility] Body weight 2854.4 [oz_av] 2854.4 [oz_av] ATHEN A ([facility]) Diastolic blood pressure 77 mm[Hg] 77 mm[Hg] BENNIE ([facility]) Body height 60 [in_i] 60 [in_i] BENNIE ([facility]) Body mass index (BMI) [Ratio] 34.97 kg/m2 34.97 kg/m2 BENNIE ([facility]) Systolic blood pressure 166 mm[Hg] 166 mm[Hg] [facility] Body weight 2854.4 [oz_av] 2854.4 [oz_av] ATHEN A ([facility]) Diastolic blood pressure 77 mm[Hg] 77 mm[Hg] BENNIE ([facility]) Body height 60 [in_i] 60 [in_i] BENNIE ([facility]) Body mass index (BMI) [Ratio] 34.97 kg/m2 34.97 kg/m2 BENNIE ([facility]) Diastolic blood pressure 77 mm[Hg] 77 mm[Hg] BENNIE ([facility]) Body height 60 [in_i] 60 [in_i] BENNIE ([facility]) Body mass index (BMI) [Ratio] 34.97 kg/m2 34.97 kg/m2 BENNIE ([facility]) Systolic blood pressure 166 mm[Hg] 166 mm[Hg] [facility] Body weight 2854.4 [oz_av] 2854.4 [oz_av] ATHEN A ([facility]) Diastolic blood pressure 77 mm[Hg] 77 mm[Hg] BENNIE ([facility]) Body height 60 [in_i] 60 [in_i] BENNIE ([facility]) Body mass index (BMI) [Ratio] 34.97 kg/m2 34.97 kg/m2 BENNIE ([facility]) Systolic blood pressure 166 mm[Hg] 166 mm[Hg] [facility] ([facility]) Body weight 2854.4 [oz_av] 2854.4 [oz_av] ATHEN A ([facility]) Diastolic blood pressure 77 mm[Hg] 77 mm[Hg] BENNIE ([facility]) Body height 60 [in_i] 60 [in_i] BENNIE ([facility]) Body mass index (BMI) [Ratio] 34.97 kg/m2 34.97 kg/m2 BENNIE ([facility]) Systolic blood pressure 166 mm[Hg] 166 mm[Hg] [facility] Body weight 2854.4 [oz_av] 2854.4 [oz_av] ATHEN A ([facility]) Diastolic blood pressure 77 mm[Hg] 77 mm[Hg] BENNIE ([facility]) Body height 60 [in_i] 60 [in_i] BENNIE ([facility]) Body mass index (BMI) [Ratio] 34.97 kg/m2 34.97 kg/m2 BENNIE ([facility]) Systolic blood pressure 166 mm[Hg] 166 mm[Hg] [facility] ([facility]) Body weight 2854.4 [oz_av] 2854.4 [oz_av] ATHEN A ([facility]) Diastolic blood pressure 77 mm[Hg] 77 mm[Hg] BENNIE ([facility]) Body height 60 [in_i] 60 [in_i] BENNIE ([facility]) Body mass index (BMI) [Ratio] 34.97 kg/m2 34.97 kg/m2 BENNIE ([facility]) Systolic blood pressure 166 mm[Hg] 166 mm[Hg] [facility] Body weight 2854.4 [oz_av] 2854.4 [oz_av] ATHEN A ([facility]) Diastolic blood pressure 77 mm[Hg] 77 mm[Hg] BENNIE ([facility]) Body height 60 [in_i] 60 [in_i] BENNIE ([facility]) Body mass index (BMI) [Ratio] 34.97 kg/m2 34.97 kg/m2 BENNIE ([facility]) Systolic blood pressure 166 mm[Hg] 166 mm[Hg] A CHRISTOPHER ([facility]) Body weight 2854.4 [oz_av] 2854.4 [oz_av] ION Ortega ([facility]) Diastolic blood pressure 77 mm[Hg] 77 mm[Hg] BENNIE ([facility]) Body height 60 [in_i] 60 [in_i] BENNIE ([facility]) Body mass index (BMI) [Ratio] 34.97 kg/m2 34.97 kg/m2 BENNIE ([facility]) Systolic blood pressure 166 mm[Hg] 166 mm[Hg] A CHRISTOPHER ([facility]) Body weight 2854.4 [oz_av] 2854.4 [oz_av] ION Ortega ([facility]) Patient Treatment Plan of Care Planned Activity Planned Date Details Description Data Source (s) Acetaminophen 500 MG Oral Tablet 07/23/2020 12:00:00 AM EDT OUTLOOK ([facility]) Acetaminophen 500 MG Oral Tablet 07/23/2020 12:00:00 AM EDT OUTLOOK ([facility]) Acetaminophen 500 MG Oral Tablet 07/23/2020 12:00:00 AM EDT OUTLOOK ([facility]) Acetaminophen 500 MG Oral Tablet 07/23/2020 12:00:00 AM EDT OUTLOOK ([facility]) Acetaminophen 500 MG Oral Tablet 07/23/2020 12:00:00 AM EDT OUTLOOK ([facility]) Acetaminophen 500 MG Oral Tablet 07/23/2020 12:00:00 AM EDT OUTLOOK ([facility]) Acetaminophen 500 MG Oral Tablet 07/23/2020 12:00:00 AM EDT BENNIE ([facility]) Acetaminophen 500 MG Oral Tablet 07/23/2020 12:00:00 AM EDT BENNIE ([facility]) 8 HR Acetaminophen 650 MG Extended Release Oral Tablet [Tylenol] BENNIE ([facility]) ramelteon 8 MG Oral Tablet A [facility] ([facility]) [employer] COVID-19 Vaccine (PF) 30 mcg/0.3 mL IM suspension(EUA) ADMINISTER 0.3ML IN THE MUSCLE DIRECTED BENNIE ([facility]) lidocaine 5 % topical patch APPLY 1 PATC H BY TOPICAL ROUTE ONCE DAILY (MAY WEAR UP TO 12HOURS.) BENNIE ([facility]) Hydroxyzine Hydrochloride 50 MG Oral Tablet BENNIE ([facility]) Hydroxyzine Hydrochloride 25 MG Oral Tablet BENNIE ([facility]) Escitalopram 5 MG Oral Tablet BENNIE ([facility]) Diclofenac Sodium 0.01 MG/MG Topical Gel BENNIE ([facility]) 8 HR Acetaminophen 650 MG Extended Release Oral Tablet [Tylenol] BENNIE ([facility]) ramelteon 8 MG Oral Tablet A THENA ([facility]) Pfizer-BioNTech COVID-19 Vaccine (PF) 30 mcg/0.3 mL IM suspension(EUA) ADMINISTER 0.3ML IN THE MUSCLE DIRECTED BENNIE ([facility]) lidocaine 5 % topical patch APPLY 1 PATC H BY TOPICAL ROUTE ONCE DAILY (MAY WEAR UP TO 12HOURS.) BENNIE ([facility]) Hydroxyzine Hydrochloride 50 MG Oral Tablet BENNIE ([facility]) Hydroxyzine Hydrochloride 25 MG Oral Tablet BENNIE ([facility]) Escitalopram 5 MG Oral Tablet BENNIE ([facility]) Diclofenac Sodium 0.01 MG/MG Topical Gel BENNIE ([facility]) 8 HR Acetaminophen 650 MG Extended Release Oral Tablet [Tylenol] BENNIE ([facility]) ramelteon 8 MG Oral Tablet A THENA ([facility]) Pfizer-BioNTech COVID-19 Vaccine (PF) 30 mcg/0.3 mL IM suspension(EUA) ADMINISTER 0.3ML IN THE MUSCLE DIRECTED BENNIE ([facility]) lidocaine 5 % topical patch APPLY 1 PATC H BY TOPICAL ROUTE ONCE DAILY (MAY WEAR UP TO 12HOURS.) BENNIE ([facility]) Hydroxyzine Hydrochloride 50 MG Oral Tablet BENNIE ([facility]) Hydroxyzine Hydrochloride 25 MG Oral Tablet BENNIE ([facility]) Escitalopram 5 MG Oral Tablet BENNIE ([facility]) Diclofenac Sodium 0.01 MG/MG Topical Gel BENNIE ([facility]) 8 HR Acetaminophen 650 MG Extended Release Oral Tablet [Tylenol] BENNIE [facility]) ramelteon 8 MG Oral Tablet A THENA ([facility]) [employer] COVID-19 Vaccine (PF) 30 mcg/0.3 mL IM suspension(EUA) ADMINISTER 0.3ML IN THE MUSCLE DIRECTED BENNIE ([facility]) lidocaine 5 % topical patch APPLY 1 PATC H BY TOPICAL ROUTE ONCE DAILY (MAY WEAR UP TO 12HOURS.) BENNIE ([facility]) Hydroxyzine Hydrochloride 50 MG Oral Tablet BENNIE ([facility]) Hydroxyzine Hydrochloride 25 MG Oral Tablet BENNIE ([facility]) Escitalopram 5 MG Oral Tablet BENNIE ([facility]) Diclofenac Sodium 0.01 MG/MG Topical Gel BENNIE ([facility]) 8 HR Acetaminophen 650 MG Extended Release Oral Tablet [Tylenol] BENNIE ([facility]) ramelteon 8 MG Oral Tablet A THENA ([facility]) lidocaine 5 % topical patch APPLY 1 PATC H BY TOPICAL ROUTE ONCE DAILY (MAY WEAR UP TO 12HOURS.) BENNIE ([facility]) Hydroxyzine Hydrochloride 50 MG Oral Tablet BENNIE ([facility]) Hydroxyzine Hydrochloride 25 MG Oral Tablet BENNIE ([facility]) Escitalopram 5 MG Oral Tablet BENNIE ([facility]) Diclofenac Sodium 0.01 MG/MG Topical Gel BENNIE ([facility]) 8 HR Acetaminophen 650 MG Extended Release Oral Tablet [Tylenol] BENNIE ([facility]) ramelteon 8 MG Oral Tablet A THENA ([facility]) lidocaine 5 % topical patch APPLY 1 PATC H BY TOPICAL ROUTE ONCE DAILY (MAY WEAR UP TO 12HOURS.) BENNIE ([facility]) Hydroxyzine Hydrochloride 50 MG Oral Tablet BENNIE ([facility]) Hydroxyzine Hydrochloride 25 MG Oral Tablet BENNIE ([facility]) Escitalopram 5 MG Oral Tablet BENNIE ([facility]) Diclofenac Sodium 0.01 MG/MG Topical Gel BENNIE ([facility]) 8 HR Acetaminophen 650 MG Extended Release Oral Tablet [Tylenol] BENNIE ([facility]) ramelteon 8 MG Oral Tablet A THENA ([facility]) lidocaine 5 % topical patch APPLY 1 PATC H BY TOPICAL ROUTE ONCE DAILY (MAY WEAR UP TO 12HOURS.) BENNIE ([facility]) Hydroxyzine Hydrochloride 50 MG Oral Tablet BENNIE ([facility]) Hydroxyzine Hydrochloride 25 MG Oral Tablet BENNIE ([facility]) Escitalopram 5 MG Oral Tablet BENNIE ([facility]) Diclofenac Sodium 0.01 MG/MG Topical Gel BENNIE ([facility]) 8 HR Acetaminophen 650 MG Extended Release Oral Tablet [Tylenol] BENNIE ([facility]) ramelteon 8 MG Oral Tablet A THENA ([facility]) Hydroxyzine Hydrochloride 50 MG Oral Tablet BENNIE ([facility]) Hydroxyzine Hydrochloride 25 MG Oral Tablet BENNIE ([facility]) Escitalopram 5 MG Oral Tablet BENNIE ([facility]) 8 HR Acetaminophen 650 MG Extended Release Oral Tablet [Tylenol] BENNIE ([facility]) ramelteon 8 MG Oral Tablet A THENA ([facility]) Hydroxyzine Hydrochloride 50 MG Oral Tablet BENNIE ([facility]) Hydroxyzine Hydrochloride 25 MG Oral Tablet BENNIE ([facility]) Escitalopram 5 MG Oral Tablet BENNIE ([facility]) 8 HR Acetaminophen 650 MG Extended Release Oral Tablet [Tylenol] BENNIE ([facility]) ramelteon 8 MG Oral Tablet A THENA ([facility]) Hydroxyzine Hydrochloride 50 MG Oral Tablet BENNIE ([facility]) Hydroxyzine Hydrochloride 25 MG Oral Tablet BENNIE ([facility]) Escitalopram 5 MG Oral Tablet BENNIE ([facility]) 8 HR Acetaminophen 650 MG Extended Release Oral Tablet [Tylenol] BENNIE ([facility]) ramelteon 8 MG Oral Tablet A THENA ([facility]) Hydroxyzine Hydrochloride 50 MG Oral Tablet BENNIE ([facility]) Hydroxyzine Hydrochloride 25 MG Oral Tablet BENNIE ([facility]) Escitalopram 5 MG Oral Tablet BENNIE ([facility]) ramelteon 8 MG Oral Tablet A THENA ([facility]) Hydroxyzine Hydrochloride 50 MG Oral Tablet BENNIE ([facility]) Hydroxyzine Hydrochloride 25 MG Oral Tablet BENNIE ([facility]) Escitalopram 5 MG Oral Tablet BENNIE ([facility]) ramelteon 8 MG Oral Tablet A THENA ([facility]) Hydroxyzine Hydrochloride 50 MG Oral Tablet BENNIE ([facility]) Hydroxyzine Hydrochloride 25 MG Oral Tablet BENNIE ([facility]) 8 HR Acetaminophen 650 MG Extended Release Oral Tablet [Tylenol] BENNIE ([facility]) ramelteon 8 MG Oral Tablet A THENA ([facility]) lidocaine 5 % topical patch APPLY 1 PATC H BY TOPICAL ROUTE ONCE DAILY (MAY WEAR UP TO 12HOURS.) BENNIE ([facility]) Hydroxyzine Hydrochloride 50 MG Oral Tablet BENNIE ([facility]) Hydroxyzine Hydrochloride 25 MG Oral Tablet BENNIE ([facility]) Escitalopram 5 MG Oral Tablet OUTLOOK ([facility]) Diclofenac Sodium 0.01 MG/MG Topical Gel BENNIE ([facility]) Escitalopram 5 MG Oral Tablet BENNIE ([facility]) ramelteon 8 MG Oral Tablet A THENA ([facility]) Hydroxyzine Hydrochloride 50 MG Oral Tablet BENNIE ([facility]) Hydroxyzine Hydrochloride 25 MG Oral Tablet BENNIE ([facility]) Escitalopram 5 MG Oral Tablet BENNIE ([facility])
[2020-12-19 10:00] LABS: BASO # 0.1 10^3/uL (0.0-0.2); BASO % 0.9 % (0.0-1.0); EOS # 0.2 10^3/uL (0.0-0.5); EOS % 3.6 % (0.0-3.0); HEMATOCRIT 46.7 % (42.0-52.0); LYMPH # 1.5 10^3/uL (1.5-5.0); LYMPH % 23.5 % (24.0-44.0); MEAN CORPUSCULAR HEMOGLOBIN 29.8 pg (27.0-33.0); MEAN CORPUSCULAR HGB CONC 32.1 g/dl (32.0-36.5); MEAN CORPUSCULAR VOLUME 92.8 fl (80.0-96.0); MONO # 0.8 10^3/uL (0.0-0.8); MONO % 12.4 % (2.0-8.0); NEUTROPHILS # 3.8 10^3/uL (1.5-8.5); NEUTROPHILS % 58.8 % (36.0-66.0); PLATELET COUNT, AUTOMATED 117 10^3/uL (150-450); RED BLOOD COUNT 5.03 10^6/uL (4.30-6.10); WHITE BLOOD COUNT 6.5 10^3/uL (4.0-10.0)
[2020-12-19] MEDS ORDERED: INDAPAMIDE 1.25MG TABLET PO ONE (10:00)
--- NOTE | 2020-12-19 10:16 | REP ---
INDICATION: DYSPNEA/COUGH COMPARISON: 08/21/2019 TECHNIQUE: Portable AP view of the chest FINDINGS: Patient is again noted to be status post sternotomy. Cardiomegaly noted. The lung childress are clear without acute consolidation, effusion, or pneumothorax. Skeletal structures are intact. IMPRESSION: No acute cardiopulmonary process appreciated. Cardiomegaly. <Electronically signed by Singh Rivas > 12/19/20 1013
[2020-12-19 10:31] LABS: ALBUMIN 3.2 GM/DL (3.2-5.2); BILIRUBIN,DIRECT 0.2 MG/DL (0.0-0.2); BILIRUBIN,TOTAL 0.6 MG/DL (0.2-1.0); CALCIUM LEVEL 9.3 MG/DL (8.8-10.2); CREATININE FOR GFR 1.53 MG/DL (0.70-1.30); GLOMERULAR FILTRATION RATE 45.9 (>35); THYROID STIMULATING HORMONE 1.87 uIU/ML (0.358-3.740); TOTAL PROTEIN 6.2 GM/DL (6.4-8.2)
[2020-12-19] MEDS ORDERED: TORS10TA3 PO (12:19)
--- NOTE | 2020-12-20 06:34 | ECGEPIP ---
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
== END 2020-12-19 14:34 | disposition home or self-care (01) ==
LOC: M ED 08:28
DX: I50.9 Heart failure, unspecified (principal); I11.0 Hypertensive heart disease with heart failure; I44.0 Atrioventricular block, first degree; R94.31 Abnormal electrocardiogram [ECG] [EKG]; Z79.899 Other long term (current) drug therapy; Z98.890 Other specified postprocedural states
CPT/HCPCS: 36415; 71045; 80048; 80076; 83880; 84443; 85025; 87798; 93005; 93041; 94760; 96374; 99284; J1940

== ENCOUNTER → 2020-12-19 | Day surgery (SDC) | payer MEDICARE, MEDICAID ==
[~2020-12-19] VITALS: Ht 162.6 cm; Wt 80.2 kg
[~2020-12-19] MED LIST changes: +BSS IRR 500ML/OMIDRIA 4ML IRR BAG (OR ONLY) As Ordered ONE; +CEFUROXIME 1MG/0.1ML INTRACAMERAL INJ As Ordered ONE; +DUOVISC (0.50ML VISCOAT/0.85ML PROVISC) OPHTH KIT As Ordered ONE; +MIDAZOLAM INJ 2MG/2ML VIAL (J2250 PER 1MG) As Ordered ONE; +OFLOXACIN 0.3 % (OCUFLOX) OPTH SOL 5ML OS SCH; +PHENYLEPHRINE 1.5%/LIDOCAINE 1% INTRAOCULAR 0.8ML SYRINGE As Ordered ONE; +PHENYLEPHRINE 2.5% OPHTH SOL 2ML OS SCH; +PROPARACAINE 0.5% OPHTH SOL 15ML OS ONE; +TORS10TA3 PO; +TROPICAMIDE 1% OPHTH SOLN 2ML OS SCH; +fentaNYL 100 MCG/2 ML INJECTION (J3010) As Ordered ONE
--- OUTSIDE RECORDS SUMMARY | 2020-12-19 06:35 | CCD | Continuity of Care Document ---
Author Author Krishan COFFEYC Organization Unknown Address [id number] [place] [address], [place] [address] Phone [phone] Care Team Providers Care Otr Truck Driver Name Role Phone Hardik Serra AUTM [phone] Stewart Garcia DO AUTM [phone] Elliot Hernadez MD AUTM [phone] Problems Active Problems Provider Date Dizziness and giddiness Piyush Walsh MD Onset: 08/28/19 20 Essential hypertension Piyush Walsh MD Onset: 0 Persistent sinus bradycardia Piyush Walsh MD Onset: First degree atrioventricular block Piyush Walsh MD Ons et: 08/28/2019 Transplantation of heart valve Piyush Walsh MD Onset: 0 08/28/2019 Social History Type Date Description Comments Sex Unknown ETOH Use Does not consume alcohol Tobacco Use Start: Unknown End: Unknown Patient is a former smoker Over 40 years ago Smoking Status Reviewed: 12/05/20 Patient is a former smoker Ov er 40 years ago Exercise Type/Frequency Walks sporadically Exercise Type/Frequency Does housework sporadica lly Exercise Limitations None Allergies and adverse reactions Description No Known Drug Allergies Medications Active Medications SIG Qnty Indications Ordering Provide r Date Calcium Antacid 500mg Chewtabs chew and swallow 2 by mouth every 4 hours as needed Elliot Hernadez MD 12/04/2020 Trazodone HCL 100mg Tablets 1 by mouth every night at bedtime Elliot Hernadez MD 2020 Prednisolone Acetate P-F 1% Suspen holly instill 1 drop in left eye 4 times daily for 3 days prior to cataract surgery Elliot Hernadez MD 12/04/2020 Memantine HCL 5mg Tablets 1 by mouth once a day for amnesia Elliot Hernadez MD 12/04/2020 Meloxicam 7.5mg Tablets 1 by mouth every day Elliot Hernadez MD 12/04/2020 Isosorbide Dinitrate 30mg Tablets 1/2 by mouth once daily I10 Elliot Hernadez MD 12/04/2020 Ketorolac Tromethamine 0.5% Soluti on instill 1 drop in left eye four times daily until 12/19/20 Elliot Hernadez MD 12/04/2020 Eucerin Lotion apply to affected area as directed Elliot Hernadez MD 12/04/2020 Esomeprazole Magnesium 20mg Capsul es DR 1 by mouth once every day Elliot Hernadez MD 12/04 Escitalopram Oxalate 10mg Tablets 1 by mouth every day Elliot Hernadez MD 12/04/2020 Dorzolamide HCL/Timolol Maleate 22.3-6.8mg/ml Solution instill 2 drops in left eye twice daily S Elliot sanchez MD 12/04/2020 Cetirizine HCL 10mg Tablets 1 by mouth every day Elliot Hernadez MD 12/04/2020 Acetaminophen 8 Hour 650mg Tablets ER 1 by mouth daily as needed Elliot Hernadez MD 021 Indapamide 1.25mg Tablets 1 by mouth day 90tabs I10 Piyush Walsh MD 08/28/2019 Amitriptyline HCL 10mg Tablets 2 by mouth every day at bedtime Unknown 08/27/2019 Amlodipine Besylate 10mg Tablets 1 by mouth every day Unknown 08/27/2019 Losartan Potassium 100mg Tablets 1 by mouth every night at bedtime Unknown Advil 200mg Capsules 1 by mouth every day Unknown 08/27/2019 Potassium Chloride ER 20Meq Tablet s ER 1 by mouth every day Unknown 08/27/2019 Acetaminophen 500mg Tablets 1-2 by mouth every 6 hours as needed Unknown 08/27/19 20 Immunizations Description No Information Available Vital Signs Date Vital Result Comment 12/05/2020 8:32am Weight 175.00 lb Home Weight 171lb Height 65 inches 5'5" BMI (Body Mass Index) 29.1 kg/m2 Heart Rate 56 /min Regular with intermi ttent skips Respiratory Rate 16 /min BP Systolic Right Arm 122 mmHg sitting, regular c uff BP Diastolic Right Arm 68 mmHg sitting, regular cuff BP Systolic Left Arm 118 mmHg sitting BP Diastolic Left Arm 64 mmHg sitting 09/28/2019 10:27am Weight 175.00 lb Height 65 inches 5'5" BMI (Body Mass Index) 29.1 kg/m2 Heart Rate 52 /min BP Systolic Sitting 150 mmHg CBP, adult cuff/Ra BP Diastolic Sitting 70 mmHg CBP, adult cuff/Ra Results Description No Information Available Procedures Date Code Description Status 12/05/2020 32820 Office/Outpatient Established Mo d MDM 30-39 Min Completed 12/05/2020 51201 ECG 12-Lead Completed Medical Devices Description No Information Available Encounters Type Date Location Provider Dx Diagnosis Office Visit 12/05/2020 8:45a Main Office Macy Coffey PA-C I10 Essential (primary) hypertension Z95.3 Presence of xenogenic heart valve I49.5 Sick sinus syndrome Assessments Date Code Description Provider 12/05/2020 I10 Essential (primary) hypertension Macy Coffey PA-C 12/05/2020 Z95.3 Presence of xenogenic heart valv e Macy Coffey PA-C 12/05/2020 I49.5 Sick sinus syndrome Macy bacon PA-C Plan of Treatment Future Appointment(s):* 12/08/2021 1:00 pm - Macy Coffey PA-C at Main Office 12/05/2020 - Macy Coffey PA-C* I10 Essential (primary) hypertension * Z95.3 Presence of xenogenic heart valve* Recommendations:* You require antibiotics prior to any dental work and some surgical procedures. * I49.5 Sick sinus syndrome * All * Follow up:* 12 month follow up. Obtain last MP from [facility]. Functional Status Functional Condition Comment Date Status Independent with all ADL's Activ e Mental Status Description No Information Available Referrals Description No Information Available
--- OUTSIDE RECORDS SUMMARY | 2020-12-19 06:35 | CCD ---
Author Organization Unknown Address [address] [place] [address] Phone [phone] Care Team Providers Care Youth Services Librarian Name Role Phone Hardik Serra Unavailable Unavailable Allergies Code Code System Name Reaction Severity Status Onset NKDA Medications Name Status Start Date Stop Date acetaminophen 500 mg tablet Take 2 tablets every 8 hours by oral route as needed. Active 07/23 Not available amlodipine 10 mg tablet Active Not avai lable Artificial Tears (carboxymethylcellulose ) 1 % eye drops Apply 1 drop twice a day by ophthalmic route. Active Not available cetirizine 10 mg tablet Take 1 tablet every day by oral route. Active Not available Debrox 6.5 % ear drops INSTILL 5 DROPS INTO BOTH EARS BY OTIC ROUTE 2 TIMES PER DAY x 7 days Active Not available diclofenac 1 % topical gel Completed 07/23 dorzolamide 22.3 mg-timolol 6.8 mg/mL eye drops Active Not available escitalopram 10 mg tablet TAKE 1 TABLET BY MOUTH IN THE MORNING Active N ot available escitalopram 5 mg tablet Completed 020 esomeprazole magnesium 20 mg capsule,del ayed release Take 1 capsule every day by oral route as needed. Active Not available Eucerin Original lotion Apply 1 application 3 times a day by topical route as needed. Active Not available hydroxyzine HCl 25 mg tablet Completed hydroxyzine HCl 50 mg tablet Completed indapamide 1.25 mg tablet Active Not av ailable isosorbide mononitrate ER 30 mg tablet,extended release 24 hr Ac tive Not available ketorolac 0.5 % eye drops Active Not av ailable lidocaine 5 % topical patch APPLY 1 PATCH BY TOPICAL ROUTE ONCE DAILY (MAY WEAR UP TO 12HOURS.) Completed 07/23/2020 losartan 100 mg tablet Active Not avail able meloxicam 7.5 mg tablet Active Not avai lable memantine 5 mg tablet Active Not availa ble Sorbisense COVID-19 Vaccine (PF) 30 mcg/0.3 mL IM suspension(EUA) ADMINISTER 0.3ML IN THE MUSCLE DIRECTED Completed 10/07/2020 polymyxin B sulfate 10,000 unit-trimethoprim 1 mg/mL eye drops A ctive Not available potassium chloride ER 20 mEq tablet,exte nded release Take 1 tablet every day by oral route at bedtime. Active Not available potassium chloride ER 20 mEq tablet,extended release(part/cryst) Active Not available prednisolone acetate 1 % eye drops,suspension Active Not available ramelteon 8 mg tablet Completed 01/16/2020 Shingrix (PF) 50 mcg/0.5 mL intramuscular suspension, kit Active Not available trazodone 100 mg tablet Active Not avai lable trazodone 50 mg tablet Take 1.5 tablets every day by oral route at bedtime. Unknown Not available Tums 200 mg calcium (500 mg) chewable ta blet 1-3 po q4h prn heartburn. MDD 6. Active Not av ailable Tylenol 8 Hour 650 mg tablet,extended re lease Take 1 tablet every day by oral route as needed. Completed 05/05/2020 Problems Name Status Onset Date Source Adjustment Insomnia Active 09/04/2019 History Hypertensive Disorder Active 09/04/2019 History First Degree Atrioventricular Block Active 09/04/2019 History Sinus Bradycardia Active 09/04/2019 History Idiopathic Osteoarthritis Active 09/04/2019 Histor y Dizziness and Giddiness Active 09/04/2019 History Biologic Cardiac Valve Prosthesis in Situ Active 2019 History Cardiovascular Measurement - Finding Unknown 09/04/2019 History Type of Memories - Finding Active 09/04/2019 Histo ry Simple Obesity Active 09/13/2019 History Body Mass Index 30+ - Obesity Active 09/13/2019 Hi story Generalized Anxiety Disorder Active 10/15/2019 His tory Psychophysiologic Insomnia Active 10/15/2019 Histo ry 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 10/29/2019 History Procedure by Method Unknown 10/29/2019 History Influenza Vaccine Needed Active 11/29/2019 History Screening for Malignant Neoplasm of Colon Active 2019 History Dental Arch Length Loss Secondary to Dental Caries Active 11/29/2019 History Major Depressive Disorder Unknown 01/02/2020 Mild Memory Disturbance Active 01/02/2020 Domiciliary or Rest Home Patient Evaluation and Management Activ e 02/25/2020 Low Back Pain Unknown 04/25/2020 Dementia Active 05/07/2020 Sleep Related Hypoxemia Active 05/20/2020 Chronic Low Back Pain Active 09/02/2020 Muscle Fatigue Active 09/02/2020 Procedures Date Name Performed by 02/28/1999 Prostatectomy Notes: BPH Information not available Notes: Aortic Valve replacement-end of 2 018, Tonsil surgery at age 37, hernia repair around age 41 Results Lab Results Date Name Specimen Result Interpretation Description Value Range Status Address PPD (Purified Protein Derivative), Skin Test No observation recorded. [facility] [address] [facility] [address] [place] Past Encounters 12/11/2020 Adjustment Disorder with Mixed Disturbance of Emotions and Conduct; Dementia Leta PalJOHN goodmanW-R: [address] [facility] [address], [place] [address], Ph. 12/03/2020 Pre-surgery Evaluation; Impacted Cerumen of Bilateral Ears Hardki Serra RPA-C: [address] [facility] [address], [place] [address], Ph. 11/20/2020 Adjustment Disorder with Mixed Disturbance of Emotions and Conduct; Dementia Leta PalJOHN goodmanW-R: [address], [facility] [address], [place] [address], Ph. 10/23/2020 Adjustment Insomnia; Biologic Cardiac Valve Prosthesis in Situ; First Degree Atrioventricular Block; Hypertensive Disorder; Generalized Anxiety Disorder; Idiopathic Osteoarthritis Hardik Serra RPA-C: [address] [facility] [address], [place] [address], Ph. 10/08/2020 Adjustment Disorder with Mixed Disturbance of Emotions and Conduct; Dementia Leta PalJOHN goodmanW-R: [address] [facility], [facility] [address], [place] [address], Ph. 09/30/2020 Psychophysiologic Insomnia; Anterior Rhinorrhea; Muscle Fatigue Hardik Serra, RPA-C: [address] [facility], [facility] [address], [place] [address], Ph. 09/10/2020 Adjustment Disorder with Mixed Disturbance of Emotions and Conduct; Dementia Leta PlaJOHN goodmanW-R: [address] , [facility] [address], [place] [address], Ph. 09/02/2020 Idiopathic Osteoarthritis; Chronic Low Back Pain; Muscle Fatigue; Generalized Anxiety Disorder; Hypertensive Disorder Hardik English Serra, RPA-C: [address] , [facility] [address], [place] [address], Ph. 08/19/2020 Idiopathic Osteoarthritis Hardik English Serra, RPA-C: [address], [place] [address], Ph. 07/23/2020 Unsteady When Walking; Idiopathic Osteoarthritis; Adjustment Disorder with Mixed Disturbance of Emotions and Conduct; Dementia; Mild Memory Disturbance; Biologic Cardiac Valve Prosthesis in Situ; Hypertensive Disorder; Sleep Related Hypoxemia Hardik D Ponce, RPA-C: [address] , [facility] [address], [place] [address], Ph. 07/17/2020 Adjustment Disorder with Mixed Disturbance of Emotions and Conduct; Dementia eLta PalJOHN goodmanW-R: [address] , [facility] [address], [place] [address], Ph. 05/21/2020 Adjustment Disorder with Mixed Disturbance of Emotions and Conduct; Dementia JOHN ChristopherW-R: [address] , [facility] [address], [place] [address], Ph. 05/07/2020 Hypertensive Disorder; Biologic Cardiac Valve Prosthesis in Situ; Dementia Elliot Hernadez MD: [address], [place] [address], Ph. 04/29/2020 Adjustment Disorder with Mixed Disturbance of Emotions and Conduct JOHN ChristopherW-R: [address] , [place] [address], Ph. 04/09/2020 Psychophysiologic Insomnia Elliot Hernadez MD: [address], [place] [address], Ph. 03/13/2020 Adjustment Disorder with Mixed Disturbance of Emotions and Conduct Leta Fernando, AFLOAT CRYPTOLOGIC MANAGER-R: [address] [facility], [facility] [address], [place] [address], Ph. 01/16/2020 Elliot Hernadez MD: [address] [place] [address], Ph. 01/14/2020 Tuberculosis Screening Hardik Serra RPA-C: [address] [facility], [facility] [address], [place] [address], Ph. 12/26/2019 Adjustment Disorder with Mixed Disturbance of Emotions and Conduct Leta Fernando, AFLOAT CRYPTOLOGIC MANAGER-R: [address] [facility] [address], [place] [address], Ph. Social History Tobacco Smoking Status Never Smoker Vaccine List Vaccine Type influenza, injectable, quadrivalent, pre servative free .5 mL Plan of Care Reminders Provider Appointments None recorded. Lab None recorded. Referral None recorded. Procedures None recorded. Surgeries None recorded. Imaging None recorded. Vitals 12/03/2020 01:40PM MEDICAL CLEARANCE Height Weight BMI Blood Pressure 60 in 183 lbs 9.6 oz 35.9 kg/m2 116/67 mm[Hg ] 10/23/2020 01:20PM ESTABLISHED [id number] Height Weight BMI Blood Pressure 60 in 188 lbs 36.7 kg/m2 113/61 mm[Hg] 09/30/2020 02:20PM ESTABLISHED [id number] Height Weight BMI Blood Pressure 60 in 181 lbs 35.3 kg/m2 144/80 mm[Hg] 09/02/2020 11:00AM SAME DAY 20 Height Weight BMI Blood Pressure 60 in 180 lbs 35.2 kg/m2 129/65 mm[Hg] 08/19/2020 11:40AM TELEHEALTH 20 Height 60 in 07/23/2020 01:10PM ESTABLISHED [id number] Height Weight BMI Blood Pressure 60 in 185 lbs 2 oz 36.2 kg/m2 126/58 mm[Hg] 05/07/2020 02:00PM ESTABLISHED [id number] Height Weight BMI Blood Pressure 60 in 182 lbs 9.6 oz 35.7 kg/m2 164/79 mm[Hg ] 04/09/2020 02:00PM TELEHEALTH 20 Height 60 in 11/29/2019 Height Weight BMI Blood Pressure 60 in 177 lbs 3.2 oz 34.73 kg/m2 159/73 mm[Hg ] 11/21/2019 Height Weight BMI Blood Pressure 60 in 182 lbs 9.6 oz 35.79 kg/m2 127/68 mm[Hg ] 11/14/2019 Height Weight BMI Blood Pressure 60 in 179 lbs 3.2 oz 35.12 kg/m2 163/85 mm[Hg ] 10/29/2019 Height Weight BMI Blood Pressure 60 in 178 lbs 6.4 oz 34.97 kg/m2 166/77 mm[Hg ] 10/04/2019 Height Weight BMI Blood Pressure 60 in 181 lbs 4 oz 35.53 kg/m2 138/73 mm[Hg] 09/21/2019 Height Weight BMI Blood Pressure 60 in 178 lbs 3.2 oz 34.93 kg/m2 156/74 mm[Hg ] 09/13/2019 Height Weight BMI Blood Pressure 60 in 176 lbs 2.08 oz 34.52 kg/m2 153/76 mm[H g] 09/04/2019 Height Weight BMI Blood Pressure 60 in 175 lbs 34.30 kg/m2 144/80 mm[Hg]
--- OUTSIDE RECORDS SUMMARY | 2020-12-19 06:36 | CCD ---
Author Organization Unknown Address [address] [place] [address] Phone [phone] Care Team Providers Care Water Filterer Helper Name Role Phone Hardik Serra Unavailable Unavailable [...] day by oral route. Active Not available diclofenac 1 % topical [...] Not avai lable memantine 5 mg tablet Take 1 tablet every day by oral route. Active Not available [employer] COVID-19 Vaccine (PF) 30 mcg/0.3 mL IM [...] Protein Derivative), Skin Test No observation recorded. [facility] Medical: [address] [facility] [address], [place] Past Encounters 11/20/2020 Adjustment Disorder with Mixed Disturbance of Emotions and Conduct; Dementia Leta Fernando, ALTERATIONS SEWER-R: [address] [facility], [facility] [address], [place] [address], Ph. 10/23/2020 Adjustment Insomnia; Biologic Cardiac Valve Prosthesis in Situ; First Degree Atrioventricular Block; Hypertensive Disorder; Generalized Anxiety Disorder; Idiopathic Osteoarthritis Hardik Serra, RPA-C: [address], [facility] [address], [place] [address], Ph. 10/08/2020 Adjustment Disorder with Mixed Disturbance of Emotions and Conduct; Dementia Leta Fernando, ALTERATIONS SEWER-R: [address], [facility] [address], [place] [address], Ph. 09/30/2020 Psychophysiologic Insomnia; Anterior Rhinorrhea; Muscle Fatigue Hardik Serra, RPA-C: [address] , [facility] [address], [place] [address], Ph. 09/10/2020 Adjustment Disorder with Mixed Disturbance of Emotions and Conduct; Dementia Leta Fernando, ALTERATIONS SEWER-R: [address] , [facility] [address], [place] [address], Ph. 09/02/2020 Idiopathic Osteoarthritis; Chronic Low Back Pain; Muscle Fatigue; Generalized Anxiety Disorder; Hypertensive Disorder Hardik Serra, RPA-C: [address], [address], [place] [address], Ph. 08/19/2020 Idiopathic Osteoarthritis Hardik Serra, RPA-C: [address], [facility] [address], [place] [address], Ph. 07/23/2020 Unsteady When Walking; Idiopathic Osteoarthritis; Adjustment Disorder with Mixed Disturbance of Emotions and Conduct; Dementia; Mild Memory Disturbance; Biologic Cardiac Valve Prosthesis in Situ; Hypertensive Disorder; Sleep Related Hypoxemia Hardik Serra, RPA-C: [address] [facility], [facility] [address], [place] [address], Ph. 07/17/2020 Adjustment Disorder with Mixed Disturbance of Emotions and Conduct; Dementia Leta Palmaxine ALTERATIONS SEWER-R: [address] [facility], [facility] [address], [place] [address], Ph. 05/21/2020 Adjustment Disorder with Mixed Disturbance of Emotions and Conduct; Dementia Leta PalJOHN goodmanW-R: [address] [facility], [facility] [address], [place] [address], Ph. 05/07/2020 Hypertensive Disorder; Biologic Cardiac Valve Prosthesis in Situ; Dementia Elliot Hernadez MD: [address] [facility], [facility] [address], [place] [address], Ph. 04/29/2020 Adjustment Disorder with Mixed Disturbance of Emotions and Conduct Leta JOHN FernandoW-R: [address] [place] [address], Ph. 04/09/2020 Psychophysiologic Insomnia Elliot Hernadez MD: [address] [facility], [facility] [address], [place] [address], Ph. 03/13/2020 Adjustment Disorder with Mixed Disturbance of Emotions and Conduct JOHN ChristopherW-R: [address] [facility] [address], [place] [address], Ph. 01/16/2020 Elliot Hernadez MD: [address] [place] [address], Ph. 01/14/2020 Tuberculosis Screening Hardik Serra, RPA-C: [address], [facility] [address], [place] [address], Ph. 12/26/2019 Adjustment Disorder with Mixed Disturbance of Emotions and Conduct Leta Fernando LCSW-R: [address] , [facility] [address], [place] [address], Ph. Social History Tobacco Smoking Status Never Smoker Vaccine List Vaccine Type influenza, injectable, quadrivalent, pre servative free .5 mL Plan of Care Reminders Provider Appointments None recorded. Lab None recorded. Referral None recorded. Procedures None recorded. Surgeries None recorded. Imaging None recorded. Vitals 10/23/2020 01:20PM ESTABLISHED [id number] Height Weight BMI Blood Pressure 60 in 188 lbs 36.7 kg/m2 113/61 mm[Hg] 09/30/2020 02:20PM ESTABLISHED [id number] Height Weight BMI Blood Pressure 60 in 181 lbs 35.3 kg/m2 144/80 mm[Hg] 09/02/2020 11:00AM SAME DAY 20 Height Weight BMI Blood Pressure 60 in 180 lbs 35.2 kg/m2 129/65 mm[Hg] 08/19/2020 11:40AM TELEHEALTH 20 Height 60 in 07/23/2020 01:10PM ESTABLISHED [id number] Height Weight BMI Blood Pressure 60 in 185 lbs 2 oz 36.2 kg/m2 126/58 mm[Hg] 05/07/2020 02:00PM ESTABLISHED [id number] Height Weight BMI Blood Pressure 60 in [...]
--- OUTSIDE RECORDS SUMMARY | 2020-12-19 06:36 | CCD ---
Author Organization Unknown Address [address] [place] [address] Phone [phone] Care Team Providers Care Signal Integrity Engineer Name Role Phone Hardik Serra Unavailable Unavailable [...] day by oral route. Active Not available [employer] COVID-19 Vaccine (PF) 30 mcg/0.3 mL IM [...] Protein Derivative), Skin Test No observation recorded. [facility]: [address] [facility] [address], [place] Past Encounters 12/03/2020 Pre-surgery Evaluation; Impacted Cerumen of Bilateral Ears Hardik Serra RPA-C: [address] [facility], [facility] [address], [place] [address], Ph. 11/20/2020 Adjustment Disorder with Mixed Disturbance of Emotions and Conduct; Dementia Leta JOHN FernandoW-R: [address] [facility], [facility] [address], [place] [address], Ph. 10/23/2020 Adjustment Insomnia; Biologic Cardiac Valve Prosthesis in Situ; First Degree Atrioventricular Block; Hypertensive Disorder; Generalized Anxiety Disorder; Idiopathic Osteoarthritis Hardik Serra RPA-C: [address] [facility], [facility] [address], [place] [address], Ph. 10/08/2020 Adjustment Disorder with Mixed Disturbance of Emotions and Conduct; Dementia Leta JOHN FernandoW-R: [address] [facility], [facility] [address], [place] [address], Ph. 09/30/2020 Psychophysiologic Insomnia; Anterior Rhinorrhea; Muscle Fatigue Hardik Serra RPA-C: [address] [facility], [facility] [address], [place] [address], Ph. 09/10/2020 Adjustment Disorder with Mixed Disturbance of Emotions and Conduct; Dementia JOHN ChristopherW-R: [address] [facility], [facility] [address], [place] [address], Ph. 09/02/2020 Idiopathic Osteoarthritis; Chronic Low Back Pain; Muscle Fatigue; Generalized Anxiety Disorder; Hypertensive Disorder Hardik English Ponce RPA-C: [address], [facility] [address], [place] [address], Ph. 08/19/2020 Idiopathic Osteoarthritis Hardik Serra RPA-C: [address] [facility], [facility] [address], [place] [address], Ph. 07/23/2020 Unsteady When Walking; Idiopathic Osteoarthritis; Adjustment Disorder with Mixed Disturbance of Emotions and Conduct; Dementia; Mild Memory Disturbance; Biologic Cardiac Valve Prosthesis in Situ; Hypertensive Disorder; Sleep Related Hypoxemia Hardik D Ponce RPA-C: [address], [facility] [address], [place] [address], Ph. 07/17/2020 Adjustment Disorder with Mixed Disturbance of Emotions and Conduct; Dementia JOHN ChristopherW-R: [address], [facility] [address], [place] [address], Ph. 05/21/2020 Adjustment Disorder with Mixed Disturbance of Emotions and Conduct; Dementia JOHN ChristopherW-R: [address], [facility] [address], [place] [address], Ph. 05/07/2020 Hypertensive Disorder; Biologic Cardiac Valve Prosthesis in Situ; Dementia Elliot Hernadez MD: [address] [facility], [facility] [address], [place] [address], Ph. 04/29/2020 Adjustment Disorder with Mixed Disturbance of Emotions and Conduct JOHN ChristopherW-R: [address] [place] [address], Ph. 04/09/2020 Psychophysiologic Insomnia Elliot Hernadez MD: [address] [facility] [address], [place] [address], Ph. 03/13/2020 Adjustment Disorder with Mixed Disturbance of Emotions and Conduct Leta Fernando LCSW-R: [address], [facility] [address], [place] [address], Ph. 01/16/2020 Elliot Hernadez MD: [address] [place] [address], Ph. 01/14/2020 Tuberculosis Screening Hardik Serra, [facility]-C: [address] [facility], [facility] [address], [place] [address], Ph. 12/26/2019 Adjustment Disorder with Mixed Disturbance of Emotions and Conduct Leta Fernando, CERTIFIED FLEX ENDOSCOPE REPROCESSOR-R: [address] [facility], [facility] [address], [place] [address], Ph. Social History Tobacco Smoking Status Never [...] kg/m2 116/67 mm[Hg ] 10/23/2020 01:20PM ESTABLISHED [id number] Height Weight BMI Blood Pressure 60 in 188 lbs 36.7 kg/m2 113/61 mm[Hg] 09/30/2020 02:20PM ESTABLISHED [id number] Height Weight BMI Blood Pressure 60 in 181 lbs 35.3 kg/m2 144/80 mm[Hg] 09/02/2020 11:00AM SAME DAY 20 Height Weight BMI Blood Pressure 60 in 180 lbs 35.2 kg/m2 129/65 mm[Hg] 08/19/2020 11:40AM TELEHEALTH 20 Height 60 in 07/23/2020 01:10PM ESTABLISHED [id number] Height Weight BMI Blood Pressure 60 in 185 lbs 2 oz 36.2 kg/m2 126/58 mm[Hg] 05/07/2020 02:00PM ESTABLISHED [id number] Height Weight BMI Blood Pressure 60 in [...]
--- OUTSIDE RECORDS SUMMARY | 2020-12-19 06:36 | CCD ---
Author Organization Unknown Address [address] [place] [address] Phone [phone] Care Team Providers Care Lcac Operator Name Role Phone Hardik Serra Unavailable Unavailable [...] day by ophthalmic route. Active Not available diclofenac 1 % topical gel Completed 07/23 dorzolamide 22.3 mg-timolol 6.8 mg/mL eye drops Active Not available escitalopram 10 mg tablet Active Not av ailable escitalopram 5 mg tablet Completed 020 esomeprazole magnesium 20 mg capsule,delayed release Active Not available Eucerin Original lotion Apply 1 application 3 times a day by topical route as needed. Active Not available hydroxyzine HCl 25 mg tablet Completed hydroxyzine HCl 50 mg tablet Completed indapamide 1.25 mg tablet Active Not av ailable isosorbide mononitrate ER 30 mg tablet,extended release 24 hr Ac tive Not available lidocaine 5 % topical patch APPLY 1 PATCH BY TOPICAL ROUTE ONCE DAILY (MAY WEAR UP TO 12HOURS.) Completed 07/23/2020 losartan 100 mg tablet Take 1 tablet every day by oral route at bedtime for 90 days. Active Not available meloxicam 7.5 mg tablet Active Not avai lable memantine 5 mg tablet Active Not availa ble [employer] COVID-19 Vaccine (PF) 30 mcg/0.3 mL IM suspension(EUA) ADMINISTER 0.3ML IN THE MUSCLE DIRECTED Active Not available potassium chloride ER 20 mEq tablet,exte nded release Take 1 tablet every day by oral route at bedtime. Active Not available potassium chloride ER 20 mEq tablet,exte nded release(part/cryst) Take 1 tablet every day by oral route. Active Not available ramelteon 8 mg tablet Completed 01/16/2020 Shingrix (PF) 50 mcg/0.5 mL intramuscular suspension, kit Active Not available trazodone 50 mg tablet Take 1.5 tablets every day by oral route at bedtime. Active Not available Tums 200 mg calcium (500 [...] Derivative), Skin Test No observation recorded. [facility] Medical: [address] [facility] [address], [place] Past Encounters 09/30/2020 Psychophysiologic Insomnia; Anterior Rhinorrhea; Muscle Fatigue Hardik Serra, RPA-C: [address] [facility], [facility] [address], [place] [address], Ph. 09/10/2020 Adjustment Disorder with Mixed Disturbance of Emotions and Conduct; Dementia Leta JOHN FernandoW-R: [address] [facility], [facility] [address], [place] [address], Ph. 09/02/2020 Idiopathic Osteoarthritis; Chronic Low Back Pain; Muscle Fatigue; Generalized Anxiety Disorder; Hypertensive Disorder Hardik Serra, RPA-C: [address] [facility], [facility] [address], [place] [address], Ph. 08/19/2020 Idiopathic Osteoarthritis Hardik Serra RPA-C: [address] [facility] [address], [place] [address], Ph. 07/23/2020 Unsteady When Walking; Idiopathic Osteoarthritis; Adjustment Disorder with Mixed Disturbance of Emotions and Conduct; Dementia; Mild Memory Disturbance; Biologic Cardiac Valve Prosthesis in Situ; Hypertensive Disorder; Sleep Related Hypoxemia Hardik Serra, RPA-C: [address] [facility], [facility] [address], [place] [address], Ph. 07/17/2020 Adjustment Disorder with Mixed Disturbance of Emotions and Conduct; Dementia Leta JOHN FernandoW-R: [address] [facility], [facility] [address], [place] [address], Ph. 05/21/2020 Adjustment Disorder with Mixed Disturbance of Emotions and Conduct; Dementia Leta MARILUZ Fernando-R: [address] [facility], [facility] [address], [place] [address], Ph. 05/07/2020 Hypertensive Disorder; Biologic Cardiac Valve Prosthesis in Situ; Dementia Elliot Hernadez MD: [address] [facility], [facility] [address], [place] [address], Ph. 04/29/2020 Adjustment Disorder with Mixed Disturbance of Emotions and Conduct Leta Palman, WAX POURER-R: [address] [place] [address], Ph. 04/09/2020 Psychophysiologic Insomnia Elliot Hernadez MD: [address] [facility], [facility] [address], [place] [address], Ph. 03/13/2020 Adjustment Disorder with Mixed Disturbance of Emotions and Conduct Leta Fernando, WAX POURER-R: [address] [facility], [facility] [address], [place] [address], Ph. 01/16/2020 Elliot Hernadez MD: [address] [place] [address], Ph. 01/14/2020 Tuberculosis Screening Hardik Serra, NOHELIA-C: [address] [facility], [facility] [address], [place] [address], Ph. 12/26/2019 Adjustment Disorder with Mixed Disturbance of Emotions and Conduct Leta PalJOHN goodmanW-R: [address] [facility] [address], [place] [address], Ph. Social History Tobacco Smoking Status Never Smoker Vaccine List Vaccine Type influenza, injectable, quadrivalent, pre servative free .5 mL Plan of Care Reminders Provider Appointments None recorded. Lab None recorded. Referral None recorded. Procedures None recorded. Surgeries None recorded. Imaging None recorded. Vitals 09/30/2020 02:20PM ESTABLISHED [id number] Height Weight BMI Blood Pressure 60 in 181 lbs 35.3 kg/m2 144/80 mm[Hg] 09/02/2020 11:00AM SAME DAY 20 Height Weight BMI Blood Pressure 60 in 180 lbs 35.2 kg/m2 129/65 mm[Hg] 08/19/2020 11:40AM TELEHEALTH 20 Height 60 in 07/23/2020 01:10PM ESTABLISHED [id number] Height Weight BMI Blood Pressure 60 in 185 lbs 2 oz 36.2 kg/m2 126/58 mm[Hg] 05/07/2020 02:00PM ESTABLISHED [id number] Height Weight BMI Blood Pressure 60 in [...]
--- OUTSIDE RECORDS SUMMARY | 2020-12-19 06:36 | CCD ---
Author Organization Unknown Address [address] [place] [address] Phone [phone] Care Team Providers Care Filter Tender Name Role Phone Hardik Serra Unavailable Unavailable [...] 5 mg tablet Active Not availa ble [employer] COVID-19 Vaccine (PF) 30 mcg/0.3 mL IM suspension(EUA) ADMINISTER 0.3ML IN THE MUSCLE DIRECTED Completed 10/07/2020 potassium chloride ER 20 mEq tablet,exte nded [...] Skin Test No observation recorded. [facility] Medical: [address] [facility] [address], [place] Past Encounters 10/23/2020 Adjustment Insomnia; Biologic Cardiac Valve Prosthesis in Situ; First Degree Atrioventricular Block; Hypertensive Disorder; Generalized Anxiety Disorder; Idiopathic Osteoarthritis Hardik Amador Serra, RPA-C: [address] [facility], [facility] [address], [place] [address], Ph. 10/08/2020 Adjustment Disorder with Mixed Disturbance of Emotions and Conduct; Dementia Leta JOHN FernandoW-R: [address] [facility], [facility] [address], [place] [address], Ph. 09/30/2020 Psychophysiologic Insomnia; Anterior Rhinorrhea; Muscle Fatigue Hardik Serra, RPA-C: [address] [facility], [facility] [address], [place] [address], Ph. 09/10/2020 Adjustment Disorder with Mixed Disturbance of Emotions and Conduct; Dementia JOHN ChristopherW-R: [address] [facility], [facility] [address], [place] [address], Ph. 09/02/2020 Idiopathic Osteoarthritis; Chronic Low Back Pain; Muscle Fatigue; Generalized Anxiety Disorder; Hypertensive Disorder Hardik Serra, RPA-C: [address] [facility], [facility] [address], [place] [address], Ph. 08/19/2020 Idiopathic Osteoarthritis Hardik Serra RPA-C: [address] [facility] [address], [place] [address], Ph. 07/23/2020 Unsteady When Walking; Idiopathic Osteoarthritis; Adjustment Disorder with Mixed Disturbance of Emotions and Conduct; Dementia; Mild Memory Disturbance; Biologic Cardiac Valve Prosthesis in Situ; Hypertensive Disorder; Sleep Related Hypoxemia Hardik Serra RPA-C: [address] [facility], [facility] [address], [place] [address], Ph. 07/17/2020 Adjustment Disorder with Mixed Disturbance of Emotions and Conduct; Dementia JOHN ChristopherW-R: [address] [facility], [facility] [address], [place] [address], Ph. 05/21/2020 Adjustment Disorder with Mixed Disturbance of Emotions and Conduct; Dementia Leta JOHN FernandoW-R: [address] [facility], [facility] [address], [place] [address], Ph. 05/07/2020 Hypertensive Disorder; Biologic Cardiac Valve Prosthesis in Situ; Dementia Elliot Hernadez MD: [address] [facility], [facility] [address], [place] [address], Ph. 04/29/2020 Adjustment Disorder with Mixed Disturbance of Emotions and Conduct JOHN ChristopherW-R: [address] [place] [address], Ph. 04/09/2020 Psychophysiologic Insomnia Elliot Hernadez MD: [address] [facility], [facility] [address], [place] [address], Ph. 03/13/2020 Adjustment Disorder with Mixed Disturbance of Emotions and Conduct Leta Fernando LCSW-R: [address] [facility], [facility] [address], [place] [address], Ph. 01/16/2020 Elliot Hernadez MD: [address] [place] [address], Ph. 01/14/2020 Tuberculosis Screening JESIKA MorelC: [address] [facility], [facility] [address], [place] [address], Ph. 12/26/2019 Adjustment Disorder with Mixed Disturbance of Emotions and Conduct JOHN ChristopherW-R: [address] [facility] [address], [place] [address], Ph. Social History Tobacco Smoking Status Never Smoker Vaccine List Vaccine Type influenza, injectable, quadrivalent, pre servative free .5 mL Plan of Care Reminders Provider Appointments None recorded. Lab None recorded. Referral None recorded. Procedures None recorded. Surgeries None recorded. Imaging None recorded. Vitals 10/23/2020 01:20PM ESTABLISHED [id number] Height Weight BMI Blood Pressure 60 in 188 lbs 36.7 kg/m2 113/61 mm[Hg] 09/30/2020 02:20PM ESTABLISHED [id number] Height Weight BMI Blood Pressure 60 in 181 lbs 35.3 kg/m2 144/80 mm[Hg] 09/02/2020 11:00AM SAME DAY 20 Height Weight BMI Blood Pressure 60 in 180 lbs 35.2 kg/m2 129/65 mm[Hg] 08/19/2020 11:40AM TELEHEALTH 20 Height 60 in 07/23/2020 01:10PM ESTABLISHED [id number] Height Weight BMI Blood Pressure 60 in 185 lbs 2 oz 36.2 kg/m2 126/58 mm[Hg] 05/07/2020 02:00PM ESTABLISHED [id number] Height Weight BMI Blood Pressure 60 in [...]
--- OUTSIDE RECORDS SUMMARY | 2020-12-19 06:36 | CCD ---
Author Organization Unknown Address [address] [place] [address] Phone [phone] Care Team Providers Care Direct Sales Consultant Name Role Phone Hardik Serra Unavailable Unavailable [...] 5 mg tablet Active Not availa ble [employer] COVID-19 Vaccine (PF) 30 mcg/0.3 mL IM [...] Protein Derivative), Skin Test No observation recorded. [facility] Medical: [address] [facility] [address], [place] Past Encounters 10/23/2020 Hardik Serra RPA-C: [address] [facility] [address], [place] [address], Ph. 10/08/2020 Adjustment Disorder with Mixed Disturbance of Emotions and Conduct; Dementia JOHN ChristopherW-R: [address] [facility] [address], [place] [address], Ph. 09/30/2020 Psychophysiologic Insomnia; Anterior Rhinorrhea; Muscle Fatigue Hardik Serra RPA-C: [address] [facility] [address], [place] [address], Ph. 09/10/2020 Adjustment Disorder with Mixed Disturbance of Emotions and Conduct; Dementia Leta MARILUZ Fernando-R: [address] [facility] [address], [place] [address], Ph. 09/02/2020 Idiopathic Osteoarthritis; Chronic Low Back Pain; Muscle Fatigue; Generalized Anxiety Disorder; Hypertensive Disorder Hardik Serra RPA-C: [address] [facility] [address], [place] [address], Ph. 08/19/2020 Idiopathic Osteoarthritis Hardik Serra RPA-C: [address] [facility] [address] [place] [address], Ph. 07/23/2020 Unsteady When Walking; Idiopathic Osteoarthritis; Adjustment Disorder with Mixed Disturbance of Emotions and Conduct; Dementia; Mild Memory Disturbance; Biologic Cardiac Valve Prosthesis in Situ; Hypertensive Disorder; Sleep Related Hypoxemia Hardik Serra RPA-C: [address] [facility] [address], [place] [address], Ph. 07/17/2020 Adjustment Disorder with Mixed Disturbance of Emotions and Conduct; Dementia Leta MARILUZ Fernando-R: [address] [facility] [address], [place] [address], Ph. 05/21/2020 Adjustment Disorder with Mixed Disturbance of Emotions and Conduct; Dementia JOHN ChristopherW-R: [address] [facility], [facility] [address], [place] [address], Ph. 05/07/2020 Hypertensive Disorder; Biologic Cardiac Valve Prosthesis in Situ; Dementia Elliot Hernadez MD: [address] [facility], [facility] [address], [place] [address], Ph. 04/29/2020 Adjustment Disorder with Mixed Disturbance of Emotions and Conduct JOHN ChristopherW-R: [address] [place] [address], Ph. 04/09/2020 Psychophysiologic Insomnia Elliot Hernadez MD: [address] [facility], [facility] [address], [place] [address], Ph. 03/13/2020 Adjustment Disorder with Mixed Disturbance of Emotions and Conduct JOHN ChristopherW-R: [address] [facility], [facility] [address], [place] [address], Ph. 01/16/2020 Elliot Hernadez MD: [address] [place] [address], Ph. 01/14/2020 Tuberculosis Screening Hardik Serra RPA-C: [address] [facility], [facility] [address], [place] [address], Ph. 12/26/2019 Adjustment Disorder with Mixed Disturbance of Emotions and Conduct JOHN ChristopherW-R: [address] [facility], [facility] [address], [place] [address], Ph. Social History Tobacco Smoking Status Never Smoker Vaccine List Vaccine Type influenza, injectable, quadrivalent, pre servative free .5 mL Plan of Care Reminders Provider Appointments None recorded. Lab None recorded. Referral None recorded. Procedures None recorded. Surgeries None recorded. Imaging None recorded. Vitals 10/23/2020 01:20PM ESTABLISHED [id number] Height Weight BMI Blood Pressure 60 in 188 lbs 36.7 kg/m2 113/61 mm[Hg] 09/30/2020 02:20PM ESTABLISHED [id number] Height Weight BMI Blood Pressure 60 in 181 lbs 35.3 kg/m2 144/80 mm[Hg] 09/02/2020 11:00AM SAME DAY 20 Height Weight BMI Blood Pressure 60 in 180 lbs 35.2 kg/m2 129/65 mm[Hg] 08/19/2020 11:40AM TELEHEALTH 20 Height 60 in 07/23/2020 01:10PM ESTABLISHED [id number] Height Weight BMI Blood Pressure 60 in 185 lbs 2 oz 36.2 kg/m2 126/58 mm[Hg] 05/07/2020 02:00PM ESTABLISHED [id number] Height Weight BMI Blood Pressure 60 in [...]
--- OUTSIDE RECORDS SUMMARY | 2020-12-19 06:36 | CCD | Continuity of Care Document ---
Author Author Krishan COFFEYC Organization Unknown Address [address] [place] [address], [place] [address] Phone [phone] Care Team Providers Care Manager Social Work Name Role Phone Hardik Serra AUTM [phone] Stewart Garcia DO AUTM [phone] Elliot Hernadez MD AUTM [phone] Problems Active Problems Provider Date Dizziness and [...] Available Procedures Date Code Description Status 12/05/2020 60177 Office/Outpatient Established Mo d MDM 30-39 Min Completed 12/05/2020 67557 ECG 12-Lead Completed Medical Devices Description No [...] syndrome Macy bacon PA-C Plan of Treatment 12/05/2020 - Macy Coffey PA-C* I10 Essential (primary) hypertension * Z95.3 Presence of xenogenic heart valve* Recommendations:* You require antibiotics prior to any dental work and some surgical procedures. * I49.5 Sick sinus syndrome Functional Status Functional Condition Comment Date Status Independent with all ADL's Activ e Mental Status Description No Information Available Referrals Description No Information Available
--- OUTSIDE RECORDS SUMMARY | 2020-12-19 06:37 | CCD ---
Author Author [facility] Organization [facility] Address Unknown Phone Unavailable Care Team Providers Care Head Of Store Operations Name Role Phone Amador Hernadez MD Unavailable Unavailable Amador Hernadez MD Unavailable Unavailable Amador Hernadez MD Unavailable Unavailable Amador Hernadez MD Unavailable Unavailable Amador Hernadez MD Unavailable Unavailable Amador Hernadez MD Unavailable Unavailable Amador Hernadez MD Unavailable Unavailable Amador Hernadez MD Unavailable Unavailable Amador Hernadez MD Unavailable Unavailable Amador Hernadez MD Unavailable Unavailable Amador Hernadez MD Unavailable Unavailable Amador Hernadez MD Unavailable Unavailable Amador Hernadez MD Unavailable Unavailable Amador Hernadez MD Unavailable Unavailable Amador Hernadez MD Unavailable Unavailable Amador Hernadez MD Unavailable Unavailable Amador Hernadez MD Unavailable Unavailable Amador Hernadez MD Unavailable Unavailable Amador Hernadez MD Unavailable Unavailable Amador Hernadez MD Unavailable Unavailable Amador Hernadez MD Unavailable Unavailable Amador Hernadez MD Unavailable Unavailable Amador Hernadez MD Unavailable Unavailable Amador Hernadez MD Unavailable Unavailable Amador Hernadez MD Unavailable Unavailable Amador Hernadez MD Unavailable Unavailable Amador Hernadez MD Unavailable Unavailable Amador Hernadez MD Unavailable Unavailable Amador Hernadez MD Unavailable Unavailable Amador Hernadez MD Unavailable Unavailable Amador Hernadez MD Unavailable Unavailable Amador Hernadez MD Unavailable Unavailable Amador Hernadez MD Unavailable Unavailable Amador Hernadez MD Unavailable Unavailable Amador Hernadez MD Unavailable Unavailable Amador Hernadez MD Unavailable Unavailable Amador Hernadez MD Unavailable Unavailable Amador Hernadez MD Unavailable Unavailable Amador Hernadez MD Unavailable Unavailable Amador Hernadez MD Unavailable Unavailable Amador Hernadez MD Unavailable Unavailable Amador Hernadez MD Unavailable Unavailable Amador Hernadez MD Unavailable Unavailable Amador Hernadez MD Unavailable Unavailable Hernadez, Amador Zarate MD Unavailable Unavailable Hernadez, Amador Zarate MD Unavailable Unavailable Hernadez, Amador Zarate MD Unavailable Unavailable Herandez, Amador Zarate MD Unavailable Unavailable Hernadez, Amador Zarate MD Unavailable Unavailable Hernadez, Amador Zarate MD Unavailable Unavailable Hernadez, Amador Zarate MD Unavailable Unavailable Hernadez, Amador Zarate MD Unavailable Unavailable Hernadez, Amador Zarate MD Unavailable Unavailable Hernadez, Amador Zarate MD Unavailable Unavailable Hernadez, Amador Zarate MD Unavailable Unavailable Hernadez, Amador Zarate MD Unavailable Unavailable Hernadez, Amador Zarate MD Unavailable Unavailable Hernadez, Amador Zarate MD Unavailable Unavailable Hernadez, Amador Zarate MD Unavailable Unavailable Hernadez, Amador Zarate MD Unavailable Unavailable Hernadez, Amador Zarate MD Unavailable Unavailable Hernadez, Amador Zarate MD Unavailable Unavailable Hernadez, Amador Zarate MD Unavailable Unavailable Hernadez, Amador Zarate MD Unavailable Unavailable Hernadez, Amador Zarate MD Unavailable Unavailable Hernadez, Amador Zarate MD Unavailable Unavailable Hernadez, Amador Zarate MD Unavailable Unavailable Hernadez, Amador Zarate MD Unavailable Unavailable Hernadez, Amador Zarate MD Unavailable Unavailable Hernadez, Amador Zarate MD Unavailable Unavailable Hernadez, Amador Zarate MD Unavailable Unavailable Hernadez, Amador Zarate MD Unavailable Unavailable Hernadez, Amador Zarate MD Unavailable Unavailable Hernadez, Amador Zarate MD Unavailable Unavailable Hernadez, Amador Zarate MD Unavailable Unavailable Hernadez, Amador Zarate MD Unavailable Unavailable Hernadez, Amador Zarate MD Unavailable Unavailable Hernadez, Amador Zarate MD Unavailable Unavailable Hernadez, Amador Zarate MD Unavailable Unavailable Hernadez, Amador Zarate MD Unavailable Unavailable Hernadez, Amador Zarate MD Unavailable Unavailable Hernadez, Amador Zarate MD Unavailable Unavailable Hernadez, Amador Zarate MD Unavailable Unavailable Hernadez, Amador Zarate MD Unavailable Unavailable Hernadez, Amador Zarate MD Unavailable Unavailable Hernadez, Amador Zarate MD Unavailable Unavailable Hernadez, Amador Zarate MD Unavailable Unavailable Hernadez, Amador Zarate MD Unavailable Unavailable HernadezAmador MD Unavailable Unavailable Hernadez, Amador Zarate MD Unavailable Unavailable Hernadez, Amador Zarate MD Unavailable Unavailable Hernadez, Amador Zarate MD Unavailable Unavailable Hernadez, Amador Zarate MD Unavailable Unavailable SERRA, CARLOS ENRIQUE HARDIK RPA-C Unavailable Unavailable SERRA, CARLOS ENRIQUE HARDIK RPA-C Unavailable Unavailable SERRA, CARLOS ENRIQUE HARDIK RPA-C Unavailable Unavailable SERRA, CARLOS ENRIQUE HARDIK RPA-C Unavailable Unavailable SERRA, CARLOS ENRIQUE HARDIK RPA-C Unavailable Unavailable SERRA, CARLOS ENRIQUE HARDIK RPA-C Unavailable Unavailable SERRA, CARLOS ENRIQUE HARDIK RPA-C Unavailable Unavailable SERRA, CARLOS ENRIQUE HARDIK RPA-C Unavailable Unavailable SERRA, CARLOS ENRIQUE HARDIK RPA-C Unavailable Unavailable SERRA, CARLOS ENRIQUE HARDIK RPA-C Unavailable Unavailable SERRA, CARLOS ENRIQUE HARDIK RPA-C Unavailable Unavailable SERRA, CARLOS ENRIQUE HARDIK RPA-C Unavailable Unavailable SERRA, CARLOS ENRIQUE HARDIK RPA-C Unavailable Unavailable SERRA, CARLOS ENRIQUE HARDIK RPA-C Unavailable Unavailable SERRA, CARLOS ENRIQUE HARDIK RPA-C Unavailable Unavailable SERRA, CARLOS ENRIQUE HARDIK RPA-C Unavailable Unavailable SERRA, CARLOS ENRIQUE HARDIK RPA-C Unavailable Unavailable SERRA, CARLOS ENRIQUE HARDIK RPA-C Unavailable Unavailable SERRA, CARLOS ENRIQUE HARDIK RPA-C Unavailable Unavailable SERRA, CARLOS ENRIQUE HARDIK RPA-C Unavailable Unavailable SERRA, CARLOS ENRIQUE HARDIK RPA-C Unavailable Unavailable SERRA, CARLOS ENRIQUE HARDIK RPA-C Unavailable Unavailable SERRA, CARLOS ENRIQUE HARDIK RPA-C Unavailable Unavailable SERRA, CARLOS ENRIQUE HARDIK RPA-C Unavailable Unavailable SERRA, CARLOS ENRIQUE HARDIK RPA-C Unavailable Unavailable SERRA, CARLOS ENRIQUE HARDIK RPA-C Unavailable Unavailable SERRA, CARLOS ENRIQUE HARDIK RPA-C Unavailable Unavailable SERRA, CARLOS ENRIQUE HARDIK RPA-C Unavailable Unavailable SERRA, CARLOS ENRIQUE HARDIK RPA-C Unavailable Unavailable SERRA, CARLOS ENRIQUE HARDIK RPA-C Unavailable Unavailable SERRA, CARLOS ENRIQUE HARDIK RPA-C Unavailable Unavailable SERRA, CARLOS ENRIQUE HARDIK RPA-C Unavailable Unavailable SERRA, CARLOS ENRIQUE HARDIK RPA-C Unavailable Unavailable SERRA, CARLOS ENRIQUE HARDIK RPA-C Unavailable Unavailable SERRA, CARLOS ENRIQUE HARDIK RPA-C Unavailable Unavailable SERRA, CARLOS ENRIQUE HARDIK RPA-C Unavailable Unavailable SERRA, CARLOS ENRIQUE HARDIK RPA-C Unavailable Unavailable SERRA, CARLOS ENRIQUE HARDIK RPA-C Unavailable Unavailable SERRA, CARLOS ENRIQUE HARDIK RPA-C Unavailable Unavailable SERRA, CARLOS ENRIQUE HARDIK RPA-C Unavailable Unavailable SERRA, CARLOS ENRIQUE HARDIK RPA-C Unavailable Unavailable SERRA, CARLOS ENRIQUE HARDIK RPA-C Unavailable Unavailable SERRA, CARLOS ENRIQUE HARDIK RPA-C Unavailable Unavailable SERRA, CARLOS ENRIQUE HARDIK RPA-C Unavailable Unavailable SERRA, CARLOS ENRIQUE HARIDK RPA-C Unavailable Unavailable SERRA, CARLOS ENRIQUE HARDIK RPA-C Unavailable Unavailable SERRA, CARLOS ENRIQUE HARDIK RPA-C Unavailable Unavailable SERRA, CARLOS ENRIQUE HARDIK RPA-C Unavailable Unavailable SERRA, CARLOS ENRIQUE HARDIK RPA-C Unavailable Unavailable SERRA, CARLOS ENRIQUE HARDIK RPA-C Unavailable Unavailable SERRA, CARLOS ENRIQUE HARDIK RPA-C Unavailable Unavailable SERRA, CARLOS ENRIQUE HARDIK RPA-C Unavailable Unavailable SERRA, CARLOS ENRIQUE HARDIK RPA-C Unavailable Unavailable SERRA, CARLOS ENRIQUE HARDIK RPA-C Unavailable Unavailable SERRA, CARLOS ENRIQUE HARDIK RPA-C Unavailable Unavailable SERRA, CARLOS ENRIQUE HARDIK RPA-C Unavailable Unavailable SERRA, CARLOS ENRIQUE HARDIK RPA-C Unavailable Unavailable SERRA, CARLOS ENRIQUE HARDIK RPA-C Unavailable Unavailable SERRA, CARLOS ENRIQUE HARDIK RPA-C Unavailable Unavailable SERRA, CARLOS ENRIQUE HARDIK RPA-C Unavailable Unavailable SERRA, CARLOS ENRIQUE HARDIK RPA-C Unavailable Unavailable SERRA, CARLOS ENRIQUE HARDIK RPA-C Unavailable Unavailable SERRA, CARLOS ENRIQUE HARDIK RPA-C Unavailable Unavailable SERRA, CARLOS ENRIQUE HARDIK RPA-C Unavailable Unavailable SERRA, CARLOS ENRIQUE HARDIK RPA-C Unavailable Unavailable SERRA, CARLOS ENRIQUE HARDIK RPA-C Unavailable Unavailable SERRA, CARLOS ENRIQUE HARDIK RPA-C Unavailable Unavailable SERRA, CARLOS ENRIQUE HARDIK RPA-C Unavailable Unavailable SERRA, CARLOS ENRIQUE HARDIK RPA-C Unavailable Unavailable SERRA, CARLOS ENRIQUE HARDIK RPA-C Unavailable Unavailable SERRA, CARLOS ENRIQUE HARDIK RPA-C Unavailable Unavailable SERRA, CARLOS ENRIQUE HARDIK RPA-C Unavailable Unavailable SERRA, CARLOS ENRIQUE HARDIK RPA-C Unavailable Unavailable SERRA, CARLOS ENRIQUE HARDIK RPA-C Unavailable Unavailable SERRA, CARLOS ENRIQUE HARDIK RPA-C Unavailable Unavailable SERRA, CARLOS ENRIQUE HARDIK RPA-C Unavailable Unavailable SERRA, CARLOS ENRIQUE HARDIK RPA-C Unavailable Unavailable SERRA, CARLOS ENRIQUE HARDIK RPA-C Unavailable Unavailable SERRA, CARLOS ENRIQUE HARDIK RPA-C Unavailable Unavailable SERRA, CARLOS ENRIQUE HARDIK RPA-C Unavailable Unavailable SERRA, CARLOS ENRIQUE HARDIK RPA-C Unavailable Unavailable SERRA, CARLOS ENRIQUE HARDIK RPA-C Unavailable Unavailable SERRA, CARLOS ENRIQUE HARDIK RPA-C Unavailable Unavailable SERRA, CARLOS ENRIQUE HARDIK RPA-C Unavailable Unavailable SERRA, CARLOS ENRIQUE HARDIK RPA-C Unavailable Unavailable SERRA, CARLOS ENRIQUE HARDIK RPA-C Unavailable Unavailable Symenow, Tatyana Cavazos PA Unavailable Unavailable Symenow, Tatyana Cavazos PA Unavailable Unavailable Symenow, Tatyana Cavazos PA Unavailable Unavailable Symenow, Tatyana Cavazos PA Unavailable Unavailable Symenow, Tatyana Cavazos PA Unavailable Unavailable Symenow, Tatyana Cavazos PA Unavailable Unavailable Symenow, Tatyana Cavazos PA Unavailable Unavailable Symenow, Tatyana Cavazos PA Unavailable Unavailable Symenow, Tatyana Cavazos PA Unavailable Unavailable Symenow, Tatyana Macy PA Unavailable Unavailable Symenow, Tatyana Macy PA Unavailable Unavailable Symenow, Tatyana Macy PA Unavailable Unavailable Symenow, Tatyana Macy PA Unavailable Unavailable Symenow, Tatyana Macy PA Unavailable Unavailable Symenow, Tatyana Macy PA Unavailable Unavailable Symenow, Tatyana Macy PA Unavailable Unavailable Symenow, Tatyana Macy PA Unavailable Unavailable Symenow, Tatyana Macy PA Unavailable Unavailable Symenow, Tatyana Macy PA Unavailable Unavailable Symenow, Tatyana Macy PA Unavailable Unavailable Symenow, Tatyana Macy PA Unavailable Unavailable Symenow, Tatyana Macy PA Unavailable Unavailable Symenow, Tatyana Macy PA Unavailable Unavailable Symenow, Tatyana Macy PA Unavailable Unavailable Symenow, Tatyana Macy PA Unavailable Unavailable Symenow, Tatyana Macy PA Unavailable Unavailable Symenow, Tatyana Macy PA Unavailable Unavailable Symenow, Tatyana Macy PA Unavailable Unavailable Symenow, Tatyana Macy PA Unavailable Unavailable Symenow, Tatyana Macy PA Unavailable Unavailable Symenow, Tatyana Macy PA Unavailable Unavailable Symenow, Tatyana Macy PA Unavailable Unavailable Symenow, Tatyana Macy PA Unavailable Unavailable Symenow, Tatyana Macy PA Unavailable Unavailable Fostveit, Leta Unavailable Unavailable Fostveit, Leta Unavailable Unavailable Re-disclosure Warning The records that you are about to access may contain information from federally-assisted alcohol or drug abuse programs. If such information is present, then the following federally mandated warning applies: This information has been disclosed to you from records protected by federal confidentiality rules (42 CFR part 2). The federal rules prohibit you from making any further disclosure of this information unless further disclosure is expressly permitted by the written consent of the person to whom it pertains or as otherwise permitted by 42 CFR part 2. A general authorization for the release of medical or other information is NOT sufficient for this purpose. The Federal rules restrict any use of the information to criminally investigate or prosecute any alcohol or drug abuse patient.The records that you are about to access may contain highly sensitive health information, the redisclosure of which is protected by Article 27-F of the [facility] Public Health law. If you continue you may have access to information: Regarding HIV / AIDS; Provided by facilities licensed or operated by the [facility] Office of Mental Health; or Provided by the [facility] Office for People With Developmental Disabilities. If such information is present, then the following [facility] mandated warning applies: This information has been disclosed to you from confidential records which are protected by state law. State law prohibits you from making any further disclosure of this information without the specific written consent of the person to whom it pertains, or as otherwise permitted by law. Any unauthorized further disclosure in violation of state law may result in a fine or correction sentence or both. A general authorization for the release of medical or other information is NOT sufficient authorization for further disc losure. Allergies and Adverse Reactions Type Description Substance Reaction Status Data Source(s ) Allergy to substance Allergy to substance Allergy to substance [facility]) Encounters Encounter Providers Location Date Indications Data Source(s ) Leta Fernando LCSW-R: [address], [place] [address], Ph. Attender: Leta Forrest [facility] 12/11/2020 12:00:00 AM EDT [place] ([facility]) Outpatient Attender: Macy GIVENS Main Office 12/05/2020 08:45:00 AM EDT [place] ([facility]) JESIKA MorelC: [address], [place] [address], Ph. Attender: HARDIK POWERS [facility] 12/03/2020 12:00:00 AM EDT [place] ([facility]) JESIKA MorelC: [address], [place] [address], Ph. Attender: HARDIK CANCHOLAC [facility] 12/03/2020 12:00:00 AM EDT [place] ([facility]) LetaJOHN BrownW-R: [address], [place] [address], Ph. Attender: Leta Forrest [facility] 11/20/2020 12:00:00 AM EDT [place] ([facility]) LetaJOHN BrownW-R: [address], [place] [address], Ph. Attender: Leta Forrest [facility] 11/20/2020 12:00:00 AM EDT [place] ([facility]) JOHN ChristopherW-R: [address], [place] [address], Ph. Attender: Leta Forrest [facility] 11/20/2020 12:00:00 AM EDT [place] ([facility]) Hardik Serra RPA-C: [address], [place] [address], Ph. Attender: HARDIK SERRA RPA-C [facility] 10/23/2020 12:00:00 AM EDT [place] ([facility]) Hardik Serra RPA-C: [address], [place] [address], Ph. Attender: HARDIK SERRA RPA-C [facility] 10/23/2020 12:00:00 AM EDT [place] ([facility]) Hardik Serra RPA-C: [address], [place] [address], Ph. Attender: HARDIK SERRA RPA-C [facility] 10/23/2020 12:00:00 AM EDT [place] ([facility]) Hardik Serra RPA-C: [address], [place] [address], Ph. Attender: HARDIK SERRA RPA-C [facility] 10/23/2020 12:00:00 AM EDT [place] ([facility]) JOHN ChristopherW-R: [address], [place] [address], Ph. Attender: Leta Forrest [facility] 10/08/2020 12:00:00 AM EDT [place] ([facility]) JOHN ChristopherW-R: [address], [place] [address], Ph. Attender: Leta Forrest [facility] 10/08/2020 12:00:00 AM EDT [place] ([facility]) JOHN ChristopherW-R: [address], [place] [address], Ph. Attender: Leta Forrest [facility] 10/08/2020 12:00:00 AM EDT [place] ([facility]) JOHN ChristopherW-R: [address], [place] [address], Ph. Attender: Leta Forrest [facility] 10/08/2020 12:00:00 AM EDT [place] ([facility]) Hardik Serra RPA-C: [address], [place] [address], Ph. Attender: HARDIK SERRA RPA-C [facility] 09/30/2020 12:00:00 AM EDT [place] ([facility]) Hardik Serra RPA-C: [address], [place] [address], Ph. Attender: HARDIK SERRA RPA-C [facility] 09/30/2020 12:00:00 AM EDT [place] ([facility]) Hardik Serra RPA-C: [address], [place] [address], Ph. Attender: HARDIK SERRA RPA-C [facility] 09/30/2020 12:00:00 AM EDT [place] ([facility]) Hardik Serra RPA-C: [address], [place] [address], Ph. Attender: HARDIK SERRA RPA-C [facility] 09/30/2020 12:00:00 AM EDT [place] ([facility]) Hardik Serra RPA-C: [address], [place] [address], Ph. Attender: HARDIK SERRA RPA-C [facility] 09/30/2020 12:00:00 AM EDT [place] ([facility]) Leta Fernando LCSW-R: [address], [place] [address], Ph. Attender: Leta Forrest [facility] 09/10/2020 12:00:00 AM EDT [place] ([facility]) Leta Fernando, POT PULLER-R: [address], [place] [address], Ph. Attender: Leta Forrest [facility] 09/10/2020 12:00:00 AM EDT [place] ([facility]) Leta PalJOHN goodmanW-R: [address], [place] [address], Ph. Attender: Leta Forrest [facility] 09/10/2020 12:00:00 AM EDT [place] ([facility]) Leta PalJOHN goodmanW-R: [address], [place] [address], Ph. Attender: Leta Forrest [facility] 09/10/2020 12:00:00 AM EDT [place] ([facility]) Leta PalJOHN goodmanW-R: [address], [place] [address], Ph. Attender: Leta Forrest [facility] 09/10/2020 12:00:00 AM EDT [place] ([facility]) Hardik Serra RPA-C: [address], [place] [address], Ph. Attender: HARDIK SERRA RPA-C [facility] 09/02/2020 12:00:00 AM EDT [place] ([facility]) Hardik Serra RPA-C: [address], [place] [address], Ph. Attender: HARDIK SERRA RPA-C [facility] 09/02/2020 12:00:00 AM EDT [place] ([facility]) Hardik Serra RPA-C: [address], [place] [address], Ph. Attender: HARDIK SERRA RPA-C [facility] 09/02/2020 12:00:00 AM EDT [place] ([facility]) Hardik Serra, RPA-C: [address], [place] [address], Ph. Attender: HARDIK SERRA RPA-C [facility] 09/02/2020 12:00:00 AM EDT [place] ([facility]) Hardik Serra RPA-C: [address], [place] [address], Ph. Attender: HARDIK SERRA RPA-C [facility] 09/02/2020 12:00:00 AM EDT [place] ([facility]) Hardik Serra RPA-C: [address], [place] [address], Ph. Attender: HARDIK SERRA RPA-C [facility] 09/02/2020 12:00:00 AM EDT [place] ([facility]) Hardik Serra, RPA-C: [address], [place] [address], Ph. Attender: HARDIK SERRA RPA-C [facility] 08/19/2020 12:00:00 AM EDT [place] ([facility]) Hardik Serra RPA-C: [address], [place] [address], Ph. Attender: HARDIK SERRA RPA-C [facility] 08/19/2020 12:00:00 AM EDT [place] ([facility]) Hardik Serra, RPA-C: [address], [place] [address], Ph. Attender: HARDIK SERRA RPA-C [facility] 08/19/2020 12:00:00 AM EDT [place] ([facility]) Hardik Serra, RPA-C: [address], [place] [address], Ph. Attender: HARDIK SERRA RPA-C [facility] 08/19/2020 12:00:00 AM EDT [place] ([facility]) Hardik Serra, RPA-C: [address], [place] [address], Ph. Attender: HARDIK SERRA RPA-C [facility] 08/19/2020 12:00:00 AM EDT [place] ([facility]) Hardik Serra RPA-C: [address], [place] [address], Ph. Attender: HARDIK SERRA RPA-C [facility] 08/19/2020 12:00:00 AM EDT [place] ([facility]) Hardik Serra, RPA-C: [address], [place] [address], Ph. Attender: HARDIK SERRA RPA-C [facility] 08/19/2020 12:00:00 AM EDT [place] ([facility]) Hardik Serra, RPA-C: [address], [place] [address], Ph. Attender: HARDIK SERRA RPA-C [facility] Medical 07/23/2020 12:00:00 AM EDT [place] ([facility]) Hardik Serra, RPA-C: [address], [place] [address], Ph. Attender: HARDIK SERRA RPA-C [facility] Medical 07/23/2020 12:00:00 AM EDT [place] ([facility]) Hardik Serra, RPA-C: [address], [place] [address], Ph. Attender: HARDIK SERRA RPA-C [facility] Medical 07/23/2020 12:00:00 AM EDT [place] ([facility]) Hardik Serra, RPA-C: [address], [place] [address], Ph. Attender: HARDIK SERRA RPA-C [facility] Medical 07/23/2020 12:00:00 AM EDT [place] ([facility]) Hardik Serra, RPA-C: [address], [place] [address], Ph. Attender: HARDIK SERRA RPA-C [facility] 07/23/2020 12:00:00 AM EDT [place] ([facility]) Hardik Serra, RPA-C: [address], [place] [address], Ph. Attender: HARDIK SERRA RPA-C [facility] 07/23/2020 12:00:00 AM EDT [place] ([facility]) Hardik Serra RPA-C: [address], [place] [address], Ph. Attender: HARDIK SERRA RPA-C [facility] 07/23/2020 12:00:00 AM EDT [place] ([facility]) Hardik Serra RPA-C: [address], [place] [address], Ph. Attender: HARDIK SERRA RPA-C [facility] 07/23/2020 12:00:00 AM EDT [place] ([facility]) JOHN ChristopherW-R: [address], [place] [address], Ph. Attender: Leta Forrest [facility] 07/17/2020 12:00:00 AM EDT [place] ([facility]) JOHN ChristopherW-R: [address], [place] [address], Ph. Attender: Leta Forrest [facility] 07/17/2020 12:00:00 AM EDT [place] ([facility]) JOHN ChristopherW-R: [address], [place] [address], Ph. Attender: Leta Forrest [facility] 07/17/2020 12:00:00 AM EDT [place] ([facility]) JOHN ChristopherW-R: [address] [address], [place] [address], Ph. Attender: Leta Forrest [facility] Medical 07/17/2020 12:00:00 AM EDT BENNIE ([facility]) LetaJOHN BrownW-R: [address], [address], [place] [address], Ph. Attender: Leta Forrest [facility] 07/17/2020 12:00:00 AM EDT BENNIE ([facility]) JOHN ChristopherW-R: [address], [address], [place] [address], Ph. Attender: Leta Forrest [facility] 07/17/2020 12:00:00 AM EDT BENNIE ([facility]) JOHN ChristopherW-R: [address], [address], [place] [address], Ph. Attender: Leta Forrest [facility] Medical 07/17/2020 12:00:00 AM EDT BENNIE ([facility]) JOHN ChristopherW-R: [address], [address], [place] [address], Ph. Attender: Leta Forrest [facility] 07/17/2020 12:00:00 AM EDT BENNIE ([facility]) JOHN ChristopherW-R: [address], [address], [place] [address], Ph. Attender: Leta Forrest [facility] 07/17/2020 12:00:00 AM [facility] LetaJOHN BrownW-R: [address], [address], [place] [address], Ph. Attender: Leta Forrest [facility] Medical 05/21/2020 12:00:00 AM EDT BENNIE ([facility]) JOHN ChristopherW-R: [address], [address], [place] [address], Ph. Attender: Leta Forrest [facility] 05/21/2020 12:00:00 AM EDT SUMER[place] ([facility]) JOHN ChristopherW-R: [address], [address], [place] [address], Ph. Attender: Leta Jessicajaycemercedesagustin [facility] Medical 05/21/2020 12:00:00 AM EDT SUMERCO ([facility]) JOHN ChristopherW-R: [address], [address], [place] [address], Ph. Attender: Leta Forrest [facility] Medical 05/21/2020 12:00:00 AM EDT BENNIE ([facility]) JOHN ChristopherW-R: [address], [address], [place] [address], Ph. Attender: Leta Jessicajaycemercedesagustin [facility] Medical 05/21/2020 12:00:00 AM EDT BENNIE ([facility]) JOHN ChristopherW-R: [address], [address], [place] [address], Ph. Attender: Letaradha Rodrígeuzmercedesagustin [facility] Medical 05/21/2020 12:00:00 AM EDT [place] ([facility]) Leta FernandoJOHNW-R: [address], [address], [place] [address], Ph. Attender: Leta Forrest [facility] Medical 05/21/2020 12:00:00 AM EDT [place] ([facility]) Leta PalJOHN goodmanW-R: [address], [address], [place] [address], Ph. Attender: Leta Forrest [facility] Medical 05/21/2020 12:00:00 AM EDT [place] ([facility]) Leta FernandoJOHN goodmanW-R: [address], [address], [place] [address], Ph. Attender: Leta Reneeagustin [facility] Medical 05/21/2020 12:00:00 AM EDT [place] ([facility]) Leta PalJOHN goodmanW-R: [address], [address], [place] [address], Ph. Attender: Leta Lopezjaycemercedesagustin [facility] Medical 05/21/2020 12:00:00 AM EDT [place] ([facility]) Leta FernandoJOHN goodmanW-R: [address], [address], [place] [address], Ph. Attender: Leta Jessicasterling [facility] Medical 05/21/2020 12:00:00 AM EDT [place] ([facility]) Elliot Hernadez MD: [address], [address], [place] [address], Ph. Attender: Elliot Hernadez MD [facility] Medical 05/07/2020 12:00:00 AM EST BENNIE ([facility]) Elliot Hernadez MD: [address], [address], [place] [address], Ph. Attender: Elliot Hernadez MD [facility] Medical 05/07/2020 12:00:00 AM EST BENNIE ([facility]) Elliot Hernadez MD: [address], [address], [place] [address], Ph. Attender: Elliot Hernadez MD [facility] Medical 05/07/2020 12:00:00 AM EST BENNIE ([facility]) Elliot Hernadez MD: [address], [address], [place] [address], Ph. Attender: Elliot Hernadez MD [facility] Medical 05/07/2020 12:00:00 AM EST BENNIE ([facility]) Elliot Hernadez MD: [address], [address], [place] [address], Ph. Attender: Elliot Hernadez MD [facility] Medical 05/07/2020 12:00:00 AM EST BENNIE ([facility]) Elliot Hernadez MD: [address], [address], [place] [address], Ph. Attender: Elliot Hernadez MD [facility] Medical 05/07/2020 12:00:00 AM EST BENNIE ([facility]) Elliot Hernadez MD: [address], [address], [place] [address], Ph. Attender: Elliot Hernadez MD [facility] Medical 05/07/2020 12:00:00 AM EST BENNIE ([facility]) Elliot Hernadez MD: [address], [address], [place] [address], Ph. Attender: Elliot Hernadez MD [facility] Medical 05/07/2020 12:00:00 AM EST BENNIE ([facility]) Elliot Hernadez MD: [address], [address], [place] [address], Ph. Attender: Elliot Hernadez MD [facility] Medical 05/07/2020 12:00:00 AM EST BENNIE ([facility]) Elliot Hernadez MD: [address], [address], [place] [address], Ph. Attender: Elliot Hernadez MD [facility] Medical 05/07/2020 12:00:00 AM EST BENNIE ([facility]) Elliot Hernadez MD: [address], [address], [place] [address], Ph. Attender: Elliot Hernadez MD [facility] Medical 05/07/2020 12:00:00 AM EST BENNIE ([facility]) Elliot Hernadez MD: [address], [address], [place] [address], Ph. Attender: Elliot Hernadez MD [facility] Medical 05/07/2020 12:00:00 AM EST BENNIE ([facility]) Leta Fernando LCSW-R: [address], [place] [address], Ph. Attender: Leta Forrest [facility] Medical 04/29/2020 12:00:00 AM EST BENNIE ([facility]) Leta Fernando LCSW-R: [address], [place] [address], Ph. Attender: Leta Forrest [facility] Medical 04/29/2020 12:00:00 AM EST BENNIE ([facility]) LetaJOHN BrownW-R: [address], [place] [address], Ph. Attender: Leta Forrest [facility] Medical 04/29/2020 12:00:00 AM EST BENNIE ([facility]) JOHN ChristopherW-R: [address], [place] [address], Ph. Attender: Leta Reneeagustin [facility] Medical 04/29/2020 12:00:00 AM EST BENNIE ([facility]) JOHN ChristopherW-R: [address], [place] [address], Ph. Attender: Leta Marcosmercedesagustin [facility] Medical 04/29/2020 12:00:00 AM EST BENNIE ([facility]) JOHN ChristopherW-R: [address], [place] [address], Ph. Attender: Letaradha Forrest [facility] Medical 04/29/2020 12:00:00 AM EST BENNIE ([facility]) JOHN ChristopherW-R: [address], [place] [address], Ph. Attender: Leta Lon [facility] Medical 04/29/2020 12:00:00 AM EST BENNIE ([facility]) JOHN ChristopherW-R: [address], [place] [address], Ph. Attender: Letaradha Forrest [facility] Medical 04/29/2020 12:00:00 AM EST BENNIE ([facility]) Leta FernandoJOHNW-R: [address], [facility] [place] [address], Ph. Attender: Leta Forrest [facility] Medical 04/29/2020 12:00:00 AM EST BENNIE ([facility]) Leta FernandoJOHNW-R: [address], [facility] [place] [address], Ph. Attender: Leta Forrest [facility] Medical 04/29/2020 12:00:00 AM EST BENNIE ([facility]) Leta FernandoJOHNW-R: [address], [facility] [place] [address], Ph. Attender: Leta Reneeagustin [facility] Medical 04/29/2020 12:00:00 AM EST BENNIE ([facility]) Leta FernandoJOHNW-R: [address], [place] [address], Ph. Attender: Leta Reneeagustin [facility] Medical 04/29/2020 12:00:00 AM LEAH AVERY ([facility]) Leta PalJOHN goodmanW-R: [address], [place] [address], Ph. Attender: Leta Reneeagustin [facility] Medical 04/29/2020 12:00:00 AM EST BENNIE ([facility]) Elliot Hernadez MD: [address], [address], [place] [address], Ph. Attender: Elliot Hernadez MD [facility] Medical 04/09/2020 12:00:00 AM EST BENNIE ([facility]) Elliot Hernadez MD: [address], [address], [place] [address], Ph. Attender: Elliot Hernadez MD [facility] Medical 04/09/2020 12:00:00 AM EST BENNIE ([facility]) Elliot Hernadez MD: [address], [address], [place] [address], Ph. Attender: Elliot Hernadez MD [facility] Medical 04/09/2020 12:00:00 AM EST BENNIE ([facility]) Elliot Hernadez MD: [address], [address], [place] [address], Ph. Attender: Elliot Hernadez MD [facility] Medical 04/09/2020 12:00:00 AM EST BENNIE ([facility]) Elliot Hernadez MD: [address], [address], [place] [address], Ph. Attender: Elliot Hernadez MD [facility] Medical 04/09/2020 12:00:00 AM EST BENNIE ([facility]) Elliot Hernadez MD: [address], [address], [place] [address], Ph. Attender: Elliot Hernadez MD [facility] Medical 04/09/2020 12:00:00 AM EST BENNIE ([facility]) Elliot Hernadez MD: [address], [address], [place] [address], Ph. Attender: Elliot Hernadez MD [facility] Medical 04/09/2020 12:00:00 AM EST BENNIE ([facility]) Elliot Hernadez MD: [address], [address], [place] [address], Ph. Attender: Elliot Hernadez MD [facility] Medical 04/09/2020 12:00:00 AM EST BENNIE ([facility]) Elliot Hernadez MD: [address], [address], [place] [address], Ph. Attender: Elliot Hernadez MD [facility] Medical 04/09/2020 12:00:00 AM EST BENNIE ([facility]) Elliot Hernadez MD: [address], [address], [place] [address], Ph. Attender: Elliot Hernadez MD [facility] Medical 04/09/2020 12:00:00 AM EST BENNIE ([facility]) Elliot Hernadez MD: [address], [address], [place] [address], Ph. Attender: Elliot Hernadez MD [facility] Medical 04/09/2020 12:00:00 AM EST BENNIE ([facility]) Elliot Hernadez MD: [address], [address], [place] [address], Ph. Attender: Elliot Hernadez MD [facility] Medical 04/09/2020 12:00:00 AM EST BENNIE ([facility]) Elliot Hernadez MD: [address], [address], [place] [address], Ph. Attender: Elliot Hernadez MD [facility] Medical 04/09/2020 12:00:00 AM EST BENNIE ([facility]) Elliot Hernadez MD: [address], [address], [place] [address], Ph. Attender: Elliot Hernadez MD [facility] Medical 04/09/2020 12:00:00 AM EST BENNIE ([facility]) Leta Fernando, POT PULLER-R: [address], [address], [place] [address], Ph. Attender: Leta Forrest [facility] Medical 03/13/2020 12:00:00 AM EST BENNIE ([facility]) Leta Fernando, POT PULLER-R: [address], [address], [place] [address], Ph. Attender: Leta Forrest [facility] Medical 03/13/2020 12:00:00 AM EST BENNIE ([facility]) Leta Fernando POT PULLER-R: [address], [address], [place] [address], Ph. Attender: Leta Forrest [facility] Medical 03/13/2020 12:00:00 AM EST BENNIE ([facility]) Leta Fernando, POT PULLER-R: [address], [address], [place] [address], Ph. Attender: Leta Forrest [facility] Medical 03/13/2020 12:00:00 AM EST BENNIE ([facility]) Leta FernandoJOHN goodmanW-R: [address], [address], [place] [address], Ph. Attender: Leta Forrest [facility] Medical 03/13/2020 12:00:00 AM EST BENNIE ([facility]) Leta PalJOHN goodmanW-R: [address], [address], [place] [address], Ph. Attender: Leta Reneeagustin [facility] Medical 03/13/2020 12:00:00 AM EST BENNIE ([facility]) LetaJOHN BrwonW-R: [address], [address], [place] [address], Ph. Attender: Leta Reneeagustin [facility] Medical 03/13/2020 12:00:00 AM EST BENNIE ([facility]) LetaJOHN BrownW-R: [address], [address], [place] [address], Ph. Attender: Leta Reneeagustin [facility] Medical 03/13/2020 12:00:00 AM EST BENNIE ([facility]) LetaJOHN BorwnW-R: [address], [address], [place] [address], Ph. Attender: Letaradha Forrest [facility] Medical 03/13/2020 12:00:00 AM EST BENNIE ([facility]) JOHN ChristopherW-R: [address], [address], [place] [address], Ph. Attender: Leta Lopezsterling [facility] Medical 03/13/2020 12:00:00 AM EST BENNIE ([facility]) JOHN ChristopherW-R: [address], [address], [place] [address], Ph. Attender: Letaradha Forrest [facility] Medical 03/13/2020 12:00:00 AM EST BENNIE ([facility]) JOHN ChristopherW-R: [address], [address], [place] [address], Ph. Attender: Leta Forrest [facility] Medical 03/13/2020 12:00:00 AM EST BENNIE ([facility]) Leta Fernando, POT PULLER-R: [address], [address], [place] [address], Ph. Attender: Leta Forrest [facility] Medical 03/13/2020 12:00:00 AM EST BENNIE ([facility]) Leta FernandoJOHNW-R: [address], [address], [place] [address], Ph. Attender: Leta Forrest [facility] Medical 03/13/2020 12:00:00 AM EST BENNIE ([facility]) Leta FernandoJOHNW-R: [address], [address], [place] [address], Ph. Attender: Leta Forrest [facility] Medical 03/13/2020 12:00:00 AM EST BENNIE ([facility]) Elliot Hernadez MD: [address] [place] [address], Ph. Attender: Elliot Hernadez MD [facility] Medical 01/16/2020 12:00:00 AM EST BENNIE ([facility]) Elliot Hernadez MD: [address] [place] [address], Ph. Attender: Elliot Hernadez MD [facility] Medical 01/16/2020 12:00:00 AM EST BENNIE ([facility]) Elliot Hernadez MD: [address] [place] [address], Ph. Attender: Elliot Hernadez MD [facility] Medical 01/16/2020 12:00:00 AM EST BENNIE ([facility]) Elliot Hernadez MD: [address] [place] [address], Ph. Attender: Elliot Hernadez MD [facility] Medical 01/16/2020 12:00:00 AM EST BENNIE ([facility]) Elliot Hernadez MD: [address] [place] [address], Ph. Attender: Elliot Hernadez MD [facility] Medical 01/16/2020 12:00:00 AM EST BENNIE ([facility]) Elliot Hernadez MD: [address] [place] [address], Ph. Attender: Elliot Hernadez MD [facility] Medical 01/16/2020 12:00:00 AM EST BENNIE ([facility]) Elliot Hernadez MD: [address] [place] [address], Ph. Attender: Elliot Hernadez MD [facility] Medical 01/16/2020 12:00:00 AM EST BENNIE ([facility]) Elliot Hernadez MD: [address] [place] [address], Ph. Attender: Elliot Hernadez MD [facility] Medical 01/16/2020 12:00:00 AM EST BENNIE ([facility]) Elliot Hernadez MD: [address] [place] [address], Ph. Attender: Elliot Hernadez MD [facility] Medical 01/16/2020 12:00:00 AM EST BENNIE ([facility]) Elliot Hernadez MD: [address] [place] [address], Ph. Attender: Elliot Hernadez MD [facility] Medical 01/16/2020 12:00:00 AM EST BENNIE ([facility]) Elliot Hernadez MD: [address] [place] [address], Ph. Attender: Elliot Hernadez MD [facility] Medical 01/16/2020 12:00:00 AM EST BENNIE ([facility]) Elliot Hernadez MD: [address] [place] [address], Ph. Attender: Elliot Hernadez MD [facility] Medical 01/16/2020 12:00:00 AM EST BENNIE ([facility]) Elliot Hernadez MD: [address] [place] [address], Ph. Attender: Elliot Hernadez MD [facility] Medical 01/16/2020 12:00:00 AM EST BENNIE ([facility]) Elliot Hernadez MD: [address] [place] [address], Ph. Attender: Elliot Hernadez MD [facility] Medical 01/16/2020 12:00:00 AM EST BENNIE ([facility]) Elliot Hernadez MD: [address] [place] [address], Ph. Attender: Elliot Hernadez MD [facility] Medical 01/16/2020 12:00:00 AM EST BENNIE ([facility]) JESIKA MorelC: [address], [place] [address], Ph. Attender: HARDIK CANCHOLAC [facility] Medical 01/14/2020 12:00:00 AM EST BENNIE ([facility]) JESIKA MorelC: [address], [place] [address], Ph. Attender: HARDIK SERRA RPA-C [facility] Medical 01/14/2020 12:00:00 AM EST BENNIE ([facility]) Hardik Serra RPA-C: [address], [place] [address], Ph. Attender: HARDIK SERRA RPA-C [facility] Medical 01/14/2020 12:00:00 AM EST BENNIE ([facility]) Hardik Serra, RPA-C: [address], [address], [place] [address], Ph. Attender: HARDIK SERRA RPA-C [facility] Medical 01/14/2020 12:00:00 AM EST BENNIE ([facility]) Hardik Serra, RPA-C: [address], [address], [place] [address], Ph. Attender: HARDIK SERRA RPA-C [facility] Medical 01/14/2020 12:00:00 AM EST BENNIE ([facility]) Hardik Serra, RPA-C: [address], [address], [place] [address], Ph. Attender: HARDIK SERRA RPA-C [facility] Medical 01/14/2020 12:00:00 AM EST BENNIE ([facility]) Hardik Serra RPA-C: [address], [address], [place] [address], Ph. Attender: HARDIK SERRA RPA-C [facility] Medical 01/14/2020 12:00:00 AM EST BENNIE ([facility]) Hardik Serra, RPA-C: [address], [address], [place] [address], Ph. Attender: HARDIK SERRA RPA-C [facility] Medical 01/14/2020 12:00:00 AM EST BENNIE ([facility]) Hardik Serra RPA-C: [address], [address], [place] [address], Ph. Attender: HARDIK SERRA RPA-C [facility] Medical 01/14/2020 12:00:00 AM EST BENNIE ([facility]) Hardik Serra RPA-C: [address], [address], [place] [address], Ph. Attender: HARDIK SERRA RPA-C [facility] Medical 01/14/2020 12:00:00 AM EST BENNIE ([facility]) Hardik Serra RPA-C: [address], [address], [place] [address], Ph. Attender: HARDIK SERRA RPA-C [facility] Medical 01/14/2020 12:00:00 AM EST BENNIE ([facility]) Hardik Serra RPA-C: [address], [address], [place] [address], Ph. Attender: HARDIK SERRA RPA-C [facility] Medical 01/14/2020 12:00:00 AM EST BENNIE ([facility]) Hardik Serra RPA-C: [address], [address], [place] [address], Ph. Attender: HARDIK SERRA RPA-C [facility] Medical 01/14/2020 12:00:00 AM EST BENNIE ([facility]) Hardik Serra RPA-C: [address], [address], [place] [address], Ph. Attender: HARDIK SERRA RPA-C [facility] Medical 01/14/2020 12:00:00 AM EST BENNIE ([facility]) Hardik Serra RPA-C: [address], [address], [place] [address], Ph. Attender: HARDIK SERRA RPA-C [facility] Medical 01/14/2020 12:00:00 AM EST BENNIE ([facility]) Hardik Serra RPA-C: [address], [place] [address], Ph. Attender: HARDIK SERRA RPA-C [facility] Medical 01/14/2020 12:00:00 AM EST BENNIE ([facility]) JOHN ChristopherW-R: [address], [address], [place] [address], Ph. Attender: Leta Forrest [facility] Medical 12/26/2019 12:00:00 AM EDT BENNIE ([facility]) JOHN ChristopherW-R: [address], [address], [place] [address], Ph. Attender: Leta Forrest [facility] Medical 12/26/2019 12:00:00 AM EDT BENNIE ([facility]) JOHN ChristopherW-R: [address], [address], [place] [address], Ph. Attender: Leta Forrest [facility] Medical 12/26/2019 12:00:00 AM EDT BENNIE ([facility]) JOHN ChristopherW-R: [address], [address], [place] [address], Ph. Attender: Leta Forrest [facility] Medical 12/26/2019 12:00:00 AM EDT [place] ([facility]) JOHN ChristopherW-R: [address], [address], [place] [address], Ph. Attender: Leta Forrest [facility] 12/26/2019 12:00:00 AM EDT [place] ([facility]) JOHN ChristopherW-R: [address], [place] [address], Ph. Attender: Leta Lopezjaycemercedesagustin [facility] 12/26/2019 12:00:00 AM EDT [place]ENNIE ([facility]) JOHN ChristopherW-R: [address], [place] [address], Ph. Attender: Leta Forrest [facility] 12/26/2019 12:00:00 AM EDT [place] ([facility]) JOHN ChristopherW-R: [address], [place] [address], Ph. Attender: Leta Jessicajaycemercedesagustin [facility] 12/26/2019 12:00:00 AM EDT [facility] ([facility]) JOHN ChristopherW-R: [address], [place] [address], Ph. Attender: Leta Forrest [facility] 12/26/2019 12:00:00 AM EDT [facility] ([facility]) JOHN ChristopherW-R: [address], [address], [place] [address], Ph. Attender: Leta Forrest [facility] 12/26/2019 12:00:00 AM EDT [facility] ([facility]) JOHN ChristopherW-R: [address], [address], [place] [address], Ph. Attender: Leta Reneeagustin [facility] 12/26/2019 12:00:00 AM EDT [facility] ([facility]) JOHN ChristopherW-R: [address], [place] [address], Ph. Attender: Leta Rodríguezmercedesagustin [facility] 12/26/2019 12:00:00 AM EDT [facility] ([facility]) JOHN ChristopherW-R: [address], [place] [address], Ph. Attender: Leta Jessicajaycemercedesagustin [facility] 12/26/2019 12:00:00 AM EDT [facility] ([facility]) JOHN ChristopherW-R: [address], [address], [place] [address], Ph. Attender: Leta Forrest [facility] 12/26/2019 12:00:00 AM EDT [facility] ([facility]) JOHN ChristopherW-R: [address], [place] [address], Ph. Attender: Leta Forrest [facility] 12/26/2019 12:00:00 AM EDT [facility] ([facility]) Leta Fernando, POT PULLER-R: [address], [place] [address], Ph. Attender: Leta Forrest [facility] 12/26/2019 12:00:00 AM EDT [facility] ([facility]) Leta FernandoJOHNW-R: [address], [place] [address], Ph. Attender: Leta Forrest [facility] 12/26/2019 12:00:00 AM EDT [facility] ([facility]) Outpatient Attender: HARDIK SERRA RPA-C [facility] 12/16/2019 12:46:01 PM EDT [facility] Outpatient Attender: HARDIK SERRA RPA-C [facility] 12/11/2019 11:57:02 AM EDT [facility] Outpatient Attender: HARDIK SERRA RPA-C [facility] 12/11/2019 11:02:03 AM EDT [facility] Outpatient Attender: HARDIK SERRA RPA-C [facility] 12/05/2019 10:34:01 AM EDT [facility] Outpatient Attender: HARDIK SERRA RPA-C [facility] 11/29/2019 01:40:02 PM EDT [facility] Outpatient Attender: HARDIK SERRA RPA-C [facility] 11/28/2019 02:42:03 PM EDT [facility] Outpatient Attender: HARDIK SERRA RPA-C [facility] 11/28/2019 08:54:00 AM EDT [facility] Outpatient Attender: HARDIK SERRA RPA-C [facility] 11/21/2019 02:50:01 PM EDT [facility] Outpatient Attender: HARDIK SERRA RPA-C [facility] 11/21/2019 02:46:02 PM EDT [facility] Outpatient Attender: HARDIK SERRA RPA-C [facility] 11/21/2019 02:42:01 PM EDT [facility] Outpatient Attender: HARDIK SERRA RPA-C [facility] 11/19/2019 01:51:02 PM EDT [facility] Outpatient Attender: HARDIK SERRA RPA-C [facility] 11/14/2019 09:53:59 AM EDT [facility] Outpatient Attender: HARDIK SERRA RPA-C [facility] 11/14/2019 09:49:01 AM EDT [facility] Outpatient Attender: HARDIK SERRA RPA-C [facility] 11/13/2019 07:56:00 AM EDT [facility] Outpatient Attender: HARDIK GRULLONST RPA-C [facility] 11/08/2019 02:50:56 PM EDT [facility] Outpatient Attender: HARDIK SERRA RPA-C [facility] 11/07/2019 08:57:01 AM EDT [facility] Outpatient Attender: HARDIK SERRA RPA-C [facility] 10/31/2019 11:40:02 AM EDT [facility] Outpatient Attender: HARDIK GRULLONST RPA-C [facility] 10/29/2019 04:20:03 PM EDT [facility] Outpatient Attender: HARDIK SERRA RPA-C [facility] 10/29/2019 04:19:01 PM EDT [facility] Outpatient Attender: HARDIK SERRA RPA[facility] 10/29/2019 02:16:04 PM EDT [facility] Outpatient Attender: HARDIK SERRA RPA-[facility] 10/26/2019 03:49:59 PM EDT [facility] Outpatient Attender: HARDIK SERRA RPA-[facility] 10/25/2019 10:55:01 AM EDT [facility] Outpatient Attender: HARDIK SERRA RPA-C [facility] 10/23/2019 03:57:01 PM EDT [facility] Immunizations Vaccine Date Status Description Data Source(s) COVID-19 VACCINE [facility] 04/14/2020 12:00:00 AM EST completed [facility] Vaccine Series Complete: YESThis Data wa s Submitted to [facility] Via [employer]. COVID-19 VACCINE [facility] 03/24/2020 12:00:00 AM EST completed [place] Vaccine Series Complete: NOThis Data was Submitted to [facility] Via [employer]. New in 2011. IIV4 11/29/2019 12:00:00 AM EDT completed 0.5 mL [facility] ([facility] Cent er) New in 2011. IIV4 11/29/2019 12:00:00 AM EDT completed 0.5 mL [facility] ([facility] er) New in 2011. IIV4 11/29/2019 12:00:00 AM EDT completed 0.5 mL [facility]ENNIE ([facility] er) New in 2011. IIV4 11/29/2019 12:00:00 AM EDT completed .5 mL [facility]ENNIE ([facility] er) New in 2011. IIV4 11/29/2019 12:00:00 AM EDT completed .5 mL [facility] ([facility] er) New in 2011. IIV4 11/29/2019 12:00:00 AM EDT completed .5 mL [facility] ([facility] er) New in 2011. IIV4 11/29/2019 12:00:00 AM EDT completed .5 mL [facility] ([facility] er) New in 2011. IIV4 11/29/2019 12:00:00 AM EDT completed .5 mL [facility] ([facility] er) New in 2011. IIV4 11/29/2019 12:00:00 AM EDT completed .5 mL [facility] ([facility] er) New in 2011. IIV4 11/29/2019 12:00:00 AM EDT completed .5 mL [facility] ([facility] er) New in 2011. IIV4 11/29/2019 12:00:00 AM EDT completed .5 mL [facility] ([facility] er) New in 2011. IIV4 11/29/2019 12:00:00 AM EDT completed .5 mL [facility] ([facility] er) New in 2011. IIV4 11/29/2019 12:00:00 AM EDT completed .5 mL [facility]IE ([facility] er) New in 2011. IIV4 11/29/2019 12:00:00 AM EDT completed .5 mL [facility] ([facility]) Medications Medication Brand Name Start Date Product Form Dose Route Admi nistrative Instructions Pharmacy Instructions Status Indications Reaction Description Data Source(s) 8 HR Acetaminophen 650 MG Extended Release Oral Tablet Aceta minophen 8 Hour 12/04/2020 12:00:00 AM EDT ORAL active [facility] ([facility]) Esomeprazole 20 MG Delayed Release Oral Capsule Esomeprazole Magnesium 12/04/2020 12:00:00 AM EDT ORAL active [facility] ([facility]) Escitalopram 10 MG Oral Tablet Escitalopram Oxalate 12/04/2020 1 2:00:00 AM EDT ORAL active [facility] ( [facility]) Petrolatum 610 MG/ML Topical Cream Eucerin 12/04/2020 12:00:00 AM EDT active [facility] ([facility]) cetirizine hydrochloride 10 MG Oral Tablet Cetirizine HCL 12/04/2020 12:00:00 AM EDT ORAL active [facility] ([facility] Calcium Carbonate 500 MG Chewable Tablet Calcium Antacid 12/04/2020 12:00:00 AM EDT ORAL active [facility] ([facility] Dorzolamide HCL/Timolol Maleate Dorzolamide HCL/Timolol Male ate 12/04/2020 12:00:00 AM EDT OPHTHALMIC active [facility] ([facility]) Ketorolac Tromethamine 5 MG/ML Ophthalmic Solution Ketorolac Tromethamine 12/04/2020 12:00:00 AM EDT OPHTHALMIC active [facility] ([facility]) meloxicam 7.5 MG Oral Tablet Meloxicam 12/04/2020 12:00:00 AM EDT ORAL active [facility] ([facility]) Isosorbide Dinitrate 30 MG Oral Tablet Isosorbide Dinitrate 12/04/2020 12:00:00 AM EDT ORAL active [facility] ([facility] prednisolone acetate 10 MG/ML Ophthalmic Suspension Predniso lone Acetate P-F 12/04/2020 12:00:00 AM EDT OPHTHALMIC active [facility] ([facility]) Memantine hydrochloride 5 MG Oral Tablet Memantine HCL 12/04/2020 12:00:00 AM EDT ORAL active [facility] ([facility] Trazodone Hydrochloride 100 MG Oral Tablet Trazodone HCL 12/04/2020 12:00:00 AM EDT [facility]AL [facility] Acetaminophen 500 MG Oral Tablet acetami nophen 500 mg tablet Take 2 tablets every 8 hours by oral route as needed. acetaminophen 500 mg tablet Take 2 tablets every 8 hours by oral route as needed. 07/23/2020 12:00:00 AM EDT 2 completed acetaminophen 500 MG Oral Tablet [facility] ([facility]) Acetaminophen 500 MG Oral Tablet acetami nophen 500 mg tablet Take 2 tablets every 8 hours by oral route as needed. acetaminophen 500 mg tablet Take 2 tablets every 8 hours by oral route as needed. 07/23/2020 12:00:00 AM EDT 2 completed acetaminophen 500 MG Oral Tablet [facility] ([facility]) Acetaminophen 500 MG Oral Tablet acetami nophen 500 mg tablet Take 2 tablets every 8 hours by oral route as needed. acetaminophen 500 mg tablet Take 2 tablets every 8 hours by oral route as needed. 07/23/2020 12:00:00 AM EDT 2 completed acetaminophen 500 MG Oral Tablet [facility] ([facility]) Acetaminophen 500 MG Oral Tablet acetami nophen 500 mg tablet Take 2 tablets every 8 hours by oral route as needed. acetaminophen 500 mg tablet Take 2 tablets every 8 hours by oral route as needed. 07/23/2020 12:00:00 AM EDT 2 completed acetaminophen 500 MG Oral Tablet [facility] ([facility]) Acetaminophen 500 MG Oral Tablet acetami nophen 500 mg tablet Take 2 tablets every 8 hours by oral route as needed. acetaminophen 500 mg tablet Take 2 tablets every 8 hours by oral route as needed. 07/23/2020 12:00:00 AM EDT 2 completed acetaminophen 500 MG Oral Tablet [facility] ([facility]) Acetaminophen 500 MG Oral Tablet acetami nophen 500 mg tablet Take 2 tablets every 8 hours by oral route as needed. acetaminophen 500 mg tablet Take 2 tablets every 8 hours by oral route as needed. 07/23/2020 12:00:00 AM EDT 2 completed acetaminophen 500 MG Oral Tablet [facility] ([facility]) Acetaminophen 500 MG Oral Tablet acetami nophen 500 mg tablet Take 2 tablets every 8 hours by oral route as needed. acetaminophen 500 mg tablet Take 2 tablets every 8 hours by oral route as needed. 07/23/2020 12:00:00 AM EDT 2 completed acetaminophen 500 MG Oral Tablet [facility] ([facility]) Acetaminophen 500 MG Oral Tablet acetami nophen 500 mg tablet Take 2 tablets every 8 hours by oral route as needed. acetaminophen 500 mg tablet Take 2 tablets every 8 hours by oral route as needed. 07/23/2020 12:00:00 AM EDT 2 completed acetaminophen 500 MG Oral Tablet [facility] ([facility]) Escitalopram 5 MG Oral Tablet escitalopram 5 mg tablet escit alopram 5 mg tablet completed escitalopram 5 MG Oral Tablet [facility] ([facility]) Diclofenac Sodium 0.01 MG/MG Topical Gel diclofenac 1 % topical gel diclofenac 1 % topical gel completed diclofenac sodium 0.01 MG/MG Topical Gel [facility] ([facility]) Diclofenac Sodium 0.01 MG/MG Topical Gel diclofenac 1 % topical gel diclofenac 1 % topical gel completed diclofenac sodium 0.01 MG/MG Topical Gel [facility] ([facility]) Hydroxyzine Hydrochloride 25 MG Oral Tablet hydroxyzin e HCl 25 mg tablet hydroxyzine HCl 25 mg tablet completed hydroxyzine hydrochloride 25 MG Oral Tablet [facility] ([facility]) Hydroxyzine Hydrochloride 50 MG Oral Tablet hydroxyzin e HCl 50 mg tablet hydroxyzine HCl 50 mg tablet completed hydroxyzine hydrochloride 50 MG Oral Tablet [facility] ([facility]) Hydroxyzine Hydrochloride 50 MG Oral Tablet hydroxyzin e HCl 50 mg tablet hydroxyzine HCl 50 mg tablet completed hydroxyzine hydrochloride 50 MG Oral Tablet [facility] ([facility]) lidocaine 5 % topical patch APPLY 1 PATC H BY TOPICAL ROUTE ONCE DAILY (MAY WEAR UP TO 12HOURS.) [id number] completed lidocaine 0.05 MG/MG Medicated Patch [facility] ([facility]) Hydroxyzine Hydrochloride 25 MG Oral Tablet hydroxyzin e HCl 25 mg tablet hydroxyzine HCl 25 mg tablet completed hydroxyzine hydrochloride 25 MG Oral Tablet [facility] ([facility]) Hydroxyzine Hydrochloride 25 MG Oral Tablet hydroxyzin e HCl 25 mg tablet hydroxyzine HCl 25 mg tablet completed hydroxyzine hydrochloride 25 MG Oral Tablet [facility] ([facility]) lidocaine 5 % topical patch APPLY 1 PATC H BY TOPICAL ROUTE ONCE DAILY (MAY WEAR UP TO 12HOURS.) [id number] completed lidocaine 0.05 MG/MG Medicated Patch [facility] ([facility]) ramelteon 8 MG Oral Tablet ramelteon 8 mg tablet ramelteon 8 mg tablet completed ramelteon 8 MG Oral Table t [facility] ([facility]) Hydroxyzine Hydrochloride 25 MG Oral Tablet hydroxyzin e HCl 25 mg tablet hydroxyzine HCl 25 mg tablet completed hydroxyzine hydrochloride 25 MG Oral Tablet [facility] ([facility]) ramelteon 8 MG Oral Tablet ramelteon 8 mg tablet ramelteon 8 mg tablet completed ramelteon 8 MG Oral Table t [facility] ([facility]) 8 HR Acetaminophen 650 MG Extended Relea se Oral Tablet [Tylenol] Tylenol 8 Hour 650 mg tablet,extended release Take 1 tablet every day by oral route as needed. Tylenol 8 Hour 650 mg tablet,extended release Take 1 tablet every day by oral route as needed. 1 completed 8 HR acetaminophen 650 MG Extended Release Oral Tablet [Tylenol] [facility] ([facility]) Diclofenac Sodium 0.01 MG/MG Topical Gel diclofenac 1 % topical gel diclofenac 1 % topical gel completed diclofenac sodium 0.01 MG/MG Topical Gel [facility] ([facility]) lidocaine 5 % topical patch APPLY 1 PATC H BY TOPICAL ROUTE ONCE DAILY (MAY WEAR UP TO 12HOURS.) [id number] completed lidocaine 0.05 MG/MG Medicated Patch [facility] ([facility]) lidocaine 5 % topical patch APPLY 1 PATC H BY TOPICAL ROUTE ONCE DAILY (MAY WEAR UP TO 12HOURS.) [id number] completed lidocaine 0.05 MG/MG Medicated Patch [facility] ([facility]) Hydroxyzine Hydrochloride 50 MG Oral Tablet hydroxyzin e HCl 50 mg tablet hydroxyzine HCl 50 mg tablet completed hydroxyzine hydrochloride 50 MG Oral Tablet [facility] ([facility]) ramelteon 8 MG Oral Tablet ramelteon 8 mg tablet ramelteon 8 mg tablet completed ramelteon 8 MG Oral Table t [facility] ([facility]) 8 HR Acetaminophen 650 MG Extended Relea se Oral Tablet [Tylenol] Tylenol 8 Hour 650 mg tablet,extended release Take 1 tablet every day by oral route as needed. Tylenol 8 Hour 650 mg tablet,extended release Take 1 tablet every day by oral route as needed. 1 completed 8 HR acetaminophen 650 MG Extended Release Oral Tablet [Tylenol] [facility] ([facility]) Escitalopram 5 MG Oral Tablet escitalopram 5 mg tablet escit alopram 5 mg tablet completed escitalopram 5 MG Oral Tablet [facility] ([facility]) Hydroxyzine Hydrochloride 25 MG Oral Tablet hydroxyzin e HCl 25 mg tablet hydroxyzine HCl 25 mg tablet completed hydroxyzine hydrochloride 25 MG Oral Tablet [facility] ([facility]) Escitalopram 5 MG Oral Tablet escitalopram 5 mg tablet escit alopram 5 mg tablet completed escitalopram 5 MG Oral Tablet [facility] ([facility]) Hydroxyzine Hydrochloride 50 MG Oral Tablet hydroxyzin e HCl 50 mg tablet hydroxyzine HCl 50 mg tablet completed hydroxyzine hydrochloride 50 MG Oral Tablet [facility] ([facility]) Hydroxyzine Hydrochloride 25 MG Oral Tablet hydroxyzin e HCl 25 mg tablet hydroxyzine HCl 25 mg tablet completed hydroxyzine hydrochloride 25 MG Oral Tablet [facility] ([facility]) Hydroxyzine Hydrochloride 50 MG Oral Tablet hydroxyzin e HCl 50 mg tablet hydroxyzine HCl 50 mg tablet completed hydroxyzine hydrochloride 50 MG Oral Tablet [facility] ([facility]) 8 HR Acetaminophen 650 MG Extended Relea se Oral Tablet [Tylenol] Tylenol 8 Hour 650 mg tablet,extended release Take 1 tablet every day by oral route as needed. Tylenol 8 Hour 650 mg tablet,extended release Take 1 tablet every day by oral route as needed. 1 completed 8 HR acetaminophen 650 MG Extended Release Oral Tablet [Tylenol] [facility] ([facility]) Hydroxyzine Hydrochloride 50 MG Oral Tablet hydroxyzin e HCl 50 mg tablet hydroxyzine HCl 50 mg tablet completed hydroxyzine hydrochloride 50 MG Oral Tablet [facility] ([facility]) ramelteon 8 MG Oral Tablet ramelteon 8 mg tablet ramelteon 8 mg tablet completed ramelteon 8 MG Oral Table t [facility] ([facility]) Hydroxyzine Hydrochloride 50 MG Oral Tablet hydroxyzin e HCl 50 mg tablet hydroxyzine HCl 50 mg tablet completed hydroxyzine hydrochloride 50 MG Oral Tablet [facility] ([facility]) Hydroxyzine Hydrochloride 25 MG Oral Tablet hydroxyzin e HCl 25 mg tablet hydroxyzine HCl 25 mg tablet completed hydroxyzine hydrochloride 25 MG Oral Tablet [facility] ([facility]) lidocaine 5 % topical patch APPLY 1 PATC H BY TOPICAL ROUTE ONCE DAILY (MAY WEAR UP TO 12HOURS.) [id number] completed lidocaine 0.05 MG/MG Medicated Patch [facility] ([facility]) Escitalopram 5 MG Oral Tablet escitalopram 5 mg tablet escit alopram 5 mg tablet completed escitalopram 5 MG Oral Tablet [facility] ([facility]) ramelteon 8 MG Oral Tablet ramelteon 8 mg tablet ramelteon 8 mg tablet completed ramelteon 8 MG Oral Table t [facility]) 8 HR Acetaminophen 650 MG Extended Relea se Oral Tablet [Tylenol] Tylenol 8 Hour 650 mg tablet,extended release Take 1 tablet every day by oral route as needed. Tylenol 8 Hour 650 mg tablet,extended release Take 1 tablet every day by oral route as needed. 1 completed 8 HR acetaminophen 650 MG Extended Release Oral Tablet [Tylenol] [facility] ([facility]) Perpetu COVID-19 Vaccine (PF) 30 mcg/0.3 mL IM suspension(EUA) ADMINISTER 0.3ML IN THE MUSCLE DIRECTED [id number] completed SARS-CoV-2 (COVID-19) vaccine, [id number] 0.1 MG/ML Injectable Suspension [facility]) Hydroxyzine Hydrochloride 50 MG Oral Tablet hydroxyzin e HCl 50 mg tablet hydroxyzine HCl 50 mg tablet completed hydroxyzine hydrochloride 50 MG Oral Tablet [facility] ([facility]) Escitalopram 5 MG Oral Tablet escitalopram 5 mg tablet escit alopram 5 mg tablet completed escitalopram 5 MG Oral Tablet [facility] ([facility]) Hydroxyzine Hydrochloride 50 MG Oral Tablet hydroxyzin e HCl 50 mg tablet hydroxyzine HCl 50 mg tablet completed hydroxyzine hydrochloride 50 MG Oral Tablet [facility]) Escitalopram 5 MG Oral Tablet escitalopram 5 mg tablet escit alopram 5 mg tablet completed escitalopram 5 MG Oral Tablet [facility]) 8 HR Acetaminophen 650 MG Extended Relea se Oral Tablet [Tylenol] Tylenol 8 Hour 650 mg tablet,extended release Take 1 tablet every day by oral route as needed. Tylenol 8 Hour 650 mg tablet,extended release Take 1 tablet every day by oral route as needed. 1 completed 8 HR acetaminophen 650 MG Extended Release Oral Tablet [Tylenol] [facility] ([facility]) Escitalopram 5 MG Oral Tablet escitalopram 5 mg tablet escit alopram 5 mg tablet completed escitalopram 5 MG Oral Tablet [facility] ([facility]) lidocaine 5 % topical patch APPLY 1 PATC H BY TOPICAL ROUTE ONCE DAILY (MAY WEAR UP TO 12HOURS.) [id number] completed lidocaine 0.05 MG/MG Medicated Patch [facility] ([facility]) ramelteon 8 MG Oral Tablet ramelteon 8 mg tablet ramelteon 8 mg tablet completed ramelteon 8 MG Oral Table t [facility] ([facility]) ramelteon 8 MG Oral Tablet ramelteon 8 mg tablet ramelteon 8 mg tablet completed ramelteon 8 MG Oral Table t [facility] ([facility]) 8 HR Acetaminophen 650 MG Extended Relea se Oral Tablet [Tylenol] Tylenol 8 Hour 650 mg tablet,extended release Take 1 tablet every day by oral route as needed. Tylenol 8 Hour 650 mg tablet,extended release Take 1 tablet every day by oral route as needed. 1 completed 8 HR acetaminophen 650 MG Extended Release Oral Tablet [Tylenol] [facility] ([facility]) Hydroxyzine Hydrochloride 50 MG Oral Tablet hydroxyzin e HCl 50 mg tablet hydroxyzine HCl 50 mg tablet completed hydroxyzine hydrochloride 50 MG Oral Tablet [facility] ([facility]) Perpetu COVID-19 Vaccine (PF) 30 mcg/0.3 mL IM suspension(EUA) ADMINISTER 0.3ML IN THE MUSCLE DIRECTED [id number] completed SARS-CoV-2 (COVID-19) vaccine, [id number] 0.1 MG/ML Injectable Suspension [facility] ([facility]) Hydroxyzine Hydrochloride 50 MG Oral Tablet hydroxyzin e HCl 50 mg tablet hydroxyzine HCl 50 mg tablet completed hydroxyzine hydrochloride 50 MG Oral Tablet [facility] ([facility]) ramelteon 8 MG Oral Tablet ramelteon 8 mg tablet ramelteon 8 mg tablet completed ramelteon 8 MG Oral Table t [facility] ([facility]) Perpetu COVID-19 Vaccine (PF) 30 mcg/0.3 mL IM suspension(EUA) ADMINISTER 0.3ML IN THE MUSCLE DIRECTED [id number] completed SARS-CoV-2 (COVID-19) vaccine, [id number] 0.1 MG/ML Injectable Suspension [facility] ([facility]) Hydroxyzine Hydrochloride 25 MG Oral Tablet hydroxyzin e HCl 25 mg tablet hydroxyzine HCl 25 mg tablet completed hydroxyzine hydrochloride 25 MG Oral Tablet [facility] ([facility]) Hydroxyzine Hydrochloride 25 MG Oral Tablet hydroxyzin e HCl 25 mg tablet hydroxyzine HCl 25 mg tablet completed hydroxyzine hydrochloride 25 MG Oral Tablet [facility] ([facility]) ramelteon 8 MG Oral Tablet ramelteon 8 mg tablet ramelteon 8 mg tablet completed ramelteon 8 MG Oral Table t [facility] ([facility]) Hydroxyzine Hydrochloride 50 MG Oral Tablet hydroxyzin e HCl 50 mg tablet hydroxyzine HCl 50 mg tablet completed hydroxyzine hydrochloride 50 MG Oral Tablet [facility] ([facility]) Escitalopram 5 MG Oral Tablet escitalopram 5 mg tablet escit alopram 5 mg tablet completed escitalopram 5 MG Oral Tablet [facility] ([facility]) ramelteon 8 MG Oral Tablet ramelteon 8 mg tablet ramelteon 8 mg tablet completed ramelteon 8 MG Oral Table t [facility] ([facility]) Hydroxyzine Hydrochloride 50 MG Oral Tablet hydroxyzin e HCl 50 mg tablet hydroxyzine HCl 50 mg tablet completed hydroxyzine hydrochloride 50 MG Oral Tablet [facility] ([facility]) Diclofenac Sodium 0.01 MG/MG Topical Gel diclofenac 1 % topical gel diclofenac 1 % topical gel completed diclofenac sodium 0.01 MG/MG Topical Gel [facility] ([facility]) Hydroxyzine Hydrochloride 25 MG Oral Tablet hydroxyzin e HCl 25 mg tablet hydroxyzine HCl 25 mg tablet completed hydroxyzine hydrochloride 25 MG Oral Tablet [facility] ([facility]) 8 HR Acetaminophen 650 MG Extended Relea se Oral Tablet [Tylenol] Tylenol 8 Hour 650 mg tablet,extended release Take 1 tablet every day by oral route as needed. Tylenol 8 Hour 650 mg tablet,extended release Take 1 tablet every day by oral route as needed. 1 completed 8 HR acetaminophen 650 MG Extended Release Oral Tablet [Tylenol] [facility] ([facility]) Escitalopram 5 MG Oral Tablet escitalopram 5 mg tablet escit alopram 5 mg tablet completed escitalopram 5 MG Oral Tablet [facility] ([facility]) Escitalopram 5 MG Oral Tablet escitalopram 5 mg tablet escit alopram 5 mg tablet completed escitalopram 5 MG Oral Tablet [facility] ([facility]) 8 HR Acetaminophen 650 MG Extended Relea se Oral Tablet [Tylenol] Tylenol 8 Hour 650 mg tablet,extended release Take 1 tablet every day by oral route as needed. Tylenol 8 Hour 650 mg tablet,extended release Take 1 tablet every day by oral route as needed. 1 completed 8 HR acetaminophen 650 MG Extended Release Oral Tablet [Tylenol] [facility] ([facility]) Hydroxyzine Hydrochloride 25 MG Oral Tablet hydroxyzin e HCl 25 mg tablet hydroxyzine HCl 25 mg tablet completed hydroxyzine hydrochloride 25 MG Oral Tablet [facility] ([facility]) ramelteon 8 MG Oral Tablet ramelteon 8 mg tablet ramelteon 8 mg tablet completed ramelteon 8 MG Oral Table t [facility] ([facility]) Escitalopram 5 MG Oral Tablet escitalopram 5 mg tablet escit alopram 5 mg tablet completed escitalopram 5 MG Oral Tablet [facility] ([facility]) Hydroxyzine Hydrochloride 25 MG Oral Tablet hydroxyzin e HCl 25 mg tablet hydroxyzine HCl 25 mg tablet completed hydroxyzine hydrochloride 25 MG Oral Tablet [facility] ([facility]) Escitalopram 5 MG Oral Tablet escitalopram 5 mg tablet escit alopram 5 mg tablet completed escitalopram 5 MG Oral Tablet [facility] ([facility]) Hydroxyzine Hydrochloride 25 MG Oral Tablet hydroxyzin e HCl 25 mg tablet hydroxyzine HCl 25 mg tablet completed hydroxyzine hydrochloride 25 MG Oral Tablet [facility] ([facility]) Diclofenac Sodium 0.01 MG/MG Topical Gel diclofenac 1 % topical gel diclofenac 1 % topical gel completed diclofenac sodium 0.01 MG/MG Topical Gel [facility] ([facility]) ramelteon 8 MG Oral Tablet ramelteon 8 mg tablet ramelteon 8 mg tablet completed ramelteon 8 MG Oral Table t [facility] ([facility]) Diclofenac Sodium 0.01 MG/MG Topical Gel diclofenac 1 % topical gel diclofenac 1 % topical gel completed diclofenac sodium 0.01 MG/MG Topical Gel [facility] ([facility]) Hydroxyzine Hydrochloride 25 MG Oral Tablet hydroxyzin e HCl 25 mg tablet hydroxyzine HCl 25 mg tablet completed hydroxyzine hydrochloride 25 MG Oral Tablet [facility] ([facility]) Escitalopram 5 MG Oral Tablet escitalopram 5 mg tablet escit alopram 5 mg tablet completed escitalopram 5 MG Oral Tablet [facility] ([facility]) Diclofenac Sodium 0.01 MG/MG Topical Gel diclofenac 1 % topical gel diclofenac 1 % topical gel completed diclofenac sodium 0.01 MG/MG Topical Gel [facility] ([facility]) ramelteon 8 MG Oral Tablet ramelteon 8 mg tablet ramelteon 8 mg tablet completed ramelteon 8 MG Oral Table t [facility] ([facility]) Diclofenac Sodium 0.01 MG/MG Topical Gel diclofenac 1 % topical gel diclofenac 1 % topical gel completed diclofenac sodium 0.01 MG/MG Topical Gel [facility] ([facility]) ramelteon 8 MG Oral Tablet ramelteon 8 mg tablet ramelteon 8 mg tablet completed ramelteon 8 MG Oral Table t [facility] ([facility]) [employer] COVID-19 Vaccine (PF) 30 mcg/0.3 mL IM suspension(EUA) ADMINISTER 0.3ML IN THE MUSCLE DIRECTED [id number] completed SARS-CoV-2 (COVID-19) vaccine, [id number] 0.1 MG/ML Injectable Suspension [facility] ([facility]) 8 HR Acetaminophen 650 MG Extended Relea se Oral Tablet [Tylenol] Tylenol 8 Hour 650 mg tablet,extended release Take 1 tablet every day by oral route as needed. Tylenol 8 Hour 650 mg tablet,extended release Take 1 tablet every day by oral route as needed. 1 completed 8 HR acetaminophen 650 MG Extended Release Oral Tablet [Tylenol] [facility] ([facility]) Hydroxyzine Hydrochloride 25 MG Oral Tablet hydroxyzin e HCl 25 mg tablet hydroxyzine HCl 25 mg tablet completed hydroxyzine hydrochloride 25 MG Oral Tablet [facility] ([facility]) Escitalopram 5 MG Oral Tablet escitalopram 5 mg tablet escit alopram 5 mg tablet completed escitalopram 5 MG Oral Tablet [facility] ([facility]) 8 HR Acetaminophen 650 MG Extended Relea se Oral Tablet [Tylenol] Tylenol 8 Hour 650 mg tablet,extended release Take 1 tablet every day by oral route as needed. Tylenol 8 Hour 650 mg tablet,extended release Take 1 tablet every day by oral route as needed. 1 completed 8 HR acetaminophen 650 MG Extended Release Oral Tablet [Tylenol] [facility] ([facility]) Hydroxyzine Hydrochloride 50 MG Oral Tablet hydroxyzin e HCl 50 mg tablet hydroxyzine HCl 50 mg tablet completed hydroxyzine hydrochloride 50 MG Oral Tablet [facility] ([facility]) Hydroxyzine Hydrochloride 50 MG Oral Tablet hydroxyzin e HCl 50 mg tablet hydroxyzine HCl 50 mg tablet completed hydroxyzine hydrochloride 50 MG Oral Tablet [facility] ([facility]) ramelteon 8 MG Oral Tablet ramelteon 8 mg tablet ramelteon 8 mg tablet completed ramelteon 8 MG Oral Table t [facility] ([facility]) 8 HR Acetaminophen 650 MG Extended Relea se Oral Tablet [Tylenol] Tylenol 8 Hour 650 mg tablet,extended release Take 1 tablet every day by oral route as needed. Tylenol 8 Hour 650 mg tablet,extended release Take 1 tablet every day by oral route as needed. 1 completed 8 HR acetaminophen 650 MG Extended Release Oral Tablet [Tylenol] [facility] ([facility]) lidocaine 5 % topical patch APPLY 1 PATC H BY TOPICAL ROUTE ONCE DAILY (MAY WEAR UP TO 12HOURS.) [id number] completed lidocaine 0.05 MG/MG Medicated Patch [facility] ([facility]) Escitalopram 5 MG Oral Tablet escitalopram 5 mg tablet escit alopram 5 mg tablet completed escitalopram 5 MG Oral Tablet [facility] ([facility]) lidocaine 5 % topical patch APPLY 1 PATC H BY TOPICAL ROUTE ONCE DAILY (MAY WEAR UP TO 12HOURS.) [id number] completed lidocaine 0.05 MG/MG Medicated Patch [facility] ([facility]) 8 HR Acetaminophen 650 MG Extended Relea se Oral Tablet [Tylenol] Tylenol 8 Hour 650 mg tablet,extended release Take 1 tablet every day by oral route as needed. Tylenol 8 Hour 650 mg tablet,extended release Take 1 tablet every day by oral route as needed. 1 completed 8 HR acetaminophen 650 MG Extended Release Oral Tablet [Tylenol] [facility] ([facility]) Insurance Providers Payer name Policy type / Coverage type Policy ID Covered alliance party ID Covered alliance party's relationship to isbell Policy [place]bell [place] [id number] SP [id number] E MEDICARE [id number] SP [id number] WELLCARE [id number] SP [id number] EMEDNY [id number] SP [id number] EMEDNY UN SP UN WELLCARE [id number] SP [id number] AETNA MEDICARE [id number] SP [id number] LSF MEDICARE [id number] SP [id number] WELLCARE O [id number] S [id number] MEDICARE C [id number] S [id number] Medicare P [id number] S [id number] MEDICARE [id number] SP [id number] Problems, Conditions, and Diagnoses Code Display Name Description Problem Type Effective Dates Data Source(s) 40917700 Muscle fatigue Muscle Fatigue Problem 09/02/2020 12:00: 00 AM EDT [facility] ([facility]) [id number] Chronic low back pain Chronic Low Back Pain Problem 09/02/2020 12:00:00 AM EDT [facility] ([facility]) [id number] Muscle fatigue Muscle Fatigue Problem 09/02/2020 12:00: 00 AM EDT [facility] ([facility]) [id number] Chronic low back pain Chronic Low Back Pain Problem 09/02/2020 12:00:00 AM EDT [facility] ([facility]) [id number] Muscle fatigue Muscle Fatigue Problem 09/02/2020 12:00: 00 AM EDT [facility] ([facility]) [id number] Chronic low back pain Chronic Low Back Pain Problem 09/02/2020 12:00:00 AM EDT [facility] ([facility]) [id number] Muscle fatigue Muscle Fatigue Problem 09/02/2020 12:00: 00 AM EDT [facility] ([facility]) [id number] Chronic low back pain Chronic Low Back Pain Problem 09/02/2020 12:00:00 AM EDT [facility] ([facility]) [id number] Muscle fatigue Muscle Fatigue Problem 09/02/2020 12:00: 00 AM EDT [facility] ([facility]) [id number] Chronic low back pain Chronic Low Back Pain Problem 09/02/2020 12:00:00 AM EDT [facility] ([facility]) [id number] Muscle fatigue Muscle Fatigue Problem 09/02/2020 12:00: 00 AM EDT [facility] ([facility]) [id number] Chronic low back pain Chronic Low Back Pain Problem 09/02/2020 12:00:00 AM EDT [facility] ([facility]) [id number] Sleep related hypoxemia Sleep Related Hypoxemia Pro blem 05/20/2020 12:00:00 AM EDT [facility] ([facility]) [id number] Sleep related hypoxemia Sleep Related Hypoxemia Pro blem 05/20/2020 12:00:00 AM EDT [facility] ([facility]) [id number] Sleep related hypoxemia Sleep Related Hypoxemia Pro blem 05/20/2020 12:00:00 AM EDT [facility] ([facility]) [id number] Sleep related hypoxemia Sleep Related Hypoxemia Pro blem 05/20/2020 12:00:00 AM EDT [facility] ([facility]) [id number] Sleep related hypoxemia Sleep Related Hypoxemia Pro blem 05/20/2020 12:00:00 AM EDT [facility] ([facility]) [id number] Sleep related hypoxemia Sleep Related Hypoxemia Pro blem 05/20/2020 12:00:00 AM EDT [facility] ([facility]) [id number] Sleep related hypoxemia Sleep Related Hypoxemia Pro blem 05/20/2020 12:00:00 AM EDT [facility] ([facility]) [id number] Sleep related hypoxemia Sleep Related Hypoxemia Pro blem 05/20/2020 12:00:00 AM EDT [facility] ([facility]) [id number] Sleep related hypoxemia Sleep Related Hypoxemia Pro blem 05/20/2020 12:00:00 AM EDT [facility] ([facility]) [id number] Sleep related hypoxemia Sleep Related Hypoxemia Pro blem 05/20/2020 12:00:00 AM EDT [facility] ([facility]) [id number] Sleep related hypoxemia Sleep Related Hypoxemia Pro blem 05/20/2020 12:00:00 AM EDT [facility] ([facility]) [id number] Dementia Dementia Problem 05/07/2020 12:00:00 AM ES T [facility] ([facility]) [id number] Dementia Dementia Problem 05/07/2020 12:00:00 AM ES T [facility] ([facility]) [id number] Dementia Dementia Problem 05/07/2020 12:00:00 AM ES T [facility] ([facility]) [id number] Dementia Dementia Problem 05/07/2020 12:00:00 AM ES T [facility] ([facility]) [id number] Dementia Dementia Problem 05/07/2020 12:00:00 AM ES T [facility] ([facility]) [id number] Dementia Dementia Problem 05/07/2020 12:00:00 AM ES T [facility] ([facility]) [id number] Dementia Dementia Problem 05/07/2020 12:00:00 AM ES T [facility] ([facility]) [id number] Dementia Dementia Problem 05/07/2020 12:00:00 AM ES T [facility] ([facility]) [id number] Dementia Dementia Problem 05/07/2020 12:00:00 AM ES T [facility] ([facility]) [id number] Dementia Dementia Problem 05/07/2020 12:00:00 AM ES T [facility] ([facility]) [id number] Dementia Dementia Problem 05/07/2020 12:00:00 AM ES T [facility] ([facility]) [id number] Dementia Dementia Problem 05/07/2020 12:00:00 AM ES T [facility] ([facility]) [id number] Low back pain Low Back Pain Problem 04/25/2020 12 :00:00 AM EST - 04/25/2020 12:00:00 AM EST [facility] ([facility]) [id number] Low back pain Low Back Pain Problem 04/25/2020 12 :00:00 AM EST - 04/25/2020 12:00:00 AM EST [facility] ([facility]) [id number] Low back pain Low Back Pain Problem 04/25/2020 12 :00:00 AM EST - 04/25/2020 12:00:00 AM EST [facility] ([facility]) [id number] Low back pain Low Back Pain Problem 04/25/2020 12 :00:00 AM EST - 04/25/2020 12:00:00 AM EST [facility] ([facility]) [id number] Low back pain Low Back Pain Problem 04/25/2020 12 :00:00 AM EST - 04/25/2020 12:00:00 AM EST [facility] ([facility]) [id number] Low back pain Low Back Pain Problem 04/25/2020 12 :00:00 AM EST - 04/25/2020 12:00:00 AM EST [facility] ([facility]) [id number] Low back pain Low Back Pain Problem 04/25/2020 12 :00:00 AM EST - 04/25/2020 12:00:00 AM EST [facility] ([facility]) [id number] Low back pain Low Back Pain Problem 04/25/2020 12 :00:00 AM EST - 04/25/2020 12:00:00 AM EST [facility] ([facility]) [id number] Low back pain Low Back Pain Problem 04/25/2020 12 :00:00 AM EST - 04/25/2020 12:00:00 AM EST [facility] ([facility]) [id number] Low back pain Low Back Pain Problem 04/25/2020 12 :00:00 AM EST - 04/25/2020 12:00:00 AM EST [facility] ([facility]) [id number] Low back pain Low Back Pain Problem 04/25/2020 12 :00:00 AM EST - 04/25/2020 12:00:00 AM EST [facility] ([facility]) [id number] Low back pain Low Back Pain Problem 04/25/2020 12 :00:00 AM EST - 04/25/2020 12:00:00 AM EST [facility] ([facility]) [id number] Low back pain Low Back Pain Problem 04/25/2020 12 :00:00 AM EST - 04/25/2020 12:00:00 AM EST [facility] ([facility]) [id number] Domiciliary or rest home patient evaluat ion and management Domiciliary or Rest Home Patient Evaluation and Management Problem 2019 12:00:00 AM EST [facility] ([facility]) [id number] Domiciliary or rest home patient evaluat ion and management Domiciliary or Rest Home Patient Evaluation and Management Problem 2019 12:00:00 AM EST [facility] ([facility]) [id number] Domiciliary or rest home patient evaluat ion and management Domiciliary or Rest Home Patient Evaluation and Management Problem 2019 12:00:00 AM EST [facility] ([facility]) [id number] Domiciliary or rest home patient evaluat ion and management Domiciliary or Rest Home Patient Evaluation and Management Problem 2019 12:00:00 AM EST [facility] ([facility]) [id number] Domiciliary or rest home patient evaluat ion and management Domiciliary or Rest Home Patient Evaluation and Management Problem 2019 12:00:00 AM EST [facility] ([facility]) [id number] Mild memory disturbance Mild Memory Disturbance Proble m 01/02/2020 12:00:00 AM EST [facility] ([facility]) [id number] 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 01/02/2020 12:00:00 AM EST - 01/02/2020 12:00:00 AM EST [facility] ([facility]) [id number] Mild memory disturbance Mild Memory Disturbance Proble m 01/02/2020 12:00:00 AM EST [facility] ([facility]) [id number] 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 01/02/2020 12:00:00 AM EST - 01/02/2020 12:00:00 AM EST [facility] ([facility]) [id number] Mild memory disturbance Mild Memory Disturbance Proble m 01/02/2020 12:00:00 AM EST [facility] ([facility]) [id number] 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 01/02/2020 12:00:00 AM EST - 01/02/2020 12:00:00 AM EST [facility] ([facility]) [id number] Mild memory disturbance Mild Memory Disturbance Proble m 01/02/2020 12:00:00 AM EST [facility] ([facility]) [id number] 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 01/02/2020 12:00:00 AM EST - 01/02/2020 12:00:00 AM EST [facility] ([facility]) [id number] Mild memory disturbance Mild Memory Disturbance Proble m 01/02/2020 12:00:00 AM EST [facility] ([facility]) [id number] 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 01/02/2020 12:00:00 AM EST - 01/02/2020 12:00:00 AM EST [facility] ([facility]) [id number] Mild memory disturbance Mild Memory Disturbance Proble m 01/02/2020 12:00:00 AM EST [facility] ([facility]) [id number] 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 01/02/2020 12:00:00 AM EST - 01/02/2020 12:00:00 AM EST [facility] ([facility]) [id number] Mild memory disturbance Mild Memory Disturbance Proble m 01/02/2020 12:00:00 AM EST [facility] ([facility]) [id number] 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 01/02/2020 12:00:00 AM EST - 01/02/2020 12:00:00 AM EST [facility] ([facility]) [id number] Mild memory disturbance Mild Memory Disturbance Proble m 01/02/2020 12:00:00 AM EST [facility] ([facility]) [id number] 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 01/02/2020 12:00:00 AM EST - 01/02/2020 12:00:00 AM EST [facility] ([facility]) [id number] Mild memory disturbance Mild Memory Disturbance Proble m 01/02/2020 12:00:00 AM EST [facility] ([facility]) [id number] 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 01/02/2020 12:00:00 AM EST - 01/02/2020 12:00:00 AM EST [facility] ([facility]) [id number] Mild memory disturbance Mild Memory Disturbance Proble m 01/02/2020 12:00:00 AM EST [facility] ([facility]) [id number] 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 01/02/2020 12:00:00 AM EST - 01/02/2020 12:00:00 AM EST [facility] ([facility]) [id number] Mild memory disturbance Mild Memory Disturbance Proble m 01/02/2020 12:00:00 AM EST [facility] ([facility]) [id number] 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 01/02/2020 12:00:00 AM EST - 01/02/2020 12:00:00 AM EST [facility] ([facility]) [id number] Mild memory disturbance Mild Memory Disturbance Proble m 01/02/2020 12:00:00 AM EST [facility] ([facility]) [id number] 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 01/02/2020 12:00:00 AM EST - 01/02/2020 12:00:00 AM EST [facility] ([facility]) [id number] Mild memory disturbance Mild Memory Disturbance Proble m 01/02/2020 12:00:00 AM EST [facility] ([facility]) [id number] 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 01/02/2020 12:00:00 AM EST - 01/02/2020 12:00:00 AM EST [facility] ([facility]) [id number] Mild memory disturbance Mild Memory Disturbance Proble 01/02/2020 12:00:00 AM EST [facility] ([facility]) [id number] 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 01/02/2020 12:00:00 AM EST - 01/02/2020 12:00:00 AM EST [facility] ([facility]) [id number] Mild memory disturbance Mild Memory Disturbance Proble m 01/02/2020 12:00:00 AM EST [facility] ([facility]) [id number] 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 01/02/2020 12:00:00 AM EST - 01/02/2020 12:00:00 AM EST [facility] ([facility]) [id number] Mild memory disturbance Mild Memory Disturbance Proble m 01/02/2020 12:00:00 AM EST [facility] ([facility]) [id number] 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 01/02/2020 12:00:00 AM EST - 01/02/2020 12:00:00 AM EST [facility] ([facility]) [id number] Dental caries, unspecified Dental caries, unspecified 11/29/2019 01:39:15 PM EDT [facility] Z12.11 Screening for malignant neoplasm of colo n Screening for malignant neoplasm of colon 11/29/2019 01:39:15 PM EDT [facility] V05.9 Encounter for immunization Encounter for immunization 11/29/2019 01:39:15 PM EDT [facility] [id number] 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 11/29/2019 12:00:00 AM EDT Shannon WHITE ([facility]) [id number] Screening for malignant neoplasm of colo n Screening for Malignant Neoplasm of Colon Problem 11/29/2019 12:00:00 AM EDT [facility] ([facility]) [id number] Influenza vaccine needed Influenza Vaccine Needed Pro blem 11/29/2019 12:00:00 AM EDT [facility] ([facility]) [id number] 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 11/29/2019 12:00:00 AM EDT Shannon WHITE ([facility]) [id number] Screening for malignant neoplasm of colo n Screening for Malignant Neoplasm of Colon Problem 11/29/2019 12:00:00 AM EDT [facility] ([facility]) [id number] Influenza vaccine needed Influenza Vaccine Needed Pro blem 11/29/2019 12:00:00 AM EDT [facility] ([facility]) [id number] 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 11/29/2019 12:00:00 AM EDT Shannon WHITE ([facility]) [id number] Screening for malignant neoplasm of colo n Screening for Malignant Neoplasm of Colon Problem 11/29/2019 12:00:00 AM EDT [facility] ([facility]) [id number] Influenza vaccine needed Influenza Vaccine Needed Pro blem 11/29/2019 12:00:00 AM EDT [facility] ([facility]) [id number] 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 11/29/2019 12:00:00 AM EDT Shannon WHITE ([facility]) [id number] Screening for malignant neoplasm of colo n Screening for Malignant Neoplasm of Colon Problem 11/29/2019 12:00:00 AM EDT [facility] ([facility]) [id number] Influenza vaccine needed Influenza Vaccine Needed Pro blem 11/29/2019 12:00:00 AM EDT [facility] ([facility]) [id number] 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 11/29/2019 12:00:00 AM EDT Shannon WHITE ([facility]) [id number] Screening for malignant neoplasm of colo n Screening for Malignant Neoplasm of Colon Problem 11/29/2019 12:00:00 AM EDT [facility] ([facility]) [id number] Influenza vaccine needed Influenza Vaccine Needed Pro blem 11/29/2019 12:00:00 AM EDT [facility] ([facility]) [id number] 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 11/29/2019 12:00:00 AM EDT Shannon WHITE ([facility]) [id number] Screening for malignant neoplasm of colo n Screening for Malignant Neoplasm of Colon Problem 11/29/2019 12:00:00 AM EDT [facility] ([facility]) [id number] Influenza vaccine needed Influenza Vaccine Needed Pro blem 11/29/2019 12:00:00 AM EDT [facility] ([facility]) [id number] 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 11/29/2019 12:00:00 AM EDT Shannon THENShannon ([facility]) [id number] Screening for malignant neoplasm of colo n Screening for Malignant Neoplasm of Colon Problem 11/29/2019 12:00:00 AM EDT [facility] ([facility]) [id number] Influenza vaccine needed Influenza Vaccine Needed Pro blem 11/29/2019 12:00:00 AM EDT [facility] ([facility]) [id number] 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 11/29/2019 12:00:00 AM EDT Shannon THENShannon ([facility]) [id number] Screening for malignant neoplasm of colo n Screening for Malignant Neoplasm of Colon Problem 11/29/2019 12:00:00 AM EDT BENNIE ([facility]) [id number] Influenza vaccine needed Influenza Vaccine Needed Pro blem 11/29/2019 12:00:00 AM EDT BENNIE ([facility]) [id number] 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 11/29/2019 12:00:00 AM EDT Shannon THENShannon ([facility]) [id number] Screening for malignant neoplasm of colo n Screening for Malignant Neoplasm of Colon Problem 11/29/2019 12:00:00 AM EDT BENNIE ([facility]) [id number] Influenza vaccine needed Influenza Vaccine Needed Pro blem 11/29/2019 12:00:00 AM EDT BENNIE ([facility]) [id number] 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 11/29/2019 12:00:00 AM EDT Shannon THENA ([facility]) [id number] Screening for malignant neoplasm of colo n Screening for Malignant Neoplasm of Colon Problem 11/29/2019 12:00:00 AM EDT BENNIE ([facility]) [id number] Influenza vaccine needed Influenza Vaccine Needed Pro blem 11/29/2019 12:00:00 AM EDT BENNIE ([facility]) [id number] 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 11/29/2019 12:00:00 AM EDT Shannon THENA ([facility]) [id number] Screening for malignant neoplasm of colo n Screening for Malignant Neoplasm of Colon Problem 11/29/2019 12:00:00 AM EDT BENNIE ([facility]) [id number] Influenza vaccine needed Influenza Vaccine Needed Pro blem 11/29/2019 12:00:00 AM EDT BENNIE ([facility]) [id number] 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 11/29/2019 12:00:00 AM EDT Shannon WHITE ([facility]) [id number] Screening for malignant neoplasm of colo n Screening for Malignant Neoplasm of Colon Problem 11/29/2019 12:00:00 AM EDT BENNIE ([facility]) [id number] Influenza vaccine needed Influenza Vaccine Needed Pro blem 11/29/2019 12:00:00 AM EDT BENNIE ([facility]) [id number] 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 11/29/2019 12:00:00 AM EDT Shannon WHITE ([facility]) [id number] Screening for malignant neoplasm of colo n Screening for Malignant Neoplasm of Colon Problem 11/29/2019 12:00:00 AM EDT BENNIE ([facility]) [id number] Influenza vaccine needed Influenza Vaccine Needed Pro blem 11/29/2019 12:00:00 AM EDT BENNIE ([facility]) [id number] Screening procedure Screening Procedure Problem 1 12:00:00 AM EDT BENNIE ([facility]) [id number] 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 11/29/2019 12:00:00 AM EDT Shannon WHITE ([facility]) [id number] Influenza vaccine needed Influenza Vaccine Needed Pro blem 11/29/2019 12:00:00 AM EDT BENNIE ([facility]) 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, 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, W/ MIXED ANXIETY AND DEPRESSED MOOD 10/29/2019 04: 18:43 PM EDT [facility] V70.0 Encounter for general adult medical exam ination with abnormal findings Encounter for general adult medical examination with abnormal findings 10/29/2019 02:15:39 PM EDT [facility] [id number] Procedure by method Procedure by Method Problem 0 10/29/2019 12:00:00 AM EDT - 01/02/2020 12:00:00 AM EST BENNIE ([facility]) [id number] 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 10/29/2019 12:00:00 AM EDT BENNIE ([facility]) [id number] Procedure by method Procedure by Method Problem 0 10/29/2019 12:00:00 AM EDT - 01/02/2020 12:00:00 AM EST BENNIE ([facility]) [id number] 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 10/29/2019 12:00:00 AM EDT BENNIE ([facility]) [id number] Procedure by method Procedure by Method Problem 0 10/29/2019 12:00:00 AM EDT - 01/02/2020 12:00:00 AM EST BENNIE ([facility]) [id number] 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 10/29/2019 12:00:00 AM EDT BENNIE ([facility]) [id number] Procedure by method Procedure by Method Problem 0 10/29/2019 12:00:00 AM EDT - 01/02/2020 12:00:00 AM EST BENNIE ([facility]) [id number] 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 10/29/2019 12:00:00 AM EDT BENNIE ([facility]) [id number] Procedure by method Procedure by Method Problem 0 10/29/2019 12:00:00 AM EDT - 01/02/2020 12:00:00 AM EST BENNIE ([facility]) [id number] 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 10/29/2019 12:00:00 AM EDT BENNIE ([facility]) [id number] Procedure by method Procedure by Method Problem 0 10/29/2019 12:00:00 AM EDT - 01/02/2020 12:00:00 AM EST BENNIE ([facility]) [id number] 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 10/29/2019 12:00:00 AM EDT BENNIE ([facility]) [id number] Procedure by method Procedure by Method Problem 0 10/29/2019 12:00:00 AM EDT - 01/02/2020 12:00:00 AM EST BENNIE ([facility]) [id number] 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 10/29/2019 12:00:00 AM EDT BENNIE ([facility]) [id number] Procedure by method Procedure by Method Problem 0 10/29/2019 12:00:00 AM EDT - 01/02/2020 12:00:00 AM EST BENNIE ([facility]) [id number] 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 10/29/2019 12:00:00 AM EDT BENNIE ([facility]) [id number] Procedure by method Procedure by Method Problem 0 10/29/2019 12:00:00 AM EDT - 01/02/2020 12:00:00 AM EST BENNIE ([facility]) [id number] 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 10/29/2019 12:00:00 AM EDT BENNIE ([facility]) [id number] Procedure by method Procedure by Method Problem 0 10/29/2019 12:00:00 AM EDT - 01/02/2020 12:00:00 AM EST BENNIE ([facility]) [id number] 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 10/29/2019 12:00:00 AM EDT BENNIE ([facility]) [id number] Procedure by method Procedure by Method Problem 0 10/29/2019 12:00:00 AM EDT - 01/02/2020 12:00:00 AM EST BENNIE ([facility]) [id number] 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 10/29/2019 12:00:00 AM EDT BENNIE ([facility]) [id number] Procedure by method Procedure by Method Problem 0 10/29/2019 12:00:00 AM EDT - 01/02/2020 12:00:00 AM EST BENNIE ([facility]) [id number] 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 10/29/2019 12:00:00 AM EDT BENNIE ([facility]) [id number] Procedure by method Procedure by Method Problem 0 10/29/2019 12:00:00 AM EDT - 01/02/2020 12:00:00 AM EST BENNIE ([facility]) [id number] 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 10/29/2019 12:00:00 AM EDT BENNIE ([facility]) [id number] Procedure by method Procedure by Method Problem 0 10/29/2019 12:00:00 AM EDT - 01/02/2020 12:00:00 AM EST BENNIE ([facility]) [id number] 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 10/29/2019 12:00:00 AM EDT BENNIE ([facility]) [id number] Procedure by method Procedure by Method Problem 0 10/29/2019 12:00:00 AM EDT - 01/02/2020 12:00:00 AM EST BENNIE ([facility]) [id number] 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 10/29/2019 12:00:00 AM EDT BENNIE ([facility]) [id number] Procedure by method Procedure by Method Problem 0 10/29/2019 12:00:00 AM EDT - 01/02/2020 12:00:00 AM EST BENNIE ([facility]) [id number] 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 10/29/2019 12:00:00 AM EDT BENNIE ([facility]) [id number] Procedure by method Procedure by Method Problem 0 10/29/2019 12:00:00 AM EDT BENNIE ([facility]) [id number] 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 10/29/2019 12:00:00 AM EDT BENNIE ([facility]) [id number] Cardiovascular measurement - finding Car diovascular Measurement - Finding Problem 09/04/2019 12:00:00 AM EDT - 04/18/2020 12:00:00 AM EST BENNIE ([facility]) [id number] Cardiovascular measurement - finding Car diovascular Measurement - Finding Problem 09/04/2019 12:00:00 AM EDT - 04/18/2020 12:00:00 AM EST BENNIE ([facility]) [id number] Cardiovascular measurement - finding Car diovascular Measurement - Finding Problem 09/04/2019 12:00:00 AM EDT - 04/18/2020 12:00:00 AM EST BENNIE ([facility]) [id number] Cardiovascular measurement - finding Car diovascular Measurement - Finding Problem 09/04/2019 12:00:00 AM EDT - 04/18/2020 12:00:00 AM EST BENNIE ([facility]) [id number] Cardiovascular measurement - finding Car diovascular Measurement - Finding Problem 09/04/2019 12:00:00 AM EDT - 04/18/2020 12:00:00 AM EST BENNIE ([facility]) [id number] Cardiovascular measurement - finding Car diovascular Measurement - Finding Problem 09/04/2019 12:00:00 AM EDT - 04/18/2020 12:00:00 AM EST BENNIE ([facility]) [id number] Cardiovascular measurement - finding Car diovascular Measurement - Finding Problem 09/04/2019 12:00:00 AM EDT - 04/18/2020 12:00:00 AM EST BENNIE ([facility]) [id number] Cardiovascular measurement - finding Car diovascular Measurement - Finding Problem 09/04/2019 12:00:00 AM EDT - 04/18/2020 12:00:00 AM EST BENNIE ([facility]) [id number] Cardiovascular measurement - finding Car diovascular Measurement - Finding Problem 09/04/2019 12:00:00 AM EDT - 04/18/2020 12:00:00 AM EST BENNIE ([facility]) [id number] Cardiovascular measurement - finding Car diovascular Measurement - Finding Problem 09/04/2019 12:00:00 AM EDT - 04/18/2020 12:00:00 AM EST BENNIE ([facility]) [id number] Cardiovascular measurement - finding Car diovascular Measurement - Finding Problem 09/04/2019 12:00:00 AM EDT - 04/18/2020 12:00:00 AM EST BENNIE ([facility]) [id number] Cardiovascular measurement - finding Car diovascular Measurement - Finding Problem 09/04/2019 12:00:00 AM EDT - 04/18/2020 12:00:00 AM EST BENNIE ([facility]) [id number] Cardiovascular measurement - finding Car diovascular Measurement - Finding Problem 09/04/2019 12:00:00 AM EDT - 04/18/2020 12:00:00 AM EST BENNIE ([facility]) Surgeries/Procedures Procedure Description Date Indications Data Source(s) ECG ROUTINE ECG W/LEAST 12 LDS W/I&R 12/05/2020 12:00: 00 AM EDT MEDENT ([facility]) OFFICE OUTPATIENT VISIT 25 MINUTES 12/05/2020 12:00:00 AM EDT MEDENT ([facility]) Results ID Date Data Source [id number] 04/14/2020 02:00:00 PM EST [facility] Name Value Range Interpretation Code Description Data Ruma rce(s) Supporting Document(s) SARS coronavirus 2 RNA Not Detected [facility] [place] This lab was ordered by [facility] and reported by [facility]. ID Date Data Source [id number] 04/07/2020 06:20:00 AM EST [facility] Name Value Range Interpretation Code Description Data Ruma rce(s) Supporting Document(s) SARS coronavirus 2 RNA Not Detected [facility] [place] This lab was ordered by [facility] and reported by [facility]. ID Date Data Source [id number] 03/31/2020 09:00:00 AM EST [facility] Name Value Range Interpretation Code Description Data Ruma rce(s) Supporting Document(s) SARS coronavirus 2 RNA Not Detected [facility] [place] This lab was ordered by [facility] and reported by [facility]. ID Date Data Source [id number] 03/24/2020 08:00:00 AM EST [facility] Name Value Range Interpretation Code Description Data Ruma rce(s) Supporting Document(s) SARS coronavirus 2 RNA Not Detected [facility] [place] This lab was ordered by [facility] and reported by [facility]. ID Date Data Source [id number] 03/17/2020 06:25:00 AM EST [facility] Name Value Range Interpretation Code Description Data Ruma rce(s) Supporting Document(s) SARS coronavirus 2 RNA Not Detected [facility] [place] This lab was ordered by [facility] and reported by [facility]. ID Date Data Source [id number] 03/10/2020 06:00:00 AM EST [facility] Name Value Range Interpretation Code Description Data Ruma rce(s) Supporting Document(s) SARS coronavirus 2 RNA Not Detected [facility] [place] This lab was ordered by [facility] and reported by [facility]. ID Date Data Source [id number] 03/03/2020 07:30:00 AM EST [facility] Name Value Range Interpretation Code Description Data Ruma rce(s) Supporting Document(s) SARS coronavirus 2 RNA [facility] This lab was ordered by [facility] and reported by [facility]. ID Date Data Source [id number] 02/25/2020 07:35:00 AM EST [facility] Name Value Range Interpretation Code Description Data Ruma rce(s) Supporting Document(s) SARS coronavirus 2 RNA [facility] This lab was ordered by [facility] and reported by [facility]. ID Date Data Source [id number] 02/19/2020 07:20:00 AM EST [facility] Name Value Range Interpretation Code Description Data Ruma rce(s) Supporting Document(s) SARS coronavirus 2 RNA [facility] This lab was ordered by [facility] and reported by [facility]. ID Date Data Source [id number] 02/13/2020 11:35:00 AM EST [facility] Name Value Range Interpretation Code Description Data Ruma rce(s) Supporting Document(s) SARS coronavirus 2 RNA [facility] This lab was ordered by [facility] and reported by [facility]. ID Date Data Source [id number] 02/13/2020 12:00:00 AM EST [facility] Name Value Range Interpretation Code Description Data Ruma rce(s) Supporting Document(s) SARS-CoV2 Rapid Antigen [facility] This lab was ordered by [facility] and reported by [facility]. ID Date Data Source [id number] 02/08/2020 02:42:00 PM EST [facility] Name Value Range Interpretation Code Description Data Ruma rce(s) Supporting Document(s) SARS coronavirus 2 RNA [facility] This lab was ordered by [facility] and reported by [facility]. ID Date Data Source [id number] 11/29/2019 12:48:43 PM EDT [facility] Measurements & CalculationsHeight: 60 inches (5 ft. 0 in.) 152.40 cm Weight: 177.2 pounds 80.55 kg Body Mass Index (BMI): 34.73BMI Interpretation: ObeseBody Surface Area (BSA): 1.77Weight Management Education Done (Nutrition/Physical Activity)Vital SignsTemperature: 97.0F 36.11C tympanic Pulse Rate: 57 beats/minuteRespiratory Rate: 19 respirations/minuteBlood Pressure: 159/73 right arm sitting automaticO2 Saturation: 95% Vital Signs performed by: Maggie Oshea LPN, November 29, 2019 12:49 PMAdult Questionnaire1) Does the patient have a long-term health problem with heart disease, lung disease, asthma, kidney disease, metabolic disease (e.g., diabetes), anemia, or other blood disorder? No2) Does the patient have allergies to medications, food, a vaccine component, or latex? No3) Does the patient have cancer, leukemia, AIDS, or any other immune system problem? No4) Does the patient live with or expect to have close contact with a person whose immune system is severely compromised and who must be in protective isolation (e.g., an isolation room of a bone marrow transplant unit)? No5) Does the patient take cortisone, prednisone, other steroids, or anticancer drugs, or has the patient had radiation treatments? No6) During the past year, has the patient received a transfusion of blood or blood products, or been given immune (gamma) globulin or an antiviral drug? No7) For women: Is the patient or is there a chance she could become during the next month? No8) Has the patient ever had a serious reaction to a vaccine in the past? No9) Has the patient had a seizure or a brain or other nervous system problem? No10) Has the patient received any vaccinations in the past 4 weeks? No11) Is the patient older than age 49 years? No12) Is the patient sick today? No13) Vaccine information given and explained to patient? YesVaccines Administered/Ente red:Vaccination Group: InfluenzaSeries: 1Vaccination: Flulaval Quadrivalent Intramuscular Suspension Prefilled Syringe 0.5 MLMfr / Lot# / Exp.Date: Etopus / [id number] / 1Amt. Given / Route / Site: 0.5 mL / IM / Right DeltoidNDC / CVX: [id number] / 150Administered Date: 11/29/2019 13:51VFC Eligibility: Not VFC EligibleVIS Date: 10/12/2018VIS Given / VIS Given On: Yes / 11/29/2019Comments: Administered by: Maggie Oshea LPN Initial Intake Information From: patientRoom #: 2Infectious Disease / Travel ScreeningRecent travel for you or any close contacts? NoHave you had any close contact with anyone diagnosed with or under investigation for COVID-19 (coronavirus)? NoFever? NoRespiratory symptoms: cough, cold, congestion, shortness of breath, difficulty breathing? NoLoss of smell? NoLoss of taste? NoSmoking, Tobacco, Vaping or Smoke Exposure StatusSmoke Status: former smokerTobacco Use: NoDo you vape? NoPassive Smoke Exposure: NoHealthcare HistorySince your last office visit...Have you [facility]: [facility]Have you been to an emergency room (ER) or urgent care clinic? NoHave you seen another healthcare provider? Yes - dr. Stone you seen a dentist? NoIntake performed by: Maggie Oshea LPN, November 29, 2019 12:51 PMRate Your HealthIn general, would you say your health is? FairPain AssessmentAre you currently having any pain which... You would like your provider to address? Yes Affects your activity level? YesDepression Screening - PHQ-2Over the last two weeks, have you... Had little interest or pleasure in doing things? More than half the days Been feeling down, depressed, or hopeless? More than half the days PHQ-2 Score: 4Anxiety Screening - PADMA-2Over the last two weeks, have you been... Feeling nervous, anxious, or on edge? Not at all Unable to stop or control worrying? Not at all PADMA-2 Score: 0Food InsecurityWithin the past year...Did you worry whether your food would run out before you got money to buy more? Never trueWas there a time when the food you bought didn't last and you didn't have money to get more? Never truePHQ-9 1. Over the last 2 weeks, patient reports the following frequency of symptoms: a. Little interest or pleasure in doing things - More than half the days b. Feeling down, depressed, or hopeless -More than half the days c. Trouble falling asleep, staying asleep, or sleeping too much -More than half the days d. Feeling tired or having little energy -More than half the days e. Poor appetite or overeating -More than half the days f. Feeling bad about yourself, feeling that you are a failure, or feeling that you have let yourself or your family down -More than half the days g. Trouble concentrating on things such as reading the newspaper or watching television -More than half the days h. Moving or speaking so slowly that other people could have noticed. Or being so fidgety or restless that you have been moving around a lot more than usual - More than half the days i. Thinking that you would be better off or that you want to hurt yourself in some way -Not at all2. If you checked off any problems, how difficult have these problems made it for you to do your work, take care of things at home, or get along with other people? -Very DifficultToday's PHQ-9 Results Score: 16 Severity: Moderately Severe Diagnosis Recommendation: Major Depression Functional Impairment: Very DifficultToday's Follow-Up Action Depression follow-up done. Follow-Up Action: Continue To Take Medications as PrescribedPain AssessmentLocation: lower backDuration: chronicFrequency: DailyCharacter/Quality: throbbingPRAPARE Sociodemographic Characteristics Race: White Ethnicity: Not or Preferred Language: EnglishFamily and Home Address: [address] [place] [address] What is your housing situation today? I have housing Are you worried about losing your housing? NoMoney and Resources Employed? No Are you seeking work? NoIn the past year, have you or any family members you live with been unable to get any of the following when it was really needed? Denies Insecurity: food, utilities, clothing, childhood teacher, phone, legal services, otherWithin the past year did you worry whether your food would run out before you got money to buy more? Never trueWithin the past year was there a time when the food you bought didn't last and you didn't have money to get more? Never trueIn the past year, have you had trouble affording costs associated with health insurance (such as deductibles, co-payments, etc.)? NoScreening, Brief Intervention, & Referral to Treatment (SBIRT)Pre-Screening Questions How many times have you have 5 or more drinks in a day? 0How many times have you used an illegal drug or used a prescription medication for a non- medical reason? 0Performed by: Maggie Oshea LPN, November 29, 2019 12:54 PMPatient History Medical History:HTNbradycardiaSurgical History:Aortic Valve replacement-end of 2018Tonsil surgery at age 37hernia repair around age 41Family History:Two SonsSocial/Personal History: Chief Complaintfollow-up visitHistory of Present Illness (HPI)Pt is an 89 y/o male, presents for routine follow-up today. Accompanied by Maria T from [facility].Pt states "lately I feel things are getting a little bit better". He continues to be on a wait list for assisted living at [facility]. Maria T is working on getting him into [facility], but they require a valid photo ID; his passport is reportedly and they require his certificate. He is having trouble obtaining a new photo ID. He is an [place] citizen with an active social security card. Maria T has been working very hard on getting him a valid ID. His nephew is reportedly mailing Krishan's certificate to him in the next few days. Pt states last colonoscopy was years ago. States he is interested in colon cancer screening because if they found anything then he states he would want treatment. Transitions of Care InboundProblem ReviewProblem List was reviewed and/or updated during this visit.Medication Reconciliation & ReviewMedication List was reviewed and/or updated during this visit, including review of any lmmv-ohv-jwimmyy medications, herbal therapies, and/or supplements.Allergy ReviewAllergy List was reviewed and/or updated during this visit. Patient has no known allergies.Adult Preventive CareLabs/Meds/Other Counseling-Nutrition and Physical Activity:BMI Interpretation: Obese (11/29/2019) Counseling: Done (11/29/2019) Physical Activity: Done (11/29/2019)Review of Systems General: Denies loss of appetite, chills, dizziness, fatigue, fever. Cardiovascular: Denies chest pain, palpitations, feeling faint, peripheral edema. Respiratory: Denies cough, difficulty breathing, shortness of breath, wheezing. Gastrointestinal: Denies nausea, vomiting, diarrhea, constipation, pain or discomfort, change in bowel habits, blood in stool, black or tarry stools. Neur ologic: Denies weakness, feeling faint. Psychiatric: Complains of see HPI, depression. Physical ExamGeneral Appearance: well nourished, well hydrated, no acute distress, hard of hearingEyes, External: conjunctivae and lids normal, EOMILips/Teeth/Gums: nearly edentulous, carious dentitionRespiratory, Auscultation: clear to auscultation bilaterally; no rales, rhonchi, or wheezesCardiovascular, Auscultation: S1, S2 audible; no murmur, rub, or gallop; RRRPeripheral Circulation: no clubbing, cyanosis, edema, or varicositiesAbdomen: soft, non-tender, no masses, bowel sounds normalGait & Station: ayesha lOrientation: oriented to time, place, and personMood & Affect: affect full range, cheerful, good eye contact, speech clearJudgment & Insight: intact, but requires multiple repetitions of the same instruction before apparent clear comprehensionCare Management Plan Transitions of CareInboundRate Your HealthIn general, would you say your health is? FairAssessment & Plan Problems:Added: Encounter for immunization (ICD-V05.9) (LVH61-R64) Assessment: Instructions: Flu vaccine today. Shingles vaccine sent to your pharmacy.Screening for malignant neoplasm of colon (XJM87-I89.11) Assessment: Instructions: Instructions reviewed for FIT testing as an alternative for colon cancer screening. 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 Continue with [facility] for therapy.Primary generalized (osteo)arthritis (HXT30-D61.0) Assessment: Instructions: Continue with Meloxicam 7.5mg one tablet daily.Benign hypertension (ICD-401.1) (ESD85-Y67) Assessment: Instructions: Continue your current blood pressure medication as currently taking and continue with your supervisor fusing room.Removed:Adjustment insomnia (ICD-307.41) (UXM67-Z48.02)Patient Instructions/Care Plan: Encounter for immunization: Flu vaccine today. Shingles vaccine sent to your pharmacy.Psychophysiologic insomnia: Continue Trazodone 50mg one tablet at bedtime.ADJUSTMENT DISORDER- W/ MIXED ANXIETY AND DEPRESSED MOOD: Continue with Lexapro 10mg one tablet daily. Continue with [facility] for therapy.Screening for malignant neoplasm of colon: Instructions reviewed for FIT testing as an alternative for colon cancer screening. Patient is aware if FIT is positive then a colonoscopy will be recommended.Primary generalized (osteo)arthritis: Continue with Meloxicam 7.5mg one tablet daily.Benign hypertension: Continue your current blood pressure medication as currently taking and continue with your supervisor fusing room.Dental caries- unspecified: Please consider scheduling with our 238 location for dental care. Plan developed in collaboration with patient and/or familyMedications:SHINGRIX 50 MCG/0.5ML INTRAMUSCULAR SUSPENSION RECONSTITUTEDTRAZODONE HCL 50 MG ORAL TABLETTYLENOL 8 HOUR ARTHRITIS PAIN 650 MG ORAL TABLET EXTENDED RELEASEMELOXICAM 7.5 MG ORAL TABLETLEXAPRO 10 MG ORAL TABLETISOSORBIDE MONONITRATE ER 30 MG ORAL TABLET EXTENDED RELEASE 24 HOURCVS ESOMEPRAZOLE MAGNESIUM 20 MG ORAL CAPSULE DELAYED RELEASEAMLODIPINE BESYLATE 10 MG ORAL TABLETINDAPAMIDE 1.25 MG ORAL TABLETK-TAB 20 MEQ ORAL TABLET EXTENDED RELEASECOZAAR 100 MG ORAL TABLETMedication Changes:New Prescription:SHINGRIX 50 MCG/0.5ML INTRAMUSCULAR SUSPENSION RECONSTITUTED-Give once and repeat in 2 months Qty: 0.5[Milliliter] Refills: 1 Method: ElectronicAllergies:No Known Allergies (updated 11/29/2019) Orders:FluLaval Quadrivalent, preservative free [CPT-93177] Adult - Ofc Vst, EST, Level IV [CPT-60307] Follow-Up Return to clinic: in 30 days for follow upAdditional Follow-Up: med checkClinical Visit Summary CompletedMedications:SHINGRIX 50 MCG/0.5ML INTRAMUSCULAR SUSPENSION RECONSTITUTED (ZOSTER VAC RECOMB ADJUVANTED) Give once and repeat in 2 months #0.5[Milliliter] x 1 Route:INTRAMUSCULAR Entered and Authorized by: Hardik GIVENS Method used: Electronically to [id number]* (retail) [id number] [place] [address] Note to Pharmacy: Route: INTRAMUSCULAR; Indications: ENCOUNTER FOR IMMUNIZATION RxID: [id number] signed by Hardik GIVENS on 12/16/2019 at 12:45 PM Name Value Range Interpretation Code Description Data Ruma rce(s) Supporting Document(s) ID Date Data Source [id number] 11/21/2019 02:03:07 PM EDT [facility] Measurements & CalculationsHeight: 60 inches (5 ft. 0 in.) 152.40 cm Weight: 182.6 pounds 83 kg Body Mass Index (BMI): 35.79BMI Interpretation: ObeseBody Surface Area (BSA): 1.80Weight Management Education Done (Nutrition/Physical Activity)Vital SignsTemperature: 97.6F 36.44C tympanic Pulse Rate: 49 beats/minuteRespiratory Rate: 20 respirations/minuteBlood Pressure: 127/68 right arm sitting automaticO2 Saturation: 93% Vital Signs performed by: Maggie Oshea LPN, November 21, 2019 2:03 PMInitial Intake Information From: patientRoom #: 2Infectious Disease / Travel ScreeningRecent travel for you or any close contacts? NoHave you had any close contact with anyone diagnosed with or under investigation for COVID-19 (coronavirus)? NoFever? NoRespiratory symptoms: cough, cold, congestion, shortness of breath, difficulty breathing? NoLoss of smell? NoLoss of taste? NoSmoking, Tobacco, Vaping or Smoke Exposure StatusSmoke Status: former smokerTobacco Use: NoDo you vape? NoPassive Smoke Exposure: NoHealthcare HistorySince your last office visit...Have you been [facility] the [facility]: [facility]Have you been to an emergency room (ER) or urgent care clinic? NoHave you seen another healthcare provider? Yes - dr. Stone you seen a dentist? NoIntake performed by: Maggie Oshea LPN, November 21, 2019 2:04 PMRate Your HealthIn general, would you say your health is? FairPain AssessmentAre you currently having any pa in which... You would like your provider to address? Yes Affects your activity level? NoDepression Screening - PHQ-2Over the last two weeks, have you... Had little interest or pleasure in doing things? Not at all Been feeling down, depressed, or hopeless? Not at all PHQ-2 Score: 0Anxiety Screening - PADMA-2Over the last two weeks, have you been... Feeling nervous, anxious, or on edge? Not at all Unable to stop or control worrying? Not at all PADMA-2 Score: 0Food InsecurityWithin the past year...Did you worry whether your food would run out before you got money to buy more? Never trueWas there a time when the food you bought didn't last and you didn't have money to get more? Never trueScreening, Brief Intervention, & Referral to Treatment (SBIRT)Pre-Screening Questions How many times have you have 5 or more drinks in a day? 0How many times have you used an illegal drug or used a prescription medication for a non- medical reason? 0Performed by: Maggie Oshea LPN, November 21, 2019 2:04 PMPatient History Medical History:HTNbradycardiaSurgical History:Aortic Valve replacement-end of 2018Tonsil surgery at age 37hernia repair around age 41Family History:Two SonsSocial/Personal History: Chief Complaintfollow-up visitHistory of Present Illness (HPI)Pt is an 89 y/o male, presents for med discussion, seen independently today.Pt states he doesn't feel the trazodone is affecting his blood pressure after all. Pt does note an improvement in his sleep with trazodone, is tolerating well. Plans to call his supervisor fusing room to discuss his BP, today BP is at goal, but he doesn't want to wait 6 months to be seen by cardio again. Pt requests medication for memory, asking if he can take an OTC supplement. Has never been previously prescribed anything for memory, but used to take a [employer] supplement years ago. Overall states he feels happier and less depressed, feels "better emotionally and physically". Transitions of Care InboundProblem ReviewProblem List was reviewed and/or updated during this visit.Medication Reconciliation & ReviewMedication List was reviewed and/or updated during this visit, including review of any vnuc-ukl-cfhdmmh medications, herbal therapies, and/or supplements.Allergy ReviewAllergy List was reviewed and/or updated during this visit. Patient has no known allergies.Adult Preventive CareLabs/Meds/Other Counseling-Nutrition and Physical Activity:BMI Interpretation: Obese (11/21/2019) Counseling: Done (11/21/2019) Physical Activity: Done (11/21/2019)Review of Systems General: Denies see HPI, chills, dizziness, fatigue, fever, headache, feeling ill. Cardiovascular: Denies chest pain, palpitations, feeling faint. Respiratory: Denies cough, difficulty breathing, shortness of breath. Gastrointestinal: Denies nausea, vomiting, diarrhea. Neurologic: Denies weakness, feeling faint. Psychiatric: Denies see HPI, depression, anxiety, feeling stressed. Physical ExamGeneral Appearance: well nourished, well hydrated, no acute distress, hard of hearingEyes, External: conjunctivae and lids normal, EOMIRespiratory, Auscultation: clear to auscultation bilaterally; no rales, rhonchi, or wheezesCardiovascular, Auscultation: S1, S2 audible; no murmur, rub, or gallop; RRRPeripheral Circulation: no clubbing, cyanosis, edema, or varicositiesAbdomen: soft, non- tender, no masses, bowel sounds normalGait & Station: normalOrientation: oriented to time, place, and personMood & Affect: affect full range, cheerful, good eye contact, speech clearJudgment & Insight: intact, but requires multiple repetitions of the same instruction before apparent clear comprehensionCare Management Plan Transitions of CareInboundRate Your HealthIn general, would you say your health is? 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 Please INCREASE your Lexapro to 10mg daily (new prescription sent today). 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 Please INCREASE your Lexapro to 10mg daily (new prescription sent today). Continue trazodone at bedtime.Psychophysiologic insomnia: As above. Plan developed in collaboration with patient and/or familyMedications:TRAZODONE HCL 50 MG ORAL TABLETTYLENOL 8 HOUR ARTHRITIS PAIN 650 MG ORAL TABLET EXTENDED RELEASEMELOXICAM 7.5 MG ORAL TABLETLEXAPRO 10 MG ORAL TABLETISOSORBIDE MONONITRATE ER 30 MG ORAL TABLET EXTENDED RELEASE 24 HOURCVS ESOMEPRAZOLE MAGNESIUM 20 MG ORAL CAPSULE DELAYED RELEASEAMLODIPINE BESYLATE 10 MG ORAL TABLETINDAPAMIDE 1.25 MG ORAL TABLETK-TAB 20 MEQ ORAL TABLET EXTENDED RELEASECOZAAR 100 MG ORAL TABLETMedication Changes:Refilled:LEXAPRO 10 MG ORAL TABLET-Take 1 tablet po daily in the morning Qty: 30[Tablet] Refills: 1 Meth od: ElectronicRemoved:HYDROXYZINE HCL 50 MG ORAL TABLET-Take 1 tablet po daily at bedtime Qty: 30[Tablet] Refills: 1Changed:From: ORAL LEXAPRO 5 MG ORAL TABLET Qty: [id number] Refills: 30[Tablet] To: LEXAPRO 10 MG ORAL TABLET-Take 1 tablet po daily in the morning Qty: 30[Tablet] Refills: 1Allergies:No Known Allergies (updated 11/21/2019) Orders:Adult - Ofc Vst, EST, Level III [CPT- 56867] Follow-Up Return to clinic: in 1 week for follow upAdditional Follow-Up: med reviewClinical Visit Summary Completed Name Value Range Interpretation Code Description Data Ruma rce(s) Supporting Document(s) ID Date Data Source [id number] 11/14/2019 03:01:49 PM EDT [facility] Measurements & CalculationsHeight: 60 inches (5 ft. 0 in.) 152.40 cm Weight: 179.2 pounds 81.45 kg Body Mass Index (BMI): 35.12BMI Interpretation: ObeseBody Surface Area (BSA): 1.78Weight Management Education Done (Nutrition/Physical Activity)Vital SignsTemperature: 97.4F 36.33C tympanic Pulse Rate: 51 beats/minut eRespiratory Rate: 18 respirations/minuteBlood Pressure: 163/85 right arm sitting automaticO2 Saturation: 95% Vital Signs performed by: Maggie Oshea LPN, November 14, 2019 3:02 PMVital Signs performed by: Hardik GIVENS, November 14, 2019 3:10 PMInitial Intake Information From: patientRoom #: 2Infectious Disease / Travel ScreeningRecent travel for you or any close contacts? NoHave you had any close contact with anyone diagnosed with or under investigation for COVID-19 (coronavirus)? NoFever? NoRespiratory symptoms: cough, cold, congestion, shortness of breath, difficulty breathing? NoLoss of smell? NoLoss of taste? NoSmoking, Tobacco, Vaping or Smoke Exposure StatusSmoke Status: former smokerTobacco Use: NoDo you vape? NoHealthcare HistorySince your last office visit...Have you been admitted to the [facility]? [facility]: [facility]Have you been to an emergency room (ER) or urgent care clinic? NoHave you seen another healthcare provider? Yes - dr. Stone you seen a dentist? NoIntake performed by: Maggie Oshea LPN, November 14, 2019 3:03 PMRate Your HealthIn general, would you say your health is? FairPain AssessmentAre you currently having any pain which... You would like your provider to address? Yes Affects your activity level? YesDepression Screening - PHQ-2Over the last two weeks, have you... Had little interest or pleasure in doing things? Nearly every day Been feeling down, depressed, or hopeless? Nearly every day PHQ-2 Score: 6Anxiety Screening - PADMA-2Over the last two weeks, have you been... Feeling nervous, anxious, or on edge? More than half the days Unable to stop or control worrying? More than half the days PADMA-2 Score: 4Pain AssessmentLocation: lower backScreening, Brief Intervention, & Referral to Treatment (SBIRT)Pre-Screening Questions How many times have you have 5 or more drinks in a day? 0How many times have you used an illegal drug or used a prescription medication for a non-medical reason? 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 Pt states it is not effective at all and he feels he has "lost the ability to sleep". Transitions of Care InboundProblem ReviewProblem List was reviewed and/or updated during this visit.Medication Reconciliation & ReviewMedication List was reviewed and/or updated during this visit, including review of any hlum-rfi-utwnevn medications, herbal therapies, and/or supplements.Allergy ReviewAllergy List was reviewed and/or updated during this visit. Patient has no known allergies.Adult Preventive CareLabs/Meds/Other Counseling-Nutrition and Physical Activity:BMI Interpretation: Obese (11/14/2019) Counseling: Done (11/14/2019) Physical Activity: Done (11/14/2019)Review of Systems General: Complains of sleep disturbances. Denies chills, dizziness, fatigue, fever. Cardiovascular: Denies chest pain, palpitations, feeling faint. Respiratory: Denies cough, difficulty breathing, shortness of breath. Gastrointestinal: Denies nausea, vomiting, diarrhea. Neurologic: Denies weakness, feeling faint. Physical ExamGeneral Appearance: well nourished, well hydrated, no acute distressEyes, External: conjunctivae and lids normal, EOMIRespiratory, Auscultation: clear to auscultation bilaterally; no rales, rhonchi, or wh eezesCardiovascular, Auscultation: S1, S2 audible; no murmur, rub, or gallop; RRRPeripheral Circulation: no clubbing, cyanosis, edema, or varicositiesAbdomen: soft, non-tender, no masses, bowel sounds normalGait & Station: normalOrientation: oriented to time, place, and personMood & Affect: somewhat irritable today, good eye contact, speech clearJudgment & Insight: intactCare Management Plan Transitions of CareInboundRate Your HealthIn general, would you say your health is? 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 Start trazodone one tablet at bedtime daily as needed.Patient Instructions/Care Plan: Psychophysiologic insomnia: Stop hydroxyzine as this was not effective. Start trazodone one tablet at bedtime daily as needed. Plan developed in collaboration with patient and/or familyMedications:TRAZODONE HCL 50 MG ORAL TABLETTYLENOL 8 HOUR ARTHRITIS PAIN 650 MG ORAL TABLET EXTENDED RELEASEMELOXICAM 7.5 MG ORAL TABLETLEXAPRO 5 MG ORAL TABLETHYDROXYZINE HCL 50 MG ORAL TABLETISOSORBIDE MONONITRATE ER 30 MG ORAL TABLET EXTENDED RELEASE 24 HOURCVS ESOMEPRAZOLE MAGNESIUM 20 MG ORAL CAPSULE DELAYED RELEASEAMLODIPINE BESYLATE 10 MG ORAL TABLETINDAPAMIDE 1.25 MG ORAL TABLETK-TAB 20 MEQ ORAL TABLET EXTENDED RELEASECOZAAR 100 MG ORAL TABLETMedication Changes:New Prescription:TRAZODONE HCL 50 MG ORAL TABLET-Take 1 tablet po QHS Qty: 14[Tablet] Refills: 0 Method: ElectronicAllergies:No Known Allergies (updated 10/29/2019) Orders:Adult - Ofc Vst, EST, Level II [CPT- 75716] Follow-Up Return to clinic: as needed Clinical Visit Summary Declined Name Value Range Interpretation Code Description Data Ruma rce(s) Supporting Document(s) ID Date Data Source [id number] 10/29/2019 01:12:03 PM EDT [facility] Measurements & CalculationsHeight: 60 inches (5 ft. 0 in.) 152.40 cm Weight: 178.4 pounds 81.09 kg Body Mass Index (BMI): 34.97BMI Interpretation: ObeseBody Surface Area (BSA): 1.78Weight Management Education Done (Nutrition/Physical Activity)Vital SignsTemperature: 98.1F 36.72C tympanic Pulse Rate: 60 beats/minut eRespiratory Rate: 18 respirations/minuteBlood Pressure: 166/77 left arm sitting automaticO2 Saturation: 96% Vital Signs performed by: Maggie Oshea LPN, October 29, 2019 1:13 PMVital Signs performed by: Hardik GIVENS, October 29, 2019 1:27 PMInitial Intake Information From: patientRoom #: 1Infectious Disease / Travel ScreeningRecent travel for you or any close contacts? NoHave you had any close contact with anyone diagnosed with or under investigation for COVID-19 (coronavirus)? NoFever? NoRespiratory symptoms: cough, cold, congestion, shortness of breath, difficulty breathing? NoLoss of smell? NoLoss of taste? NoSmoking, Tobacco, Vaping or Smoke Exposure StatusSmoke Status: former smokerTobacco Use: NoDo you vape? NoPassive Smoke Exposure: NoHealthcare HistorySince your last office visit...Have you been [facility] to the [facility]? [facility]: [facility]Have you been to an emergency room (ER) or urgent care clinic? NoHave you seen another healthcare provider? Yes - dr. Stone you seen a dentist? NoIntake performed by: aMggie Oshea LPN, October 29, 2019 1:13 PMRate Your HealthIn general, would you say your health is? FairPain AssessmentAre you currently having any pain which... You would like your provider to address? Yes Affects your activity level? YesDepression Screening - PHQ-2Over the last two weeks, have you... Had little interest or pleasure in doing things? Not at all Been feeling down, depressed, or hopeless? Not at all PHQ-2 Score: 0Anxiety Screening - PADMA-2Over the last two weeks, have you been... Feeling nervous, anxious, or on edge? Not at all Unable to stop or control worrying? Not at all PADMA-2 Score: 0Food InsecurityWithin the past year...Did you worry whether your food would run out before you got money to buy more? Never trueWas there a time when the food you bought didn't last and you didn't have money to get more? Never truePain AssessmentLocation: lower backDuration: chronicFrequency: DailyPRAPARE Sociodemographic Characteristics Race: White Ethnicity: Not or Preferred Language: EnglishFamily and Home Address: [address] [place] [id number] What is your housing situation today? I have housing Are you worried about losing your housing? NoMoney and Resources In the past year, have you or any family members you live with been unable to get any of the following when it was really needed? Denies Insecurity: food, utilities, clothing, childhood teacher, phone, legal services, otherWithin the past year did you worry whether your food would run out before you got money to buy more? Never trueWithin the past year was there a time when the food you bought didn't last and you didn't have money to get more? Never trueIn the past year, have you had trouble affording costs associated with health insurance (such as deductibles, co-payments, etc.)? NoScreening, Brief Intervention, & Referral to Treatment (SBIRT)Pre-Screening Questions How many times have you have 5 or more drinks in a day? 0How many times have you used an illegal drug or used a prescription medication for a non-medical reason? 0Performed by: Maggie Oshea LPN, October 29, 2019 1:14 PMPatient History Medical History:HTNbradycardiaSurgical History:Aortic Valve replacement-end of 2018Tonsil surgery at age 37hernia repair around age 41Family History:Two SonsSocial/Personal History: Chief Complaintannual examHistory of Present Illness (HPI)Pt is an 89 y/o male, presents for annual PE, accompanied by Maria T from [facility] with [facility].Pt is still awaiting getting into assisted living facility. Pt had [facility] to do an evaluation, they determined that he did not qualify for services, despite medication compliance issues. Currently had received #60 tablets of hydroxyzine at bedtime, has been taking 2 at least with some relief but often is still awake by 3AM. Pt is frustrated that Lidocaine 5% patch was denied by insurance, Maria T confirmed with pharmacy that his insurance won't pay for it. Has been using Icy Hot patches OTC but states they are not effective. Transitions of Care InboundProblem ReviewProblem List was reviewed and/or updated during this visit.Medication Reconciliation & ReviewMedication List was reviewed and/or updated during this visit, including review of any qfki-ykf-hmxvrve medications, herbal therapies, and/or supplements.Allergy ReviewAllergy List was reviewed and/or updated during this visit. Patient has no known allergies.Adult Preventive CareLabs/Meds/Other Counseling-Nutrition and Physical Activity:BMI Interpretation: Obese (10/29/2019) Counseling: Done (10/29/2019) Physical Activity: Done (10/29/2019)Review of Systems General: Complains of see HPI, sleep disturbances. Denies loss of appetite, chills, dizziness, fatigue, fever. Eyes: Denies blurring of vision, double vision. Ears/Nose/Throat: Denies earache, nasal congestion, sore throat. Cardiovascular: Denies chest pain, palpitations, feeling faint. Respiratory: Denies cough, difficulty breathing, shortness of breath. Gastrointestinal: Denies nausea, vomiting, diarrhea. Musculoskeletal: Complains of see HPI, back pain, stiffness. Denies recent injury. Neurologic: Denies weakness, numbness/tingling, feeling faint. Physical ExamGeneral Appearance: well nourished, well hydrated, no acute distress, hard of hearingEyes, External: conjunctivae and lids normal, EOMIExternal Ears: normal, no lesions or deformitiesHearing: grossly intactOtoscopy: canals clear, tympanic membranes intact, no fluid, light reflex intact bilaterallyExternal Nose: normal, no lesions or deformitiesNasal: mucosa, septum, and turbinates normal, nares patentLips/Teeth/Gums: no gingival inflammation, no labial lesionsPharynx: tongue normal, posterior pharynx without erythema or exudate, no thrush/aphthous ulcerNeck: supple, no masses, trachea midline, full range of motion of neckThyroid: no nodules, masses, tenderness, or enlargementRespiratory, Auscultation: clear to auscultation bilaterally; no rales, rhonchi, or wheezesCardiovascular, Auscultation: S1, S2 audible; no murmur, rub, or gallop; RRRPeripheral Circulation: no clubbing, cyanosis, edema, or varicositiesAbdomen: soft, non-tender, no masses, bowel sounds normalOrientation: oriented to time, place, and personMood & Affect: somewhat irritable today, good eye contact, speech clearJudgment & Insight: intact, but requires multiple repetitions of the same instruction before apparent clear comprehensionCare Management Plan Transitions of CareInboundRate Your HealthIn general, would you say your health is? FairAssessment & Plan Problems:Added: Encounter for general adult medical examination with abnormal findings (ICD- V70.0) (ZNK40-N11.01) Assessment: Instructions: Recommend annual medical appointments. Recommend routine dental and vision care. 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 Instructions: As above.Anxiety state (ICD-300.00) (XWX11-B22.1): evening anxiety Assessment: Low dose Lexapro given age. Instructions: Start Lexapro once daily, also starting counseling services with [facility].Benign hypertension (ICD-401.1) ([id number]) Assessment: Instructions: Continue your current blood pressure medications as currently taking.Primary generalized (osteo)arthritis (GSC61-B89.0) Assessment: Mobic to replace ibuprofen as it is unclear how many ibuprofen he is taking. Instructions: Stop ibuprofen. Start Mobic once daily in the morning and Tylenol once daily at bedtime.Patient Instructions/Care Plan: Encounter for general adult medical examination with abnormal findings: Recommend annual medical appointments. Recommend routine dental and vision care. Recommend influenza vaccines annually in the Fall.Psychophysiologic insomnia: Start Hydroxyzine 50mg, take 1 tablet at bedtime. NO other sleep aides.Adjustment insomnia: As above.Anxiety state: Star t Lexapro once daily, also starting counseling services with [facility].Benign hypertension: Continue your current blood pressure medications as currently taking.Primary generalized (osteo)arthritis: Stop ibuprofen. Start Mobic once daily in the morning and Tylenol once daily at bedtime. Plan developed in collaboration with patient and/or familyMedications:TYLENOL 8 HOUR ARTHRITIS PAIN 650 MG ORAL TABLET EXTENDED RELEASEMELOXICAM 7.5 MG ORAL TABLETLEXAPRO 5 MG ORAL TABLETHYDROXYZINE HCL 50 MG ORAL TABLETISOSORBIDE MONONITRATE ER 30 MG ORAL TABLET EXTENDED RELEASE 24 HOURCVS ESOMEPRAZOLE MAGNESIUM 20 MG ORAL CAPSULE DELAYED RELEASEAMLODIPINE BESYLATE 10 MG ORAL TABLETINDAPAMIDE 1.25 MG ORAL TABLETK-TAB 20 MEQ ORAL TABLET EXTENDED RELEASECOZAAR 100 MG ORAL TABLETMedication Changes:Refilled:HYDROXYZINE HCL 50 MG ORAL TABLET-Take 1 tablet po daily at bedtime Qty: 30[Tablet] Refills: 1 Method: ElectronicNew Prescription:LEXAPRO 5 MG ORAL TABLET-Take 1 tablet po daily in the morning Qty: 30[Tablet] Refills: 1 Method: ElectronicMELOXICAM 7.5 MG ORAL TABLET-Take 1 tablet po daily for pain in the morning Qty: 30[Tablet] Refills: 1 Method: ElectronicTYLENOL 8 HOUR ARTHRITIS PAIN 650 MG ORAL TABLET EXTENDED RELEASE-Take 1 tablet po daily as needed for pain at night Qty: 30[Tablet] Refills: 1 Method: ElectronicRemoved:ROZEREM 8 MG ORAL TABLET-One po qHS prn insomnia. MDD 1. Qty: 6[Tablet] Refills: 1, LIDODERM 5 % EXTERNAL PATCH-Apply 1 patch to back and replace q 24 hrs prn, IBU 400 MG ORAL TABLETChanged:From: ORAL HYDROXYZINE HCL 25 MG ORAL TABLET Qty: [id number] Refills: 30[Tablet] To: HYDROXYZINE HCL 50 MG ORAL TABLET-Take 1 tablet po daily at bedtime Qty: 30[Tablet] Refills: 1From: ORAL K-TAB 20 MEQ ORAL TABLET EXTENDED RELEASE Qty: [id number] To: K-TAB 20 MEQ ORAL TABLET EXTENDED RELEASE-take 1 tablet po daily at bedtimeFrom: ORAL INDAPAMIDE 1.25 MG ORAL TABLET Qty: [id number] To: INDAPAMIDE 1.25 MG ORAL TABLET-Take 1 tablet po daily in the morningFrom: ORAL AMLODIPINE BESYLATE 10 MG ORAL TABLET Qty: [id number] To: AMLODIPINE BESYLATE 10 MG ORAL TABLET- Take 1 tablet po daily in the morningFrom: ORAL ISOSORBIDE MONONITRATE ER 30 MG ORAL TABLET EXTENDED RELEASE 24 HOUR Qty: [id number] To: ISOSORBIDE MONONITRATE ER 30 MG ORAL TABLET EXTENDED RELEASE 24 HOUR-Take half tablet po daily in the morningAllergies:No Known Allergies (updated 10/29/2019) Orders: Preventive, Est, (65+) [[id number]] Follow-Up Return to clinic: in 4 weeks for follow upAdditional Follow-Up: med checkClinical Visit Summary Completed Name Value Range Interpretation Code Description Data Ruma rce(s) Supporting Document(s) Procedure Social History Code Duration Value Status Description Data Source(s ) Smoking 12/05/2020 12:00:00 AM EDT Patient is a former smoker completed Patient is a former smoker MEDFAN ([facility]) Vital Signs ID Date Data Source UNK Name Value Range Interpretation Code Description Data Source(s) Body weight 175.00 [lb_av] 175.00 [lb_av] ERNAEN T ([facility]) Body height 65 [in_i] 65 [in_i] MEDENT ([facility]) 5'5" Body mass index (BMI) [Ratio] 29.1 kg/m2 29.1 k g/m2 MEDENT ([facility]) Heart rate 56 /min 56 /min MEDENT ([facility]) Regular with intermittent skips Respiratory rate 16 /min 16 /min MEDENT ( [facility]) Systolic blood pressure 118 mm[Hg] 118 mm[Hg] M EDFAN ([facility]) sitting Diastolic blood pressure 64 mm[Hg] 64 mm[Hg] MEDENT ([facility]) sitting Systolic blood pressure 122 mm[Hg] 122 mm[Hg] M EDFAN ([facility]) sitting, regular cuff Diastolic blood pressure 68 mm[Hg] 68 mm[Hg] MEDENT ([facility]) sitting, regular cuff Diastolic blood pressure 67 mm[Hg] 67 mm[Hg] BENNIE ([facility]) Body height 60 [in_i] 60 [in_i] BENNIE ([facility]) Body mass index (BMI) [Ratio] 35.9 kg/m2 35.9 k g/m2 BENNIE ([facility]) Systolic blood pressure 116 mm[Hg] 116 mm[Hg] [facility] Body weight 2937.6 [oz_av] 2937.6 [oz_av] ATHEN A ([facility]) Diastolic blood pressure 67 mm[Hg] 67 mm[Hg] BENNIE ([facility]) Body height 60 [in_i] 60 [in_i] BENNIE ([facility]) Body mass index (BMI) [Ratio] 35.9 kg/m2 35.9 k g/m2 BENNIE ([facility]) Systolic blood pressure 116 mm[Hg] 116 mm[Hg] [facility]) Body weight 2937.6 [oz_av] 2937.6 [oz_av] ATHEN A ([facility]) Body mass index (BMI) [Ratio] 36.7 kg/m2 36.7 k g/m2 BENNIE ([facility]) Systolic blood pressure 113 mm[Hg] 113 mm[Hg] [facility] ([facility]) Body weight 3008 [oz_av] 3008 [oz_av] BENNIE ([facility]) Diastolic blood pressure 61 mm[Hg] 61 mm[Hg] BENNIE ([facility]) Body height 60 [in_i] 60 [in_i] BENNIE ([facility]) Diastolic blood pressure 61 mm[Hg] 61 mm[Hg] BENNIE ([facility]) Body height 60 [in_i] 60 [in_i] BENNIE ([facility]) Body mass index (BMI) [Ratio] 36.7 kg/m2 36.7 k g/m2 BENNIE ([facility]) Systolic blood pressure 113 mm[Hg] 113 mm[Hg] A THENA ([facility]) Body weight 3008 [oz_av] 3008 [oz_av] BENNIE ([facility]) Body weight 3008 [oz_av] 3008 [oz_av] BENNIE ([facility]) Diastolic blood pressure 61 mm[Hg] 61 mm[Hg] BENNIE ([facility]) Body height 60 [in_i] 60 [in_i] BENNIE ([facility]) Body mass index (BMI) [Ratio] 36.7 kg/m2 36.7 k g/m2 BENNIE ([facility]) Systolic blood pressure 113 mm[Hg] 113 mm[Hg] [facility] ([facility]) Diastolic blood pressure 61 mm[Hg] 61 mm[Hg] BENNIE ([facility]) Body height 60 [in_i] 60 [in_i] BENNIE ([facility]) Body mass index (BMI) [Ratio] 36.7 kg/m2 36.7 k g/m2 BENNIE ([facility]) Systolic blood pressure 113 mm[Hg] 113 mm[Hg] A THENA ([facility]) Body weight 3008 [oz_av] 3008 [oz_av] BENNIE ([facility]) Diastolic blood pressure 80 mm[Hg] 80 mm[Hg] BENNIE ([facility]) Body height 60 [in_i] 60 [in_i] BENNIE ([facility]) Body mass index (BMI) [Ratio] 35.3 kg/m2 35.3 k g/m2 BENNIE ([facility]) Systolic blood pressure 144 mm[Hg] 144 mm[Hg] A THENA ([facility]) Body weight 2896 [oz_av] 2896 [oz_av] BENNIE ([facility]) Systolic blood pressure 144 mm[Hg] 144 mm[Hg] [facility] ([facility]) Diastolic blood pressure 80 mm[Hg] 80 mm[Hg] BENNIE ([facility]) Body height 60 [in_i] 60 [in_i] BENNIE ([facility]) Body mass index (BMI) [Ratio] 35.3 kg/m2 35.3 k g/m2 BENNIE ([facility]) Body weight 2896 [oz_av] 2896 [oz_av] BENNIE ([facility]) Diastolic blood pressure 80 mm[Hg] 80 mm[Hg] BENNIE ([facility]) Body height 60 [in_i] 60 [in_i] BENNIE ([facility]) Body mass index (BMI) [Ratio] 35.3 kg/m2 35.3 k g/m2 BENNIE ([facility]) Systolic blood pressure 144 mm[Hg] 144 mm[Hg] [facility] ([facility]) Body weight 2896 [oz_av] 2896 [oz_av] BENNIE ([facility]) Diastolic blood pressure 80 mm[Hg] 80 mm[Hg] BENNIE ([facility]) Body height 60 [in_i] 60 [in_i] BENNIE ([facility]) Body mass index (BMI) [Ratio] 35.3 kg/m2 35.3 k g/m2 BENNIE ([facility]) Body mass index (BMI) [Ratio] 35.3 kg/m2 35.3 k g/m2 BENNIE ([facility]) Systolic blood pressure 144 mm[Hg] 144 mm[Hg] [facility] ([facility]) Body weight 2896 [oz_av] 2896 [oz_av] BENNIE ([facility]) Diastolic blood pressure 80 mm[Hg] 80 mm[Hg] BENNIE ([facility]) Body height 60 [in_i] 60 [in_i] BENNIE ([facility]) Systolic blood pressure 144 mm[Hg] 144 mm[Hg] [facility]) Body weight 2896 [oz_av] 2896 [oz_av] BENNIE ([facility]) Diastolic blood pressure 65 mm[Hg] 65 mm[Hg] BENNIE ([facility]) Systolic blood pressure 129 mm[Hg] 129 mm[Hg] [facility] ([facility]) Body weight 2880 [oz_av] 2880 [oz_av] BENNIE ([facility]) Body height 60 [in_i] 60 [in_i] BENNIE ([facility]) Body mass index (BMI) [Ratio] 35.2 kg/m2 35.2 k g/m2 BENNIE ([facility]) Body mass index (BMI) [Ratio] 35.2 kg/m2 35.2 k g/m2 BENNIE ([facility]) Systolic blood pressure 129 mm[Hg] 129 mm[Hg] [facility] ([facility]) Body weight 2880 [oz_av] 2880 [oz_av] BENNIE ([facility]) Diastolic blood pressure 65 mm[Hg] 65 mm[Hg] BENNIE ([facility]) Body height 60 [in_i] 60 [in_i] BENNIE ([facility]) Diastolic blood pressure 65 mm[Hg] 65 mm[Hg] BENNIE ([facility]) Body height 60 [in_i] 60 [in_i] BENNIE ([facility]) Body mass index (BMI) [Ratio] 35.2 kg/m2 35.2 k g/m2 BENNIE ([facility]) Systolic blood pressure 129 mm[Hg] 129 mm[Hg] A THENA ([facility]) Body weight 2880 [oz_av] 2880 [oz_av] BENNIE ([facility]) Diastolic blood pressure 65 mm[Hg] 65 mm[Hg] BENNIE ([facility]) Body height 60 [in_i] 60 [in_i] BENNIE ([facility]) Body mass index (BMI) [Ratio] 35.2 kg/m2 35.2 k g/m2 BENNIE ([facility]) Systolic blood pressure 129 mm[Hg] 129 mm[Hg] A THENA ([facility]) Body weight 2880 [oz_av] 2880 [oz_av] BENNIE ([facility]) Diastolic blood pressure 65 mm[Hg] 65 mm[Hg] BENNIE ([facility]) Body height 60 [in_i] 60 [in_i] BENNIE ([facility]) Body mass index (BMI) [Ratio] 35.2 kg/m2 35.2 k g/m2 BENNIE ([facility]) Systolic blood pressure 129 mm[Hg] 129 mm[Hg] A THENA ([facility]) Body weight 2880 [oz_av] 2880 [oz_av] BENNIE ([facility]) Diastolic blood pressure 65 mm[Hg] 65 mm[Hg] BENNIE ([facility]) Body height 60 [in_i] 60 [in_i] BENNIE ([facility]) Body mass index (BMI) [Ratio] 35.2 kg/m2 35.2 k g/m2 BENNIE ([facility]) Systolic blood pressure 129 mm[Hg] 129 mm[Hg] A THENA ([facility]) Body weight 2880 [oz_av] 2880 [oz_av] BENNIE ([facility]) Body height 60 [in_i] 60 [in_i] BENNIE ([facility]) Body height 60 [in_i] 60 [in_i] BENNIE ([facility]) Body height 60 [in_i] 60 [in_i] BENNIE ([facility]) Body height 60 [in_i] 60 [in_i] BENNIE ([facility]) Body height 60 [in_i] 60 [in_i] BENNIE ([facility]) Body height 60 [in_i] 60 [in_i] BENNIE ([facility]) Body height 60 [in_i] 60 [in_i] BENINE ([facility]) Diastolic blood pressure 58 mm[Hg] 58 mm[Hg] BENNIE ([facility]) Body height 60 [in_i] 60 [in_i] BENNIE ([facility]) Body mass index (BMI) [Ratio] 36.2 kg/m2 36.2 k g/m2 BENNIE ([facility]) Systolic blood pressure 126 mm[Hg] 126 mm[Hg] A THENA ([facility]) Body weight 2962 [oz_av] 2962 [oz_av] BENNIE ([facility]) Diastolic blood pressure 58 mm[Hg] 58 mm[Hg] BENNIE ([facility]) Body height 60 [in_i] 60 [in_i] BENNIE ([facility]) Body mass index (BMI) [Ratio] 36.2 kg/m2 36.2 k g/m2 BENNIE ([facility]) Systolic blood pressure 126 mm[Hg] 126 mm[Hg] A THENA ([facility]) Body weight 2962 [oz_av] 2962 [oz_av] BENNIE ([facility]) Diastolic blood pressure 58 mm[Hg] 58 mm[Hg] BENNIE ([facility]) Body height 60 [in_i] 60 [in_i] BENNIE ([facility]) Body mass index (BMI) [Ratio] 36.2 kg/m2 36.2 k g/m2 BENNIE ([facility]) Systolic blood pressure 126 mm[Hg] 126 mm[Hg] A THENA ([facility]) Body weight 2962 [oz_av] 2962 [oz_av] BENNIE ([facility]) Diastolic blood pressure 58 mm[Hg] 58 mm[Hg] BENNIE ([facility]) Body height 60 [in_i] 60 [in_i] BENNIE ([facility]) Body mass index (BMI) [Ratio] 36.2 kg/m2 36.2 k g/m2 BENNIE ([facility]) Systolic blood pressure 126 mm[Hg] 126 mm[Hg] A THENA ([facility]) Body weight 2962 [oz_av] 2962 [oz_av] BENNIE ([facility]) Diastolic blood pressure 58 mm[Hg] 58 mm[Hg] BENNIE ([facility]) Body height 60 [in_i] 60 [in_i] BENNIE ([facility]) Body mass index (BMI) [Ratio] 36.2 kg/m2 36.2 k g/m2 BENNIE ([facility]) Systolic blood pressure 126 mm[Hg] 126 mm[Hg] A THENA ([facility]) Body weight 2962 [oz_av] 2962 [oz_av] BENNIE ([facility]) Diastolic blood pressure 58 mm[Hg] 58 mm[Hg] BENNIE ([facility]) Body height 60 [in_i] 60 [in_i] BENNIE ([facility]) Body mass index (BMI) [Ratio] 36.2 kg/m2 36.2 k g/m2 BENNIE ([facility]) Systolic blood pressure 126 mm[Hg] 126 mm[Hg] [facility]) Body weight 2962 [oz_av] 2962 [oz_av] BENNIE ([facility]) Diastolic blood pressure 58 mm[Hg] 58 mm[Hg] BENNIE ([facility]) Diastolic blood pressure 58 mm[Hg] 58 mm[Hg] BENNIE ([facility]) Body height 60 [in_i] 60 [in_i] BENNIE ([facility]) Body mass index (BMI) [Ratio] 36.2 kg/m2 36.2 k g/m2 BENNIE ([facility]) Systolic blood pressure 126 mm[Hg] 126 mm[Hg] [facility] ([facility]) Body weight 2962 [oz_av] 2962 [oz_av] BENNIE ([facility]) Body height 60 [in_i] 60 [in_i] BENNIE ([facility]) Body mass index (BMI) [Ratio] 36.2 kg/m2 36.2 k g/m2 BENNIE ([facility]) Systolic blood pressure 126 mm[Hg] 126 mm[Hg] A THENA ([facility]) Body weight 2962 [oz_av] 2962 [oz_av] BENNIE ([facility]) Diastolic blood pressure 79 mm[Hg] 79 mm[Hg] BENNIE ([facility]) Body height 60 [in_i] 60 [in_i] BENNIE ([facility]) Body mass index (BMI) [Ratio] 35.7 kg/m2 35.7 k g/m2 BENNIE ([facility]) Systolic blood pressure 164 mm[Hg] 164 mm[Hg] A THENA ([facility]) Body weight 2921.6 [oz_av] 2921.6 [oz_av] ATHEN A ([facility]) Diastolic blood pressure 79 mm[Hg] 79 mm[Hg] BENNIE ([facility]) Body height 60 [in_i] 60 [in_i] BENNIE ([facility]) Body mass index (BMI) [Ratio] 35.7 kg/m2 35.7 k g/m2 BENNIE ([facility]) Systolic blood pressure 164 mm[Hg] 164 mm[Hg] A CHRISTOPHER ([facility]) Body weight 2921.6 [oz_av] 2921.6 [oz_av] ATHEN A ([facility]) Diastolic blood pressure 79 mm[Hg] 79 mm[Hg] BENNIE ([facility]) Body height 60 [in_i] 60 [in_i] BENNIE ([facility]) Body mass index (BMI) [Ratio] 35.7 kg/m2 35.7 k g/m2 BENNIE ([facility]) Systolic blood pressure 164 mm[Hg] 164 mm[Hg] A CHRISTOPHER ([facility]) Body weight 2921.6 [oz_av] 2921.6 [oz_av] ATHEN A ([facility]) Diastolic blood pressure 79 mm[Hg] 79 mm[Hg] BENNIE ([facility]) Body height 60 [in_i] 60 [in_i] BENNIE ([facility]) Body mass index (BMI) [Ratio] 35.7 kg/m2 35.7 k g/m2 BENNIE ([facility]) Systolic blood pressure 164 mm[Hg] 164 mm[Hg] A CHRISTOPHER ([facility]) Body weight 2921.6 [oz_av] 2921.6 [oz_av] ATHEN A ([facility]) Diastolic blood pressure 79 mm[Hg] 79 mm[Hg] BENNIE ([facility]) Body height 60 [in_i] 60 [in_i] BENNIE ([facility]) Body mass index (BMI) [Ratio] 35.7 kg/m2 35.7 k g/m2 BENNIE ([facility]) Systolic blood pressure 164 mm[Hg] 164 mm[Hg] A CHRISTOPHER ([facility]) Body weight 2921.6 [oz_av] 2921.6 [oz_av] ATHEN A ([facility]) Body mass index (BMI) [Ratio] 35.7 kg/m2 35.7 k g/m2 BENNIE ([facility]) Systolic blood pressure 164 mm[Hg] 164 mm[Hg] [facility] ([facility]) Body weight 2921.6 [oz_av] 2921.6 [oz_av] ATHEN A ([facility]) Diastolic blood pressure 79 mm[Hg] 79 mm[Hg] BENNIE ([facility]) Body height 60 [in_i] 60 [in_i] BENNIE ([facility]) Body mass index (BMI) [Ratio] 35.7 kg/m2 35.7 k g/m2 BENNIE ([facility]) Systolic blood pressure 164 mm[Hg] 164 mm[Hg] A [facility] ([facility]) Body weight 2921.6 [oz_av] 2921.6 [oz_av] ATHEN A ([facility]) Diastolic blood pressure 79 mm[Hg] 79 mm[Hg] BENNIE ([facility]) Body height 60 [in_i] 60 [in_i] BENNIE ([facility]) Diastolic blood pressure 79 mm[Hg] 79 mm[Hg] BENNIE ([facility]) Body height 60 [in_i] 60 [in_i] BENNIE ([facility]) Body mass index (BMI) [Ratio] 35.7 kg/m2 35.7 k g/m2 BENNIE ([facility]) Systolic blood pressure 164 mm[Hg] 164 mm[Hg] [facility] ([facility]) Body weight 2921.6 [oz_av] 2921.6 [oz_av] ATHEN A ([facility]) Diastolic blood pressure 79 mm[Hg] 79 mm[Hg] BENNIE ([facility]) Body height 60 [in_i] 60 [in_i] BENNIE ([facility]) Body mass index (BMI) [Ratio] 35.7 kg/m2 35.7 k g/m2 BENNIE ([facility]) Systolic blood pressure 164 mm[Hg] 164 mm[Hg] [facility] ([facility]) Body weight 2921.6 [oz_av] 2921.6 [oz_av] ATHEN A ([facility]) Diastolic blood pressure 79 mm[Hg] 79 mm[Hg] BENNIE ([facility]) Body height 60 [in_i] 60 [in_i] BENNIE ([facility]) Body mass index (BMI) [Ratio] 35.7 kg/m2 35.7 k g/m2 BENNIE ([facility]) Systolic blood pressure 164 mm[Hg] 164 mm[Hg] A JOVANIA ([facility]) Body weight 2921.6 [oz_av] 2921.6 [oz_av] ATHEN A ([facility]) Diastolic blood pressure 79 mm[Hg] 79 mm[Hg] BENNIE ([facility]) Body height 60 [in_i] 60 [in_i] BENNIE ([facility]) Body mass index (BMI) [Ratio] 35.7 kg/m2 35.7 k g/m2 BENNIE ([facility]) Systolic blood pressure 164 mm[Hg] 164 mm[Hg] A [facility]OVANIA ([facility]) Body weight 2921.6 [oz_av] 2921.6 [oz_av] ATHEN A [facility] [facility] Diastolic blood pressure 79 mm[Hg] 79 mm[Hg] BENNIE ([facility]) Body height 60 [in_i] 60 [in_i] BENNIE ([facility]) Body mass index (BMI) [Ratio] 35.7 kg/m2 35.7 k g/m2 BENNIE ([facility]) Systolic blood pressure 164 mm[Hg] 164 mm[Hg] A JOVANIA ([facility]) Body weight 2921.6 [oz_av] 2921.6 [oz_av] ATHEN A ([facility]) Body height 60 [in_i] 60 [in_i] BENNIE ([facility]) Body height 60 [in_i] 60 [in_i] BENNIE ([facility]) Body height 60 [in_i] 60 [in_i] BENNIE ([facility]) Body height 60 [in_i] 60 [in_i] BENNIE ([facility]) Body height 60 [in_i] 60 [in_i] BENNIE ([facility]) Body height 60 [in_i] 60 [in_i] BENNIE ([facility]) Body height 60 [in_i] 60 [in_i] BENNIE ([facility]) Body height 60 [in_i] 60 [in_i] BENNIE ([facility]) Body height 60 [in_i] 60 [in_i] BENNIE ([facility]) Body height 60 [in_i] 60 [in_i] BENNIE ([facility]) Body height 60 [in_i] 60 [in_i] BENNIE ([facility]) Body height 60 [in_i] 60 [in_i] BENNIE ([facility]) Body height 60 [in_i] 60 [in_i] BENNIE ([facility]) Body height 60 [in_i] 60 [in_i] BENNIE ([facility]) Diastolic blood pressure 73 mm[Hg] 73 mm[Hg] BENNIE ([facility]) Body height 60 [in_i] 60 [in_i] BENNIE ([facility]) Body mass index (BMI) [Ratio] 34.73 kg/m2 34.73 kg/m2 BENNIE ([facility]) Systolic blood pressure 159 mm[Hg] 159 mm[Hg] A THENA ([facility]) Body weight 2835.2 [oz_av] 2835.2 [oz_av] ATHEN A ([facility]) Diastolic blood pressure 73 mm[Hg] 73 mm[Hg] BENNIE ([facility]) Body height 60 [in_i] 60 [in_i] BENNIE ([facility]) Body mass index (BMI) [Ratio] 34.73 kg/m2 34.73 kg/m2 BENNIE ([facility]) Systolic blood pressure 159 mm[Hg] 159 mm[Hg] A THENA ([facility]) Body weight 2835.2 [oz_av] 2835.2 [oz_av] ATHEN A ([facility]) Diastolic blood pressure 73 mm[Hg] 73 mm[Hg] BENNIE ([facility]) Body height 60 [in_i] 60 [in_i] BENNIE ([facility]) Body weight 2835.2 [oz_av] 2835.2 [oz_av] ATHEN A ([facility]) Body mass index (BMI) [Ratio] 34.73 kg/m2 34.73 kg/m2 BENNIE ([facility]) Systolic blood pressure 159 mm[Hg] 159 mm[Hg] A THENA ([facility]) Diastolic blood pressure 73 mm[Hg] 73 mm[Hg] BENNIE ([facility]) Body height 60 [in_i] 60 [in_i] BENNIE ([facility]) Body mass index (BMI) [Ratio] 34.73 kg/m2 34.73 kg/m2 BENNIE ([facility]) Systolic blood pressure 159 mm[Hg] 159 mm[Hg] A THENA ([facility]) Body weight 2835.2 [oz_av] 2835.2 [oz_av] ATHEN A ([facility]) Diastolic blood pressure 73 mm[Hg] 73 mm[Hg] BENNIE ([facility]) Body height 60 [in_i] 60 [in_i] BENNIE ([facility]) Body mass index (BMI) [Ratio] 34.73 kg/m2 34.73 kg/m2 BENNIE ([facility]) Systolic blood pressure 159 mm[Hg] 159 mm[Hg] A THENA ([facility]) Body weight 2835.2 [oz_av] 2835.2 [oz_av] ATHEN A ([facility]) Diastolic blood pressure 73 mm[Hg] 73 mm[Hg] BENNIE ([facility]) Body height 60 [in_i] 60 [in_i] BENNIE ([facility]) Body mass index (BMI) [Ratio] 34.73 kg/m2 34.73 kg/m2 BENNIE ([facility]) Systolic blood pressure 159 mm[Hg] 159 mm[Hg] A THENA ([facility]) Body weight 2835.2 [oz_av] 2835.2 [oz_av] ATHEN A ([facility]) Diastolic blood pressure 73 mm[Hg] 73 mm[Hg] BENNIE ([facility]) Body height 60 [in_i] 60 [in_i] BENNIE ([facility]) Body mass index (BMI) [Ratio] 34.73 kg/m2 34.73 kg/m2 BENNIE ([facility]) Systolic blood pressure 159 mm[Hg] 159 mm[Hg] A JOVANIA ([facility]) Body weight 2835.2 [oz_av] 2835.2 [oz_av] ATHEN A ([facility]) Diastolic blood pressure 73 mm[Hg] 73 mm[Hg] BENNIE ([facility]) Body height 60 [in_i] 60 [in_i] BENNIE ([facility]) Body mass index (BMI) [Ratio] 34.73 kg/m2 34.73 kg/m2 BENNIE ([facility]) Systolic blood pressure 159 mm[Hg] 159 mm[Hg] A [facility] ([facility]) Body weight 2835.2 [oz_av] 2835.2 [oz_av] ATHEN A ([facility]) Diastolic blood pressure 73 mm[Hg] 73 mm[Hg] BENNIE ([facility]) Body height 60 [in_i] 60 [in_i] BENNIE ([facility]) Body mass index (BMI) [Ratio] 34.73 kg/m2 34.73 kg/m2 BENNIE ([facility]) Systolic blood pressure 159 mm[Hg] 159 mm[Hg] A JOVANIA ([facility]) Body weight 2835.2 [oz_av] 2835.2 [oz_av] ATHEN A ([facility]) Diastolic blood pressure 73 mm[Hg] 73 mm[Hg] BENNIE ([facility]) Body height 60 [in_i] 60 [in_i] BENNIE ([facility]) Body mass index (BMI) [Ratio] 34.73 kg/m2 34.73 kg/m2 BENNIE ([facility]) Systolic blood pressure 159 mm[Hg] 159 mm[Hg] A THENA ([facility]) Body weight 2835.2 [oz_av] 2835.2 [oz_av] ATHEN A ([facility]) Diastolic blood pressure 73 mm[Hg] 73 mm[Hg] BENNIE ([facility]) Body height 60 [in_i] 60 [in_i] BENNIE ([facility]) Body mass index (BMI) [Ratio] 34.73 kg/m2 34.73 kg/m2 BENNIE ([facility]) Systolic blood pressure 159 mm[Hg] 159 mm[Hg] A CHRISTOPHER ([facility]) Body weight 2835.2 [oz_av] 2835.2 [oz_av] ATHEN A ([facility]) Diastolic blood pressure 73 mm[Hg] 73 mm[Hg] BENNIE ([facility]) Body height 60 [in_i] 60 [in_i] BENNIE ([facility]) Body mass index (BMI) [Ratio] 34.73 kg/m2 34.73 kg/m2 BENNIE ([facility]) Systolic blood pressure 159 mm[Hg] 159 mm[Hg] [facility] Body weight 2835.2 [oz_av] 2835.2 [oz_av] ATHEN A ([facility]) Diastolic blood pressure 73 mm[Hg] 73 mm[Hg] BENNIE ([facility]) Body height 60 [in_i] 60 [in_i] BENNEI ([facility]) Body mass index (BMI) [Ratio] 34.73 kg/m2 34.73 kg/m2 BENNIE ([facility]) Systolic blood pressure 159 mm[Hg] 159 mm[Hg] A CHRISTOPHER ([facility]) Body weight 2835.2 [oz_av] 2835.2 [oz_av] ATHEN A ([facility]) Diastolic blood pressure 73 mm[Hg] 73 mm[Hg] BENNIE ([facility]) Body height 60 [in_i] 60 [in_i] BENNIE ([facility]) Body mass index (BMI) [Ratio] 34.73 kg/m2 34.73 kg/m2 BENNIE ([facility]) Systolic blood pressure 159 mm[Hg] 159 mm[Hg] [facility] Body weight 2835.2 [oz_av] 2835.2 [oz_av] ATHEN A ([facility]) Diastolic blood pressure 68 mm[Hg] 68 mm[Hg] BENNIE ([facility]) Body height 60 [in_i] 60 [in_i] BENNIE ([facility]) Body mass index (BMI) [Ratio] 35.79 kg/m2 35.79 kg/m2 BENNIE ([facility]) Systolic blood pressure 127 mm[Hg] 127 mm[Hg] [facility] Body weight 2921.6 [oz_av] 2921.6 [oz_av] ATHEN A ([facility]) Diastolic blood pressure 68 mm[Hg] 68 mm[Hg] BENNIE ([facility]) Body height 60 [in_i] 60 [in_i] BENNIE ([facility]) Body mass index (BMI) [Ratio] 35.79 kg/m2 35.79 kg/m2 BENNIE ([facility]) Systolic blood pressure 127 mm[Hg] 127 mm[Hg] A [facility] ([facility]) Body weight 2921.6 [oz_av] 2921.6 [oz_av] ATHEN A ([facility]) Diastolic blood pressure 68 mm[Hg] 68 mm[Hg] BENNIE ([facility]) Body height 60 [in_i] 60 [in_i] BENNIE ([facility]) Body mass index (BMI) [Ratio] 35.79 kg/m2 35.79 kg/m2 BENNIE ([facility]) Systolic blood pressure 127 mm[Hg] 127 mm[Hg] [facility] Body weight 2921.6 [oz_av] 2921.6 [oz_av] ATHEN A ([facility]) Diastolic blood pressure 68 mm[Hg] 68 mm[Hg] BENNIE ([facility]) Body height 60 [in_i] 60 [in_i] BENNIE ([facility]) Body mass index (BMI) [Ratio] 35.79 kg/m2 35.79 kg/m2 BENNIE ([facility]) Systolic blood pressure 127 mm[Hg] 127 mm[Hg] [facility] Body weight 2921.6 [oz_av] 2921.6 [oz_av] ATHEN A ([facility]) Body weight 2921.6 [oz_av] 2921.6 [oz_av] ATHEN A ([facility]) Diastolic blood pressure 68 mm[Hg] 68 mm[Hg] BENNIE ([facility]) Body height 60 [in_i] 60 [in_i] BENNIE ([facility]) Body mass index (BMI) [Ratio] 35.79 kg/m2 35.79 kg/m2 BENNIE ([facility]) Systolic blood pressure 127 mm[Hg] 127 mm[Hg] [facility] Diastolic blood pressure 68 mm[Hg] 68 mm[Hg] BENNIE ([facility]) Body height 60 [in_i] 60 [in_i] BENNIE ([facility]) Body mass index (BMI) [Ratio] 35.79 kg/m2 35.79 kg/m2 BENNIE ([facility]) Systolic blood pressure 127 mm[Hg] 127 mm[Hg] [facility] Body weight 2921.6 [oz_av] 2921.6 [oz_av] ATHEN A ([facility]) Diastolic blood pressure 68 mm[Hg] 68 mm[Hg] BENNIE ([facility]) Body height 60 [in_i] 60 [in_i] BENNIE ([facility]) Body mass index (BMI) [Ratio] 35.79 kg/m2 35.79 kg/m2 BENNIE ([facility]) Systolic blood pressure 127 mm[Hg] 127 mm[Hg] A THENA ([facility]) Body weight 2921.6 [oz_av] 2921.6 [oz_av] ATHEN A ([facility]) Diastolic blood pressure 68 mm[Hg] 68 mm[Hg] BENNIE ([facility]) Body height 60 [in_i] 60 [in_i] BENNIE ([facility]) Body mass index (BMI) [Ratio] 35.79 kg/m2 35.79 kg/m2 BENNIE ([facility]) Systolic blood pressure 127 mm[Hg] 127 mm[Hg] A THENA ([facility]) Body weight 2921.6 [oz_av] 2921.6 [oz_av] ATHEN A ([facility]) Diastolic blood pressure 68 mm[Hg] 68 mm[Hg] BENNIE ([facility]) Body height 60 [in_i] 60 [in_i] BENNIE ([facility]) Body mass index (BMI) [Ratio] 35.79 kg/m2 35.79 kg/m2 BENNIE ([facility]) Systolic blood pressure 127 mm[Hg] 127 mm[Hg] [facility] Body weight 2921.6 [oz_av] 2921.6 [oz_av] ATHEN A ([facility]) Diastolic blood pressure 68 mm[Hg] 68 mm[Hg] BENNIE ([facility]) Body height 60 [in_i] 60 [in_i] BENNIE ([facility]) Body mass index (BMI) [Ratio] 35.79 kg/m2 35.79 kg/m2 BENNIE ([facility]) Systolic blood pressure 127 mm[Hg] 127 mm[Hg] A [facility] ([facility]) Body weight 2921.6 [oz_av] 2921.6 [oz_av] ATHEN A ([facility]) Diastolic blood pressure 68 mm[Hg] 68 mm[Hg] BENNIE ([facility]) Body height 60 [in_i] 60 [in_i] BENNIE ([facility]) Body mass index (BMI) [Ratio] 35.79 kg/m2 35.79 kg/m2 BENNIE ([facility]) Systolic blood pressure 127 mm[Hg] 127 mm[Hg] [facility] Body weight 2921.6 [oz_av] 2921.6 [oz_av] ATHEN A ([facility]) Diastolic blood pressure 68 mm[Hg] 68 mm[Hg] BENNIE ([facility]) Body height 60 [in_i] 60 [in_i] BENNIE ([facility]) Body mass index (BMI) [Ratio] 35.79 kg/m2 35.79 kg/m2 BENNIE ([facility]) Systolic blood pressure 127 mm[Hg] 127 mm[Hg] A [facility] ([facility]) Body weight 2921.6 [oz_av] 2921.6 [oz_av] ATHEN A ([facility]) Diastolic blood pressure 68 mm[Hg] 68 mm[Hg] BENNIE ([facility]) Body height 60 [in_i] 60 [in_i] BENNIE ([facility]) Body mass index (BMI) [Ratio] 35.79 kg/m2 35.79 kg/m2 BENNIE ([facility]) Systolic blood pressure 127 mm[Hg] 127 mm[Hg] [facility] Body weight 2921.6 [oz_av] 2921.6 [oz_av] ATHEN A ([facility]) Diastolic blood pressure 68 mm[Hg] 68 mm[Hg] BENNIE ([facility]) Body height 60 [in_i] 60 [in_i] BENNIE ([facility]) Body mass index (BMI) [Ratio] 35.79 kg/m2 35.79 kg/m2 BENNIE ([facility]) Systolic blood pressure 127 mm[Hg] 127 mm[Hg] [facility] Body weight 2921.6 [oz_av] 2921.6 [oz_av] ATHEN A ([facility]) Diastolic blood pressure 85 mm[Hg] 85 mm[Hg] BENNIE ([facility]) Body height 60 [in_i] 60 [in_i] BENNIE ([facility]) Body mass index (BMI) [Ratio] 35.12 kg/m2 35.12 kg/m2 BENNIE ([facility]) Systolic blood pressure 163 mm[Hg] 163 mm[Hg] [facility] Body weight 2867.2 [oz_av] 2867.2 [oz_av] ATHEN A ([facility]) Diastolic blood pressure 85 mm[Hg] 85 mm[Hg] BENNIE ([facility]) Body height 60 [in_i] 60 [in_i] BENNIE ([facility]) Body mass index (BMI) [Ratio] 35.12 kg/m2 35.12 kg/m2 BENNIE ([facility]) Systolic blood pressure 163 mm[Hg] 163 mm[Hg] A [facility] ([facility]) Body weight 2867.2 [oz_av] 2867.2 [oz_av] ATHEN A ([facility]) Diastolic blood pressure 85 mm[Hg] 85 mm[Hg] BENNIE ([facility]) Body height 60 [in_i] 60 [in_i] BENNIE ([facility]) Body mass index (BMI) [Ratio] 35.12 kg/m2 35.12 kg/m2 BENNIE ([facility]) Systolic blood pressure 163 mm[Hg] 163 mm[Hg] [facility] Body weight 2867.2 [oz_av] 2867.2 [oz_av] ATHEN A ([facility]) Diastolic blood pressure 85 mm[Hg] 85 mm[Hg] BENNIE ([facility]) Body height 60 [in_i] 60 [in_i] BENNIE ([facility]) Body mass index (BMI) [Ratio] 35.12 kg/m2 35.12 kg/m2 BENNIE ([facility]) Systolic blood pressure 163 mm[Hg] 163 mm[Hg] [facility] Body weight 2867.2 [oz_av] 2867.2 [oz_av] ATHEN A ([facility]) Body weight 2867.2 [oz_av] 2867.2 [oz_av] ATHEN A ([facility]) Diastolic blood pressure 85 mm[Hg] 85 mm[Hg] BENNIE ([facility]) Body height 60 [in_i] 60 [in_i] BENNIE ([facility]) Body mass index (BMI) [Ratio] 35.12 kg/m2 35.12 kg/m2 BENNIE ([facility]) Systolic blood pressure 163 mm[Hg] 163 mm[Hg] [facility] Diastolic blood pressure 85 mm[Hg] 85 mm[Hg] BENNIE ([facility]) Body height 60 [in_i] 60 [in_i] BENNIE ([facility]) Body mass index (BMI) [Ratio] 35.12 kg/m2 35.12 kg/m2 BENNIE ([facility]) Systolic blood pressure 163 mm[Hg] 163 mm[Hg] [facility] Body weight 2867.2 [oz_av] 2867.2 [oz_av] ATHEN A ([facility]) Diastolic blood pressure 85 mm[Hg] 85 mm[Hg] BENNIE ([facility]) Body height 60 [in_i] 60 [in_i] BENNIE ([facility]) Body mass index (BMI) [Ratio] 35.12 kg/m2 35.12 kg/m2 BENNIE ([facility]) Systolic blood pressure 163 mm[Hg] 163 mm[Hg] A THENA ([facility]) Body weight 2867.2 [oz_av] 2867.2 [oz_av] ATHEN A ([facility]) Diastolic blood pressure 85 mm[Hg] 85 mm[Hg] BENNIE ([facility]) Body height 60 [in_i] 60 [in_i] BENNIE ([facility]) Body mass index (BMI) [Ratio] 35.12 kg/m2 35.12 kg/m2 BENNIE ([facility]) Systolic blood pressure 163 mm[Hg] 163 mm[Hg] A THENA ([facility]) Body weight 2867.2 [oz_av] 2867.2 [oz_av] ATHEN A ([facility]) Diastolic blood pressure 85 mm[Hg] 85 mm[Hg] BENNIE ([facility]) Body height 60 [in_i] 60 [in_i] BENNIE ([facility]) Body mass index (BMI) [Ratio] 35.12 kg/m2 35.12 kg/m2 BENNIE ([facility]) Systolic blood pressure 163 mm[Hg] 163 mm[Hg] A THENA ([facility]) Body weight 2867.2 [oz_av] 2867.2 [oz_av] ATHEN A ([facility]) Diastolic blood pressure 85 mm[Hg] 85 mm[Hg] BENNIE ([facility]) Body height 60 [in_i] 60 [in_i] BENNIE ([facility]) Body mass index (BMI) [Ratio] 35.12 kg/m2 35.12 kg/m2 BENNIE ([facility]) Systolic blood pressure 163 mm[Hg] 163 mm[Hg] [facility] Body weight 2867.2 [oz_av] 2867.2 [oz_av] ATHEN A ([facility]) Body height 60 [in_i] 60 [in_i] BENNIE ([facility]) Diastolic blood pressure 85 mm[Hg] 85 mm[Hg] BENNIE ([facility]) Body height 60 [in_i] 60 [in_i] BENNIE ([facility]) Body mass index (BMI) [Ratio] 35.12 kg/m2 35.12 kg/m2 BENNIE ([facility]) Systolic blood pressure 163 mm[Hg] 163 mm[Hg] [facility] Body weight 2867.2 [oz_av] 2867.2 [oz_av] ATHEN A ([facility]) Body mass index (BMI) [Ratio] 35.12 kg/m2 35.12 kg/m2 BENNIE ([facility]) Systolic blood pressure 163 mm[Hg] 163 mm[Hg] [facility] Body weight 2867.2 [oz_av] 2867.2 [oz_av] ATHEN A ([facility]) Diastolic blood pressure 85 mm[Hg] 85 mm[Hg] BENNIE ([facility]) Body height 60 [in_i] 60 [in_i] BENNIE ([facility]) Body mass index (BMI) [Ratio] 35.12 kg/m2 35.12 kg/m2 BENNIE ([facility]) Systolic blood pressure 163 mm[Hg] 163 mm[Hg] [facility] Body weight 2867.2 [oz_av] 2867.2 [oz_av] ATHEN A ([facility]) Diastolic blood pressure 85 mm[Hg] 85 mm[Hg] BENNIE ([facility]) Body height 60 [in_i] 60 [in_i] BENNIE ([facility]) Body mass index (BMI) [Ratio] 35.12 kg/m2 35.12 kg/m2 BENNIE ([facility]) Systolic blood pressure 163 mm[Hg] 163 mm[Hg] [facility] Body weight 2867.2 [oz_av] 2867.2 [oz_av] ATHEN A ([facility]) Diastolic blood pressure 85 mm[Hg] 85 mm[Hg] BENNIE ([facility]) Diastolic blood pressure 77 mm[Hg] 77 mm[Hg] BENNIE ([facility]) Body height 60 [in_i] 60 [in_i] BENNIE ([facility]) Body mass index (BMI) [Ratio] 34.97 kg/m2 34.97 kg/m2 BENNIE ([facility]) Systolic blood pressure 166 mm[Hg] 166 mm[Hg] [facility] Body weight 2854.4 [oz_av] 2854.4 [oz_av] ATHEN A ([facility]) Diastolic blood pressure 77 mm[Hg] 77 mm[Hg] BENNIE ([facility]) Body height 60 [in_i] 60 [in_i] BENNIE ([facility]) Systolic blood pressure 166 mm[Hg] 166 mm[Hg] [facility] Body weight 2854.4 [oz_av] 2854.4 [oz_av] ATHEN A ([facility]) Diastolic blood pressure 77 mm[Hg] 77 mm[Hg] BENNIE ([facility]) Diastolic blood pressure 77 mm[Hg] 77 mm[Hg] BENNIE ([facility]) Body height 60 [in_i] 60 [in_i] BENNIE ([facility]) Body mass index (BMI) [Ratio] 34.97 kg/m2 34.97 kg/m2 BENNIE ([facility]) Systolic blood pressure 166 mm[Hg] 166 mm[Hg] [facility] Body weight 2854.4 [oz_av] 2854.4 [oz_av] ATHEN A ([facility]) Body height 60 [in_i] 60 [in_i] BENNIE ([facility]) Systolic blood pressure 166 mm[Hg] 166 mm[Hg] [facility] Body weight 2854.4 [oz_av] 2854.4 [oz_av] ATHEN A ([facility]) Diastolic blood pressure 77 mm[Hg] 77 mm[Hg] BENNIE ([facility]) Diastolic blood pressure 77 mm[Hg] 77 mm[Hg] BENNIE ([facility]) Body height 60 [in_i] 60 [in_i] BENNIE ([facility]) Body height 60 [in_i] 60 [in_i] BENNIE ([facility]) Systolic blood pressure 166 mm[Hg] 166 mm[Hg] [facility] Body weight 2854.4 [oz_av] 2854.4 [oz_av] ATHEN A ([facility]) Body mass index (BMI) [Ratio] 34.97 kg/m2 34.97 kg/m2 BENNEI ([facility]) Systolic blood pressure 166 mm[Hg] 166 mm[Hg] [facility] Body weight 2854.4 [oz_av] 2854.4 [oz_av] ATHEN A ([facility]) Diastolic blood pressure 77 mm[Hg] 77 mm[Hg] BENNIE ([facility]) Body height 60 [in_i] 60 [in_i] BENNIE ([facility]) Body mass index (BMI) [Ratio] 34.97 kg/m2 34.97 kg/m2 BENNIE ([facility]) Systolic blood pressure 166 mm[Hg] 166 mm[Hg] A THENA ([facility]) Body weight 2854.4 [oz_av] 2854.4 [oz_av] ATHEN A ([facility]) Diastolic blood pressure 77 mm[Hg] 77 mm[Hg] BENNIE ([facility]) Body height 60 [in_i] 60 [in_i] BENNIE ([facility]) Body mass index (BMI) [Ratio] 34.97 kg/m2 34.97 kg/m2 BENNIE ([facility]) Systolic blood pressure 166 mm[Hg] 166 mm[Hg] A [facility]NA [facility] [facility]) Body weight 2854.4 [oz_av] 2854.4 [oz_av] ATHEN A ([facility]) Systolic blood pressure 166 mm[Hg] 166 mm[Hg] A THENA ([facility]) Body weight 2854.4 [oz_av] 2854.4 [oz_av] ATHEN A ([facility]) Diastolic blood pressure 77 mm[Hg] 77 mm[Hg] BENNIE ([facility]) Body height 60 [in_i] 60 [in_i] BENNIE ([facility]) Body mass index (BMI) [Ratio] 34.97 kg/m2 34.97 kg/m2 BENNIE ([facility]) Systolic blood pressure 166 mm[Hg] 166 mm[Hg] [facility]) Body weight 2854.4 [oz_av] 2854.4 [oz_av] ATHEN A ([facility]) Diastolic blood pressure 77 mm[Hg] 77 mm[Hg] BENNIE ([facility]) Body height 60 [in_i] 60 [in_i] BENNIE ([facility]) Body mass index (BMI) [Ratio] 34.97 kg/m2 34.97 kg/m2 BENNIE ([facility]) Diastolic blood pressure 77 mm[Hg] 77 mm[Hg] BENNIE ([facility]) Body height 60 [in_i] 60 [in_i] BENNIE ([facility]) Body mass index (BMI) [Ratio] 34.97 kg/m2 34.97 kg/m2 BENNIE ([facility]) Systolic blood pressure 166 mm[Hg] 166 mm[Hg] A THENA ([facility]) Body weight 2854.4 [oz_av] 2854.4 [oz_av] ATHEN A ([facility]) Diastolic blood pressure 77 mm[Hg] 77 mm[Hg] BENNIE ([facility]) Body height 60 [in_i] 60 [in_i] BENNIE ([facility]) Body mass index (BMI) [Ratio] 34.97 kg/m2 34.97 kg/m2 BENNIE ([facility]) Systolic blood pressure 166 mm[Hg] 166 mm[Hg] A THENA ([facility]) Body weight 2854.4 [oz_av] 2854.4 [oz_av] ATHEN A ([facility]) Diastolic blood pressure 77 mm[Hg] 77 mm[Hg] BENNIE ([facility]) Body height 60 [in_i] 60 [in_i] BENNIE ([facility]) Body mass index (BMI) [Ratio] 34.97 kg/m2 34.97 kg/m2 BENNIE ([facility]) Systolic blood pressure 166 mm[Hg] 166 mm[Hg] [facility] Body weight 2854.4 [oz_av] 2854.4 [oz_av] ATHEN A ([facility]) Diastolic blood pressure 77 mm[Hg] 77 mm[Hg] BENNIE ([facility]) Body height 60 [in_i] 60 [in_i] BENNIE ([facility]) Body mass index (BMI) [Ratio] 34.97 kg/m2 34.97 kg/m2 BENNIE ([facility]) Systolic blood pressure 166 mm[Hg] 166 mm[Hg] A [facility] ([facility]) Body weight 2854.4 [oz_av] 2854.4 [oz_av] ATHEN A ([facility]) Diastolic blood pressure 77 mm[Hg] 77 mm[Hg] BENNIE ([facility]) Body height 60 [in_i] 60 [in_i] BENNIE ([facility]) Body mass index (BMI) [Ratio] 34.97 kg/m2 34.97 kg/m2 BENNIE ([facility]) Systolic blood pressure 166 mm[Hg] 166 mm[Hg] A THENA ([facility]) Body weight 2854.4 [oz_av] 2854.4 [oz_av] ATHEN A ([facility]) Systolic blood pressure 166 mm[Hg] 166 mm[Hg] A THENA ([facility]) Body weight 2854.4 [oz_av] 2854.4 [oz_av] ATHEN A ([facility]) Diastolic blood pressure 77 mm[Hg] 77 mm[Hg] BENNIE ([facility]) Body height 60 [in_i] 60 [in_i] BENNIE ([facility]) Body mass index (BMI) [Ratio] 34.97 kg/m2 34.97 kg/m2 BENNIE ([facility]) Diastolic blood pressure 77 mm[Hg] 77 mm[Hg] BENNIE ([facility]) Body height 60 [in_i] 60 [in_i] BENNIE ([facility]) Body mass index (BMI) [Ratio] 34.97 kg/m2 34.97 kg/m2 BENNIE ([facility]) Systolic blood pressure 166 mm[Hg] 166 mm[Hg] A CHRISTOPHER ([facility]) Body weight 2854.4 [oz_av] 2854.4 [oz_av] ION Ortega ([facility]) Patient Treatment Plan of Care Planned Activity Planned Date Details Description Data Source (s) Acetaminophen 500 MG Oral Tablet 07/23/2020 12:00:00 AM EDT [facility] ([facility]) Acetaminophen 500 MG Oral Tablet 07/23/2020 12:00:00 AM EDT [facility] ([facility]) Acetaminophen 500 MG Oral Tablet 07/23/2020 12:00:00 AM EDT [facility] ([facility]) Acetaminophen 500 MG Oral Tablet 07/23/2020 12:00:00 AM EDT BENNIE ([facility]) Acetaminophen 500 MG Oral Tablet 07/23/2020 12:00:00 AM EDT BENNIE ([facility]) Acetaminophen 500 MG Oral Tablet 07/23/2020 12:00:00 AM EDT BENNIE ([facility]) Acetaminophen 500 MG Oral Tablet 07/23/2020 12:00:00 AM EDT BENNIE ([facility]) Acetaminophen 500 MG Oral Tablet 07/23/2020 12:00:00 AM EDT [facility]ENNIE ([facility]) 8 HR Acetaminophen 650 MG Extended Release Oral Tablet [Tylenol] BENNIE ([facility]) ramelteon 8 MG Oral Tablet A [facility] ([facility]) [employer] COVID-19 Vaccine (PF) 30 mcg/0.3 mL IM suspension(EUA) ADMINISTER 0.3ML IN THE MUSCLE DIRECTED BENNIE ([facility]) lidocaine 5 % topical patch APPLY 1 PATC H BY TOPICAL ROUTE ONCE DAILY (MAY WEAR UP TO 12HOURS.) BENNIE ([facility]) Hydroxyzine Hydrochloride 50 MG Oral Tablet BENNIE ([facility]) Hydroxyzine Hydrochloride 25 MG Oral Tablet BENNIE ([facility]) Escitalopram 5 MG Oral Tablet BENNIE ([facility]) Diclofenac Sodium 0.01 MG/MG Topical Gel BENNIE ([facility]) 8 HR Acetaminophen 650 MG Extended Release Oral Tablet [Tylenol] BENNIE ([facility]) ramelteon 8 MG Oral Tablet A THENA ([facility]) Pfizer-BioNTech COVID-19 Vaccine (PF) 30 mcg/0.3 mL IM suspension(EUA) ADMINISTER 0.3ML IN THE MUSCLE DIRECTED BENNIE ([facility]) lidocaine 5 % topical patch APPLY 1 PATC H BY TOPICAL ROUTE ONCE DAILY (MAY WEAR UP TO 12HOURS.) BENNIE ([facility]) Hydroxyzine Hydrochloride 50 MG Oral Tablet BENNIE ([facility]) Hydroxyzine Hydrochloride 25 MG Oral Tablet BENNIE ([facility]) Escitalopram 5 MG Oral Tablet BENNIE ([facility]) Diclofenac Sodium 0.01 MG/MG Topical Gel BENNIE ([facility]) 8 HR Acetaminophen 650 MG Extended Release Oral Tablet [Tylenol] BENNIE ([facility]) ramelteon 8 MG Oral Tablet A THENA ([facility]) Pfizer-BioNTech COVID-19 Vaccine (PF) 30 mcg/0.3 mL IM suspension(EUA) ADMINISTER 0.3ML IN THE MUSCLE DIRECTED BENNIE ([facility]) lidocaine 5 % topical patch APPLY 1 PATC H BY TOPICAL ROUTE ONCE DAILY (MAY WEAR UP TO 12HOURS.) BENNIE ([facility]) Hydroxyzine Hydrochloride 50 MG Oral Tablet BENNIE ([facility]) Hydroxyzine Hydrochloride 25 MG Oral Tablet BENNIE ([facility]) Escitalopram 5 MG Oral Tablet BENNIE ([facility]) Diclofenac Sodium 0.01 MG/MG Topical Gel BENNIE ([facility]) 8 HR Acetaminophen 650 MG Extended Release Oral Tablet [Tylenol] BENNIE ([facility]) ramelteon 8 MG Oral Tablet A THENA ([facility]) Pfizer-BioNTech COVID-19 Vaccine (PF) 30 mcg/0.3 mL IM suspension(EUA) ADMINISTER 0.3ML IN THE MUSCLE DIRECTED BENNIE ([facility]) lidocaine 5 % topical patch APPLY 1 PATC H BY TOPICAL ROUTE ONCE DAILY (MAY WEAR UP TO 12HOURS.) BENNIE ([facility]) Hydroxyzine Hydrochloride 50 MG Oral Tablet BENNIE ([facility]) Hydroxyzine Hydrochloride 25 MG Oral Tablet BENNIE ([facility]) Escitalopram 5 MG Oral Tablet BENNIE ([facility]) Diclofenac Sodium 0.01 MG/MG Topical Gel BENNIE ([facility]) 8 HR Acetaminophen 650 MG Extended Release Oral Tablet [Tylenol] BENNIE ([facility]) ramelteon 8 MG Oral Tablet A THENA ([facility]) lidocaine 5 % topical patch APPLY 1 PATC H BY TOPICAL ROUTE ONCE DAILY (MAY WEAR UP TO 12HOURS.) BENNIE ([facility]) Hydroxyzine Hydrochloride 50 MG Oral Tablet BENNIE ([facility]) Hydroxyzine Hydrochloride 25 MG Oral Tablet BENNIE ([facility]) Escitalopram 5 MG Oral Tablet BENNIE ([facility]) Diclofenac Sodium 0.01 MG/MG Topical Gel BENNIE ([facility]) 8 HR Acetaminophen 650 MG Extended Release Oral Tablet [Tylenol] BENNIE ([facility]) ramelteon 8 MG Oral Tablet A THENA ([facility]) lidocaine 5 % topical patch APPLY 1 PATC H BY TOPICAL ROUTE ONCE DAILY (MAY WEAR UP TO 12HOURS.) BENNIE ([facility]) Hydroxyzine Hydrochloride 50 MG Oral Tablet BENNIE ([facility]) Hydroxyzine Hydrochloride 25 MG Oral Tablet BENNIE ([facility]) Escitalopram 5 MG Oral Tablet BENNIE ([facility]) Diclofenac Sodium 0.01 MG/MG Topical Gel BENNIE ([facility]) 8 HR Acetaminophen 650 MG Extended Release Oral Tablet [Tylenol] BENNIE ([facility]) ramelteon 8 MG Oral Tablet A THENA ([facility]) lidocaine 5 % topical patch APPLY 1 PATC H BY TOPICAL ROUTE ONCE DAILY (MAY WEAR UP TO 12HOURS.) BENNIE ([facility]) Hydroxyzine Hydrochloride 50 MG Oral Tablet BENNIE ([facility]) Hydroxyzine Hydrochloride 25 MG Oral Tablet BENNIE ([facility]) Escitalopram 5 MG Oral Tablet BENNIE ([facility]) Diclofenac Sodium 0.01 MG/MG Topical Gel BENNIE ([facility]) 8 HR Acetaminophen 650 MG Extended Release Oral Tablet [Tylenol] BENNIE ([facility]) ramelteon 8 MG Oral Tablet A THENA ([facility]) Hydroxyzine Hydrochloride 50 MG Oral Tablet BENNIE ([facility]) Hydroxyzine Hydrochloride 25 MG Oral Tablet BENNIE ([facility]) Escitalopram 5 MG Oral Tablet BENNIE ([facility]) 8 HR Acetaminophen 650 MG Extended Release Oral Tablet [Tylenol] BENNIE ([facility]) ramelteon 8 MG Oral Tablet A THENA ([facility]) Hydroxyzine Hydrochloride 50 MG Oral Tablet BENNIE ([facility]) Hydroxyzine Hydrochloride 25 MG Oral Tablet BENNIE ([facility]) Escitalopram 5 MG Oral Tablet BENNIE ([facility]) 8 HR Acetaminophen 650 MG Extended Release Oral Tablet [Tylenol] BENNIE ([facility]) ramelteon 8 MG Oral Tablet A THENA ([facility]) Hydroxyzine Hydrochloride 50 MG Oral Tablet BENNIE ([facility]) Hydroxyzine Hydrochloride 25 MG Oral Tablet BENNIE ([facility]) Escitalopram 5 MG Oral Tablet BENNIE ([facility]) 8 HR Acetaminophen 650 MG Extended Release Oral Tablet [Tylenol] BENNIE ([facility]) ramelteon 8 MG Oral Tablet A THENA ([facility]) Hydroxyzine Hydrochloride 50 MG Oral Tablet BENNIE ([facility]) Hydroxyzine Hydrochloride 25 MG Oral Tablet BENNIE ([facility]) Escitalopram 5 MG Oral Tablet BENNIE ([facility]) ramelteon 8 MG Oral Tablet A THENA ([facility]) Hydroxyzine Hydrochloride 50 MG Oral Tablet BENNIE ([facility]) Hydroxyzine Hydrochloride 25 MG Oral Tablet BENNIE ([facility]) Escitalopram 5 MG Oral Tablet BENNIE ([facility]) ramelteon 8 MG Oral Tablet A THENA ([facility]) Hydroxyzine Hydrochloride 50 MG Oral Tablet BENNIE ([facility]) Hydroxyzine Hydrochloride 25 MG Oral Tablet BENNIE ([facility]) 8 HR Acetaminophen 650 MG Extended Release Oral Tablet [Tylenol] BENNIE ([facility]) ramelteon 8 MG Oral Tablet A THENA ([facility]) lidocaine 5 % topical patch APPLY 1 PATC H BY TOPICAL ROUTE ONCE DAILY (MAY WEAR UP TO 12HOURS.) BENNIE ([facility]) Hydroxyzine Hydrochloride 50 MG Oral Tablet BENNIE ([facility]) Hydroxyzine Hydrochloride 25 MG Oral Tablet BENNIE ([facility]) Escitalopram 5 MG Oral Tablet BENNIE ([facility]) Diclofenac Sodium 0.01 MG/MG Topical Gel BENNIE ([facility]) Escitalopram 5 MG Oral Tablet BENNIE ([facility]) ramelteon 8 MG Oral Tablet A THENA ([facility]) Hydroxyzine Hydrochloride 50 MG Oral Tablet BENNIE ([facility]) Hydroxyzine Hydrochloride 25 MG Oral Tablet BENNIE ([facility]) Escitalopram 5 MG Oral Tablet BENNIE ([facility])
[2020-12-19 06:50] VITALS: BP 172/82
== END | disposition home or self-care (01) ==
LOC: M SDC 06:29
PROVIDERS: ATTEND Ophthalmology
DX: Z53.09 Procedure and treatment not carried out because of other contraindication (principal); R09.02 Hypoxemia; I50.9 Heart failure, unspecified; I11.0 Hypertensive heart disease with heart failure; I44.0 Atrioventricular block, first degree; Z95.3 Presence of xenogenic heart valve; I49.5 Sick sinus syndrome; R00.1 Bradycardia, unspecified; G47.00 Insomnia, unspecified; H40.9 Unspecified glaucoma; E78.00 Pure hypercholesterolemia, unspecified; E66.9 Obesity, unspecified; R94.31 Abnormal electrocardiogram [ECG] [EKG]; Z79.899 Other long term (current) drug therapy; Z98.890 Other specified postprocedural states; Z87.891 Personal history of nicotine dependence; F41.9 Anxiety disorder, unspecified; F32.9 Major depressive disorder, single episode, unspecified
CPT/HCPCS: 36415; 71045; 80048; 80076; 83880; 84443; 85025; 87798; 93005; 93041; 94760; 96374; 99284; J1940; J2250; J3010

== ENCOUNTER → 2021-01-12 | Outpatient (REF) | payer MEDICARE, MEDICAID ==
[~2021-01-12] MED LIST changes: +TORS10TA3 PO
[2021-01-12 11:25] LABS: CALCIUM LEVEL 9.5 MG/DL (8.8-10.2); CREATININE FOR GFR 1.26 MG/DL (0.70-1.30); GLOMERULAR FILTRATION RATE 57.4 (>35); POTASSIUM SERUM 4.1 MEQ/L (3.5-5.1)
== END ==
PROVIDERS: ATTEND Physician Assistant
DX: I50.32 Chronic diastolic (congestive) heart failure (principal)